=== PATIENT | female | born 1955 | race African-American/Black ===

== ENCOUNTER → 2017-07-23 06:33 | Outpatient (CLI) | payer OTHER, SELFPAY ==
--- NOTE | 2017-07-23 11:00 | ECHOD_ITS ---
Reason For Study: DYSPNEA Procedure This was a 2D Doppler, Color Flow transthoracic echocardiogram. Exam performed in department. Left Ventricle Normal LV size. Left ventricular systolic function is normal. The estimated ejection fraction is 65 %. No regional wall motion abnormalities noted. Right Ventricle Normal RV size. Normal systolic function. Atria Normal left atrium. Normal right atrium. Mitral Valve Normal mitral valve. Tricuspid Valve Normal tricuspid valve. Aortic Valve Normal aortic valve. Trisinus/trileaflet aortic valve. Pulmonic Valve Normal pulmonic valve. Great Vessels Normal aortic root. The pulmonary artery is normal size. Normal inferior vena cava. Pericardium/Pleural No pericardial effusion. MMode/2D Measurements & Calculations LVIDd: 4.4 cm IVSd: 0.78 cm LVOT diam: 1.8 cm LVIDs: 2.9 cm LVPWd: 0.86 cm LVOT area: 2.5 cm2 RVDd: 3.3 cm FS: 34.7 % Ao root diam: 2.9 cm LAV(MOD-bp): 45.3 ml LA A4 area: 17.8 cm2 LA dimension: 3.4 cm LAV(MOD-bp) Indexed: 22.7 ml/m2 LAV(MOD-sp2): 47.9 ml LAV(MOD-sp4): 42.3 ml RA A4 area: 11.7 cm2 Doppler Measurements & Calculations MV E max tiffanie: 107.6 cm/sec Ao V2 max: 198.6 cm/sec LV V1 max: 134.8 cm/sec MV A max tiffanie: 91.4 cm/sec Ao max P.8 mmHg LV V1 max P.3 mmHg MV E/A: 1.2 KIMBERLY(V,D): 1.7 cm2 PA V2 max: 108.9 cm/sec Interpretation Summary Normal LV size. Left ventricular systolic function is normal. The estimated ejection fraction is 65 %. Structurally normal valves. Ordering Physician: Constantino Hwang Referring Physician: MOER TENORIO Performed By: Meghana Marina, FLORA, RVT
--- NOTE | 2017-07-23 16:13 | STRESSREP ---
Stress Test Report Pharmacologic myocardial perfusion stress test. 61-year-old lady with a history of chest pain. Stress protocol: Resting EKG demonstrates sinus rhythm with a rate of 63 bpm normal intervals noted resting blood pressure is 122/84 mmHg. 0.4 mg of regadenoson was infused per usual protocol followed by rapid intravenous saline flush injection. Continuous EKG monitoring was performed. The maximum heart rate attained was 80 bpm which was 50% of maximum predicted heart rate the maximum workload attained was 1 metabolic equivalents. At rest were no ST or T-wave changes noted suggest abnormal flow reserve. At peak infusion no ST or T-wave changes were noted suggest abnormal flow reserve. Myocardial perfusion protocol : 10.1 mCi of technetium 99m sestamibi was injected at rest. 0.4 mg of adenosine was infused per usual protocol. At peak infusion 32.7 mCi of technetium 99m sestamibi was injected. Stress images were obtained. Stress and rest images were reconstructed and compared in the short axis vertical long and horizontal long axis. Gated images were also obtained. Perfusion SPECT analysis. Review of the stress images demonstrate normal uptake of tracer noted in all areas of the myocardium. The resting images similarly demonstrate normal uptake of tracer noted in all areas of the myocardium. No reversibility is noted suggest ischemia. No infarct is noted. Gated SPECT analysis Estimated ejection fraction is 64%. Conclusion: Normal pharmacologic myocardial perfusion stress test. Preserved ejection fraction.
== END ==
PROVIDERS: Family Provider Family Medicine; PCP Family Medicine; Visit Provider Internal Medicine Cardiovascular Disease
DX: R00.2 Palpitations (principal); R53.82 Chronic fatigue, unspecified; I10 Essential (primary) hypertension; R07.9 Chest pain, unspecified
CPT/HCPCS: 78452; 93017; 93306; A9500; A4216

== ENCOUNTER → 2017-10-10 10:57 | Outpatient (CLI) | payer OTHER, SELFPAY ==
[2017-10-10 12:34] LABS: Absolute Lymphocyte Count 1.86 X10^3/ul (0.83-4.51); Absolute Neutrophil Count 2.6 X10^3/uL (2.0-7.7); Basophil# 0.05 X10^3/uL; Basophil% 0.9 % (0-1); Eosinophil# 0.28 X10^3/uL; Eosinophils% 5.3 % (0-5); Hematocrit 37.4 % (37-47); Hemoglobin 11.8 g/dl (12.0-15.0); Lymphocyte # 1.86 X10^3/ul (4.0); Mean Corp Hgb Conc 31.6 g/gl (32-36); Mean Corpuscular Hgb 26.5 pg (27.0-32.0); Mean Corpuscular Volume 83.9 fL (81-99); Mean Platelet Vol. 11.6 fl (6.2-12.0); Monocyte# 0.52 X10^3/uL; Monocyte% 9.8 % (0-10); Neutrophil # 2.59 X10^3/uL (2.7-7.7); Neutrophil % 48.8 % (47-70); Platelet Count 277 K/mm3 (150-450); RBC Distribution Width CV 14.9 % (11.6-14.6); RBC Distribution Width SD 44.3 fl (35.1-43.9); Red Blood Count 4.46 M/mm3 (4.2-5.4); White Blood Count 5.3 K/mm3 (4.4-11.0)
[2017-10-10 12:36] LABS: POSITIVE COUNT NO; POSITIVE DIFFERENTIAL NO; POSITIVE MORPHOLOGY NO
[2017-10-10 12:45] LABS: AST(SGOT) 13 U/L (15-37); Alanine Aminotransfer ALT/SGPT 21 U/L (13-56); Albumin, Serum 3.8 g/dL (3.2-5.0); Alkaline Phosphatase 70 U/L (45-117); Anion Gap 9 (5-15); BUN 22 mg/dL (7-18); BUN/Creat Ratio 30.6 RATIO (10-20); Calcium,Total 9.2 mg/dL (8.5-10.1); Chloride 106 mmol/L (98-107); Cholesterol 195 mg/dL (200); Creatinine, Serum 0.72 mg/dL (0.55-1.02); EST Glomerular Filtration Rate 87 mL/min (>60); Est Glom Filt Rate - Afr Amer 106 mL/min (>60); Glucose 96 mg/dL (74-106); High Density Lipoprotein 81 mg/dL; Potassium 4.5 mmol/L (3.5-5.1); Protein, Total 7.8 g/dL (6.4-8.2); Sodium Level 141 mmol/L (136-145); Triglycerides 78 mg/dL; Very Low Density Lipoprotein 16 mg/dL (5-40)
[2017-10-10 12:47] LABS: Microalbumin,Random Urine 17.2 mg/L (NO RANGE EST.); Microalbumin:Creatinine Ratio 31.6 mg/g CRE (<30 mg/g CRE)
== END ==
PROVIDERS: Family Provider Family Medicine; PCP Family Medicine; Visit Provider Family Medicine
DX: E11.9 Type 2 diabetes mellitus without complications (principal); E78.5 Hyperlipidemia, unspecified; I10 Essential (primary) hypertension
CPT/HCPCS: 36415; 80053; 80061; 82043; 82570; 85025

== ENCOUNTER → 2017-11-17 15:55 | Outpatient (CLI) | payer OTHER, SELFPAY ==
--- NOTE | 2017-11-17 15:55 | DT_ITS ---
This patient was seen during an EMR downtime November 17, 2017 - November 24, 2017. This patient may have a combination of paper and electronic documentation or all paper documentation. All documentation is viewable within the e-chart portion of [facility] for each patient visit.
== END ==
PROVIDERS: Family Provider Family Medicine; PCP Family Medicine; Visit Provider Family Medicine
DX: R30.0 Dysuria (principal)
CPT/HCPCS: 87086; 87088

== ENCOUNTER 2018-02-06 05:56 | Day surgery (SDC) | payer OTHER, SELFPAY ==
[2018-02-06 06:21] VITALS: BP 132/75; PULSE 67; RESP 16; TEMP 36.3; O2SAT 96; BMI 37.8
[2018-02-06 06:30] LABS: Bedside Glucose 104 mg/dL (70-110)
[2018-02-06] MEDS: Tetracaine 0.5% Ophthalmic Bottle 1 DRP OP (07:44)
[2018-02-06] MEDS: TRYPAN BLUE 0.5 ML DISP.SYRIN (07:51)
--- NOTE | 2018-02-06 08:17 | PCM.DCCATA ---
Discharge Diet: No Restrictions Discharge Activity: - - Take it easy the rest of the day of surgery. Be careful not to trip or fall. Avoid bumping the operated eye and do not rub the eye. You may stay alone, but need to be able to call and/or come in if necessary. Try to sleep on the unoperated side or on your back tonight. Call your doctor if you observe: - - new or increased pain, a worsening of vision, or if you have any questions. Also call the office if you are experiencing a severe headache on the operative side, nausea or vomiting. Allergies/Adverse Reactions: Allergies No Known Allergies Allergy (Verified 01/30/18 10:05) Medications to take at Discharge Metformin HCl [Glucophage] 500 mg PO BIDCM 09/01/14 amlodipine 10 mg-benazepril 40 mg capsule 1 cap PO QDAY 06/03/17 pravastatin 10 mg tablet 10 mg PO QHS 06/03/17 aspirin 81 mg tablet,delayed release 81 mg PO QDAY 06/04/17 naproxen sodium 220 mg capsule 220 mg PO Q12H 06/04/17 gabapentin 300 mg capsule 300 mg PO .COMPLEX cap 09/01/17 tramadol 50 mg tablet 50 mg PO .COMPLEX 09/01/17 zolpidem 5 mg tablet 5 mg PO HS PRN 09/01/17 Doxycycline 20 mg PO DAILY 01/30/18 L.acidoph,Paracasei, B.lactis [Probiotic] 1 each PO DAILY 01/30/18 Primary Care Physician: Ezequiel Cadena DO [Primary Care Provider] - Test Results: Test results from this visit will be discussed in further detail at your follow-up appointment, if applicable. -Take a pain reliever such as Tylenol, Aspirin or Ibuprofen if needed for eye aching or pain. If this is not enough relief for you pain, call your doctor (or the doctor internal salesperson), even at night. -You are scheduled for a follow-up appointment at [facility] the day after surgery. You should have someone drive you. -Transient pain and irritation are due to the incision that was made at the time of surgery and do not indicate any trouble. Our office numbers are or toll-free . If there is no answer, or if it is after our normal business hours, call your surgeon. Our home phone numbers are: Dr. Howell Dr. Perez Dr. Kenney Dr. Hood If you are still unable to reach your doctor, call the answering service and [facility] , and the chucking and sawing machine operator can contact the on-call doctor through a long-range beeper system. INSTRUCTIONS FOLLOWING TOPICAL ANESTHETIC CATARACT SURGERY Protect operated eye with glasses or metal shield at all times. Instill one drop of Cipro (or other antibiotic drop), one drop of Prednisolone and one drop of Flurbiprofen in the operated eye four times a day (breakfast, lunch, dinner and bedtime) until the doctor tells you to quit or decrease them. Wait 3-5 minutes between each drop. Your first drop for today was given after surgery. INSTRUCTIONS FOLLOWING RETROBULBAR CATARACT SURGERY Keep the eye patch and metal shield on until you see your surgeon the day after surgery - these will be removed in the office that day. Do not drive while the patch is on your eye. You will be instructed about the use of drops for the operated eye at that visit.
[2018-02-06 08:18] VITALS: BP 132/75; BP 92/62; PULSE 62; RESP 18; TEMP 36.6; O2SAT 99
[2018-02-06 08:20] VITALS: BP 132/75; BP 92/62; PULSE 60; RESP 18; O2SAT 98
[2018-02-06 08:26] VITALS: BP 132/75; BP 99/59; PULSE 59; RESP 18; O2SAT 97
--- NOTE | 2018-02-06 08:26 | DCINST_ITS ---
Discharge Diet: No Restrictions Discharge Activity: - - Take it easy the rest of the day of surgery. Be careful not to trip or fall. Avoid bumping the operated eye and do not rub the eye. You may stay alone, but need to be able to call and/or come in if necessary. Try to sleep on the unoperated side or on your back tonight. Call your doctor if you observe: - - new or increased pain, a worsening of vision, or if you have any questions. Also call the office if you are experiencing a severe headache on the operative side, nausea or vomiting. Allergies/Adverse Reactions: Allergies No Known Allergies Allergy (Verified 01/30/18 10:05) Medications to take at Discharge Metformin HCl [Glucophage] 500 mg PO BIDCM 09/01/14 amlodipine 10 mg-benazepril 40 mg capsule 1 cap PO QDAY 06/03/17 pravastatin 10 mg tablet 10 mg PO QHS 06/03/17 aspirin 81 mg tablet,delayed release 81 mg PO QDAY 06/04/17 naproxen sodium 220 mg capsule 220 mg PO Q12H 06/04/17 gabapentin 300 mg capsule 300 mg PO .COMPLEX cap 09/01/17 tramadol 50 mg tablet 50 mg PO .COMPLEX 09/01/17 zolpidem 5 mg tablet 5 mg PO HS PRN 09/01/17 Doxycycline 20 mg PO DAILY 01/30/18 L.acidoph,Paracasei, B.lactis [Probiotic] 1 each PO DAILY 01/30/18 Primary Care Physician: Ezequiel Cadena DO [Primary Care Provider] - Test Results: Test results from this visit will be discussed in further detail at your follow- up appointment, if applicable. -Take a pain reliever such as Tylenol, Aspirin or Ibuprofen if needed for eye aching or pain. If this is not enough relief for you pain, call your doctor (or the doctor window covering sales consultant), even at night. -You are scheduled for a follow-up appointment at [facility] the day after surgery. You should have someone drive you. -Transient pain and irritation are due to the incision that was made at the time of surgery and do not indicate any trouble. Our office numbers are or toll-free . If there is no answer, or if it is after our normal business hours, call your surgeon. Our home phone numbers are: Dr. Howell Dr. Perez Dr. Kenney Dr. Hood If you are still unable to reach your doctor, call the answering service and [facility] , and the pattern perforating machine operator can contact the on-call doctor through a long-range beeper system. INSTRUCTIONS FOLLOWING TOPICAL ANESTHETIC CATARACT SURGERY Protect operated eye with glasses or metal shield at all times. Instill one drop of Cipro (or other antibiotic drop), one drop of Prednisolone and one drop of Flurbiprofen in the operated eye four times a day (breakfast, lunch, dinner and bedtime) until the doctor tells you to quit or decrease them. Wait 3-5 minutes between each drop. Your first drop for today was given after surgery. INSTRUCTIONS FOLLOWING RETROBULBAR CATARACT SURGERY Keep the eye patch and metal shield on until you see your surgeon the day after surgery - these will be removed in the office that day. Do not drive while the patch is on your eye. You will be instructed about the use of drops for the operated eye at that visit.
[2018-02-06 08:33] VITALS: BP 115/74; BP 132/75; PULSE 63; RESP 18; TEMP 36; O2SAT 99
[2018-02-06 09:10] VITALS: BP 132/75
== END 2018-02-06 09:19 | disposition home or self-care (01) ==
LOC: SDC 05:57 → AC 05:58
PROVIDERS: Family Provider Family Medicine; PCP Family Medicine; Visit Provider Ophthalmology
PROC: (CPT 66984; principal; 2018-02-06 07:20)
DX: H25.812 Combined forms of age-related cataract, left eye (principal); E11.9 Type 2 diabetes mellitus without complications; H43.813 Vitreous degeneration, bilateral; Z96.1 Presence of intraocular lens
CPT/HCPCS: 66984; 82962; J7120

== ENCOUNTER → 2018-05-15 13:02 | Outpatient (CLI) | payer OTHER, SELFPAY ==
[2018-05-15 15:01] LABS: Absolute Lymphocyte Count 1.71 X10^3/ul (0.83-4.51); Absolute Neutrophil Count 3.5 X10^3/uL (2.0-7.7); Basophil# 0.04 X10^3/uL; Basophil% 0.7 % (0-1); Eosinophil# 0.16 X10^3/uL; Eosinophils% 2.7 % (0-5); Hematocrit 35.5 % (37-47); Hemoglobin 11.2 g/dl (12.0-15.0); Lymphocyte # 1.71 X10^3/ul (4.0); Lymphocyte % 28.6 % (19-41); Mean Corp Hgb Conc 31.5 g/gl (32-36); Mean Corpuscular Hgb 26.8 pg (27.0-32.0); Mean Corpuscular Volume 84.9 fL (81-99); Mean Platelet Vol. 11.3 fl (6.2-12.0); Monocyte# 0.58 X10^3/uL; Monocyte% 9.7 % (0-10); Neutrophil # 3.47 X10^3/uL (2.7-7.7); Neutrophil % 58.1 % (47-70); POSITIVE COUNT NO; POSITIVE DIFFERENTIAL NO; POSITIVE MORPHOLOGY NO; Platelet Count 280 K/mm3 (150-450); RBC Distribution Width CV 15.1 % (11.6-14.6); RBC Distribution Width SD 45.7 fl (35.1-43.9); Red Blood Count 4.18 M/mm3 (4.2-5.4)
[2018-05-15 15:10] LABS: ALB/GLOB Ratio 0.9 RATIO (0.9-2.4); AST(SGOT) 11 U/L (15-37); Alanine Aminotransfer ALT/SGPT 19 U/L (13-56); Albumin, Serum 3.5 g/dL (3.2-5.0); Alkaline Phosphatase 70 U/L (45-117); Anion Gap 6 (5-15); BUN 24 mg/dL (7-18); BUN/Creat Ratio 33.8 RATIO (10-20); Calcium,Total 8.6 mg/dL (8.5-10.1); Chloride 108 mmol/L (98-107); Creatinine, Serum 0.71 mg/dL (0.55-1.02); EST Glomerular Filtration Rate 88 mL/min (>60); Est Glom Filt Rate - Afr Amer 107 mL/min (>60); Globulin 3.9 g/dL (2.2-4.2); Glucose 102 mg/dL (74-106); Potassium 4.4 mmol/L (3.5-5.1); Protein, Total 7.4 g/dL (6.4-8.2); Sodium Level 140 mmol/L (136-145)
[2018-05-15 15:18] LABS: Vitamin B12 1237 pg/mL (211-911)
[2018-05-18 14:43] LABS: ANTINUCLEAR ANTIBODIES DIRECT Negative (Negative)
--- OUTSIDE RECORDS SUMMARY | 2018-07-10 12:03 | XMS RPT_ITS ---
:1955 Author Organization OHIP Support Name Relationship Address Phone JULIANNA WILSON Unavailable Unavailable + [facility] Unavailable [address] + [place] [address] JULIANNA WILSON Unavailable Unavailable + [facility] Unavailable [address] + [place] [address] JULIANNA WILSON Unavailable Unavailable + [facility] Unavailable [address] + [place] [address] JULIANNA WILSON Unavailable Unavailable + [facility] Unavailable [address] + [place] [address] JULIANNA WILSON Unavailable Unavailable + [facility] Unavailable [address] + [place] [address] JULIANNA WILSON Unavailable Unavailable + [facility] Unavailable [address] + [place] [address] JULIANNA WILSON Unavailable Unavailable + [facility] Unavailable [address] + [place] [address] JULIANNA WILSON Unavailable Unavailable + [facility] Unavailable [address] + [place] [address] JULIANNA WILSON Unavailable Unavailable + [facility] Unavailable [address] + [place] [address] SHAH, CHARLES Unavailable [address] + [place] [address] SIOBHAN WILSON Unavailable [address] + [place] [address] [facility] Unavailable [address] + [place] [address] JULIANNA WILSON Un[place] + [place] [facility] Unavailable [address] + [place] [address] [facility] Unavailable [address] + [place] [address] JULIANNA WILSON Un[place] + [place] [facility] Unavailable [address] + [place] [address] Care Team Providers Name Role Phone Constantino Hwang Attending Unavailable SurinderMore penaloza Referring Unavailable Surinder, More Primary Care Unavailable Jaiden, Constantino Attending Unavailable Surinder, More Primary Care Unavailable Jaiden, Constantino Attending Unavailable Jaiden, Constantino Attending Unavailable Jaiden, Constantino Referring Unavailable Surinder, More Primary Care Unavailable Jaiden, Cleveland Attending Unavailable Jaiden, Cleveland Referring Unavailable Jaiden, Cleveland Attending Unavailable SurinderMore Attending Unavailable Surinder, More Primary Care Unavailable SurinderMore penaloza Attending Unavailable Surinder, More Referring Unavailable Surinder, More Primary Care Unavailable ASSESSMENT, HEALTH RISK Attending Unavailable ASSESSMENT, HEALTH RISK Referring Unavailable Surinder, More Primary Care Unavailable Geovanny Kenney Attending Unavailable Geovanny Kenney Referring Unavailable Surinder, More Primary Care Unavailable Surinder, More Primary Care Unavailable Referred, Self Attending Unavailable SurinderMore penaloza Attending Unavailable Surinder, More Primary Care Unavailable PROBLEMS PROBLEMS DATE TYPE CONDITION / CODE ATTENDING STATUS SOURCE Unknown R53.82 - Chronic fatigue, More Cadena Active [place] 8 unspecified / Community R53.82(ICD-10) Hospital Repository Unknown R10.9 - Unspecified SurinderMore penaloza Active [place] 8 abdominal pain / Community R10.9(ICD-10) Hospital Repository Unknown R30.0 - Dysuria / More Cadena Active [place] 8 R30.0(ICD-10) Community Hospital Repository Unknown I10 - Essential (primary) More Cadena Active [place] 8 hypertension / Community I10(ICD-10) Hospital Repository Unknown E11.9 - Type 2 diabetes More Cadena Active [place] 8 mellitus without Community complications / Hospital E11.9(ICD-10) Repository Unknown E78.5 - Hyperlipidemia, More Cadena Active [place] 8 unspecified / Community E78.5(ICD-10) Hospital Repository Unknown R00.2 - Palpitations / Jaiden, [place] Active [place] 8 R00.2(ICD-10) [facility] Repository Unknown E78.00 - Pure Jaiden, [place] Active [place] 8 hypercholesterolemia, Community unspecified / Hospital E78.00(ICD-10) Repository Unknown E78.0 - Pure Jaiden, [place] Active [place] 8 hypercholesterolemia / Community E78.0(ICD-10) Hospital Repository PROCEDURES PROCEDURES No Procedure Records FoundRESULTS RESULTS CBC W/DIFF, AUTOMATED Collected: 05/15/2018 Status: F Source: [place] 1:04 PM [facility] REPOSITORY TYPE CODE TESTS RESULT OUT OF RANGE REFERENCE UNITS LAB L100.1000 4.4-11.0 K/mm3 Normal WBC 6.0 LAB L100.1200 4.2-5.4 M/mm3 Low RBC 4.18 LAB L100.1300 12.0-15.0 g/dl Low HGB 11.2 LAB L100.1400 37-47 % Low HCT 35.5 LAB L100.1500 81-99 fL Normal MCV 84.9 LAB L100.1600 27.0-32.0 pg Low MCH 26.8 LAB L100.1700 32-36 g/gl Low MCHC 31.5 LAB L100.1810 11.6-14.6 % High RDW CV 15.1 LAB L100.1820 35.1-43.9 fl High RDW SD 45.7 LAB L100.1900 150-450 K/mm3 Normal PLT 280 LAB L100.2000 6.2-12.0 fl Normal MPV 11.3 LAB L100.2100 47-70 % Normal NEUT% 58.1 LAB L100.2200 19-41 % Normal LY% 28.6 LAB L100.2300 0-10 % Normal MONO% 9.7 LAB L100.2400 0-5 % Normal EO% 2.7 LAB L100.2500 0-1 % Normal BASO% 0.7 LAB L100.2550 0.0-0.9 % Normal IM GRAN % 0.200 Result Comment: IG% - Immature Granulocytes (promyelocytes, myelocytes and metamyelocytes) > 1% indicates that a LEFT SHIFT is Present. LAB L100.2620 2.0-7.7 X10 3/uL Normal Absolute Neut 3.5 LAB L100.2720 0.83-4.51 X10 3/ul Normal Absolute Lymph 1.71 Performed By: #### L100.0100 #### [facility] [address] [place], [address] COMPREHENSIVE METABOLIC Collected: 05/15/2018 Status: F Source: [facility] 1:04 PM [facility] REPOSITORY TYPE CODE TESTS RESULT OUT OF RANGE REFERENCE UNITS LAB L501.0100 74-106 mg/dL Normal GLU 102 Result Comment: Fasting Glucose result from 100 to 125 mg/dL suggests IMPAIRED HOMEOSTASIS per A.D.A. criteria. Please note revised GLUCOSE reference range effective 2017. LAB L501.1000 7-18 mg/dL High BUN 24 LAB L501.1100 0.55-1.02 mg/dL Normal CREAT,SERUM 0.71 Result Comment: The validity of the calculated GFR AND GFRAA in patients over 70 years has not been determined. Clinical correlation is essential. LAB L501.1110 >60 mL/min Normal EST GFR 88 Result Comment: Non- GFR Calc LAB L501.1115 >60 mL/min Normal EST GFR - AA 107 Result Comment: GFR Calc LAB L501.1300 10-20 RATIO High BUN/CRE 33.8 LAB L501.1500 6.4-8.2 g/dL T Normal PROT 7.4 LAB L501.1800 3.2-5.0 g/dL Normal ALB 3.5 LAB L501.1950 2.2-4.2 g/dL Normal GLOB 3.9 LAB L501.2000 0.9-2.4 RATIO Normal A/G 0.9 LAB L501.2200 8.5-10.1 mg/dL CA Normal 8.6 LAB L501.4100 15-37 U/L Low AST 11 LAB L501.4305 45-117 U/L Normal ALK P 70 LAB L501.4405 13-56 U/L Normal ALT 19 LAB L501.4600 0.20-1.00 mg/dL T Normal BILI 0.40 LAB L501.5300 136-145 mmol/L NA Normal 140 LAB L501.5600 3.5-5.1 mmol/L K Normal 4.4 LAB L501.5900 98-107 mmol/L High CL 108 LAB L501.6100 21.0-32.0 mmol/L Normal CO2 26.0 LAB L501.6200 5-15 Normal GAP 6 Performed By: #### L500.4050 #### [facility] [address] [place], [address] VITAMIN B12 Collected: 05/15/2018 Status: F Source: [place] 1:04 PM [facility] REPOSITORY TYPE CODE TESTS RESULT OUT OF REFERENCE UNITS RANGE LAB L503.0105 211-911 pg/mL High Vitamin B12 1237 Performed By: #### L503.0105 #### [facility] [place], [address] JANES W/ REFLEX MULT Collected: 05/15/2018 Status: F Source: [place] [facility] 1:04 PM [facility] REPOSITORY TYPE CODE TESTS RESULT OUT OF RANGE REFERENCE UNITS LAB L3100.5475 Negative Normal Negative JANES-DIRECT Result Comment: Performed at: - [facility] [address] [id number] Web Worker: Chang Garcia PhD, Phone: [phone] Performed By: #### L3100.5450 #### [facility] (refer to report for specific site) refer to report for address and phone number DISCHARGE INSTRUCTION Observed: 03/10/2018 Status: F Source: [place] 10:54 AM [facility] REPOSITORY [facility] Medical Records Department [address] [place] [address] Instructions for Home/Discharge Instructions 02/06/18 0817 MR#: [id number] Acct: [id number] Name: TUNG WILSON Rep #: [id number] : 1955 62 From: Geovanny Kenney MD PCP: More Cadena DO Status: DEP [facility] [place] Dis[place] Diet: No Restrictions Discharge Activity: - - Take it easy the rest of the day of surgery. Be careful not to trip or fall. Avoid bumping the operated eye and do not rub the eye. You may stay alone, but need to be able to call and/or come in if necessary. Try to sleep on the unoperated side or on your back tonight. Call your doctor if you observe: - - new or increased pain, a worsening of vision, or if you have any questions. Also call the office if you are experiencing a severe headache on the operative side, nausea or vomiting. Allergies/Adverse Reactions: Allergies No Known Allergies Allergy (Verified 01/30/18 10:05) Medications to take at Discharge Metformin HCl [Glucophage] 500 mg PO BIDCM 09/01/14 amlodipine 10 mg-benazepril 40 mg capsule 1 cap PO QDAY 06/03/17 pravastatin 10 mg tablet 10 mg PO QHS 06/03/17 aspirin 81 mg tablet,delayed release 81 mg PO QDAY 06/04/17 naproxen sodium 220 mg capsule 220 mg PO Q12H 06/04/17 gabapentin 300 mg capsule 300 mg PO .COMPLEX cap 09/01/17 tramadol 50 mg tablet 50 mg PO .COMPLEX 09/01/17 zolpidem 5 mg tablet 5 mg PO HS PRN 09/01/17 Doxycycline 20 mg PO DAILY 01/30/18 L.acidoph,Paracasei, B.lactis [Probiotic] 1 each PO DAILY 01/30/18 Primary Care Physician: More Cadena DO [Primary Care Provider] - Test Results: Test results from this visit will be discussed in further detail at your follow-up appointment, if applicable. -Take a pain reliever such as Tylenol, Aspirin or Ibuprofen if needed for eye aching or pain. If this is not enough relief for you pain, call your doctor (or the doctor medical education specialist), even at night. -You are scheduled for a follow-up appointment at [facility] the day after surgery. You should have someone drive you. -Transient pain and irritation are due to the incision that was made at the time of surgery and do not indicate any trouble. Our office numbers are or toll-free [phone]. If there is no answer, or if it is after our normal business hours, call your surgeon. Our home phone numbers are: Dr. Howell Dr. Perez Dr. Kenney Dr. Hood If you are still unable to reach your doctor, call the answering service and [facility] , and the sonoscope operator can contact the on-call doctor through a long-range beeper system. INSTRUCTIONS FOLLOWING TOPICAL ANESTHETIC CATARACT SURGERY Protect operated eye with glasses or metal shield at all times. Instill one drop of Cipro (or other antibiotic drop), one drop of Prednisolone and one drop of Flurbiprofen in the operated eye four times a day (breakfast, lunch, dinner and bedtime) until the doctor tells you to quit or decrease them. Wait 3-5 minutes between each drop. Your first drop for today was given after surgery. INSTRUCTIONS FOLLOWING RETROBULBAR CATARACT SURGERY Keep the eye patch and metal shield on until you see your surgeon the day after surgery - these will be removed in the office that day. Do not drive while the patch is on your eye. You will be instructed about the use of drops for the operated eye at that visit. 03/10/18 1054 <Electronically signed by Geovanny Kenney MD> Date Geovanny Kenney MD CC: More Cadena DO BEDSIDE GLUCOSE Collected: 02/06/2018 Status: F Source: [place] 6:15 AM [facility] REPOSITORY TYPE CODE TESTS RESULT OUT OF RANGE REFERENCE UNITS LAB L501.080 70-110 mg/dL Normal BEDSIDE GLU 104 Result Comment: MANAGEMENT OF PATIENT CARE PER NURSING PROTOCOL Performed By: #### L501.080 #### [facility] Point of Care [address] [place] [address] URINALYSIS, EMPLOYEE Collected: 12/16/2017 Status: F Source: [place] 11:50 AM [facility] REPOSITORY TYPE CODE TESTS RESULT OUT OF RANGE REFERENCE UNITS LAB L400.3000 Yellow COLOR Normal Yellow LAB L400.3050 Clear Normal CLARITY Clear LAB L400.3200 Normal mg/dl Normal GLUCOSE, UR Normal LAB L400.3300 Negative mg/dL Normal BILIRUBIN URINE Negative LAB L400.3400 Negative mg/dl Normal KETONE UR Negative LAB L400.3465 1.002-1.030 Normal SP.GR. DIPSTX 1.020 LAB L400.3550 5.0 - 8.0 pH UR Normal 5.0 LAB L400.3600 Negative mg/dl High PROT 15 DIPSTX LAB L400.3700 Normal mg/dl Normal UROBILI Normal LAB L400.3750 Negative Normal NITRITE UR Negative LAB L400.3780 Negative /ul High 10 OCCULT BLOOD-UR LAB L400.3800 Negative /ul High LEUK 25 ESTERASE Performed By: #### L400.0100 #### [facility] [address] [place], [place], [address] NICOTINE URINE DRUG Collected: 12/16/2017 Status: F Source: [place] SCREEN 11:50 AM [facility] REPOSITORY TYPE CODE TESTS RESULT OUT OF RANGE REFERENCE UNITS LAB L505.6250 TO BE Normal CONFIRMED Result Comment: CONFIRMATORY TESTING FOR ALL POSITIVE URINE DRUG SCREEN RESULTS WILL ONLY BE SENT OUT UPON PHYSICIAN ORDER. The results of Urine Drug Screen methods provide only preliminary analytical test results. A more specific alternate chemical method must be used in order to obtain a confirmed analytical result. Gas chromatography/mass spectrometery (GC/MS) is the preferred confirmatory method. Clinical consideration and professional judgement should be applied to any drug of abuse test result, particularly when preliminary positive results are used. LAB L505.6270 <200 ng/mL Normal COT DRG Negative SCREEN Result Comment: Cotinine is the first-stage metabolite of Nicotine. Performed By: #### L505.6240 #### [facility] [address] [place], [address] CBC, EMPLOYEE Collected: 12/16/2017 Status: F Source: [place] 11:50 AM [facility] REPOSITORY TYPE CODE TESTS RESULT OUT OF RANGE REFERENCE UNITS LAB L100.1000 4.4-11.0 K/mm3 Normal WBC 5.8 LAB L100.1200 4.2-5.4 M/mm3 Normal RBC 4.44 LAB L100.1300 12.0-15.0 g/dl Low HGB 11.5 LAB L100.1400 37-47 % Normal HCT 37.3 LAB L100.1500 81-99 fL Normal MCV 84.0 LAB L100.1600 27.0-32.0 pg Low MCH 25.9 LAB L100.1700 32-36 g/gl Low MCHC 30.8 LAB L100.1810 11.6-14.6 % Normal RDW CV 14.2 LAB L100.1820 35.1-43.9 fl High RDW SD 44.3 LAB L100.1900 150-450 K/mm3 Normal PLT 298 LAB L100.2000 6.2-12.0 fl Normal MPV 10.6 LAB L100.2110 47-70 % Normal NEUT% 59.0 LAB L100.2210 19-41 % Normal LY% 28.0 LAB L100.2310 0-10 % Normal MONO% 9.6 LAB L100.2410 0-5 % Normal EO% 2.9 LAB L100.2510 0-1 % Normal BASO% 0.5 LAB L100.2620 2.0-7.7 X10 3/uL Normal Absolute Neut 3.4 LAB L100.2720 0.83-4.51 X10 3/ul Normal Absolute Lymph 1.63 Performed By: #### L100.0200 #### [facility]. [place], [place], [address] EMPLOYEE PROFILE Collected: 12/16/2017 Status: F Source: [place] 11:50 AM [facility] REPOSITORY TYPE CODE TESTS RESULT OUT OF RANGE REFERENCE UNITS LAB L501.0100 74-106 mg/dL Normal GLU 103 Result Comment: Fasting Glucose result from 100 to 125 mg/dL suggests IMPAIRED HOMEOSTASIS per A.D.A. criteria. Please note revised GLUCOSE reference range effective 2017. LAB L501.1000 7-18 mg/dL Normal BUN 17 LAB L501.1100 0.55-1.02 mg/dL Normal CREAT,SERUM 0.73 Result Comment: The validity of the calculated GFR AND GFRAA in patients over 70 years has not been determined. Clinical correlation is essential. LAB L501.1110 >60 mL/min Normal EST GFR 86 Result Comment: Non- GFR Calc LAB L501.1115 >60 mL/min Normal EST GFR - AA 104 Result Comment: GFR Calc LAB L501.1300 10-20 RATIO High BUN/CRE 23.4 LAB L501.1400 2.6-6.0 mg/dL Normal URIC 5.1 Result Comment: The drugs N-Acetylcysteine and Metamizole may falsely depress this assay. LAB L501.1500 6.4-8.2 g/dL Normal T PROT 7.8 LAB L501.1800 3.2-5.0 g/dL Normal ALB 3.7 LAB L501.1950 2.2-4.2 g/dL Normal GLOB 4.1 LAB L501.2000 0.9-2.4 RATIO Normal A/G 0.9 LAB L501.2200 8.5-10.1 mg/dL Normal CA 9.0 LAB L501.2300 2.5-4.9 mg/dL Normal PHOS 4.0 LAB L501.4100 15-37 U/L Low AST 14 LAB L501.4305 45-117 U/L Normal ALK P 73 LAB L501.4405 13-56 U/L Normal ALT 19 LAB L501.4600 0.20-1.00 mg/dL Normal T BILI 0.70 LAB L501.4700 0.00-0.30 mg/dL Normal D BILI 0.12 LAB L501.4900 200 mg/dL Normal CHOL 191 Result Comment: <200 mg/dL Desirable 200-240 mg/dL Borderline >240 mg/dL High Risk LAB L501.5000 mg/dL Normal TRIG 98 Result Comment: The drugs N-Acetylcysteine and Metamizole may falsely depress this assay. Serum Triglycerides Reference Interval Normal <150 mg/dL Borderline high 150 - 199 mg/dL High 200 - 499 mg/dL Very High > or = 500 mg/dL LAB L501.5300 136-145 mmol/L Normal NA 140 LAB L501.5600 3.5-5.1 mmol/L Normal K 4.5 LAB L501.5900 98-107 mmol/L Normal CL 102 LAB L501.6100 21.0-32.0 mmol/L Normal CO2 28.0 LAB L501.6200 5-15 Normal GAP 10 LAB L501.6400 mg/dL Normal HDL 73 Result Comment: The drugs N-Acetylcysteine and Metamizole may falsely depress this assay. Reference Range HDL <40 mg/dL Low HDL Cholesterol HDL >or= 60 mg/dL High HDL Cholesterol LAB L501.6475 Normal CHOL:HDL 2.60 LAB L501.6500 0-130 mg/dL Normal LDL 98 LAB L501.6600 5-40 mg/dL Normal VLDL 20 LAB L504.2610 84-246 U/L Normal LDH 210 Performed By: #### L500.2900 #### [facility] [address] [place], [address] DOWNTIME REPORT Observed: 12/04/2017 Status: F Source: [place] 1:25 PM [facility] REPOSITORY [facility] Medical Records Department [address] [address] Downtime Report MR#: [id number] Acct: [id number] Name: TUNG WILSON Rep #: [id number] : 1955 62 From: Madhu Reyna PCP: More Cadena DO Status: REG CLI This patient was seen during an EMR downtime November 17, 2017 - November 24, 2017. This patient may have a combination of paper and electronic documentation or all paper documentation. All documentation is viewable within the e-chart portion of [employer] for each patient visit. Observed: 11/17/2017 Status: F Source: [place] CULTURE, URINE 3:55 PM [facility] REPOSITORY RESULT(S) PREVIOUSLY REPORTED ON MANUAL REQUISITION DURING DOWNTIME. Urine Culture Below infection level. ORGANISM 1: Mixed Gram Positive Organisms [place] Count <1000 Performed By: #### M100.0650 #### [facility] [address] [facility] [place], [address] CBC W/DIFF, AUTOMATED Collected: 10/10/2017 Status: F Source: [place] 10:58 AM [facility] REPOSITORY TYPE CODE TESTS RESULT OUT OF RANGE REFERENCE UNITS LAB L100.1000 4.4-11.0 K/mm3 Normal WBC 5.3 LAB L100.1200 4.2-5.4 M/mm3 Normal RBC 4.46 LAB L100.1300 12.0-15.0 g/dl Low HGB 11.8 LAB L100.1400 37-47 % Normal HCT 37.4 LAB L100.1500 81-99 fL Normal MCV 83.9 LAB L100.1600 27.0-32.0 pg Low MCH 26.5 LAB L100.1700 32-36 g/gl Low MCHC 31.6 LAB L100.1810 11.6-14.6 % High RDW CV 14.9 LAB L100.1820 35.1-43.9 fl High RDW SD 44.3 LAB L100.1900 150-450 K/mm3 Normal PLT 277 LAB L100.2000 6.2-12.0 fl Normal MPV 11.6 LAB L100.2100 47-70 % Normal NEUT% 48.8 LAB L100.2200 19-41 % Normal LY% 35.0 LAB L100.2300 0-10 % Normal MONO% 9.8 LAB L100.2400 0-5 % High EO% 5.3 LAB L100.2500 0-1 % Normal BASO% 0.9 LAB L100.2550 0.0-0.9 % Normal IM GRAN % 0.200 Result Comment: IG% - Immature Granulocytes (promyelocytes, myelocytes and metamyelocytes) > 1% indicates that a LEFT SHIFT is Present. LAB L100.2620 2.0-7.7 X10 3/uL Normal Absolute Neut 2.6 LAB L100.2720 0.83-4.51 X10 3/ul Normal Absolute Lymph 1.86 Performed By: #### L100.0100 #### [facility] [address] [place], [address] COMPREHENSIVE METABOLIC Collected: 10/10/2017 Status: F Source: [facility] 10:58 AM [facility] REPOSITORY TYPE CODE TESTS RESULT OUT OF RANGE REFERENCE UNITS LAB L501.0100 74-106 mg/dL Normal GLU 96 Result Comment: Please note revised GLUCOSE reference range effective 2017. LAB L501.1000 7-18 mg/dL High BUN 22 LAB L501.1100 0.55-1.02 mg/dL Normal CREAT,SERUM 0.72 Result Comment: The validity of the calculated GFR AND GFRAA in patients over 70 years has not been determined. Clinical correlation is essential. LAB L501.1110 >60 mL/min Normal EST GFR 87 Result Comment: Non- GFR Calc LAB L501.1115 >60 mL/min Normal EST GFR - AA 106 Result Comment: GFR Calc LAB L501.1300 10-20 RATIO High BUN/CRE 30.6 LAB L501.1500 6.4-8.2 g/dL T Normal PROT 7.8 LAB L501.1800 3.2-5.0 g/dL Normal ALB 3.8 LAB L501.1950 2.2-4.2 g/dL Normal GLOB 4.0 LAB L501.2000 0.9-2.4 RATIO Normal A/G 1.0 LAB L501.2200 8.5-10.1 mg/dL CA Normal 9.2 LAB L501.4100 15-37 U/L Low AST 13 LAB L501.4305 45-117 U/L Normal ALK P 70 LAB L501.4405 13-56 U/L Normal ALT 21 LAB L501.4600 0.20-1.00 mg/dL T Normal BILI 0.40 LAB L501.5300 136-145 mmol/L NA Normal 141 LAB L501.5600 3.5-5.1 mmol/L K Normal 4.5 LAB L501.5900 98-107 mmol/L CL Normal 106 LAB L501.6100 21.0-32.0 mmol/L Normal CO2 26.0 LAB L501.6200 5-15 Normal GAP 9 Performed By: #### L500.4050, L500.4100 #### [facility] [address] [place], [place], [address] LIPID PROFILE Collected: 10/10/2017 Status: F Source: [place] 10:58 AM [facility] REPOSITORY TYPE CODE TESTS RESULT OUT OF RANGE REFERENCE UNITS LAB L501.4900 200 mg/dL Normal CHOL 195 Result Comment: <200 mg/dL Desirable 200-240 mg/dL Borderline >240 mg/dL High Risk LAB L501.5000 mg/dL Normal TRIG 78 Result Comment: The drugs N-Acetylcysteine and Metamizole may falsely depress this assay. Serum Triglycerides Reference Interval Normal <150 mg/dL Borderline high 150 - 199 mg/dL High 200 - 499 mg/dL Very High > or = 500 mg/dL LAB L501.6400 mg/dL Normal HDL 81 Result Comment: The drugs N-Acetylcysteine and Metamizole may falsely depress this assay. Reference Range HDL <40 mg/dL Low HDL Cholesterol HDL >or= 60 mg/dL High HDL Cholesterol LAB L501.6500 0-130 mg/dL Normal LDL 98 LAB L501.6600 5-40 mg/dL Normal VLDL 16 Performed By: #### L500.4050, L500.4100 #### [facility] [address] [facility] [place], [address] MICROALB:CREAT Collected: 10/10/2017 Status: F Source: [place] RATIO,RANDOM UR 10:58 AM [facility] REPOSITORY TYPE CODE TESTS RESULT OUT OF RANGE REFERENCE UNITS LAB L501.1200 NO RANGE EST. mg/dL Normal UR CREAT 54.50 LAB L502.0500 NO RANGE EST. mg/L Normal 17.2 MICROALBUMIN ,UR LAB L502.0600 <30 mg/g CRE mg/g CRE High 31.6 MALB:CREAT Performed By: #### L502.0250 #### [facility] [address] [place], [address] STRESS REPORT Observed: 07/23/2017 Status: F Source: [place] 4:22 PM [facility] REPOSITORY [facility] Cardiovascular Services [address] [place] [id number] MR#: [id number] Acct: [id number] Name: TUNG WILSON Rep #: [id number] : 1955 61 From: Constantino Hwang MD Primary Care: More Cadena DO Status: REG CLI Ordering Dr: Sex: F AA Stress Test Report Pharmacologic myocardial perfusion stress test. 61-year-old lady with a history of chest pain. Stress protocol: Resting EKG demonstrates sinus rhythm with a rate of 63 bpm normal intervals noted resting blood pressure is 122/84 mmHg. 0.4 mg of regadenoson was infused per usual protocol followed by rapid intravenous saline flush injection. Continuous EKG monitoring was performed. The maximum heart rate attained was 80 bpm which was 50% of maximum predicted heart rate the maximum workload attained was 1 metabolic equivalents. At rest were no ST or T-wave changes noted suggest abnormal flow reserve. At peak infusion no ST or T-wave changes were noted suggest abnormal flow reserve. Myocardial perfusion protocol : 10.1 mCi of technetium 99m sestamibi was injected at rest. 0.4 mg of adenosine was infused per usual protocol. At peak infusion 32.7 mCi of technetium 99m sestamibi was injected. Stress images were obtained. Stress and rest images were reconstructed and compared in the short axis vertical long and horizontal long axis. Gated images were also obtained. Perfusion SPECT analysis. Review of the stress images demonstrate normal uptake of tracer noted in all areas of the myocardium. The resting images similarly demonstrate normal uptake of tracer noted in all areas of the myocardium. No reversibility is noted suggest ischemia. No infarct is noted. Gated SPECT analysis Estimated ejection fraction is 64%. Conclusion: Normal pharmacologic myocardial perfusion stress test. Preserved ejection fraction. 07/23/17 1622 <Electronically signed by Constantino Hwang MD> Date Constantino Hwang MD CC: Constantino Hwang MD; More Cadena DO Date Dictated: 07/23/17 1613 Date Transcribed: 07/23/17 161 Conference Interpreter: CO Signed ECHOCARDIOGRAM COMPLETE Observed: 07/23/2017 Status: F Source: [place] 3:15 PM [facility] REPOSITORY [facility] Cardiovascular Services [address] [place] [address] Echo Complete 07/23/17 0835 MR#: [id number] Acct: [id number] Name: TUNG WILSON Rep #: [id number] : 1955 61 From: Constantino Hwang MD Attending Dr: Constantino Hwang MD Status: REG CLI Ordering Dr: Constantino Hwang MD Date: 07/23/17 Location: [facility] Sex: F AA Admitted: Reason For Study: DYSPNEA Procedure This was a 2D Doppler, Color Flow transthoracic echocardiogram. Exam performed in department. Left Ventricle Normal LV size. Left ventricular systolic function is normal. The estimated ejection fraction is 65 %. No regional wall motion abnormalities noted. Right Ventricle Normal RV size. Normal systolic function. Atria Normal left atrium. Normal right atrium. Mitral Valve Normal mitral valve. Tricuspid Valve Normal tricuspid valve. Aortic Valve Normal aortic valve. Trisinus/trileaflet aortic valve. Pulmonic Valve Normal pulmonic valve. Great Vessels Normal aortic root. The pulmonary artery is normal size. Normal inferior vena cava. Pericardium/Pleural No pericardial effusion. MMode/2D Measurements AND Calculations LVIDd: 4.4 cm IVSd: 0.78 cm LVOT diam: 1.8 cm LVIDs: 2.9 cm LVPWd: 0.86 cm LVOT area: 2.5 cm2 RVDd: 3.3 cm FS: 34.7 % Ao root diam: 2.9 cm LAV(MOD-bp): 45.3 ml LA A4 area: 17.8 cm2 LA dimension: 3.4 cm LAV(MOD-bp) Indexed: 22.7 ml/m2 LAV(MOD-sp2): 47.9 ml LAV(MOD-sp4): 42.3 ml RA A4 area: 11.7 cm2 Doppler Measurements AND Calculations MV E max tiffanie: 107.6 cm/sec Ao V2 max: 198.6 cm/sec LV V1 max: 134.8 cm/sec MV A max tiffanie: 91.4 cm/sec Ao max P.8 mmHg LV V1 max P.3 mmHg MV E/A: 1.2 KIMBERLY(V,D): 1.7 cm2 PA V2 max: 108.9 cm/sec Interpretation Summary Normal LV size. Left ventricular systolic function is normal. The estimated ejection fraction is 65 %. Structurally normal valves. Ordering Physician: Constantino Hwang Referring Physician: MORE CADENA Performed By: Meghana Marina, FLORA, RVT 07/23/17 1515 Date Constantino Hwang MD CC: Constantino Hwang MD; More Cadena DO Date Dictated: 07/23/17 0835 Date Transcribed: 07/23/17 1515 Conference Interpreter: Signed CARDIOLOGY VISIT Observed: 06/04/2017 Status: F Source: ORIN REPORT 1:59 PM [facility] REPOSITORY [facility] [address] [place] [address] OFFICE VISIT Date of Service: 06/04/17 MR#: [id number] Acct: [id number] Name: TUNG WILSON Rep #: [id number] : 1955 Provider: Constantino Hwang MD Age/Sex: 61/F [place] [facility] [place]: Signed HPI Palpitations, ref'd by PCP: Chief Complaint: Palpitations Details: TUNG WILSON, is a 61 F who presents to the office today for an initial visit. She is a pleasant lady with no previous cardiac history other than hypertension who says that she has been having some palpitations. She says that she has these quite frequently and she is also been fatigued. It has been associated with some dyspnea with little activity. She has had some chest heaviness but no angina per se. This apparently has been going on for a while. She has had significant stresses in her family including her daughter and . She initially felt that this was related to anxiety but it has not improved blood work as well as chest x-rays were done which were noted to be normal. I also did review her blood work from the summer of this year and earlier this year all of which were normal. Her blood pressure is under excellent control with physical exam today demonstrates clear lung johnson regular rate and rhythm and no pedal edema. Intake Vital Signs06/04/17 Height 5 ft 4 in Intake Visit Reasons: Palpitations, ref'd by PCP Allergies No Known Allergies Allergy (Verified 06/04/17 12:51) Medications Metformin HCl [Glucophage] 500 mg PO BIDCM 09/01/14 [History Confirmed 06/04/17] amlodipine 10 mg-benazepril 40 mg capsule 1 cap PO QDAY 06/03/17 [History Confirmed 06/04/17] gabapentin 300 mg capsule 300 mg PO QDAY cap 06/03/17 [History Confirmed 06/04/17] pravastatin 10 mg tablet 10 mg PO QHS 06/03/17 [History Confirmed 06/04/17] aspirin 81 mg tablet,delayed release 81 mg PO QDAY 06/04/17 [History Confirmed 06/04/17] doxycycline hyclate 20 mg tablet 20 mg PO BID tab 06/04/17 [History Confirmed 06/04/17] naproxen sodium 220 mg capsule 220 mg PO Q12H 06/04/17 [History Confirmed 06/04/17] [facility] Medical History Chest pain (Acute) Fatigue (Acute) Dyspnea (Acute) Obesity (BMI 35.0-39.9 without comorbidity) (Chronic) Palpitations (Acute) Hyperlipidemia (Chronic) Hypertension (Chronic) Type 2 diabetes mellitus without complications (Chronic) Arthritis (Chronic) Surgical History H/O total knee replacement (Chronic) History of section, classical (Chronic) History of total hysterectomy (Chronic) Family History Mother Diabetes Social History Smoking Status: Never smoker ROS Const Const: Positive for fatigue (New onset of fatigue over the past 2 months) and weakness; negative for difficulty sleeping, frequent falls, headache(s) or excessive sweating Eyes Eyes: Negative for loss of peripheral vision, transient loss of vision, blurry vision or double vision ENT ENT: Negative for headache(s), Negative for dizziness, Negative for Nosebleed/epistaxis, Negative for balance problems Cardio Chest Pain: Yes (Has palpitations with heaviness) Frequency: weekly Character: other (heaviness ) Onset: at rest Location: mid sternal Duration: minutes Palpitations: Positive for Yes (last a few seconds and cause her to feel lightheaded) Edema: None Muscle aches with walking: None Resp Respiratory: Positive for SOB with activity (Dyspnea with little exertion for the past 2 months); negative for SOB at rest, SOB orthopnea\SOB lying down or paroxysmal nocturnal dyspnea GI GI: Negative nausea or heartburn : Negative for hematuria Musc Musc: Positive for joint pain (bilateral knee pain); negative for muscle aches/ myalgia, muscle weakness or balance problems Skin Skin: Negative non-healing lesions, unusual bruising or rash Neuro Neuro: Positive for weakness, Negative for frequent falls, Negative for blurry vision, Negative for headache(s), Negative for dizziness, Positive for lightheadedness (dizziness after bending over ), Negative for double vision, Negative for orthostatic symptoms Edwin Hematologic/Lymphatic: Negative for easy bruising Endo Endo: Positive for fatigue (New onset of fatigue over the past 2 months); negative for excessive sweating or increased thirst/drinking Psych Psych: Negative for anxiety or depression Allergy Allergy/Immunology: Negative for hives, Negative for rash Cardiology Exam Const Appearance: cooperative, healthy appearing, well developed, well groomed and no acute distress Nutritional Appearance: well nourished and average body habitus Orientation: alert, awake and oriented x3 Head Head: normal to inspection, normocephalic and atraumatic Ears: hearing grossly normal bilaterally and external ears normal Nose: external nose normal, nasal mucous membranes and turbinates normal, nares normal, septum normal, no nasal discharge Face and Sinus: face symmetric Mouth: oral mucosae normal, tongue normal, oropharynx normal and moist mucous membranes Teeth and gingiva: dentition normal Throat: posterior oropharynx normal, tonsils normal and uvula midline Eyes General: appearance normal, both eyes and all related structures Eyelids: eyelids normal Conjunctivae: conjunctivae normal Pupils: PERRL, normal by confrontation and accommodation normal EOM: EOM intact bilaterally Neck Neck: normal visual inspection, trachea midline and no JVD JVD: +5 Carotids: normal carotid upstroke and bounding pulses Chest Chest inspection: normal inspection of the chest, symmetric chest movement and normal respiratory effort Auscultation: Bilateral: Clear to Auscultation Cardio Palpation: normal PMI Rate: regular rate Rhythm: regular rhythm Heart sounds: S1 normal, S2 normal and normal, physiologic split S2; negative rub, gallop or murmur GI GI: normal to inspection, soft, no hepatosplenomegaly and bowel sounds present Neuro General: alert, awake, oriented x3, no focal sensory deficit, gait normal and moves all extremities Skin Skin: no rashes or lesions noted Extremities Pulses: Normal: Right Femoral Pulse, Left Femoral Pulse, Right Dorsalis Pedis Pulse, Left Dorsalis Pedis Pulse, Right Posterior Tibial Pulse, Left Posterior Tibial Pulse, Right Radial Pulse, Left Radial Pulse Lower Extremity Edema: None: Bilateral Musculoskel Musculoskeletal: No joint tenderness Psych Psychological: normal affect Assessment AND Plan 1. Palpitations R00.2 Plan The etiology and characterization of the above are not clear to me at this time I recommend that we place a 24-hour Holter monitor as well as an echocardiogram to assess left ventricular function and depending on the findings further recommendations will then be made. Orders Orders: 2. Chronic fatigue R53.82; R53.82 Plan My recommendation at this time will be to obtain a stress test to see whether we can compare with other 61-year-old's to see how she is doing. I do not think that repeat blood testing is warranted here it looks like you have performed most of the usual blood tests. She does have a family history of lupus but says that she had this checked a few years ago. If we do not find anything in testing it may not be a bad idea to retest her for a connective tissue disorder. Orders Orders: 3. Essential hypertension I10; I10; I10 Plan Her blood pressure appears to be under good control on the amlodipine benazepril combination and we will continue with the routine checks of her chemistry profile. Orders Orders: 4. Pure hypercholesterolemia E78.00; E78.00; E78.00; E78.0 Plan She is on a low intensity statin and her most recent lipid profile demonstrated total cholesterol 186 and LDL of 95 and an HDL of 75. These numbers are excellent and I would not suggest we make any changes. 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) 06/04/17 6059 <Electronically signed by Constantino Hwang MD> Date Constantino Hwang MD Cosigner Signature: Date (if applicable) CC: More Cadena DO ALLERGIES ALLERGIES DATE TYPE / CODE NAME / CODE REACTION SEVERITY SOURCE 01/30/2018 Drug No Known Unknown [facility] Allergy/4160 Allergies/F00 [place] 2899102(SNOMED 0396729(RXNOR Repository CT) M) 09/01/2017 Drug simvastatin/F MYALGIAS MO [facility] Allergy/4160 [id number](RXN [facility] 57741(SNOMED ORM) Repository CT) ENCOUNTERS ENCOUNTERS ADMIT/DISCHARGE ACCOUNT ADMITTING ENCOUNTER LOCATION SOURCE NUMBER CLASS 05/15/2018 [id number] Ambulatory [facility] 7 [facility] ing:BFHLAB Repository 03/02/2018 [id number] Ambulatory [facility] [place] 6 [facility] ing:MASS Repository 02/06/2018/ [id number] Ambulatory [place] [facility] 8 3 [facility] ing:SDC Repository 12/16/2017 [id number] Ambulatory [place] 0 [facility] ing:EMPH Repository 11/17/2017 [id number] Ambulatory [facility] 6 [facility] ing:BFHLAB Repository 10/10/2017 [id number] Ambulatory [place] 3 [facility] ing:BFHLAB Repository 09/02/2017 [id number] Ambulatory BMSBuilding:B [facility] 5 [facility] Repository 07/23/2017 [id number] Ambulatory [facility] 4 [facility] ing:CVS Repository 07/23/2017 [id number] Ambulatory BMSBuilding:W [place] 4 [facility] Repository 06/04/2017 [id number] Ambulatory [place] 0 [facility] ing:PSN Repository 06/04/2017/ [id number] Ambulatory BMSBuilding:B [place] 7 7 [facility] Repository 06/04/2017 [id number] Ambulatory BMSBuilding:W [facility] Repository PAYERS PAYERS ENCOUNTER GUARANTOR PAYER SUBSCRIBER SOURCE 05/15/2018 [place] Primary Insurance:[facility] TUNG [place] [id number] [facility]CRO[facility]: [facility] 6838[place]96[place] Number: Repository [address]Lgi: 330 [id number] [phone] () Date:6426-23-38HR [address] [place] [address]ZZ: CHECK WEBSITE 05/15/2018 Secondary NOT GIVENUNK [place] Insurance:SELF PAY [facility] Number: Effective Repository Date:2018-05-15 03/02/2018 [place] Primary NOT GIVENUNK [place] [id number] Insurance:SELF PAY [place], [place] Number: Effective Repository [id number]: 330) Date:2018-01-16 [phone] () 02/06/2018 [place] Primary Insurance:[facility] TUNG Sr [id number] [facility] BANCROFTDOB: [facility] 7977[place]40-08[place], [place] Number: Repository [address]Rbv: 330 [id number] [phone] (HP) Date:4827-34-93KD [address] [address]VOI, [place] [address]OV: CHECK WEBSITE 02/06/2018 Secondary NOT GIVENUNK [place] Insurance:SELF PAY [facility] Number: Effective Repository Date:2017-12-23 12/16/2017 [place] Primary NOT GIVENUNK [place] [id number] Insurance:SELF PAY [place] Number: Effective Repository [address]Kyt: (330) Date:2017-12-16 [phone] (HP) 11/17/2017 [place] Primary Insurance:[facility] TUNG [place] [id number] [facility] BANCROFTDOB: [facility] 4317-04-05ON[place] Number: Repository [address]Tlc: 330 [id number] [phone] () Date:8155-40-02QT [address] [address]JNA[place], [place] [address]UO: CHECK WEBSITE 11/17/2017 Secondary NOT GIVENUNK [place] Insurance:SELF PAY [facility] Number: Effective Repository Date:2017-11-17 10/10/2017 [place] Primary Insurance:[facility] TUNG [place] [id number] [facility] BANCROFTDOB: [facility] 6188-53-94HGORenties[place], [place] Number: Repository [address]Wxj: 330 [id number] [phone] (HP) Date:9054-21-00UG [address] [address]QEHSWBQCP, [place] [address]CB: CHECK WEBSITE 10/10/2017 Secondary NOT GIVENUNK Or[place] Insurance:SELF PAY [facility] Number: Effective Repository Date:2017-10-10 09/02/2017 [place] Primary Insurance:[facility] TUNG [place] [id number] [facility] BANCROFTDOB: [facility] DORNO SERVICESG[facility] 6218-36-04GVTRenties[place], [place] Number: Repository [address]Ejd: 330 [id number] [phone] (HP) Date:8496-60-17LG [address] [address]OLMLWZVVL, [place] [address]WM: CHECK WEBSITE 09/02/2017 Secondary NOT GIVENUNK [place] Insurance:SELF PAY [facility] Number: Effective Repository Date:2017-06-04 07/23/2017 [place] Primary Insurance:[facility] TUNG [id number] [facility] BANCROFTDOB: Community DORNOCH SERVICESG[facility] 0952-16-45HUKRentiesville, [place] Number: Repository [address]Rwh: 330 [id number] [phone] () Date:7936-92-05XZ [address] [address]EMIJIMPVQ, [place] [address]JI: CHECK WEBSITE 07/23/2017 Secondary NOT GIVENUNK [place] Insurance:SELF PAY [facility] Number: Effective Repository Date:2017-06-04 07/23/2017 SAT[place] Primary [facility] [id number] [facility] BANCROFTDOB: [facility] DORNO SERVICESG[facility] 7414-60-86KNGRenties[place], [place] Number: Repository [address]Fow: 330 [id number] [phone] () Date:9085-34-79UC [address] [address]WZPVJLUJW, [place] [address]KU: CHECK WEBSITE 07/23/2017 Secondary NOT GIVENUNK [place] Insurance:SELF PAY [facility] Number: Effective Repository Date:2017-07-23 06/04/2017 [place] Primary Insurance:[facility] TUNG PATINOOFT3634 [facility]FTD[facility]: [facility] DORNO SERVICESG[facility] 7511-11-39ZOXRentiesville, [place] Number: Repository [address]Uof: 330 [id number] [phone] () Date:4228-27-29OU [address] [address]CUMSRBGUY, [place] [address]HT: CHECK WEBSITE 06/04/2017 Secondary NOT GIVENUNK Or[place] Insurance:SELF PAY [facility] Number: Effective Repository Date:2017-06-04 06/04/2017 [place] Primary Insurance:[facility] TUNG [place] [id number] [facility] BANOFTDOB: [facility] 2928-12-47UNCRentiesville, [place] Number: Repository [address]Swa: 330 [id number] [phone] () Date:5739-65-29BM [address] [address]ZXYPJBHFS, [place] [address]KA: CHECK WEBSITE 06/04/2017 Secondary NOT GIVENUNK Or[place] Insurance:SELF PAY [facility] Number: Effective Repository Date:2017-05-17 06/04/2017 [place] Primary Insurance:[facility] [id number] [facility]ANMCL[facility] HOSPITALTDOB: [facility] 1748-27-61ABIRenties[place], [place] Number: Repository [address]Iqt: 330 [id number] [phone] () Date:9869-10-28ZZ [address] [address]EXULMKUZJ, [place] [address]GP: CHECK WEBSITE 06/04/2017 Secondary NOT GIVENUNK Or[place] Insurance:SELF PAY [facility] Number: Effective Repository Date:2017-06-04
== END ==
PROVIDERS: Family Provider Family Medicine; PCP Family Medicine; Visit Provider Family Medicine
DX: R10.9 Unspecified abdominal pain (principal); R53.82 Chronic fatigue, unspecified
CPT/HCPCS: 36415; 80053; 82607; 85025; 86038; 86225; 86235

== ENCOUNTER → 2018-10-01 10:33 | Outpatient (CLI) | payer OTHER, SELFPAY ==
--- NOTE | 2018-10-01 10:38 | RAD_ITS ---
STUDY: X-RAY - RIGHT ANKLE REASON FOR EXAM: Pain. TECHNIQUE: 3 view(s) of the ankle. COMPARISON: Radiographs 06/17/2016. FINDINGS: There is chronic healed fracture deformity of the medial and lateral malleoli. Normal tibiotalar articulation and ankle mortise. There is a prominent plantar calcaneal enthesophyte and a small posterior calcaneal enthesophyte. There is a dorsal spur of the neck of the talus. The visualized subtalar, talonavicular, calcaneocuboid and tarsal articulations are normal. The soft tissue structures are unremarkable. RAD/Ankle min 3 Views IMPRESSION: Chronic healed fracture deformity of the medial and lateral malleoli. Dorsal spur of the talus. Calcaneal enthesopathy. Electronically Signed: Pepe Gallego MD at 14:33 EDT Tel , Service support ,
== END ==
PROVIDERS: Family Provider Family Medicine; PCP Family Medicine; Referring Provider Internal Medicine; Visit Provider Internal Medicine
DX: M25.571 Pain in right ankle and joints of right foot (principal)
CPT/HCPCS: 73610

== ENCOUNTER → 2018-11-02 11:28 | Outpatient (CLI) | payer OTHER, SELFPAY ==
[2018-11-02 11:31] LABS: Mucous, Urine 0 SEEN /hpf (<or=2+); Red Blood Cells-Urine 0 SEEN /hpf (0-5)
[2018-11-02 15:31] LABS: Color, Urine Yellow (Yellow); Glucose, Dipstick Normal (Normal); Ketone-Dipstick Negative (Negative); Leukocyte Esterase-Dipstick 25 /ul (Negative); Nitrite-Dipstick Negative (Negative); Occult Blood-Urine Negative /ul (Negative); Protein-Dipstick Negative (Negative); Specific Gravity, Urine 1.015 (1.002-1.030); Urine Bilirubin Dipstick Negative (Negative); Urine Clarity Clear (Clear); Urine Urobilinogen Normal (Normal)
[2018-11-02 15:44] LABS: Bacteria RARE /hpf (None Seen); Squamous Epithelial Cells - UA 0-5 SEEN /hpf (5-10); White Blood Cells 0-5 SEEN /hpf (0-5)
== END ==
PROVIDERS: Family Provider Family Medicine; PCP Family Medicine; Visit Provider Family Medicine
DX: R31.9 Hematuria, unspecified (principal)
CPT/HCPCS: 81001

== ENCOUNTER → 2018-11-27 10:48 | Outpatient (CLI) | payer OTHER, SELFPAY ==
--- NOTE | 2018-11-27 10:51 | BI_ITS ---
MAMMOGRAPHY - BILATERAL SCREENING REASON FOR EXAM: Female, 62 years old. Routine annual screening examination. PERTINENT HISTORY: Non-contributory. TECHNIQUE: Digital bilateral breast annette (3D mammographic acquisition) in the CC and MLO projections. 2-D mediolateral oblique (MLO) and craniocaudad (CC) views of both breasts were obtained. CAD: Full Field Digital Mammography with Computer Added Detection was performed. COMPARISON: Comparison is made with prior study April 10, 2017 and November 23, 2013. FINDINGS: Breast Composition: The breasts are almost entirely fatty. There are no dominant masses or suspicious calcifications. Stable 1.2 cm well-defined nodule in the superior retroareolar region of the left breast. No other significant abnormalities are identified. There has been no significant change since the prior study. BI/SCREEN MAMM (CAD) W/ANNETTE BILAT IMPRESSION: Stable bilateral screening mammogram. Yearly follow-up mammogram recommended. (A) ASSESSMENT CATEGORY: BIRADS Category 2: Benign. A letter regarding these results will be sent to the patient by the facility within 30 days. Approximately 10% of breast cancers are not detected by mammography. A normal mammogram should not delay biopsy of a clinically suspicious abnormality. [id number] Electronically Signed: Felipe Sneed, at 12:53 EDT , Service support ,
== END ==
PROVIDERS: Family Provider Family Medicine; PCP Family Medicine; Referring Provider Family Medicine; Visit Provider Family Medicine
DX: Z12.31 Encounter for screening mammogram for malignant neoplasm of breast (principal)
CPT/HCPCS: 77063; 77067

== ENCOUNTER → 2019-04-20 11:03 | Outpatient (CLI) | payer OTHER, SELFPAY ==
[2019-04-20 15:37] LABS: ALB/GLOB Ratio 0.8 RATIO (0.9-2.4); AST(SGOT) 15 U/L (15-37); Alanine Aminotransfer ALT/SGPT 27 U/L (13-56); Albumin, Serum 3.8 g/dL (3.2-5.0); Alkaline Phosphatase 89 U/L (45-117); Anion Gap 5 (5-15); BUN 24 mg/dL (7-18); BUN/Creat Ratio 32.3 RATIO (10-20); Calcium,Total 9.1 mg/dL (8.5-10.1); Chloride 103 mmol/L (98-107); Creatinine, Serum 0.74 mg/dL (0.55-1.02); EST Glomerular Filtration Rate 84 mL/min (>60); Est Glom Filt Rate - Afr Amer 101 mL/min (>60); Globulin 4.6 g/dL (2.2-4.2); Glucose 98 mg/dL (74-106); Potassium 4.1 mmol/L (3.5-5.1); Protein, Total 8.4 g/dL (6.4-8.2); Sodium Level 137 mmol/L (136-145); T4 Free Direct 0.79 ng/dL (0.76-1.46); Thyroid Stim Hormone (TSH) 2.02 uIU/mL (0.358-3.74)
[2019-04-20 15:39] LABS: Microalbumin,Random Urine 23.6 mg/L (NO RANGE EST.); Microalbumin:Creatinine Ratio 33.2 mg/g CRE (<30 mg/g CRE)
== END ==
PROVIDERS: Family Provider Family Medicine; PCP Family Medicine; Visit Provider Family Medicine
DX: I10 Essential (primary) hypertension (principal); R53.83 Other fatigue
CPT/HCPCS: 36415; 80053; 82043; 82570; 84439; 84443

== ENCOUNTER → 2019-06-25 20:00 | Outpatient (CLI) | payer OTHER, SELFPAY | PROVIDERS: Family Provider Family Medicine; PCP Family Medicine; Referring Provider Internal Medicine Pulmonary Disease; Visit Provider Internal Medicine Pulmonary Disease | DX: G47.00 Insomnia, unspecified (principal); G47.10 Hypersomnia, unspecified | CPT/HCPCS: 95811 ==

== ENCOUNTER → 2019-06-28 08:38 | Outpatient (CLI) | payer OTHER, SELFPAY ==
[2019-06-28 13:38] LABS: T4 Free Direct 0.83 ng/dL (0.76-1.46); Thyroid Stim Hormone (TSH) 2.35 uIU/mL (0.358-3.74)
[2019-06-29 09:55] LABS: Thyroid Peroxidase AB 7 IU/mL (0-34)
== END ==
PROVIDERS: Family Provider Family Medicine; PCP Family Medicine; Visit Provider Family Medicine
DX: E01.0 Iodine-deficiency related diffuse (endemic) goiter (principal)
CPT/HCPCS: 36415; 84439; 84443; 86376

== ENCOUNTER → 2019-07-06 10:56 | Outpatient (CLI) | payer OTHER, SELFPAY ==
--- NOTE | 2019-07-06 11:00 | US_ITS ---
HISTORY: NODULE. Thyromegaly. COMPARISON: 03/10/2013, report not available at this time TECHNIQUE: Grayscale and color Doppler sonography of the thyroid gland. FINDINGS: RIGHT LOBE: 6.4 x 2.5 x 3.1 cm LEFT LOBE: 7.2 x 2.3 x 2.9 cm ISTHMUS: 16 mm The thyroid parenchyma appears heterogeneous. Hyperechoic, smoothly marginated right thyroid lobe nodule measuring 1.1 x 0.6 x 0.9 cm in the posterior right thyroid lobe. Not demonstrated on the prior study. TIRADS 3. Rim calcified, predominantly isoechoic right thyroid lobe nodule measuring 1.0 x 0.8 x 0.8 cm. Calcification of this lesion has developed in the interim. It is minimally changed in size. TIRADS 4. Mixed solid and cystic, smoothly marginated 1.6 x 1.2 x 1.4 right thyroid lobe nodule with nearly isoechoic solid component. Not demonstrated on the prior study. TIRADS 2. 5 mm left thyroid lobe calcification. 4 mm left thyroid lobe cyst. US/Thyroid IMPRESSION: Enlarged, heterogeneous thyroid. Multiple right thyroid lobe nodules as described. at 0338 Reported and signed by: Jaz Arevalo MD Electronically Signed: Jaz Arevalo MD at 3:38 EST Tel , Service support ,
== END ==
PROVIDERS: Family Provider Family Medicine; PCP Family Medicine; Referring Provider Family Medicine; Visit Provider Family Medicine
DX: E01.0 Iodine-deficiency related diffuse (endemic) goiter (principal)
CPT/HCPCS: 76536

== ENCOUNTER → 2019-11-24 10:34 | Outpatient (CLI) | payer OTHER, SELFPAY ==
[2019-11-24 12:29] LABS: Absolute Lymphocyte Count 1.96 X10^3/uL (0.83-4.51); Absolute Neutrophil Count 4.4 X10^3/uL (2.0-7.7); Basophil# 0.05 X10^3/uL; Basophil% 0.7 % (0-1); Eosinophil# 0.19 X10^3/uL; Eosinophils% 2.6 % (0-5); Hematocrit 38.8 % (37-47); Hemoglobin 11.9 g/dL (12.0-15.0); Lymphocyte # 1.96 X10^3/ul (4.0); Mean Corp Hgb Conc 30.7 g/dL (32-36); Mean Corpuscular Hgb 26.3 pg (27.0-32.0); Mean Corpuscular Volume 85.7 fL (81-99); Mean Platelet Vol. 11.6 fl (6.2-12.0); Monocyte# 0.64 X10^3/uL; Monocyte% 8.8 % (0-10); NRBC Flagged by Analyzer 0 % (0-5); Neutrophil # 4.38 X10^3/uL (2.7-7.7); Neutrophil % 60.5 % (47-70); Platelet Count 299 K/mm3 (150-450); RBC Distribution Width CV 14.9 % (11.6-14.6); RBC Distribution Width SD 46.6 fl (35.1-43.9); Red Blood Count 4.53 M/mm3 (4.2-5.4); White Blood Count 7.3 K/mm3 (4.4-11.0)
[2019-11-24 12:48] LABS: ALB/GLOB Ratio 0.8 RATIO (0.9-2.4); AST(SGOT) 16 U/L (15-37); Alanine Aminotransfer ALT/SGPT 22 U/L (13-56); Albumin, Serum 3.7 g/dL (3.2-5.0); Alkaline Phosphatase 76 U/L (45-117); Anion Gap 6 (5-15); BUN 31 mg/dL (7-18); BUN/Creat Ratio 39.1 RATIO (10-20); Calcium,Total 8.8 mg/dL (8.5-10.1); Chloride 103 mmol/L (98-107); Cholesterol 200 mg/dL (200); Creatinine, Serum 0.79 mg/dL (0.55-1.02); EST Glomerular Filtration Rate 77 mL/min (>60); Est Glom Filt Rate - Afr Amer 94 mL/min (>60); Globulin 4.6 g/dL (2.2-4.2); Glucose 106 mg/dL (74-106); High Density Lipoprotein 77 mg/dL; Potassium 4.4 mmol/L (3.5-5.1); Protein, Total 8.3 g/dL (6.4-8.2); Sodium Level 138 mmol/L (136-145); Triglycerides 84 mg/dL; Very Low Density Lipoprotein 17 mg/dL (5-40)
[2019-11-25 15:19] LABS: Microalbumin:Creatinine Ratio 16.2 mg/g CRE (<30 mg/g CRE)
== END ==
PROVIDERS: Family Provider Family Medicine; PCP Family Medicine; Visit Provider Family Medicine
DX: Z00.00 Encounter for general adult medical examination without abnormal findings (principal); E11.40 Type 2 diabetes mellitus with diabetic neuropathy, unspecified; E78.5 Hyperlipidemia, unspecified; I10 Essential (primary) hypertension; N39.0 Urinary tract infection, site not specified
CPT/HCPCS: 36415; 80053; 80061; 82043; 82570; 85025; 87086; 87088

== ENCOUNTER → 2019-12-13 10:38 | Outpatient (CLI) | payer OTHER, SELFPAY ==
--- NOTE | 2019-12-13 10:50 | BI_ITS ---
MAMMOGRAPHY - BILATERAL SCREENING REASON FOR EXAM: Female, 64 years old. Routine annual screening examination. PERTINENT HISTORY: Non-contributory. TECHNIQUE: Digital bilateral breast annette (3D mammographic acquisition) in the CC and MLO projections. 2-D mediolateral oblique (MLO) and craniocaudad (CC) views of both breasts were obtained. CAD: Full Field Digital Mammography with Computer Added Detection was performed. COMPARISON: Comparison is made with prior study dated November 27, 2018 and April 10, 2017. FINDINGS: Breast Composition: The breasts are almost entirely fatty. There are no dominant masses or suspicious calcifications. Stable prominence of the venous structures. Stable 1.2 cm well-defined nodule in the central aspect of the left breast. No other significant abnormalities are identified. There has been no significant change since the prior study. BI/SCREEN MAMM (CAD) W/ANNETTE BILAT IMPRESSION: Stable bilateral screening mammogram. Yearly follow-up mammogram recommended. (A) ASSESSMENT CATEGORY: BIRADS Category 2: Benign. A letter regarding these results will be sent to the patient by the facility within 30 days. Approximately 10% of breast cancers are not detected by mammography. A normal mammogram should not delay biopsy of a clinically suspicious abnormality. [id number] Electronically Signed: Felipe Sneed, at 12:50 EDT , Service support ,
== END ==
PROVIDERS: PCP Family Medicine; Referring Provider Family Medicine; Visit Provider Family Medicine
DX: Z12.31 Encounter for screening mammogram for malignant neoplasm of breast (principal)
CPT/HCPCS: 77063; 77067

== ENCOUNTER → 2020-03-09 12:51 | Outpatient (CLI) | payer OTHER, SELFPAY ==
--- NOTE | 2020-03-09 13:17 | CT_ITS ---
We are attempting to reach an attending provider to discuss findings. An addendum with communication details will be sent when the communication is complete. STUDY: CTA CHEST REASON FOR EXAM: Female, 64 years old. ELEVATED D DIMER, DYSPNEA UPON EXERTION RADIATION DOSAGE (If Supplied By Facility): CTDIvol = ( 13.68 ) mGy, DLP = ( 500.36 ) mGycm TECHNIQUE: The examination was performed with the intravenous administration of . Post-processing of the angiographic images was performed, with multiplanar reformation and 3D reconstruction. Individualized dose optimization techniques were used for this CT. COMPARISON: None. FINDINGS: There are nonocclusive intraluminal filling defects in branches of the right upper lobe pulmonary artery. This is in keeping with the pulmonary emboli in branches of the right upper lobe pulmonary artery. Normal thoracic aorta and visualized great vessels. There is no demonstrated aortic dissection. There are calcifications of the coronary arteries. Normal mediastinum. Normal hilar regions. Normal visualized trachea and bronchi. The lungs are well expanded. Normal pulmonary parenchyma. Normal pleura. Normal chest wall structures. There are degenerative changes of thoracic spine. Normal visualized upper abdomen. CT/CTA Chest W/WO Contrast IMPRESSION: Nonobstructive intraluminal filling defects in branches of the right upper lobe pulmonary artery. Findings in keeping with pulmonary emboli. Electronically Signed: Felipe Sneed, at 14:41 EDT , Service support ,
== END ==
PROVIDERS: PCP Family Medicine; Referring Provider Family Medicine; Visit Provider Family Medicine
DX: R06.00 Dyspnea, unspecified (principal); R79.89 Other specified abnormal findings of blood chemistry
CPT/HCPCS: 71275; Q9967

== ENCOUNTER 2020-03-16 11:00 | Outpatient (RCR) | payer OTHER, SELFPAY ==
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
[2020-03-08 15:23] LABS: Absolute Lymphocyte Count 2.37 X10^3/uL (0.83-4.51); Absolute Neutrophil Count 4.2 X10^3/uL (2.0-7.7); Basophil# 0.05 X10^3/uL; Basophil% 0.7 % (0-1); Eosinophil# 0.22 X10^3/uL; Eosinophils% 2.9 % (0-5); Hematocrit 36.6 % (37-47); Lymphocyte # 2.37 X10^3/ul (4.0); Lymphocyte % 30.8 % (19-41); Mean Corp Hgb Conc 30.1 g/dL (32-36); Mean Corpuscular Hgb 25.9 pg (27.0-32.0); Mean Corpuscular Volume 86.3 fL (81-99); Mean Platelet Vol. 11.6 fl (6.2-12.0); Monocyte% 10.4 % (0-10); NRBC Flagged by Analyzer 0 % (0-5); Neutrophil # 4.23 X10^3/uL (2.7-7.7); Neutrophil % 54.9 % (47-70); Platelet Count 299 K/mm3 (150-450); RBC Distribution Width CV 14.8 % (11.6-14.6); RBC Distribution Width SD 46.8 fl (35.1-43.9); Red Blood Count 4.24 M/mm3 (4.2-5.4); White Blood Count 7.7 K/mm3 (4.4-11.0)
[2020-03-08 16:24] LABS: D-Dimer Quantitative (DVT/PE) 1.28 FEU/ug/m (0.27-0.49)
--- NOTE | 2020-03-16 11:22 | HP.PTDCSUM ---
It has been my pleasure to treat TUNG WILSON referred by Dr. Abelardo Malcolm DO, with the diagnosis of Right Knee Pain for a total of 9 visit(s). Discharge Date: Please see the following information for a summary of their discharge status. Subjective: Patient reports that the knee is great but her left hip is giving her fits and is pretty miserable. Is unsure if she will see someone for her hip or not. The knee is 100% better. No pain or anything in the knee R knee Pain Intensity (Out of 10): 0 L hip Pain Intensity (Out of 10): 6 % Improvement: 100 Objective/Function: Posture: FH, RS increased kyphosis- can correct but does not maintain. Gait: antalgic- decreased stance on the left LE with poor heel/toe pattern bilaterally, decreased viki and valgus at the knees- increased hip pain. HR/TR: able with pain in the left hip. SLS: unable but does weight shift. Palpation: not tender to the right knee. ROM: 0-120 degrees with pain at end range. Strength: ankle: 5/5 Knee: 5/5 Hip: 4+/5 Core: fair minus. Flex: HS: moderate, Gastroc: moderate. Sensation: WNL. Slump: positive Goal 1:: Patient will be I with HEP and progression Goal Progress: Goal Met Goal 2:: Patient will ambulate >300 feet with a normalized gait pattern Goal Progress: Goal Met Goal 3:: Patient will asc/desc 8 stairs recip with 2 HR Goal 4:: Patient will report no pain than 4/10 pain for 1 week Plan: Discharge- encouraged her to follow up with MD regarding back and left hip If there are questions or concerns regarding this patient's physical therapy, please feel free to call me at [phone]. Thank you for the referral of this patient. Sincerely, Radha Uribe DPT
--- NOTE | 2020-04-12 08:01 | HP.PT.NRP ---
TUNG WILSON was seen in my office for initial evaluation on 02/24/20. The following Plan of Care was established for this patient: Initial Frequency: 3x /Week Initial Duration: 4 Weeks Patient/Client Instruction: Educate patient on: Benefits of Fitness Program Therapeutic Exercise to Include: Strength training, Balance training, Body mechanics, Postural training, Flexibilty training, Gait and locomotor training, Neuromotor development, Passive ROM, Active ROM, Dynamic Lumbar Stabilization For the Purpose of:: To improve muscle performance and motor function TENS: Yes Cryotherapy (ice pack, ice massage): Yes Thermo therapy (hot pack): Yes Ultrasound (thermal/non thermal): No For the Purpose of:: To improve muscle performance and motor function This patient was last seen in our office . Pertinent comments regarding their Physical therapy will appear below: Patient appropriate to be d/c at this time- return to MD for further evaluation as needed. At this point I will be discontinuing this patient from physical therapy. I would be happy to see this patient again in the future if found appropriate by the physician. Thank you! MAGDY AndrewT
== END 2020-03-16 19:00 | disposition home or self-care (01) ==
LOC: PT 11:00
PROVIDERS: PCP Family Medicine; Referring Provider Orthopaedic Surgery; Visit Provider Orthopaedic Surgery
DX: M17.11 Unilateral primary osteoarthritis, right knee (principal); R06.00 Dyspnea, unspecified
CPT/HCPCS: 36415; 84484; 85025; 85379; 97014; 97110; 97161; 97164; G0283

== ENCOUNTER → 2020-03-30 10:04 | Outpatient (CLI) | payer OTHER, SELFPAY ==
[2020-03-30 09:30] VITALS: BMI 42.9
[2020-03-30 10:18] LABS: Hematocrit 37.5 % (37-47); Hemoglobin 11.4 g/dL (12.0-15.0); Mean Corp Hgb Conc 30.4 g/dL (32-36); Mean Corpuscular Hgb 26.1 pg (27.0-32.0); Mean Corpuscular Volume 85.8 fL (81-99); Mean Platelet Vol. 10.7 fl (6.2-12.0); Platelet Count 309 K/mm3 (150-450); RBC Distribution Width CV 14.9 % (11.6-14.6); RBC Distribution Width SD 46.9 fl (35.1-43.9); Red Blood Count 4.37 M/mm3 (4.2-5.4)
[2020-03-30 10:35] LABS: ALB/GLOB Ratio 0.7 RATIO (0.9-2.4); AST(SGOT) 12 U/L (15-37); Alanine Aminotransfer ALT/SGPT 22 U/L (13-56); Albumin, Serum 3.5 g/dL (3.2-5.0); Alkaline Phosphatase 81 U/L (45-117); Anion Gap 2 (5-15); BUN 26 mg/dL (7-18); BUN/Creat Ratio 31.3 RATIO (10-20); Calcium,Total 9.1 mg/dL (8.5-10.1); Chloride 104 mmol/L (98-107); Creatinine, Serum 0.83 mg/dL (0.55-1.02); EST Glomerular Filtration Rate 73 mL/min (>60); Est Glom Filt Rate - Afr Amer 89 mL/min (>60); Globulin 4.7 g/dL (2.2-4.2); Glucose 115 mg/dL (74-106); Potassium 4.8 mmol/L (3.5-5.1); Protein, Total 8.2 g/dL (6.4-8.2); Sodium Level 137 mmol/L (136-145)
== END ==
PROVIDERS: PCP Family Medicine; Referring Provider Surgery; Visit Provider Surgery
DX: R53.83 Other fatigue (principal); E66.9 Obesity, unspecified; E78.5 Hyperlipidemia, unspecified; K62.5 Hemorrhage of anus and rectum
CPT/HCPCS: 36415; 80053; 85027

== ENCOUNTER → 2020-04-03 08:51 | Outpatient (CLI) | payer OTHER, SELFPAY ==
[2020-03-30 09:30] VITALS: BMI 42.9
--- NOTE | 2020-04-03 08:52 | VDLE_ITS ---
Reason For Study: Pulmonary embolism RIGHT LEFT GSV is normal. GSV is normal. CFV is compressible, spontaneous, phasic, CFV is compressible, spontaneous, phasic, competent and demonstrates normal competent, and demonstrates normal augmentation. augmentation. FV is compressible, spontaneous, phasic, FV is compressible, spontaneous, phasic, competent and demonstrates normal competent and demonstrates normal augmentation. augmentation. POP V is compressible, spontaneous, phasic, POP V is compressible, spontaneous, phasic, competent and demonstrates normal competent and demonstrates normal augmentation. augmentation. T/P Trunk is compressible. T/P Trunk is compressible. PTV is compressible. PTV is compressible. RT PerV is compressible. LT PerV is compressible. Procedure This is a venous duplex using B-mode, color flow and spectral Doppler. Exam performed in department. A preliminary report was called and/or faxed to Kai's RN. Interpretation Summary No evidence for acute deep venous thrombosis bilateral lower extremities with patent and compressible bilateral great saphenous veins. Ordering Physician: Marcellus Quinn Referring Physician: Ezequiel Cadena Performed By: Isha Tran RVT
== END ==
PROVIDERS: PCP Family Medicine; Referring Provider Surgery; Visit Provider Surgery
DX: I26.99 Other pulmonary embolism without acute cor pulmonale (principal)
CPT/HCPCS: 93970

== ENCOUNTER 2020-05-09 05:50 | Day surgery (SDC) | payer OTHER, SELFPAY ==
[2020-03-30 09:30] VITALS: BMI 42.9
[2020-05-09] VITALS (7 sets, daily range): BP systolic 98–131; BP diastolic 56–85; PULSE 69–80; RESP 16; TEMP 36.2–36.6; O2SAT 95–97; BMI 42.3
--- NOTE | 2020-05-09 06:12 | PCM.HP.BLA ---
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 Is patient in pain?: No Allergies No Known Allergies Allergy (Verified 03/30/20 09:31) Medications amlodipine 10 mg-benazepril 40 mg capsule 1 cap PO QDAY 06/03/17 [History Confirmed 03/30/20] pravastatin 10 mg tablet 10 mg PO QHS 06/03/17 [History Confirmed 03/30/20] gabapentin 300 mg capsule 300 mg PO .COMPLEX cap 09/01/17 [History Confirmed 03/30/20] doxycycline monohydrate 100 mg capsule 20 mg PO BID cap 03/30/20 [History Confirmed 03/30/20] metformin 500 mg tablet 500 mg PO DAILY tab 03/30/20 [History Confirmed 03/30/20] rivaroxaban 15 mg tablet 15 mg PO BID tab 03/30/20 [History Confirmed 03/30/20] PFS Medical History (Updated 03/30/20 @ 10:[address] Marcellus Quinn MD) Rectal bleeding (Acute) Pulmonary embolism (Acute) Chest pain (Acute) Fatigue (Acute) Dyspnea (Acute) Obesity (BMI 35.0-39.9 without comorbidity) (Chronic) Palpitations (Acute) Hyperlipidemia (Chronic) Hypertension (Chronic) Type 2 diabetes mellitus without complications (Chronic) Acid reflux (Acute) Blood in stool (Acute) Hemorrhoids (Acute) History of back problems (Acute) Pulmonary emboli (Acute) SOB (shortness of breath) (Acute) Sleep apnea (Acute) Arthritis (Chronic) Surgical History H/O total knee replacement (Chronic) History of section, classical (Chronic) History of total hysterectomy (Chronic) Family History Mother Diabetes Social History (Updated 03/30/20 @ 10:[address] Marcellus Quinn MD) Smoking Status: Never smoker HPI HPI HPI: TUNG WILSON, is a 64 F who presents to the office today for surgical consultation regarding rectal bleeding. The patient referred by Dr. Ezqeuiel Cadena a written compromise surgical consult and recommendations will return to him. 64-year-old female. She notes that she presented to Dr. Cadena with a complaint of cough and shortness of breath and fatigue. She was denying chest pain or lower extremity swelling. Reports suggested a previous cardiac stress test 2018 was normal. Troponins CBC and D-dimer were obtained. By report the D-dimer was elevated. As of March 08, 2020 her hemoglobin was 11. Subsequently on March 09, 2020 a CTA of the chest was obtained. Nonobstructive intraluminal filling defects in branches of the right upper lobe pulmonary artery were identified consistent with pulmonary embolization. The patient states that she was initiated on Xarelto 15 mg twice daily at that time. She states that essentially the next day she started having bright red rectal bleeding. She states that that was with defecation or if she would sit to urinate. She has not noticed clot. She states that it is at least a moderate amount as she notices it in the toilet bowl. Previously she has a history of iron deficiency anemia. I have a note from Dr. Chang Fairbanks dated July 12, 2006 when a colonoscopy was performed. No acute findings were identified. In the note is stated that the patient will be continued on iron and would consider upper endoscopy. The patient states that she was never ever contacted by him again and so she did not pursue the upper endoscopy. Family history is notable for a brother had colon polyps. She does not note a family history of colon cancer. She states that she does have a past history of gastroesophageal reflux disease. Her medication list that states that she is on a proton pump inhibitor however she states that she is not taking that now but rather uses baking soda and with relief. Her medicine list states that previously she was on tramadol therapy she states that she is not on that now. Body habitus noted for BMI of 42.9 She is a type II diabetic and is on Metformin. HPI HPI HPI: TUNG WILSON, is a 64 F who presents to the office today for ROS General General: Yes weight change and fatigue; no appetite, colon cancer, breast cancer or weakness HEENT HEENT: Yes eye surgery; no difficulty swallowing, eye injury, swollen glands or hoarseness Endo Endocrine: Yes diabetes mellitus; no thyroid disease, thyroid cancer, Hair loss, heat intolerance or cold intolerance Skin Skin: No rash or changing moles Breast Breast: No left breast lump, right breast lump, nipple discharge, breast pain, abnormal mammogram, abnormal US or breast enlargement [facility] Musculoskeletal: Yes back problems and arthritis; no rheumatoid arthritis, gout or joint pain Cardio Cardiovascular: Yes high blood pressure; no murmur, pacemaker, heart disease, atrial fibrillation, heart attack, heart stent, palpitations, shortness of breat with exertion or chest pain Psych Psychiatric: No depression, anxiety or hearing voices Resp Respiratory: Yes shortness of breath, Yes sleep apnea, Yes cough, No COPD, No asthma, No emphysema, No wheezing Gastro Gastrointestinal: No abdominal pain, Yes nausea or vomiting, No diarrhea, No constipation, Yes blood in stool, Yes acid reflux, Yes hemorrhoids, No ulcers, No gallbladder problem, No black,tarry stools Edwin Hematologic: Yes blood thinners, No blood disorders, Yes bleeding, No anemia, Yes blood clots Neuro Neurologic: No system reviewed and no additional complaints, except as docu, No as per HPI, No abnormal walking, No abnormal hearing, No abnormal movements, No abnormal speech, No behavioral changes, No burning sensations, No confusion, No seizure-like activity, No unsteadiness, No dizziness, No localized weakness, No frequent falls, No headache(s), No lack of coordination, No loss of vision, No memory loss, Yes numbness, No other visual disturbances, No radiating pain, No restless legs, No sensory deficit, No fainting, Yes tingling, No tremor(s), No weakness, No other Exam Const General: cooperative, comfortable, no acute distress Nutritional Appearance: obese morbidly obese Orientation: alert, awake, oriented x3 HENMT Head: normal to inspection Chest Chest palpation & inspection: normal inspection of the chest Breast Palpation: No nipple discharge Resp Effort & Inspection: normal respiratory effort Auscultation: clear to auscultation bilaterally Cardio Rate: regular rate Rhythm: regular rhythm Heart Sounds: no murmurs GI Other: Soft, nontender, notably overweight, cannot detect any internal organs, normal bowel sounds External rectal exam notable for some hemorrhoidal tags. No bright red blood noted. Digital exam quite difficult secondary to body habitus. Some internal hemorrhoids noted. No mass lesion could be palpated but exam limited. No blood noted on the examining glove [facility] Cervical Spine: normal cervical lordosis Skin General: no rashes or lesions noted Neuro Cognition: normal cognition Extrem General: no calf tenderness Psych Affect: normal affect Assessment & Plan Problems 1. Multiple subsegmental pulmonary emboli without acute cor pulmonale I26.94 2. Rectal bleeding K62.5 3. Chronic fatigue R53.82 4. Shortness of breath R06.02 Plan 64-year-old female. Complaint of shortness of breath and fatigue and cough with elevated D-dimer and evidence of pulmonary embolization. I recommend that we obtain venous duplex imaging of her legs. I think it would be reasonable to pursue COVID-19 testing. She states that she is on Xarelto currently twice daily but only has 2 more days worth of treatment and is on sure how long the treatment will persist. She states that the rectal bleeding is bright red and that she has a moderate amount. I would like to recheck laboratory. Unfortunately clinical exam of her abdomen is limited. I would like to obtain a complete metabolic profile and assess her liver function test as well. Based upon the bleeding only with defecation or with sitting I am hopeful that it is likely internal hemorrhoids. However internal hemorrhoids in and of themselves can cause significant bleeding problems. It would seem reasonable to offer her diagnostic colonoscopy with possible biopsy or polypectomy. With her very recent pulmonary embolism it would not be advisable to hold her anticoagulation for the otherwise normal period of time. Perhaps simply hold it the night before and day of. Would need to take great care and removal of polyps of that was entertained at that time. I would request proceeding with this procedure with monitored anesthesia care. I will need to confirm with him that they would provide sedation this close to the diagnosis of PE. We will contact Dr. Ezequiel Cadena's office also notifying them of her soon-to-be exhausted medication so that she can be continued. She has had an opportunity to ask and have questions answered. There is the additional problem that if she continues to bleed and either a source cannot be identified or source can be identified but not surgically treatable at this time as she could potentially be a candidate for a vena cava filter. Clearly discussions with her today were somewhat overwhelming. We will be in communication with Dr. Ezequiel Cadena and with anesthesia and attempting to proceed with diagnostic colonoscopy. I appreciate the opportunity of assisting with her surgical care Copy: Dr. Ezequiel Quinn M.D., F.A.C.S. I have re-examined the patient. There are no clinical changes since date of exam. Procedure Criteria Procedure Type: Elective COVID Risk Discussion: The surgeon/proceduralist and patient have discussed in detail the risk of exposure to and/or potential harm posed by the COVID-19 virus with having a surgery/procedure at this time versus the risk of delaying the surgery/procedure. It is not possible to know either the risk of delaying the surgery or procedure or chance of getting an infection with perfect accuracy, but a joint decision was made between the patient and the surgeon/proceduralist to proceed at this time with the scheduled surgery/procedure as indicated on the consent form.
[2020-05-09] MEDS: Lactated Ringers 1,000 ML 100 ML IV (06:34)
[2020-05-09 06:41] LABS: Bedside Glucose 135 mg/dL (70-110)
--- NOTE | 2020-05-09 07:24 | OP.COLON_ITS ---
Patient Name: Regina Suggs Procedure Date: 05/09/2020 6:53 AM Date of : 1955 Age: 64 Procedure: Colonoscopy Indications: Rectal bleeding Providers: Marcellus Quinn MD Referring MD: Ezequiel Cadena Medicines: See the Anesthesia note for documentation of the administered medications Patient Profile: Last Colonoscopy: none. The patient's first colonoscopy is today. Complications: No immediate complications. Procedure: Pre-Anesthesia Assessment: - Prior to the procedure, a History and Physical was performed, and patient medications and allergies were reviewed. The patient's tolerance of previous anesthesia was also reviewed. The risks and benefits of the procedure and the sedation options and risks were discussed with the patient. All questions were answered, and informed consent was obtained. Prior Anticoagulants: The patient has taken Eliquis (apixaban), last dose was day of procedure. ASA Grade Assessment: III - A patient with severe systemic disease. After reviewing the risks and benefits, the patient was deemed in satisfactory condition to undergo the procedure. After I obtained informed consent, the scope was passed under direct vision. Throughout the procedure, the patient's blood pressure, pulse, and oxygen saturations were monitored continuously. The adult colonoscope was introduced through the anus and advanced to the cecum, identified by appendiceal orifice and ileocecal valve. The colonoscopy was somewhat difficult due to a tortuous colon. Successful completion of the procedure was aided by changing the patient to a supine position and using manual pressure. The patient tolerated the procedure well. The quality of the bowel preparation was good. The ileocecal valve and the appendiceal orifice were photographed. Scope In: 7:00:38 AM Scope Withdrawal Time 0 hours 6 minutes 27 seconds Scope Out: 7:16:06 AM Total Procedure Duration Time 0 hours 15 minutes 28 seconds Findings: The digital rectal exam findings include non-thrombosed internal hemorrhoids and internal hemorrhoids that prolapse with straining, but require manual replacement into the anal canal (Grade III). A few diverticula were found in the sigmoid colon. The exam was otherwise without abnormality. Impression: - Non-thrombosed internal hemorrhoids and internal hemorrhoids that prolapse with straining, but require manual replacement into the anal canal (Grade III) found on digital rectal exam. - Diverticulosis in the sigmoid colon. - The examination was otherwise normal. - No specimens collected. Recommendation: - Discharge patient to home. - Resume previous diet. - Continue present medications. - Repeat colonoscopy in 10 years for screening purposes. Large internal hemorrhoids likely source of rectal bleeding. Consider future surgical treatment (ppH) if bleeding recurs. Procedure Code(s): --- Professional --- 54376, Colonoscopy, flexible; diagnostic, including collection of specimen(s) by brushing or washing, when performed (separate procedure) Diagnosis Code(s): --- Professional --- K64.2, Third degree hemorrhoids K62.5, Hemorrhage of anus and rectum K57.30, Diverticulosis of large intestine without perforation or abscess without bleeding CPT copyright 2017 [employer]. All rights reserved. The codes documented in this report are preliminary and upon group dynamics instructor review may be revised to meet current compliance requirements. Marcellus Quinn MD 05/09/2020 7:24:08 AM This report has been signed electronically. Number of Addenda: 0 Note Initiated On: 05/09/2020 6:53 AM
--- NOTE | 2020-05-09 07:24 | OP.CCLET_ITS ---
05/09/2020 Ezequiel Cadena [address] [place] [address] Re : Colonoscopy procedure for Regina Suggs Dear Dr. Cadena This procedure was performed on Saturday, May 09, 2020. My impressions and recommendations are as follows: Impressions : - Non-thrombosed internal hemorrhoids and internal hemorrhoids that prolapse with straining, but require manual replacement into the anal canal (Grade III) found on digital rectal exam. - Diverticulosis in the sigmoid colon. - The examination was otherwise normal. - No specimens collected. Recommendations : - Discharge patient to home. - Resume previous diet. - Continue present medications. - Repeat colonoscopy in 10 years for screening purposes. Large internal hemorrhoids likely source of rectal bleeding. Consider future surgical treatment (ppH) if bleeding recurs. My findings are described in the full procedure note, which is enclosed. If I can be of further assistance, please feel free to contact me at Doctor phone number(s): Work: . Sincerely, Marcellus Quinn MD 05/09/2020 7:24:08 AM This report has been signed electronically.
== END 2020-05-09 08:08 | disposition home or self-care (01) ==
LOC: EN 05:51 → AC 05:51
PROVIDERS: PCP Family Medicine; Referring Provider Family Medicine; Visit Provider Surgery
PROC: 0DJD8ZZ Inspection of Lower Intestinal Tract, Via Natural or Artificial Opening Endoscopic (ICD-10-PCS; CPT 45378; principal; 2020-05-09 06:55)
DX: K64.2 Third degree hemorrhoids (principal); K57.30 Diverticulosis of large intestine without perforation or abscess without bleeding; I26.94 Multiple subsegmental thrombotic pulmonary emboli without acute cor pulmonale; E11.9 Type 2 diabetes mellitus without complications; I10 Essential (primary) hypertension; K21.9 Gastro-esophageal reflux disease without esophagitis; G25.81 Restless legs syndrome; R53.82 Chronic fatigue, unspecified; E78.5 Hyperlipidemia, unspecified; G47.30 Sleep apnea, unspecified; M19.90 Unspecified osteoarthritis, unspecified site; Z20.828 Contact with and (suspected) exposure to other viral communicable diseases; E66.9 Obesity, unspecified; Z68.41 Body mass index [BMI] 40.0-44.9, adult; Z79.01 Long term (current) use of anticoagulants; Z79.84 Long term (current) use of oral hypoglycemic drugs; Z79.899 Other long term (current) drug therapy; Z86.711 Personal history of pulmonary embolism
CPT/HCPCS: 45378; 82962; 87426; C9803; J7120; J2405

== ENCOUNTER → 2020-07-05 12:07 | Outpatient (CLI) | payer OTHER, SELFPAY ==
[2020-05-09 06:18] VITALS: BMI 42.3
--- NOTE | 2020-07-05 12:09 | US_ITS ---
STUDY: THYROID ULTRASOUND REASON FOR EXAM: Female, 64 years old. Goiter TECHNIQUE: Ultrasound evaluation of the thyroid was performed with real-time and static knapp-scale imaging. COMPARISON: Comparison is made with prior examination dated 07/06/2019. FINDINGS: RIGHT LOBE: The right lobe of the thyroid gland is enlarged and measures 6.6 cm x 2.3 cm x 3.2 cm. There is a heterogeneous echotexture. 3 nodules are seen. These are unchanged. There is a 1.8 cm x 1.6 cm x 1 cm solid and cystic nodule. This also evidence of a 1.1 cm x 0.8 cm x 0.8 cm isoechoic nodule with a calcified border. This is unchanged as well. LEFT LOBE: The left lobe of the thyroid gland is enlarged and measures 6 cm x 2.5 cm x 2.3 cm. There is a heterogeneous echotexture. Once again, 2 subcentimeters nodules are seen. There is a 4 mm x 5 mm x 4 mm cyst. Stable 3 mm x 3 mm x 3 mm slightly echogenic nodule with calcified borders. ISTHMUS: The isthmus is enlarged and measures 19 mm. The regional lymph nodes are normal. US/Thyroid IMPRESSION: Heterogeneous enlargement of both lobes of the thyroid as well as the isthmus. Stable thyroid nodules. Electronically Signed: Felipe Sneed MD at 14:29 EST , Service support ,
== END ==
PROVIDERS: PCP Family Medicine; Referring Provider Otolaryngology; Visit Provider Otolaryngology
DX: E04.2 Nontoxic multinodular goiter (principal)
CPT/HCPCS: 76536

== ENCOUNTER → 2020-08-29 10:49 | Outpatient (CLI) | payer OTHER, SELFPAY ==
[2020-05-09 06:18] VITALS: BMI 42.3
--- NOTE | 2020-08-29 10:55 | RAD_ITS ---
STUDY: X-RAY - LUMBAR SPINE REASON FOR EXAM: Female, 64 years old. BACK PAIN TECHNIQUE: 5 view(s) of the lumbar spine were obtained. COMPARISON: 05/26/2015 FINDINGS: Normal lumbar lordosis. There is no substantial scoliosis. Slight grade 1 spondylolisthesis of L4 on L5 (the latter sacralized/transitional). There is diffuse demineralization with multi-level endplate spondylosis. Normal disc space heights. There is no demonstrated fracture. There is no demonstrated spondylolysis of the pars interarticulares. Facet arthropathy of the lower lumbar levels. There is atherosclerotic calcification of the abdominal aorta without a demonstrated aneurysm. RAD/L/S Spine Min 4 Views IMPRESSION: 1. Similar degenerative changes since 2014. Electronically Signed: Chito Macario MD (Brooks) at 16:00 EDT , Service support ,
--- NOTE | 2020-08-29 10:55 | RAD_ITS ---
STUDY: X-RAY - THORACIC SPINE REASON FOR EXAM: Female, 64 years old. BACK PAIN TECHNIQUE: 3 view(s) of the thoracic spine were obtained. COMPARISON: None. FINDINGS: Normal kyphosis of the thoracic spine. There is no substantial scoliosis. There is demineralization of the thoracic spine with endplate spondylosis. There is multilevel disc space narrowing of the thoracic spine. The soft tissue structures are unremarkable. RAD/Thoracic Spine 3 Views IMPRESSION: Degenerative changes. No compression fracture. Electronically Signed: Chito Macario MD ([place]oks) at 13:56 EDT , Service support ,
[2020-08-29 12:39] LABS: Absolute Lymphocyte Count 2.24 X10^3/uL (0.83-4.51); Absolute Neutrophil Count 3.9 X10^3/uL (2.0-7.7); Basophil# 0.06 X10^3/uL; Basophil% 0.8 % (0-1); Eosinophil# 0.14 X10^3/uL; Hematocrit 37.2 % (37-47); Hemoglobin 11.4 g/dL (12.0-15.0); Lymphocyte # 2.24 X10^3/ul (4.0); Lymphocyte % 31.7 % (19-41); Mean Corp Hgb Conc 30.6 g/dL (32-36); Mean Corpuscular Hgb 26.5 pg (27.0-32.0); Mean Corpuscular Volume 86.5 fL (81-99); Mean Platelet Vol. 11.5 fl (6.2-12.0); Monocyte# 0.72 X10^3/uL; Monocyte% 10.2 % (0-10); NRBC Flagged by Analyzer 0 % (0-5); Neutrophil % 55.2 % (47-70); Platelet Count 315 K/mm3 (150-450); RBC Distribution Width CV 15.8 % (11.6-14.6); RBC Distribution Width SD 48.9 fl (35.1-43.9); White Blood Count 7.1 K/mm3 (4.4-11.0)
[2020-08-29 12:41] LABS: Color, Urine Yellow (Yellow); Glucose, Dipstick Normal (Normal); Ketone-Dipstick 5 mg/dl (Negative); Leukocyte Esterase-Dipstick 500 /ul (Negative); Nitrite-Dipstick Negative (Negative); Occult Blood-Urine Negative /ul (Negative); Protein-Dipstick Negative (Negative); Urine Bilirubin Dipstick Negative (Negative); Urine Clarity Clear (Clear); Urine Urobilinogen Normal (Normal)
[2020-08-29 12:49] LABS: Microalbumin:Creatinine Ratio 22.2 mg/g CRE (<30 mg/g CRE)
[2020-08-29 13:27] LABS: ALB/GLOB Ratio 0.8 RATIO (0.9-2.4); AST(SGOT) 14 U/L (15-37); Alanine Aminotransfer ALT/SGPT 19 U/L (13-56); Albumin, Serum 3.4 g/dL (3.2-5.0); Alkaline Phosphatase 84 U/L (45-117); Anion Gap 5 (5-15); BUN 24 mg/dL (7-18); BUN/Creat Ratio 26.7 RATIO (10-20); Calcium,Total 8.8 mg/dL (8.5-10.1); Chloride 104 mmol/L (98-107); EST Glomerular Filtration Rate 67 mL/min (>60); Est Glom Filt Rate - Afr Amer 81 mL/min (>60); Globulin 4.4 g/dL (2.2-4.2); Glucose 98 mg/dL (74-106); Potassium 3.9 mmol/L (3.5-5.1); Protein, Total 7.8 g/dL (6.4-8.2); Sodium Level 138 mmol/L (136-145)
[2020-08-31 14:09] LABS: PROEL- A/G Ratio 0.9 (0.7-1.7); PROEL- Albumin 3.4 g/dL (2.9-4.4); PROEL- Alpha-1 Globulin 0.2 g/dL (0.0-0.4); PROEL- Alpha-2 Globulin 0.9 g/dL (0.4-1.0); PROEL- Beta Globulin 1.2 g/dL (0.7-1.3); PROEL- Gamma Globulin 1.4 g/dL (0.4-1.8); PROEL- Globulin, Total 3.7 g/dL (2.2-3.9); PROEL- TOTAL PROTEIN 7.1 g/dL (6.0-8.5); PROELU- Albumin, Urine 39.4 % (.); PROELU- Alpha-1-Globulin,Ur 3.3 % (.); PROELU- Alpha-2-Globulin,Ur 13.8 % (.); PROELU- Beta Globulin, Ur 26.7 % (.); PROELU- Gamma Globulin, Ur 16.8 % (.); Total Protein, Ur 16.1 mg/dL (Not Estab.)
== END ==
PROVIDERS: PCP Family Medicine; Referring Provider Family Medicine; Visit Provider Family Medicine
DX: M54.9 Dorsalgia, unspecified (principal); Z51.81 Encounter for therapeutic drug level monitoring; R77.1 Abnormality of globulin; I10 Essential (primary) hypertension
CPT/HCPCS: 36415; 72072; 72110; 80053; 81002; 82043; 82570; 84165; 84166; 85025; 86335

== ENCOUNTER 2021-01-14 12:42 | Emergency (ER) | payer OTHER, SELFPAY ==
[2020-05-09 06:18] VITALS: BMI 42.3
[2021-01-14 12:43] VITALS: BP 153/86; PULSE 91; RESP 16; TEMP 36.8; O2SAT 99; BMI 42.9
--- NOTE | 2021-01-14 12:59 | RAD_ITS ---
EXAM: XR LEFT KNEE COMPLETE, 4 OR MORE VIEWS : 1955 CLINICAL INDICATION: injury TECHNIQUE: Four or more views of the left knee. This report was created using [employer] report generation technology. COMPARISON: 06/17/2016 FINDINGS: BONES/JOINTS: There is a total knee prosthesis in anatomic alignment. No acute fracture. Preservation of the joint space. No sclerotic or destructive changes observed. SOFT TISSUES: Unremarkable. No soft tissue swelling or gas. No radiopaque foreign body. RAD/Knee 4 or More Views IMPRESSION: Total knee prosthesis in anatomic alignment. There are no acute osseous abnormalities. at 1349 Reported and signed by: Jose Armenta MD Electronically Signed: Jose Armenta MD at 13:48 EDT Tel , Service support ,
--- NOTE | 2021-01-14 12:59 | RAD_ITS ---
EXAM: XR RIGHT ANKLE COMPLETE, 3 OR MORE VIEWS : 1955 CLINICAL INDICATION: injury TECHNIQUE: Frontal, lateral and oblique views of the right ankle. This report was created using [employer] report generation technology. COMPARISON: None. FINDINGS: BONES/JOINTS: There are degenerative changes at the talonavicular joint with osteophyte formation. There is a large calcaneal spur present No acute fracture. No subluxation. Normal alignment. No sclerotic or destructive changes observed. SOFT TISSUES: There is soft tissue swelling over the medial malleolus. No radiopaque foreign body. RAD/Ankle min 3 Views IMPRESSION: Soft tissue swelling with no acute osseous abnormalities. There are degenerative changes with joint space narrowing. There is a large calcaneal spur. at 1350 Reported and signed by: Jose Armenta MD Electronically Signed: Jose Armenta MD at 13:48 EDT Tel , Service support ,
--- NOTE | 2021-01-14 13:15 | RAD_ITS ---
EXAM: XR RIGHT KNEE COMPLETE, 4 OR MORE VIEWS : 1955 CLINICAL INDICATION: injury TECHNIQUE: Four or more views of the right knee. This report was created using [email or web address] report generation technology. COMPARISON: 06/17/2016 FINDINGS: BONES/JOINTS: There is a total knee prosthesis in anatomic alignment with no evidence of fractures or loosening. The osseous structures are intact. Pression. Total right knee prosthesis in anatomic alignment. There are no acute abnormalities. Preservation of the joint space. No sclerotic or destructive changes observed. SOFT TISSUES: Unremarkable. No soft tissue swelling or gas. No radiopaque foreign body. RAD/Knee 4 or More Views IMPRESSION: No acute findings in the right knee. at 1341 Reported and signed by: Jose Armenta MD Electronically Signed: Jose Armenta MD at 13:40 EDT Tel , Service support ,
--- NOTE | 2021-01-14 14:56 | EDS_ITS ---
HPI History of Present Illness Chief Complaint: Lower Extremity Injury Informant: patient Occured/Mechanism Mechanism/Context: Yes same level fall Onset/Context/Timing Onset: Weeks Context: Gradual Onset Timing: Waxes and wanes Quality of Pain: Aching and Throbbing Current Severity: Mild Maximum Severity: Moderate Narrative Narrative: Patient present secondary to bilateral knee pain. She fell at work on December 27 landing on her knees. She presents today with continued pain. She was never seen and evaluated after the initial injury. She does have history of bilateral knee surgery with Dr. Malcolm. She is also seen reporting that her right ankle is more swollen. This ankle was broken in the past as well. [facility] Medical History Acid reflux Arthritis Blood in stool Chest pain Dyspnea Fatigue Hemorrhoids History of back problems Hyperlipidemia Hypertension Obesity (BMI 35.0-39.9 without comorbidity) Palpitations Pulmonary emboli Pulmonary embolism Rectal bleeding Sleep apnea SOB (shortness of breath) Type 2 diabetes mellitus without complications Home Medications amlodipine 10 mg-benazepril 40 mg capsule 1 cap PO QDAY 06/03/17 [History Last Taken 05/09/20 05:30] pravastatin 10 mg tablet 10 mg PO QHS 06/03/17 [History Last Taken Unknown] gabapentin 300 mg capsule 300 mg PO BID cap 09/01/17 [History Last Taken Unknown] doxycycline monohydrate 100 mg capsule 20 mg PO BID cap 03/30/20 [History Last Taken Unknown] metformin 500 mg tablet 500 mg PO BID tab 03/30/20 [History Last Taken Unknown] rivaroxaban 15 mg tablet 20 mg PO BID tab 03/30/20 [History Last Taken Unknown] Allergy/AdvReac Type Severity Reaction Status Date / Time No Known Allergies Allergy Verified 01/14/21 12:42 Family History Mother Diabetes Surgical History H/O total knee replacement History of section, classical History of total hysterectomy Social History Smoking Status: Never smoker ROS ROS ED Constitutional Constitutional ED: Denies chills or fever(s) Eyes Eyes: Denies change in vision ENT ENT ED: Denies sore throat Cardiovascular Cardiovascular: Denies chest pain Respiratory/Chest Respiratory/Chest: Denies cough or dyspnea Gastrointestinal Gastrointestinal: Denies abdominal pain, diarrhea, nausea or vomiting Genitourinary Genitourinary ED: Denies dysuria Musculoskeletal Musculoskeletal: Reports arthralgias; Denies back pain Integumentary Denies rash Neurologic Neurologic: Denies headache(s) or weakness Psychiatric Psychiatric: Denies anxiety or depression EXAM Physical Exam Const Vital Signs: 01/14/21 12:43 Temperature 98.3 F Temperature Source Temporal Pulse Rate 91 Respiratory Rate 16 Blood Pressure 153/86 H Blood Pressure Mean 108 Pulse Ox 99 Oxygen Delivery Method Room Air Positive well nourished and well developed General Appearance ED: well developed HEENT Reports normocephalic and head/scalp atraumatic Eyes PERRL and EOMs intact bilaterally Neck supple Chest Wall inspection of chest normal and palpation of chest normal Resp normal respiratory effort and clear to auscultation bilaterally Cardio regular rate and regular rhythm GI normal to inspection, nondistended, normoactive bowel sounds Palpation: soft Extremity Extremity Narrative: Mild tenderness of the anterior knees bilaterally. Left knee has an area of edema and old bruising that may represent a hematoma. Good range of motion noted. Right lateral ankle edema is noted with no bony tenderness. Neuro oriented x3 and no sensory deficits noted Sensorium / Orientation: alert Motor Exam: strength 5/5 throughout Psych mental status grossly normal Skin no rashes or lesions noted MDM MDM MDM Narrative Medical decision making narrative: Bilateral knee x-rays are obtained. Right ankle x-ray obtained. Radiography Diagnostic Testing: Radiology Impression Ankle X-Ray 01/14/21 12:59 IMPRESSION: Soft tissue swelling with no acute osseous abnormalities. There are degenerative changes with joint space narrowing. There is a large calcaneal spur. at 1350 Reported and signed by: Jose Armenta MD Electronically Signed: Jose Armenta MD at 13:48 EDT Tel , Service support , Knee X-Ray 01/14/21 12:59 IMPRESSION: Total knee prosthesis in anatomic alignment. There are no acute osseous abnormalities. at 1344 Reported and signed by: Jose Armenta MD Electronically Signed: Jose Armenta MD at 13:48 EDT Tel , Service support , Knee X-Ray 01/14/21 13:15 IMPRESSION: No acute findings in the right knee. at 9085 Reported and signed by: Jose Armenta MD Electronically Signed: Jose Armenta MD at 13:40 EDT Tel , Service support , Treatment and Re-Evaluation Comments:: X-rays per my interpretation reveal no acute fractures. Radiologist interpretation is reviewed. Patient will continue using topical anti-infl ammatory cream. She will follow-up with [facility]. Discharge Plan Triage Chief Complaint: Lower Extremity Injury ED Provider: Jessica Bhat Dx/Rx/DC Orders Clinical Impression: Contusion of knee, Fall Instructions: ED Contusion, Lower Extremity Prescriptions: No Action amlodipine-benazepril 10-40 mg capsule 1 cap PO QDAY RF: 0 pravastatin 10 mg tablet 10 mg PO QHS RF: 0 gabapentin 300 mg capsule 300 mg PO BID RF: 0 Xarelto 15 mg tablet 20 mg PO BID RF: 0 metformin 500 mg tablet 500 mg PO BID RF: 0 doxycycline monohydrate 100 mg capsule 20 mg PO BID RF: 0 Stand Alone Forms: Work Status Form Primary Care Provider: Ezequiel Cadena Referrals: [facility] [GROUP OF PHYSICIANS] - 3-5 Days Ezequiel Cadena DO [Primary Care Provider] - Disposition Disposition: Home, Self Care Discharge Date/Time: 01/14/21 15:04
== END 2021-01-14 15:04 | disposition home or self-care (01) ==
PROVIDERS: Emergency Provider Emergency Medicine; PCP Family Medicine
DX: S80.00XA Contusion of unspecified knee, initial encounter (principal); W18.30XA Fall on same level, unspecified, initial encounter; Y93.9 Activity, unspecified; Y92.89 Other specified places as the place of occurrence of the external cause; Y99.0 Civilian activity done for income or pay; E11.9 Type 2 diabetes mellitus without complications; E78.5 Hyperlipidemia, unspecified; I10 Essential (primary) hypertension; K21.9 Gastro-esophageal reflux disease without esophagitis; Z79.01 Long term (current) use of anticoagulants; E66.9 Obesity, unspecified; Z68.39 Body mass index [BMI] 39.0-39.9, adult; Z79.84 Long term (current) use of oral hypoglycemic drugs; Z96.652 Presence of left artificial knee joint
CPT/HCPCS: 73564; 73610; 99282

== ENCOUNTER 2021-06-19 10:12 | Outpatient (CLI) | payer OTHER, SELFPAY ==
[2021-06-19 12:39] LABS: Absolute Lymphocyte Count 2.06 X10^3/uL (0.83-4.51); Absolute Neutrophil Count 5.2 X10^3/uL (2.0-7.7); Basophil# 0.06 X10^3/uL; Basophil% 0.7 % (0-1); Eosinophil# 0.13 X10^3/uL; Eosinophils% 1.6 % (0-5); Hematocrit 37.8 % (37-47); Hemoglobin 11.8 g/dL (12.0-15.0); Lymphocyte # 2.06 X10^3/ul (0.83-4.51); Lymphocyte % 25.2 % (19-41); Mean Corp Hgb Conc 31.2 g/dL (32-36); Mean Corpuscular Hgb 26.3 pg (27.0-32.0); Mean Corpuscular Volume 84.2 fL (81-99); Monocyte% 8.5 % (0-10); NRBC Flagged by Analyzer 0 % (0-5); Neutrophil # 5.22 X10^3/uL (2.7-7.7); Neutrophil % 63.8 % (47-70); Platelet Count 302 K/mm3 (150-450); RBC Distribution Width CV 15.7 % (11.6-14.6); Red Blood Count 4.49 M/mm3 (4.2-5.4); White Blood Count 8.2 K/mm3 (4.4-11.0)
[2021-06-19 12:52] LABS: Vitamin B12 1250 pg/mL (211-911); Vitamin D,25 Hydroxy 44.5 ng/mL
[2021-06-19 13:06] LABS: ALB/GLOB Ratio 0.7 RATIO (0.9-2.4); AST(SGOT) 11 U/L (15-37); Alanine Aminotransfer ALT/SGPT 22 U/L (13-56); Albumin, Serum 3.4 g/dL (3.2-5.0); Alkaline Phosphatase 89 U/L (45-117); Anion Gap 11 (5-15); BUN 22 mg/dL (7-18); BUN/Creat Ratio 28.1 RATIO (10-20); Calcium,Total 8.5 mg/dL (8.5-10.1); Chloride 102 mmol/L (98-107); Creatinine, Serum 0.78 mg/dL (0.55-1.02); EST Glomerular Filtration Rate 78 mL/min (>60); Est Glom Filt Rate - Afr Amer 95 mL/min (>60); Globulin 4.6 g/dL (2.2-4.2); Glucose 104 mg/dL (74-106); Potassium 3.8 mmol/L (3.5-5.1); Sodium Level 141 mmol/L (136-145); T4 Free Direct 0.81 ng/dL (0.76-1.46); Thyroid Stim Hormone (TSH) 1.46 uIU/mL (0.358-3.74)
[2021-06-20 13:45] LABS: ANTINUCLEAR ANTIBODIES DIRECT Negative (Negative)
== END 2021-06-19 23:59 | disposition short-term general hospital (02) ==
PROVIDERS: PCP Family Medicine; Referring Provider Family Medicine; Visit Provider Family Medicine
DX: R53.83 Other fatigue (principal); R00.2 Palpitations; K13.0 Diseases of lips
CPT/HCPCS: 36415; 80053; 82306; 82607; 84439; 84443; 85025; 86038; 86225; 86235

== ENCOUNTER 2021-07-11 10:29 | Outpatient (CLI) | payer OTHER, SELFPAY ==
--- NOTE | 2021-07-11 10:40 | RAD_ITS ---
STUDY: X-RAY CHEST REASON FOR EXAM: Female, 65 years old. Cough with diffuse rales. Evaluate for pneumonia TECHNIQUE: COMPARISON: None. FINDINGS: The lungs are clear and expanded. There is no demonstrated pleural abnormality. Normal size heart. Normal mediastinum and claudia. Normal visualized pulmonary arteries. Normal visualized aortic arch and descending thoracic aorta. Diffuse thoracic spondylosis. Normal visualized ribs, clavicles, and shoulders. There is no demonstrated abnormality of the visualized soft tissue structures of the upper abdomen. RAD/Chest PA and Lateral IMPRESSION: No active or acute cardiopulmonary disease. Specifically, no evidence of pneumonia. Electronically Signed: Kartik Combs MD at 9:13 EST ,
[2021-07-11 12:06] LABS: Absolute Lymphocyte Count 1.82 X10^3/uL (0.83-4.51); Absolute Neutrophil Count 5.5 X10^3/uL (2.0-7.7); Basophil# 0.05 X10^3/uL; Basophil% 0.6 % (0-1); Eosinophils% 1.2 % (0-5); Hematocrit 40.9 % (37-47); Hemoglobin 12.2 g/dL (12.0-15.0); Lymphocyte # 1.82 X10^3/ul (0.83-4.51); Lymphocyte % 21.7 % (19-41); Mean Corp Hgb Conc 29.8 g/dL (32-36); Mean Corpuscular Hgb 25.1 pg (27.0-32.0); Monocyte# 0.88 X10^3/uL; Monocyte% 10.5 % (0-10); NRBC Flagged by Analyzer 0 % (0-5); Neutrophil % 65.6 % (47-70); Platelet Count 353 K/mm3 (150-450); RBC Distribution Width CV 15.9 % (11.6-14.6); RBC Distribution Width SD 48.6 fl (35.1-43.9); Red Blood Count 4.87 M/mm3 (4.2-5.4); White Blood Count 8.4 K/mm3 (4.4-11.0)
== END 2021-07-11 23:59 | disposition short-term general hospital (02) ==
LOC: MTLAB 10:30
PROVIDERS: PCP Family Medicine; Referring Provider Family Medicine; Visit Provider Family Medicine
DX: J18.9 Pneumonia, unspecified organism (principal)
CPT/HCPCS: 36415; 71046; 85025

== ENCOUNTER → 2021-11-28 | Outpatient (CLI) | payer OTHER, SELFPAY ==
[2021-11-28 12:37] LABS: Absolute Lymphocyte Count 1.87 X10^3/uL (0.83-4.51); Absolute Neutrophil Count 3.8 X10^3/uL (2.0-7.7); Basophil# 0.04 X10^3/uL; Basophil% 0.6 % (0-1); Eosinophil# 0.11 X10^3/uL; Eosinophils% 1.7 % (0-5); Hematocrit 40.5 % (37-47); Hemoglobin 12.4 g/dL (12.0-15.0); Lymphocyte # 1.87 X10^3/ul (0.83-4.51); Mean Corp Hgb Conc 30.6 g/dL (32-36); Mean Corpuscular Hgb 25.9 pg (27.0-32.0); Mean Corpuscular Volume 84.7 fL (81-99); Mean Platelet Vol. 11.1 fl (6.2-12.0); Monocyte# 0.58 X10^3/uL; NRBC Flagged by Analyzer 0 % (0-5); Neutrophil # 3.84 X10^3/uL (2.7-7.7); Neutrophil % 59.5 % (47-70); Platelet Count 290 K/mm3 (150-450); RBC Distribution Width CV 15.9 % (11.6-14.6); RBC Distribution Width SD 48.3 fl (35.1-43.9); Red Blood Count 4.78 M/mm3 (4.2-5.4); White Blood Count 6.5 K/mm3 (4.4-11.0)
[2021-11-28 12:45] LABS: Vitamin B12 1131 pg/mL (211-911); Vitamin D,25 Hydroxy 44.7 ng/mL
[2021-11-28 12:57] LABS: ALB/GLOB Ratio 0.8 RATIO (0.9-2.4); AST(SGOT) 14 U/L (15-37); Alanine Aminotransfer ALT/SGPT 20 U/L (13-56); Albumin, Serum 3.5 g/dL (3.2-5.0); Alkaline Phosphatase 78 U/L (45-117); Anion Gap 4 (5-15); BUN 16 mg/dL (7-18); BUN/Creat Ratio 20.3 RATIO (10-20); CPK Total, Creatine Kinase 94 U/L (26-192); Calcium,Total 9.6 mg/dL (8.5-10.1); Chloride 102 mmol/L (98-107); Creatinine, Serum 0.79 mg/dL (0.55-1.02); EST Glomerular Filtration Rate 78 mL/min (>60); Est Glom Filt Rate - Afr Amer 94 mL/min (>60); Ferritin 14 ng/mL (8-252); Globulin 4.3 g/dL (2.2-4.2); Glucose 111 mg/dL (74-106); Iron 77 ug/dL (50-170); Potassium 4.1 mmol/L (3.5-5.1); Protein, Total 7.8 g/dL (6.4-8.2); Sodium Level 138 mmol/L (136-145)
== END | disposition home or self-care (01) ==
LOC: MTLAB 10:57
PROVIDERS: PCP Family Medicine; Referring Provider Family Medicine; Visit Provider Family Medicine
DX: R53.83 Other fatigue (principal); R31.29 Other microscopic hematuria; E55.9 Vitamin D deficiency, unspecified; R53.1 Weakness; D64.9 Anemia, unspecified
CPT/HCPCS: 36415; 80053; 81002; 82306; 82550; 82607; 82728; 83540; 85025

== ENCOUNTER → 2022-01-09 | Outpatient (CLI) | payer OTHER, SELFPAY ==
--- NOTE | 2022-01-09 10:39 | BI_ITS ---
MAMMOGRAPHY - BILATERAL SCREENING REASON FOR EXAM: Female, 66 years old. Routine annual screening examination. PERTINENT HISTORY: Non-contributory. TECHNIQUE: Digital bilateral breast annette (3D mammographic acquisition) in the CC and MLO projections. 2-D mediolateral oblique (MLO) and craniocaudad (CC) views of both breasts were obtained. CAD: Full Field Digital Mammography with Computer Added Detection was performed. COMPARISON: Comparison is made with prior study dated 12/13/2019 and 11/27/2018. FINDINGS: Breast Composition: The breasts are almost entirely fatty. There are no dominant masses or suspicious calcifications. Stable 1.2 cm well-defined nodule in the central aspect of the left breast. This was demonstrated to be a benign-appearing lymph node on prior sonogram. No other significant abnormalities are identified. There has been no significant change since the prior study. BI/SCRN MAMM (CAD)W/ANNETTE BILAT IMPRESSION: Stable bilateral screening mammogram. Yearly follow-up mammogram recommended. (A) ASSESSMENT CATEGORY: BIRADS Category 2: Benign. A letter regarding these results will be sent to the patient by the facility within 30 days. Approximately 10% of breast cancers are not detected by mammography. A normal mammogram should not delay biopsy of a clinically suspicious abnormality. [id number] Electronically Signed: Felipe Sneed MD at 11:41 EDT ,
== END | disposition home or self-care (01) ==
LOC: OPBI 10:37
PROVIDERS: PCP Family Medicine; Visit Provider Family Medicine
DX: Z12.31 Encounter for screening mammogram for malignant neoplasm of breast (principal)
CPT/HCPCS: 77063; 77067

== ENCOUNTER → 2022-09-24 | Outpatient (CLI) | payer OTHER, SELFPAY ==
[2022-09-24 12:37] LABS: Color, Urine Yellow (Yellow); Glucose, Dipstick Normal (Normal); Ketone-Dipstick Negative (Negative); Leukocyte Esterase-Dipstick Negative /ul (Negative); Nitrite-Dipstick Negative (Negative); Occult Blood-Urine Negative /ul (Negative); Protein-Dipstick 15 mg/dl (Negative); Specific Gravity, Urine 1.015 (1.002-1.030); Urine Bilirubin Dipstick Negative (Negative); Urine Clarity Sl. Cloudy (Clear); Urine Urobilinogen Normal (Normal)
[2022-09-24 13:08] LABS: Microalbumin,Random Urine 58.2 mg/L (NO RANGE EST.); Microalbumin:Creatinine Ratio 111.1 mg/g CRE (<30 mg/g CRE)
[2022-09-24 13:11] LABS: ALB/GLOB Ratio 0.8 RATIO (0.9-2.4); AST(SGOT) 18 U/L (15-37); Alanine Aminotransfer ALT/SGPT 21 U/L (13-56); Albumin, Serum 3.5 g/dL (3.2-5.0); Alkaline Phosphatase 63 U/L (45-117); Anion Gap 5 (5-15); BUN 19 mg/dL (7-18); BUN/Creat Ratio 26.4 RATIO (10-20); Calcium,Total 9.6 mg/dL (8.5-10.1); Chloride 102 mmol/L (98-107); Creatinine, Serum 0.72 mg/dL (0.55-1.02); EST Glomerular Filtration Rate 86 mL/min (>60); Est Glom Filt Rate - Afr Amer 104 mL/min (>60); Globulin 4.3 g/dL (2.2-4.2); Glucose 109 mg/dL (74-106); Potassium 3.9 mmol/L (3.5-5.1); Protein, Total 7.8 g/dL (6.4-8.2); Sodium Level 136 mmol/L (136-145)
== END | disposition home or self-care (01) ==
LOC: MTLAB 10:31
PROVIDERS: PCP Family Medicine; Referring Provider Family Medicine; Visit Provider Family Medicine
DX: E11.40 Type 2 diabetes mellitus with diabetic neuropathy, unspecified (principal); R31.29 Other microscopic hematuria
CPT/HCPCS: 36415; 80053; 81002; 82043; 82570

== ENCOUNTER → 2022-12-24 | Outpatient (CLI) | payer OTHER, SELFPAY | END | disposition home or self-care (01) | LOC: LABSPEC 13:54 | PROVIDERS: PCP Family Medicine; Referring Provider Family Medicine; Visit Provider Family Medicine | DX: R35.0 Frequency of micturition (principal) | CPT/HCPCS: 87086; 87088 ==

== ENCOUNTER → 2023-02-28 | Outpatient (CLI) | payer OTHER, SELFPAY ==
[2023-02-28 16:15] LABS: Microalbumin,Random Urine 69.1 mg/L (NO RANGE EST.)
[2023-02-28 16:40] LABS: Cholesterol 153 mg/dL (200); High Density Lipoprotein 62 mg/dL; Triglycerides 78 mg/dL; Very Low Density Lipoprotein 16 mg/dL (5-40)
[2023-02-28 16:42] LABS: Hemoglobin A1c 6.1 % (3.8-5.6)
== END | disposition home or self-care (01) ==
PROVIDERS: PCP Family Medicine; Referring Provider Family Medicine; Visit Provider Family Medicine
DX: E11.40 Type 2 diabetes mellitus with diabetic neuropathy, unspecified (principal); I10 Essential (primary) hypertension; E78.5 Hyperlipidemia, unspecified
CPT/HCPCS: 36415; 80061; 82043; 82570; 83036

== ENCOUNTER → 2023-08-12 | Outpatient (CLI) | payer OTHER, SELFPAY ==
[2023-08-12 12:46] LABS: T4 Free Direct 0.85 ng/dL (0.76-1.46); Thyroid Stim Hormone (TSH) 1.82 uIU/mL (0.358-3.74)
--- OUTSIDE RECORDS SUMMARY | 2023-08-12 19:06 | XMS RPT_ITS | CCD ---
Author Name Unknown Address [address] [facility] [address] [place] [id number] Organization [facility] Care Team Providers Care Hot Stick Man Name Role Phone SKINCARE Unavailable Denise Villa Unavailable MIGUEL ANGEL Jules Unavailable Unavailable Unavailable Unavailable Medications Completed/Discontinued Medications Medication Drug Class(es) Dates Sig (Normalized) Sig (Original) LORazepam 1 mg oral tablet (1 source) Benzodiazepine Start: 02-25-2017 take 0.5-1 tablets by mouth every six hours as needed for anxiety Ativan 1 MG Oral Tablet 1/2 to 1 Tablet q 6 hours prn anxiety for 0 days Quantity: 30 {Tablet} Refills: 2 Ordered: 25-Feb-2017 Denise Villa MD Start : 25-Feb-2017 Active Comments: [id number] called to [facility] Problems Active Problems Problem Classification Problem Date Documented Da te Episodic/Chronic Anxiety disorders (1 source) Mixed anxiety and depressive disorder; Translations: [Anxiety and depression] 02-25-2017 Chronic Past or Other Problems Problem Classification Problem Date Documented Da te Episodic/Chronic Mood disorders (1 source) Mood disorders Encounters Encounter Date Encounter Type Care Provider Facility Start: 02-25-2017 End: 02-25-2017 Phone Encounter Director Of Video Analytics Comprehensive Project Control Manager al Medicine Procedures Date Procedure Procedure Detail Performing Clinician Start: 10-01-2018 End: 10-02-2018 Ankle min 3 Views Comments: See Note; NOTES: [facility] Imaging Services [address] [place] [address] Ankle min 3 Views MR#: [id number] Acct: [id number] Name: REGINA SUGGS Rep #: [id number] : 1955 F 62 From: Pepe Gallego MD PCP: Surinder DO,Ezequiel Status: REG CLI Study: Ankle min 3 Views Date of Exam: 10/01/18 Exam# [id number] Ordering Dr: Laverne Mcclure DO STUDY: X-RAY - RIGHT ANKLE REASON FOR EXAM: Pain. TECHNIQUE: 3 view(s) of the ankle. COMPARISON: Radiographs 06/17/2016. FINDINGS: There is chronic healed fracture deformity of the medial and lateral malleoli. Normal tibiotalar articulation and ankle mortise. There is a prominent plantar calcaneal enthesophyte and a small posterior calcaneal enthesophyte. There is a dorsal spur of the neck of the talus. The visualized subtalar, talonavicular, calcaneocuboid and tarsal articulations are normal. The soft tissue structures are unremarkable. RAD/Ankle min 3 Views IMPRESSION: Chronic healed fracture deformity of the medial and lateral malleoli. Dorsal spur of the talus. Calcaneal enthesopathy. Electronically Signed: Pepe Gallego MD at 14:33 EDT Tel , Service support , CC: Laverne Mcclure DO; Ezequiel Cadena DO Production Cost Estimator: Signed Director Of Video Analytics Additional Source Comments FOR RECORDS PERTAINING TO PATIENTS WHO ARE OR HAVE BEEN ENROLLED IN A CHEMICAL DEPENDENCY/SUBSTANCEABUSE PROGRAM, SOME INFORMATION MAY BE OMITTED. This clinical summary was aggregated from multiple sources. Caution should be exercised in using it in the provision of clinical care. This summary normalizes information from multiple sources, and as a consequence, information in this document may materially change the coding, format and clinical context of patient data. In addition, data may be omitted in some cases. CLINICAL DECISIONS SHOULD BE BASED ON THE PRIMARY CLINICAL RECORDS. [facility]. provides no warranty or guarantee of the accuracy or completeness of information in this document.
== END | disposition home or self-care (01) ==
LOC: BFHLAB 10:28
PROVIDERS: PCP Family Medicine; Visit Provider Family Medicine
DX: E01.0 Iodine-deficiency related diffuse (endemic) goiter (principal); N39.0 Urinary tract infection, site not specified
CPT/HCPCS: 36415; 84439; 84443; 87086

== ENCOUNTER → 2023-09-10 | Outpatient (CLI) | payer OTHER, SELFPAY ==
--- NOTE | 2023-09-10 12:17 | BI_ITS ---
MAMMOGRAPHY - BILATERAL SCREENING REASON FOR EXAM: Female, 67 years old. Routine annual screening examination. PERTINENT HISTORY: Non-contributory. TECHNIQUE: Digital bilateral breast annette (3D mammographic acquisition) in the CC and MLO projections. 2-D mediolateral oblique (MLO) and craniocaudad (CC) views of both breasts were obtained. CAD: Full Field Digital Mammography with Computer Added Detection was performed. COMPARISON: Comparison is made with prior study dated January 09, 2022 and December 13, 2019. FINDINGS: Breast Composition: The breasts are almost entirely fatty. There are no dominant masses or suspicious calcifications. Stable small benign-appearing bilateral axillary lymph nodes. Stable 1 cm well-defined nodule in the central aspect of the left breast. This was demonstrated to be a benign-appearing lymph node on prior sonogram. No other significant abnormalities are identified. There has been no significant change since the prior study. BI/SCRN MAMM (CAD)W/ANNETTE BILAT IMPRESSION: Stable bilateral screening mammogram. Yearly follow-up mammogram recommended. (A) ASSESSMENT CATEGORY: BIRADS Category 2: Benign. A letter regarding these results will be sent to the patient by the facility within 30 days. Approximately 10% of breast cancers are not detected by mammography. A normal mammogram should not delay biopsy of a clinically suspicious abnormality. [id number] Electronically Signed: Felipe Sneed MD at 15:12 EDT ,
--- NOTE | 2023-09-10 12:17 | BD_ITS ---
STUDY: DUAL ENERGY X-RAY ABSORPTIOMETRY / DXA REASON FOR EXAM: Female, 67 years old. [id number] TECHNIQUE: Bone Mineral Density (BMD) measurements of lumbar spine and bilateral hips were obtained. COMPARISON: None. FINDINGS: Lumbar Spine (L1-L4): g/cm2 (0.797) / T-score (-2.6) / Z-score (-0.5) Findings are suggestive of osteoporosis with a high fracture risk. Left Femur Total: g/cm2 (0.821) / T-score (-1.0) / Z-score (0.4) Left Femoral Neck: g/cm2 (0.590) / T-score (-2.3) / Z-score (-0.2) Right Femur Total: g/cm2 (0.763) / T-score (-1.5) / Z-score (0.0) Right Femoral Neck: g/cm2 (0.699) / T-score (-1.4) / Z-score (0.4) BD/Dexa Bone Density Study IMPRESSION: The patient is considered osteoporotic as outlined below according to World Loi Organization (WHO) criteria with a high fracture risk. Reference Information: The T-score is the number of standard deviations above or below the standard which is normal for young adults at their peak bone mineral density. The World Health Organization (WHO) interprets the T-scores as follows: Above -1 Normal bone density Between -1 and -2.5 Osteopenia Equal to / or below -2.5 Osteoporosis As a practical clinical guideline, osteopenia may be graded as follows: Mild -1 through -1.5 Moderate -1.6 through -2.0 Severe -2.1 through -2.4 The Z-score is the number of standard deviations above or below age-matched controls. A Z-score of less than -1.5 would be considered abnormal. References: 1. NIH Osteoporosis and Related Bone Diseases www osteo.org 2. International Society for Clinical Densitometry www iscd.org 3. National Osteoporosis Foundation www nof.org Electronically Signed: Felipe Sneed MD at 9:37 EDT ,
--- NOTE | 2023-09-10 12:22 | US_ITS ---
EXAM: US SOFT TISSUES HEAD AND NECK, THYROID CLINICAL INDICATION: THYROMEGALY TECHNIQUE: Greyscale and color doppler imaging was performed of the thyroid gland. COMPARISON: No relevant prior studies available. FINDINGS: LEFT THYROID LOBE: The left thyroid lobe measures 6.6 x 2.7 x 3.1 cm. There is a 1.5 cm left thyroid lobe nodule. This nodule is solid or almost completely solid, hyperechoic or isoechoic, [id number], ill-defined and contains no echogenic foci. TI-RADS points: 6. TI-RADS category: TR4. This nodule is moderately suspicious. Recommend FNA evaluation. RIGHT THYROID LOBE: Right thyroid lobe nodule measuring 1.1 cm. This nodule is of uncertain composition due to calcification, is of indeterminate echogenicity, oxzpo-[id number], smoothly marginated, contains microcalcifications and is peripherally calcified. TI-RADS points: 6. TI-RADS category: TR4. This nodule is moderately suspicious. Recommend follow-up thyroid ultrasounds at 1, 2, 3 and 5 years. The right thyroid lobe measures 6.5 x 2.9 x 2.9 cm. Right thyroid lobe nodule measuring up to 1.4 cm. This nodule is solid or almost completely solid, hyperechoic or isoechoic, [id number]-[id number], ill-defined and contains no echogenic foci. TI-RADS points: 3. TI-RADS category: TR3. This nodule is mildly suspicious but no FNA or follow-up is necessary given the small size of this nodule. Right thyroid lobe nodule measuring 0.9 cm. This nodule is solid or almost completely solid, hypoechoic, [id number]-grsv-[id number], smoothly marginated and contains no echogenic foci. TI-RADS points: 4. TI-RADS category: TR4. This nodule is moderately suspicious but no FNA or follow-up is necessary given the small size of this nodule. Benign right thyroid cyst measuring 1.2 cm. TI-RADS points: 0. TI-RADS category: TR1. This nodule is benign and no FNA or follow-up is necessary. ISTHMUS: The thyroid isthmus measures 2.2 cm. No thyroid nodules are present. US/Thyroid IMPRESSION: 1. Multiple bilateral thyroid nodules as detailed above. The 1.5 cm left thyroid lobe nodule is moderately suspicious and FNA is recommended. If definitive management is not performed, follow-up of the 1.1 cm right thyroid nodule at one, 2, 3, and 5 years is recommended. The other nodules are smaller than the threshold for follow-up or FNA. 2. Thyromegaly. Electronically Signed: Wally Costello DO at 22:28 EDT ,
== END | disposition home or self-care (01) ==
LOC: OPBD 12:16
PROVIDERS: PCP Family Medicine; Referring Provider Family Medicine; Visit Provider Family Medicine
DX: Z12.31 Encounter for screening mammogram for malignant neoplasm of breast (principal); E01.0 Iodine-deficiency related diffuse (endemic) goiter; M81.0 Age-related osteoporosis without current pathological fracture
CPT/HCPCS: 76536; 77063; 77067; 77080

== ENCOUNTER → 2023-09-24 | Outpatient (CLI) | payer OTHER, SELFPAY ==
[2023-09-24 15:13] LABS: Erythrocyte Sedimentation Rate 30 mm/hr (0-30)
[2023-09-24 15:16] LABS: Absolute Lymphocyte Count 1.49 X10^3/uL (0.83-4.51); Absolute Neutrophil Count 3.2 X10^3/uL (2.0-7.7); Basophil# 0.05 X10^3/uL; Basophil% 0.9 % (0-1); Eosinophil# 0.21 X10^3/uL; Eosinophils% 3.8 % (0-5); Hematocrit 39.9 % (37-47); Hemoglobin 12.3 g/dL (12.0-15.0); Lymphocyte # 1.49 X10^3/ul (0.83-4.51); Lymphocyte % 27.2 % (19-41); Mean Corp Hgb Conc 30.8 g/dL (32-36); Mean Corpuscular Hgb 25.9 pg (27.0-32.0); Mean Corpuscular Volume 84.2 fL (81-99); Mean Platelet Vol. 10.9 fl (6.2-12.0); Monocyte# 0.55 X10^3/uL; NRBC Flagged by Analyzer 0 % (0-5); Neutrophil # 3.17 X10^3/uL (2.7-7.7); Neutrophil % 57.9 % (47-70); Platelet Count 316 K/mm3 (150-450); RBC Distribution Width CV 14.6 % (11.6-14.6); RBC Distribution Width SD 44.7 fl (35.1-43.9); Red Blood Count 4.74 M/mm3 (4.2-5.4); White Blood Count 5.5 K/mm3 (4.4-11.0)
[2023-09-24 15:25] LABS: Vitamin D,25 Hydroxy 42.8 ng/mL
[2023-09-24 15:28] LABS: PTHIN 55.2 pg/mL (18.4-80.1)
[2023-09-24 19:53] LABS: CRP 5.12 mg/L (0.0-3.0)
== END | disposition home or self-care (01) ==
LOC: BFHLAB 13:07
PROVIDERS: PCP Family Medicine; Visit Provider Family Medicine
DX: M81.0 Age-related osteoporosis without current pathological fracture (principal); R51.9 Headache, unspecified; R42 Dizziness and giddiness
CPT/HCPCS: 36415; 82306; 83970; 85025; 85652; 86140

== ENCOUNTER → 2023-10-16 | Outpatient (CLI) | payer OTHER, SELFPAY ==
--- NOTE | 2023-10-16 13:20 | CT_ITS ---
STUDY: CT BRAIN WITH AND WITHOUT CONTRAST REASON FOR EXAM: Female, 67 years old. BANGURA/DIZZINESS RADIATION DOSAGE (If Supplied By Facility): CTDIvol = ( 47.06 ) mGy, DLP = ( 1815.94 ) mGycm TECHNIQUE: Transaxial CT imaging of the brain was performed pre and post contrast administration. The examination was performed with intravenous administration of IV 50mL Isovue-370. Individualized dose optimization techniques were used for this CT. COMPARISON: None. FINDINGS: Normal soft tissue structures. Normal calvarium. There is mild cerebral atrophy with widening of the extra-axial spaces and ventricular dilatation. Normal white matter tracts of the cerebral hemispheres. Normal basal ganglia and thalami. Normal brainstem. Normal cerebellum. There is no intracranial hemorrhage. There are no findings of an acute ischemic infarction. Normal visualized paranasal sinuses. CT/Brain/Head W/WO Contrast IMPRESSION: Chronic involutional changes of the brain. Electronically Signed: Felipe Sneed MD at 15:42 EDT ,
[2023-10-16 13:44] LABS: CREATININE FINGERSTICK < 1.0 mg/dL (0.55-1.02); EGFR FINGERSTICK > 60.0000 mL/min (>60)
== END | disposition home or self-care (01) ==
LOC: CT 13:04
PROVIDERS: PCP Family Medicine; Referring Provider Family Medicine; Visit Provider Family Medicine
DX: R51.9 Headache, unspecified (principal); R42 Dizziness and giddiness
CPT/HCPCS: 70470; Q9967

== ENCOUNTER → 2023-11-11 | Outpatient (CLI) | payer OTHER, SELFPAY ==
[2023-11-11 15:27] LABS: Color, Urine Yellow (Yellow); Glucose, Dipstick Normal (Normal); Ketone-Dipstick Negative (Negative); Leukocyte Esterase-Dipstick 100 /ul (Negative); Nitrite-Dipstick Negative (Negative); Occult Blood-Urine 10 /ul (Negative); Protein-Dipstick 100 mg/dl (Negative); Specific Gravity, Urine 1.015 (1.002-1.030); Urine Bilirubin Dipstick Negative (Negative); Urine Clarity Sl. Cloudy (Clear); Urine Urobilinogen Normal (Normal)
== END | disposition home or self-care (01) ==
LOC: BFHLAB 13:36 → LABSPEC 13:38
PROVIDERS: PCP Family Medicine; Referring Provider Family Medicine; Visit Provider Family Medicine
DX: R35.0 Frequency of micturition (principal)
CPT/HCPCS: 81002; 87086; 87088

== ENCOUNTER 2024-03-04 11:44 | Outpatient (CLI) | payer OTHER, SELFPAY ==
[2024-03-04 11:57] VITALS: BP 145/83; PULSE 79; RESP 16; TEMP 36.6; O2SAT 98; BMI 39.6
[2024-03-04] MEDS: DENOSUMAB 60 MG/ML SC (12:07)
== END 2024-03-04 23:59 | disposition home or self-care (01) ==
LOC: MEDOUTP 11:45
PROVIDERS: PCP Family Medicine; Referring Provider Family Medicine; Visit Provider Family Medicine
DX: M81.0 Age-related osteoporosis without current pathological fracture (principal)
CPT/HCPCS: 96372; J0897

== ENCOUNTER → 2024-05-10 | Outpatient (CLI) | payer OTHER, SELFPAY ==
[2024-05-10 12:18] LABS: Erythrocyte Sedimentation Rate 54 mm/hr (0-30)
[2024-05-10 13:02] LABS: CRP < 2.90 mg/L (0.0-3.0)
== END | disposition home or self-care (01) ==
LOC: BFHLAB 10:29
PROVIDERS: PCP Family Medicine; Referring Provider Family Medicine; Visit Provider Family Medicine
DX: R51.9 Headache, unspecified (principal)
CPT/HCPCS: 36415; 85652; 86140

== ENCOUNTER → 2024-08-10 | Outpatient (CLI) | payer OTHER, SELFPAY ==
--- NOTE | 2024-08-10 11:32 | RAD_ITS ---
PROCEDURE: CHEST PA AND LATERAL REASON FOR EXAM: Right lower thoracic and right chest pain. TECHNIQUE: Frontal and lateral views of the chest. COMPARISON: Chest radiograph dated 02/27/2022 FINDINGS: Lungs are clear of pneumonia and congestion. No pleural effusions, thickening, or pneumothorax. Heart and mediastinum are normal. Old healed granulomatous changes. Great vessels unremarkable. No hilar masses. Multilevel spondylosis. RAD/Chest PA and Lateral IMPRESSION: No active cardiopulmonary disease. Reading Location: [place] [id number]
== END | disposition home or self-care (01) ==
LOC: MTRAD 11:31
PROVIDERS: PCP Family Medicine; Referring Provider Family Medicine; Visit Provider Family Medicine
DX: R07.9 Chest pain, unspecified (principal)
CPT/HCPCS: 71046

== ENCOUNTER 2024-08-13 23:26 | Emergency (ER) | payer OTHER, SELFPAY ==
[2024-08-13 23:27] VITALS: BP 155/106; PULSE 92; RESP 21; TEMP 36.6; O2SAT 96; BMI 40.1
[2024-08-13 23:45] VITALS: O2SAT 95
--- NOTE | 2024-08-13 23:45 | EKG12_ITS ---
Test Reason : CP Blood Pressure : */* mmHG Vent. Rate : 87 BPM Atrial Rate : 87 BPM P-R Int : 160 ms QRS Dur : 84 ms QT Int : 334 ms P-R-T Axes : 41 -1 40 degrees QTcB Int : 401 ms Normal sinus rhythm Normal ECG Confirmed by Abelardo Myers ([id number]), photograph editor JOSEFINA COLIN ([id number]) on 08/16/2024 10:51:59 AM Referred By: BB Confirmed By: Abelardo Myers
--- NOTE | 2024-08-13 23:46 | EDS_ITS ---
HPI History of Present Illness Chief Complaint: Chest Pain Informant: patient Narrative Narrative: Patient presents with right sided nonpleuritic chest discomfort radiating into the right upper back region that she states has been constant since the beginning of the week, the last 5 days including today. She has no new associated symptoms with it, but she states that she is feeling episodes of lightheadedness and weak vision that has been going on for much longer but more frequently since this has been the case. She denies any syncope. She denies any sensation of vertigo/movement or disequilibrium and there is no associated nausea when she has the lightheadedness. She states they occur completely randomly, and are not triggered by anything that she can think of such as position changes, getting up, or turning her head. She denies any lateralizing neurologic symptoms at all. She denies any associated dyspnea, orthopnea, nausea, vomiting, abdominal discomfort, swelling in the legs. She saw her doctor the day after the onset, had a chest x-ray that was unremarkable. She denies any known history of heart or lung problems although it appears that she is on Xarelto for history of a pulmonary embolus. [facility] Medical History Contact with and (suspected) exposure to other viral communicable diseases Acute bronchitis, unspecified Rectal bleeding Pulmonary embolism Pulmonary emboli Hemorrhoids Acid reflux Blood in stool Sleep apnea SOB (shortness of breath) History of back problems Chest pain Fatigue Dyspnea Obesity (BMI 35.0-39.9 without comorbidity) Palpitations Arthritis Hyperlipidemia Hypertension Type 2 diabetes mellitus without complications Home Medications ?Medication ?Instructions ?Recorded ?Last Taken ?Type gabapentin 300 mg capsule 300 mg PO BID 09/01/17 Unkno wn History rivaroxaban 15 mg tablet (Xarelto) 20 mg PO Q24H 03/30 Unknown History amlodipine 5 mg tablet 5 mg PO QDAY 10/08/23 Unknow n History pantoprazole 20 mg tablet,delayed 20 mg PO QDAY PRN st omach 10/08/23 Unknown History release semaglutide 1 mg/dose (4 mg/3 mL) 1 mg subcut .1x/week 10/08/23 Unknown History subcutaneous pen injector (Ozempic) simvastatin 20 mg tablet 20 mg PO QHS PRN pt thinks m ed 04/24/24 Unknown History causes her pain spironolactone 25 mg tablet 25 mg PO QDAY 10/08/23 Unk nown History Allergy/AdvReac Type Severity Reaction Status Date / Time No Known Allergies Allergy Verified 03/26/24 11:16 Family History Mother Diabetes Surgical History H/O total knee replacement History of section, classical History of total hysterectomy Social History Smoking Status: Never smoker ROS ROS ED Constitutional Constitutional ED: Denies chills or fever(s) Eyes Eyes: Denies change in vision or diplopia ENT ENT ED: Denies rhinorrhea or sore throat Cardiovascular Cardiovascular: Reports as per HPI, chest pain and lightheadedness; Denies chest pain with activity, leg edema, orthopnea, palpitations, pounding heartbeat, racing heartbeat, radiating jaw, neck or arm pain or syncope Respiratory/Chest Respiratory/Chest: Denies cough, dyspnea or orthopnea Gastrointestinal Gastrointestinal: Denies abdominal pain, diarrhea, nausea or vomiting Genitourinary Genitourinary ED: Denies dysuria or hematuria Musculoskeletal Musculoskeletal: Reports back pain; Denies neck pain Integumentary Denies abscess or rash Neurologic Neurologic: Denies headache(s), paresthesias or weakness EXAM Physical Exam Const Vital Signs: 08/13/24 23:27 08/13/24 23:33 08/13/24 23:45 Temperature 98 F Temperature Source Oral Pulse Rate 92 Respiratory Rate 21 H Respiratory Effort Normal Blood Pressure 155/106 H Blood Pressure Mean 122 Pulse Ox 96 95 Oxygen Delivery Method Room Air Room Air 08/14/24 01:26 Temperature Temperature Source Pulse Rate 70 Respiratory Rate 19 H Respiratory Effort Blood Pressure 158/102 H Blood Pressure Mean 120 Pulse Ox 96 Oxygen Delivery Method Room Air Positive well nourished, well developed and obese General Appearance ED: well developed and NAD Nutritional Appearance: obese HEENT Reports moist mucous membranes normocephalic and atraumatic Eyes PERRL and EOMs intact bilaterally Neck full ROM and supple Chest Wall inspection of chest normal and palpation of chest normal Chest Narrative: No crepitance or subcutaneous emphysema. Normal inspection. Chest: Negative for tenderness Resp normal respiratory effort and clear to auscultation bilaterally Cardio regular rate and regular rhythm Cardio Narrative: Possibly slight soft 1/6 systolic ejection murmur LLSB GI non-tender and non-distended Auscultation: normoactive bowel sounds Palpation: soft Back/Spine no CVA tenderness General Back: other FROM Extremity normal to inspection General Extremety ED: Negative for edema, pulses abnormal or tenderness General Extremity: Negative for edema or pulses abnormal Neuro oriented x3, CN's II-XII intact bilaterally and no sensory deficits noted Sensorium / Orientation: awake and alert Motor Exam: strength 5/5 throughout Psych Psych Narrative: A little anxious Skin no rashes or lesions noted and no wounds Heart Score History: Slightly/Non-Suspicious ECG: Normal Age: >/= 65 years Risk Factors: >/= 3 Risk Factors or History of CAD (Hypertension, hyperlipidemia, diabetes) Troponin: </= Normal Limit Score: 4 MDM MDM MDM Narrative Medical decision making narrative: Patient's EKG is completely normal. Furthermore her vital signs are normal including pulse and pulse oximetry, arguing against a pulmonary embolus. Also furthermore since her symptoms do not suggest a pulmonary embolus and she is already anticoagulated, I do not think she needs an emergent CTA or VQ scan to look for this pathology. I did a test x-ray, 2 views of my interpretation unremarkable, the EKG is normal and a couple sequential troponin measurements are normal. The rest of her labs are unremarkable. With random relatively brief episodes of lightheadedness, although she is not feeling any palpitations with any of this that does not rule out the possibility of ectopy or dysrhythmias. She has had no syncopal episodes to suggest a dangerous ventricular dysrhythmia. I asked her about a Holter monitor, she states she did 1 maybe 15 years ago. This week she has been having them every day, therefore a Holter monitor may be a reasonable next step with regards to her episodes of lightheadedness, but I do not think her discomfort tonight is acute coronary syndrome and so I think she can be discharged home to follow-up as an outpatient for this and the above reasons. Lab Data Attestation: I reviewed the patient's lab results. Labs: Laboratory Results - last 24 hr 08/13/24 08/14/24 23:51 01:58 WBC 7.0 RBC 4.67 Hgb 12.6 Hct 39.1 MCV 83.7 MCH 27.0 MCHC 32.2 RDW Std Deviation 42.4 RDW Coeff of [place] 13.9 Plt Count 282 MPV 10.2 Immature Gran % (Auto) 0.300 Neut % (Auto) 51.5 Lymph % (Auto) 34.0 [place] % (Auto) 10.9 H Eos % (Auto) 2.6 Baso % (Auto) 0.7 Absolute Neuts (auto) 3.6 Absolute Lymphs (auto) 2.38 Nucleated RBC % 0 Sodium 138 Potassium 3.7 Chloride Direct 100 Carbon Dioxide 23.9 Anion Gap 14 BUN 21 H Creatinine 1.03 Estim Creat Clear Calc 59.04 Est GFR (MDRD) Non-Af 59 L BUN/Creatinine Ratio 20.1 H Glucose 141 H Calcium 9.5 Troponin T High Sens 9 Troponin T Hi Sens 2 Hr 12 Troponin T Hi Sens 2Hr Delta 3 Radiography Diagnostic Testing: Clinical Impression(s) from Imaging Studies Chest X-Ray 08/13/24 23:59 IMPRESSION: No radiographic evidence of acute cardiopulmonary disease Reading Location: [email or web address] Rhythm Strip Rhythm Strip: Sinus Rhythm Rate: 90 Ectopy: None EKG Initial EKG: Attestation: I personally reviewed and interpreted this EKG as follows: Interpretation: Sinus Rhythm and No Acute Injury Pattern Comments: Nml axis & intervals; nml EKG Prior EKG tracings: available for review (2015) Prior: Unchanged Discharge Plan Triage Chief Complaint: Chest Pain ED Provider: Bruce Norton Dx/Rx/DC Orders Clinical Impression: Right-sided chest pain, Intermittent lightheadedness Instructions: ED Chest Pain, Uncertain Cause Prescriptions: No Action gabapentin 300 mg capsule 300 mg PO BID Patient Comments: 300 mg PO 1-2 tablets twice daily prn Xarelto 15 mg tablet 20 mg PO Q24H Patient Comments: pt states she was instructed by Dr Quinn to stop 5day prior to colonoscopy 05/09/20 Rx Instructions: must administer with evening meal amlodipine 5 mg tablet 5 mg PO QDAY spironolactone 25 mg tablet 25 mg PO QDAY pantoprazole 20 mg tablet,delayed release (/EC) 20 mg PO QDAY PRN (Reason: stomach ) simvastatin 20 mg tablet 20 mg PO QHS PRN (Reason: pt thinks med causes her pain) Ozempic 1 mg/dose (4 mg/3 mL) pen injector 1 mg subcut .1x/week Primary Care Provider: Ezequiel Cadena Referrals: Ezequiel Cadena, DO [Primary Care Provider] - As soon as possible Print Language: Sinhala Disposition Disposition: Home, Self Care
--- NOTE | 2024-08-13 23:59 | RAD_ITS ---
PROCEDURE: CHEST PA AND LATERAL REASON FOR EXAM: Right chest pain TECHNIQUE: Frontal and lateral views of the chest. COMPARISON: 08/10/2024. FINDINGS: The heart size is normal. There are atherosclerotic calcifications of the thoracic aorta. The lungs are clear. Degenerative changes are identified within the thoracic spine. RAD/Chest PA and Lateral IMPRESSION: No radiographic evidence of acute cardiopulmonary disease Reading Location: [facility]
[2024-08-14 00:24] LABS: Absolute Lymphocyte Count 2.38 X10^3/uL (0.83-4.51); Absolute Neutrophil Count 3.6 X10^3/uL (2.0-7.7); Basophil# 0.05 X10^3/uL; Basophil% 0.7 % (0-1); Eosinophil# 0.18 X10^3/uL; Eosinophils% 2.6 % (0-5); Hematocrit 39.1 % (37-47); Hemoglobin 12.6 g/dL (12.0-15.0); Lymphocyte # 2.38 X10^3/ul (0.83-4.51); Mean Corp Hgb Conc 32.2 g/dL (32-36); Mean Corpuscular Volume 83.7 fL (81-99); Mean Platelet Vol. 10.2 fl (6.2-12.0); Monocyte# 0.76 X10^3/uL; Monocyte% 10.9 % (0-10); NRBC Flagged by Analyzer 0 % (0-5); Neutrophil # 3.61 X10^3/uL (2.7-7.7); Neutrophil % 51.5 % (47-70); Platelet Count 282 K/mm3 (150-450); RBC Distribution Width CV 13.9 % (11.6-14.6); RBC Distribution Width SD 42.4 fl (35.1-43.9); Red Blood Count 4.67 M/mm3 (4.2-5.4)
[2024-08-14 01:22] LABS: Anion Gap 14 (5-15); BUN 21 mg/dL (4-19); BUN/Creat Ratio 20.1 RATIO (10-20); Calcium 9.5 mg/dL (7.6-11.0); Carbon Dioxide 23.9 mmol/L (22.0-29.0); Chloride 100 mmol/L (96-108); Creatinine, Serum 1.03 mg/dL (0.70-1.20); EST Glomerular Filtration Rate 59 (>60); Estimated Creatinine Clearance 59.04 ml/min; Glucose 141 mg/dL (70-99); Potassium 3.7 mmol/L (3.3-5.1); Sodium Level 138 mmol/L (133-145); Troponin T High Sensitivity 9 ng/L (<=14)
[2024-08-14 01:26] VITALS: BP 158/102; PULSE 70; RESP 19; O2SAT 96
[2024-08-14 02:51] LABS: TROPONIN VARIANCE 2 HR 3; Troponin T High Sens 2 HR 12 ng/L (<=14)
[2024-08-14 03:10] VITALS: BP 166/89; PULSE 68; RESP 19; TEMP 36.8; O2SAT 97
== END 2024-08-14 03:20 | disposition home or self-care (01) ==
PROVIDERS: Emergency Provider Emergency Medicine; PCP Family Medicine; Visit Provider Emergency Medicine
DX: R07.9 Chest pain, unspecified (principal); E11.9 Type 2 diabetes mellitus without complications; R42 Dizziness and giddiness; Z79.01 Long term (current) use of anticoagulants; I10 Essential (primary) hypertension; E66.9 Obesity, unspecified; M54.9 Dorsalgia, unspecified; Z90.710 Acquired absence of both cervix and uterus; Z96.659 Presence of unspecified artificial knee joint; Z86.711 Personal history of pulmonary embolism
CPT/HCPCS: 71046; 80048; 84484; 85025; 93005; 99284; A4216

== ENCOUNTER 2024-09-03 11:34 | Outpatient (CLI) | payer OTHER, SELFPAY ==
[2024-09-03 11:47] VITALS: BP 151/84; PULSE 73; RESP 16; TEMP 36.6; O2SAT 100; BMI 39.4
[2024-09-03] MEDS: DENOSUMAB 60 MG/ML SC (11:50)
== END 2024-09-03 23:59 | disposition home or self-care (01) ==
LOC: MEDOUTP 11:34
PROVIDERS: PCP Family Medicine; Referring Provider Family Medicine; Visit Provider Family Medicine
DX: M81.0 Age-related osteoporosis without current pathological fracture (principal)
CPT/HCPCS: 96372; J0897

== ENCOUNTER → 2024-09-10 | Outpatient (CLI) | payer OTHER, SELFPAY ==
--- NOTE | 2024-09-10 12:00 | BI_ITS ---
EXAM: SCRN MAMM (CAD)W/ANNETTE BILAT 09/10/2024 CLINICAL HISTORY: F, Age 68 y/o , SCREENING TECHNIQUE: Bilateral screening digital breast tomosynthesis with 2D and 3D images. Computer aided detection. COMPARISON: Prior exam(s) dated 09/10/2023. FINDINGS: TISSUE DENSITY: The breast tissue is almost entirely fatty. Bilateral Breast Mammographic Findings: No significant masses, calcifications or other abnormalities are identified. BI/SCRN MAMM (CAD)W/ANNETTE BILAT IMPRESSION: Right Breast: BIRADS 1 NEGATIVE. Left Breast: BIRADS 1 NEGATIVE. OVERALL FINAL ASSESSMENT: BIRADS 1 NEGATIVE. RECOMMENDATION: Routine annual follow-up in 1 Year A letter with findings and recommendations will be mailed to the patient. Reading Location: [id number]
== END | disposition home or self-care (01) ==
LOC: OPBI 11:59
PROVIDERS: PCP Family Medicine; Referring Provider Family Medicine; Visit Provider Family Medicine
DX: Z12.31 Encounter for screening mammogram for malignant neoplasm of breast (principal)
CPT/HCPCS: 77063; 77067

== ENCOUNTER → 2024-09-18 | Outpatient (CLI) | payer OTHER, SELFPAY ==
--- NOTE | 2024-09-18 09:31 | US_ITS ---
PROCEDURE: THYROID 09/18/2024 REASON FOR EXAM: THYROID NODULE TECHNIQUE: Thyroid ultrasound COMPARISON: CTA chest 03/09/2020. reported prior thyroid biopsy 10/08/2023 (imaging/report/pathology not available). FINDINGS: Right thyroid lobe measures 6.8 x 2.7 x 3.0 cm. Left thyroid lobe measures 6.9 x 2.3 x 2.9 cm. Isthmus thickness is0.2 cm. Thyroid Size: Diffusely enlarged Background Echotexture: Heterogeneous multinodular Thyroid Nodules: No suspicious nodules are identified US/Thyroid IMPRESSION: Multinodular goiter. No suspicious thyroid nodule identified. Reading Location: [facility]
== END | disposition home or self-care (01) ==
LOC: US 10:14
PROVIDERS: PCP Family Medicine; Referring Provider Surgery; Visit Provider Surgery
DX: E04.1 Nontoxic single thyroid nodule (principal)
CPT/HCPCS: 76536

== ENCOUNTER 2024-10-20 23:25 | Emergency (ER) | payer OTHER, SELFPAY ==
[2024-10-20 23:25] VITALS: BP 150/91; PULSE 82; RESP 17; TEMP 37.1; O2SAT 98; BMI 38.2
--- NOTE | 2024-10-20 23:30 | RAD_ITS ---
PROCEDURE: KNEE 4 OR MORE VIEWS 10/21/2024 REASON FOR EXAM: FALL TECHNIQUE: Four views left knee COMPARISON: 01/14/2021 FINDINGS: No acute fracture, dislocation or joint effusion. Left knee replacement with patellar resurfacing again noted appears intact and anatomic. Appearance of suggested prepatellar soft tissue swelling. RAD/Knee 4 or More Views IMPRESSION: No acute fracture, dislocation or joint effusion. Left knee replacement with patellar resurfacing again noted appears intact and anatomic. Appearance of suggested prepatellar soft tissue swelling. Reading Location: [id number]
--- NOTE | 2024-10-20 23:50 | RAD_ITS ---
PROCEDURE: SHOULDER MIN 2 VIEWS 10/21/2024 REASON FOR EXAM: FALL TECHNIQUE: Four views right shoulder FINDINGS: No fracture or dislocation. Mild appearing osteoarthrosis. Some irregularity of the lateral humeral head may represent rotator cuff tendinopathy. RAD/Shoulder min 2 Views IMPRESSION: No fracture or dislocation. Reading Location: [id number]
--- NOTE | 2024-10-21 00:03 | ED.VIS.FALL ---
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 States she was cleaning in her room and she thinks her leg got caught either under her own part of the bed, causing her to fall to her left knee and down to the floor against an abducted right shoulder. She did not hit her head. She is on Xarelto because of a history of a PE, she is not sure how she got that. She was able to stand, she has been icing her knee and she took some Tylenol. Her knee hurts anteriorly where she fell against it, and the shoulder hurt laterally. [id number]. No numbness or tingling. No injuries or pain elsewhere. Denies prodromal symptoms. [facility] Medical History Contact with and (suspected) exposure to other viral communicable diseases Acute bronchitis, unspecified Rectal bleeding Pulmonary embolism Pulmonary emboli Hemorrhoids Acid reflux Blood in stool Sleep apnea SOB (shortness of breath) History of back problems Chest pain Fatigue Dyspnea Obesity (BMI 35.0-39.9 without comorbidity) Palpitations Arthritis Hyperlipidemia Hypertension Type 2 diabetes mellitus without complications Home Medications ?Medication ?Instructions ?Recorded ?Last Taken ?Type gabapentin 300 mg capsule 300 mg PO BID 09/01/17 Unknown History rivaroxaban 15 mg tablet (Xarelto) 20 mg PO Q24H 03/30/20 Unknown History amlodipine 5 mg tablet 5 mg PO QDAY 10/08/23 Unknown History pantoprazole 20 mg tablet,delayed 20 mg PO QDAY PRN stomach 10/08/23 Unknown History release semaglutide 1 mg/dose (4 mg/3 mL) 1 mg subcut .1x/week 10/08/23 Unknown History subcutaneous pen injector (Ozempic) simvastatin 20 mg tablet 20 mg PO QHS PRN pt thinks med 10/08/23 Unknown History causes her pain spironolactone 25 mg tablet 25 mg PO QDAY 10/08/23 Unknown History Allergy/AdvReac Type Severity Reaction Status Date / Time No Known Allergies Allergy Verified 10/20/24 23:29 Family History Mother Diabetes Surgical History H/O total knee replacement History of section, classical History of total hysterectomy Social History Smoking Status: Never smoker ROS ROS ED Constitutional Constitutional ED: Denies chills or fever(s) Cardiovascular Cardiovascular: Denies chest pain Respiratory/Chest Respiratory/Chest: Denies dyspnea Musculoskeletal Musculoskeletal: Reports extremity pain; Denies back pain or neck pain Integumentary Denies Abrasions, rash or wounds Neurologic Neurologic: Denies headache(s), paresthesias or weakness Hematologic/Lymphatic Hematologic/Lymphatic: Reports easy bleeding and easy bruising EXAM Physical Exam Const Vital Signs: 10/20/24 23:25 10/21/24 00:12 Temperature 98.7 F Temperature Source Temporal Pulse Rate 82 Respiratory Rate 17 Respiratory Effort Normal Respiratory Depth Normal Respiratory Pattern Normal Blood Pressure 150/91 H Blood Pressure Mean 110 Pulse Ox 98 Oxygen Delivery Method Room Air Room Air Positive well nourished and well developed General Appearance ED: well developed and NAD HEENT Reports normocephalic atraumatic Eyes PERRL and EOMs intact bilaterally Neck full ROM and supple Resp normal respiratory effort Back/Spine normal ROM and normal to inspection Extremity Extremity Narrative: Contusion without boggy hematoma or effusion left anterior knee. Tenderness there. Extensor mechanism is intact. LCL, MCL stable without significant discomfort with stressing. Negative anterior and posterior drawer signs, without eliciting pain or laxity. All compartments of all 4 extremities soft and nondistended. With the guards of the right shoulder, there is no deformity, when she is at rest adducted there is no tenderness of the proximal humerus, acromioclavicular joint or the clavicle. She can abduct to about 30 degrees, and externally rotate 45-90 degrees, but stops due to pain. Neuro oriented x3, no focal motor deficits and no sensory deficits noted Sensorium / Orientation: alert Psych mental status grossly normal and thought process normal Skin no wounds Rashes: no rashes MDM MDM MDM Narrative Medical decision making narrative: 4 view x-ray series of the left knee shows intact knee replacement hardware and is negative for anything acute on my interpretation, and three-view x-ray series of the right shoulder shows no acute fractures or dislocation on my interpretation with the scapular Y view. She was given an Nacho wrap for her knee, I do not think she needs any narcotics with Tylenol she already took, we will give her restrictions and write her off of the rest of the shift, she only had about an hour and a half left, and she is to follow-up with employee health. Radiography Diagnostic Testing: Clinical Impression(s) from Imaging Studies Shoulder X-Ray 10/20/24 23:50 IMPRESSION: No fracture or dislocation. Reading Location: [facility] Discharge Plan Triage Chief Complaint: Fall ED Provider: Bruce Norton Dx/Rx/DC Orders Clinical Impression: Contusion of knee, left, Contusion of right shoulder, Fall from slip, trip, or stumble Instructions: Bruises (Contusions), ED Bandage Elastic Wrap Prescriptions: No Action gabapentin 300 mg capsule 300 mg PO BID Patient Comments: 300 mg PO 1-2 tablets twice daily prn Xarelto 15 mg tablet 20 mg PO Q24H Patient Comments: pt states she was instructed by Dr Quinn to stop 5day prior to colonoscopy 05/09/20 Rx Instructions: must administer with evening meal amlodipine 5 mg tablet 5 mg PO QDAY spironolactone 25 mg tablet 25 mg PO QDAY pantoprazole 20 mg tablet,delayed release (/EC) 20 mg PO QDAY PRN (Reason: stomach ) simvastatin 20 mg tablet 20 mg PO QHS PRN (Reason: pt thinks med causes her pain) Ozempic 1 mg/dose (4 mg/3 mL) pen injector 1 mg subcut .1x/week Stand Alone Forms: Work Status Form Primary Care Provider: Ezequiel Cadena Referrals: Health,Employee [Non-Staff -Ordering Privileges] - As soon as possible Print Language: [place] African Disposition Disposition: Home, Self Care
[2024-10-21 00:28] VITALS: BP 129/90; PULSE 76; RESP 18; TEMP 37.1; O2SAT 96
== END 2024-10-21 00:30 | disposition home or self-care (01) ==
PROVIDERS: Emergency Provider Emergency Medicine; PCP Family Medicine; Visit Provider Emergency Medicine
DX: S80.02XA Contusion of left knee, initial encounter (principal); E11.9 Type 2 diabetes mellitus without complications; S40.011A Contusion of right shoulder, initial encounter; Z90.710 Acquired absence of both cervix and uterus; I10 Essential (primary) hypertension; Z86.711 Personal history of pulmonary embolism; Z79.01 Long term (current) use of anticoagulants; W01.10XA Fall on same level from slipping, tripping and stumbling with subsequent striking against unspecified object, initial encounter; Y99.0 Civilian activity done for income or pay; Y92.230 Patient room in hospital as the place of occurrence of the external cause; E78.5 Hyperlipidemia, unspecified
CPT/HCPCS: 73030; 73564; 99282

== ENCOUNTER → 2025-02-10 | Outpatient (CLI) | payer OTHER, SELFPAY ==
[2025-02-10 13:19] LABS: CRP 4.17 mg/L (0.0-3.0)
== END | disposition home or self-care (01) ==
LOC: LABSPEC 10:22 → BFHLAB 13:38
PROVIDERS: PCP Family Medicine; Visit Provider Family Medicine
DX: R53.1 Weakness (principal)
CPT/HCPCS: 36415; 83519; 85652; 86140

== ENCOUNTER → 2025-03-02 | Outpatient (CLI) | payer OTHER, SELFPAY ==
[2025-03-04 07:08] LABS: ANTINUCLEAR ANTIBODIES DIRECT Negative (Negative)
== END | disposition home or self-care (01) ==
LOC: MTLAB 09:25
PROVIDERS: PCP Family Medicine; Referring Provider Family Medicine; Visit Provider Family Medicine
DX: M35.3 Polymyalgia rheumatica (principal); M13.0 Polyarthritis, unspecified
CPT/HCPCS: 36415; 85652; 86038; 86200; 86225; 86431

== ENCOUNTER 2025-03-04 11:44 | Outpatient (CLI) | payer OTHER, SELFPAY ==
[2025-03-04] MEDS: DENOSUMAB 60 MG/ML SC (11:56)
--- OUTSIDE RECORDS SUMMARY | 2025-03-04 11:59 | XMS RPT_ITS | CCD ---
Author Organization [facility] Care Team Providers Care Security Messenger Name Role Phone SKINCARE Unavailable Denise Villa Unavailable MIGUEL ANGEL Jules Unavailable Unavailable Unavailable Unavailable Dr. Ezequiel Cadena Primary Care Provider Dr. Ezequiel Cadena Referring Provider [phone] Marcellus Quinn Attending Provider [phone] Ezequiel Cadena DO Primary Care Provider Dr. Ezequiel Cadena DO Attending Provider Dr. Ezequiel Cadena DO Referring Provider Dr. Bruce Norton MD Emergency Provider Dr. Bruce Norton MD Attending Provider Dr. Ezequiel Cadena DO Primary Care Provider Dr. Ezequiel Cadena DO Attending Provider Dr. Ezequiel Cadena DO Referring Provider Dr. Abelardo Myrick MD Attending Provider Dr. Abelardo Myrick MD Referring Provider Dr. Ezequiel Cadena DO Primary Care Provider Dr. Bruce Norton MD Attending Provider Dr. Bruce Norton MD Emergency Provider Dr. Ezequiel Cadena DO Referring Provider Jr Morrison Attending Provider Dr. Ezequiel Cadena DO Primary Care Provider Assessment, Health Risk Attending Provider Unava ilable Assessment, Health Risk Referring Provider Unava ilable Dr. Ezequiel Cadena DO Attending Provider Surinder, Ezequiel Attending Unavailable Surinder, Ezequiel Referring Unavailable Surinder, Ezequiel Primary Care Unavailable Surinder, Ezequiel Attending Unavailable Surinder, Ezequiel Referring Unavailable Surinder, Ezequiel Primary Care Unavailable Surinder, Ezequiel Referring Unavailable Surinder, Ezequiel Primary Care Unavailable Surinder, Ezequiel Attending Unavailable Assessment, Health Risk Attending Unavaila ble Assessment, Health Risk Referring Unavaila ble Surinder, Ezequiel Primary Care Unavailable Surinder, Ezequiel Attending Unavailable Surinder, Ezequiel Referring Unavailable Surinder, Ezequiel Primary Care Unavailable Jr Morrison Attending Unavailable Surinder, Ezequiel Primary Care Unavailable Surinder, Ezequiel Referring Unavailable Benny Oliver Attending Unavailable Usrinder, Ezequiel Referring Unavailable Surinder, Ezequiel Primary Care Unavailable Surinder, Ezequiel Attending Unavailable Surinder, Ezequiel Primary Care Unavailable Bortz, Abelardo Attending Unavailable Bortz, Abelardo Referring Unavailable Surinder, Ezequiel Primary Care Unavailable Surinder, Ezequiel Attending Unavailable Surinder, Ezequiel Referring Unavailable Surinder, Ezequiel Primary Care Unavailable Bruce Norton Attending Unavailable Surinder, Ezequiel Primary Care Unavailable Surinder, Ezequiel Attending Unavailable Surinder, Ezequiel Referring Unavailable Surinder, Ezequiel Primary Care Unavailable Surinder, Ezequiel Attending Unavailable Surinder, Ezequiel Referring Unavailable Surinder, Ezequiel Primary Care Unavailable Bruce Norton Attending Unavailable Surinder, Ezequiel Primary Care Unavailable Medications Current Medications Medication Drug Class(es) Dates Sig (Normalized) Sig (Original) amLODIPine 5 mg oral tablet (8 sources) Dihydropyridine Calcium Channel Patricia Start: 10-08-2023 take 1 tablet by mouth once daily Amlodipine 5 mg tablet Active 5 mg PO daily October 08, 2023 12:00am gabapentin 300 mg oral capsule (20 sources) Anti-epileptic Agent Start: 09-01-2017 take 1 capsule by mouth twice daily Gabapentin 300 mg capsule Active 300 mg PO TWICE A DAY September 01, 2017 6:58pm Start: 06-03-2017 End: 09-01-2017 take 1 capsule by mouth once daily Gabapentin 300 mg capsule Discontinued 300 mg PO daily June 03, 2017 1:00am September 01, 2017 6:59pm pantoprazole 20 mg delayed release oral tablet (8 sources) Proton Pump Inhibitor Start: 10-08-2023 take 1 tablet by mouth once daily as needed Pantoprazole 20 mg tablet,delayed release (DR/EC) Active 20 mg PO daily as needed for stomach October 08, 2023 12:00am predniSONE 10 mg oral tablet (18 sources) Start: 01-10-2025 take 4 tablets by mouth once daily, then take 3 tablets by mouth once daily, then take 2 tablets by mouth once daily, then take 1 tablet by mouth once daily Prednisone 10 mg tablet Active 10 mg PO daily 30 0 January 10, 2025 12:00am 4 tablets daily x3 days, then 3 tablets daily x3 days, then 2 tablets daily x3 days, then 1 tablet daily x3 days Start: 07-07-2021 End: 10-08-2023 Prednisone 10 mg tablet Disc ontinued 10 mg PO .COMPLEX 30 0 July 07, 2021 1:00am October 08, 2023 12:43pm Take 4 pills for 3 days, 3 pills for 3 days, 2 pills for 3 days, take 1 pill for 3 days rivaroxaban 15 mg oral tablet (16 sources) Factor Xa Inhibitor Start: 03-30-2020 Rivaroxaba n (Xarelto) 15 mg tablet Active 20 mg PO Q24H March 30, 2020 12:00am must administer with evening meal Start: 03-30-2020 Rivaroxaban (X arelto) 15 mg tablet Active 20 MG PO TWICE A DAY March 30, 2020 12:00am must administer with evening meal Semaglutide (8 sources) Start: 10-08-2023 Semaglutide (O zempic) 1 mg/dose (4 mg/3 mL) pen injector Active 1 mg SC .1x/week October 08, 2023 12:00am Start: 10-08-2023 Semaglutide (O zempic) 1 mg/dose (4 mg/3 mL) pen injector Active MG SC October 08, 2023 12:00am simvastatin 20 mg oral tablet (8 sources) HMG-CoA Reductase Inhibitor Start: 04-24-2024 take 1 tablet by mouth at bedtime as needed for pain Simvastatin 20 mg tablet Active 20 mg PO AT BEDTIME as needed for pt thinks med causes her pain October 08, 2023 12:00am spironolactone 25 mg oral tablet (8 sources) Aldosterone Antagonist Start: 10-08-2023 take 1 tablet by mouth once daily Spironolactone 25 mg tablet Active 25 mg PO daily October 08, 2023 12:00am Completed/Discontinued Medications Medication Drug Class(es) Dates Sig (Normalized) Sig (Original) acetaminophen 325 mg oral tablet (16 sources) Start: 09-01-2014 End: 09-14-2014 Acetaminophen (Tylenol) 325 MG tablet Discontinued 650 mg PO NEEDED as needed for Pain September 01, 2014 12:00am September 14, 2014 10:36am acetaminophen 325 mg / HYDROcodone bitartrate 5 mg oral tablet (16 sources) Opioid Agonist Start: 06-17-2016 End: 06-03-2017 Hydrocodone-Acetamin ophen 1 TABLET tablet Discontinued 1 {tbl} PO EVERY 6 HOURS NEEDED as needed for Pain 20 0 June 17, 2016 1:00am June 03, 2017 10:50am Start: 06-17-2016 End: 06-03-2017 take 1 tablet by mouth every six hours as needed Hydrocodone-Acetaminophen Discontinued 1 TABLET PO EVERY 6 HOURS NEEDED June 17, 2016 1:00am June 03, 2017 10:50am amLODIPine 10 mg / benazepril hydrochloride 40 mg oral capsule (20 sources) Dihydropyridine Calcium Channel Patricia, Angiotensin Converting Enzyme Inhibitor Start: 06-03-2017 End: 10-08-2023 Amlodipine-Benazepril 10-40 mg capsule Discontinued 1 NMA PO daily June 03, 2017 1:00am October 08, 2023 12:43pm blood pressure Start: 06-03-2017 End: 10-08-2023 take 1 capsule by mouth once daily Amlodipine-Benazepril Discontinued 1 CAP PO daily June 03, 2017 1:00am October 08, 2023 12:43pm Start: 09-01-2014 End: 06-03-2017 take 1 capsule by mouth once daily Amlodipine-Benazepril 1 CAPSULE capsule Discontinued 5 mg PO DAILY September 01, 2014 12:00am June 03, 2017 10:41am amoxicillin 875 mg / clavulanate 125 mg oral tablet (14 sources) Penicillin-class Antibacterial Start: 02-27-2022 End: 10-08-2023 Amoxicillin-Pot Clavulanate 875-125 mg tablet Discontinued 1 {tbl} PO TWICE A DAY February 27, 2022 12:00am October 08, 2023 12:43pm Start: 02-27-2022 End: 10-08-2023 take 1 tablet by mouth twice daily Amoxicillin-Pot Clavulanate Discontinued 1 TABLET PO TWICE A DAY February 27, 2022 12:00am October 08, 2023 12:43pm aspirin 81 mg delayed release oral tablet (20 sources) Platelet Aggregation Inhibitor, Nonsteroidal Anti-inflammatory Drug Start: 06-04-2017 End: 03-30-2020 Aspirin (Adult Low Dose Aspirin) 81 mg tablet,delayed release (DR/EC) Discontinued 81 mg PO daily June 04, 2017 1:00am March 30, 2020 9:32am Start: 01-24-2016 End: 06-03-2017 take 1 tablet by mouth twice daily at mealtime Aspirin 325 MG tablet Discontinued 325 mg PO TWICE DAILY WITH MEALS 60 0 January 24, 2016 12:00am June 03, 2017 10:50am Start: 01-11-2016 End: 01-24-2016 take 1 tablet by mouth once daily Aspirin (Adult Low Dose Aspirin Ec) 81 MG Tablet.Dr Discontinued 81 mg PO DAILY January 11, 2016 12:00am January 24, 2016 1:50pm Start: 09-01-2014 End: 09-14-2014 take 1 tablet by mouth once daily Aspirin 81 MG tablet Discontinued 81 mg PO DAILY@0800 September 01, 2014 12:00am September 14, 2014 10:36am azithromycin 250 mg oral tablet (20 sources) Macrolide Antimicrobial Start: 07-07-2021 End: 10-08-2023 take 2-5 tablets by mouth once daily Azithromycin 250 mg tablet Discontinued 0 PO .COMPLEX 6 0 May 21, 2022 1:00am October 08, 2023 12:43pm take 500 mg today (day 1), then 250 mg for 4 days (days 2-5) PO doxycycline monohydrate 100 mg oral capsule (20 sources) Tetracycline-class Drug Start: 03-30-2020 End: 10-08-2023 Doxycycline Monohydrate 100 mg capsule Discontinued 20 mg PO TWICE A DAY March 30, 2020 9:32am October 08, 2023 12:44pm Start: 03-30-2020 End: 10-08-2023 take 20 mg by mouth twice daily Doxycycline Monohydrat e Discontinued 20 MG PO TWICE A DAY March 30, 2020 9:32am October 08, 2023 12:44pm Start: 01-30-2018 End: 03-30-2020 Doxycycline Monohydrate 100 MG capsule Discontinued 20 mg PO DAILY January 30, 2018 12:00am March 30, 2020 9:33am Start: 01-30-2018 End: 03-30-2020 take 20 mg by mouth once daily Doxycycline Monohydrate Discontinued 20 MG PO DAILY January 30, 2018 12:00am March 30, 2020 9:33am Start: 06-04-2017 End: 09-01-2017 take 1 tablet by mouth twice daily Doxycycline Hyclate 20 mg tablet Discontinued 20 mg PO TWICE A DAY June 04, 2017 1:00am September 01, 2017 6:59pm L.Acidoph, Paracasei,B. Lact is (9 sources) Start: 01-30-2018 End: 03-30-2020 L.Acidoph, Paracasei,B. Lact is Discontinued 1 EACH PO DAILY January 29, 2018 11:00pm March 30, 2020 8:32am Start: 01-30-2018 End: 03-30-2020 L.Acidoph, Paracasei,B. Lact is Discontinued 1 EACH PO DAILY January 30, 2018 12:00am March 30, 2020 9:32am L.Acidoph,Paracasei,B.Animal is 1 EACH capsule (7 sources) Start: 01-30-2018 End: 03-30-2020 take 1 capsule by mouth once daily L.Acidoph,Paracasei,B.Animalis 1 EACH capsule Discontinued 1 NMA PO DAILY January 30, 2018 12:00am March 30, 2020 9:32am LORazepam 1 mg oral tablet (1 source) Chay hodgson Start: 02-25-2017 take 0.5-1 tablets by mouth every six hours as needed for anxiety Ativan 1 MG Oral Tablet 1/2 to 1 Tablet q 6 hours prn anxiety for 0 days Quantity: 30 {Tablet} Refills: 2 Ordered: 25-Feb-2017 Allen VIVAR, Denise Yeboah Start : 25-Feb-2017 Active Comments: [id number] Comment on above: [id number] [facility] Magnesium (16 sources) Start: 09-01-2014 End: 06-03-2017 take 1 tablet by mouth once daily Magnesium 250 MG tablet Discontinued 250 mg PO DAILY September 01, 2014 12:00am June 03, 2017 10:44am Start: 09-01-2014 End: 06-03-2017 take 250 mg by mouth once daily Magnesium Discontinued 250 MG PO DAILY August 31, 2014 11:00pm June 03, 2017 9:44am Start: 09-01-2014 End: 06-03-2017 take 250 mg by mouth once daily Magnesium Discontinued 250 MG PO DAILY September 01, 2014 12:00am June 03, 2017 10:44am metFORMIN hydrochloride 500 mg oral tablet (20 sources) Biguanide Start: 09-01-2014 End: 03-04-2024 take 1 tablet by mouth twice daily Metformin 500 mg tablet Discontinued 500 mg PO TWICE A DAY March 30, 2020 9:31am March 04, 2024 11:57am methylPREDNISolone 4 mg oral tablet (7 sources) Corticosteroid Start: 03-26-2024 End: 04-01-2024 take 1 tablet by mouth once Methylprednisolone (Medrol (Garrett)) 4 mg tablets,dose pack Discontinued 4 mg PO per package directions 21 6 0 March 26, 2024 12:00am March 31, 2024 12:00am April 01, 2024 12:09am naproxen sodium 220 mg oral capsule (16 sources) Nonsteroidal Anti-inflammatory Drug Start: 06-04-2017 End: 03-30-2020 take 1 capsule by mouth every twelve hours Naproxen Sodium (Aleve) 220 mg capsule Discontinued 220 mg PO Q12H June 04, 2017 1:00am March 30, 2020 9:32am ondansetron 4 mg oral tablet (16 sources) Serotonin-3 Receptor Antagonist Start: 06-03-2017 End: 06-04-2017 take 1 tablet by mouth every four hours as needed Ondansetron Hcl 4 mg tablet Discontinued 4 mg PO Q4H as needed June 03, 2017 1:00am June 04, 2017 2:01pm pravastatin sodium 10 mg oral tablet (16 sources) HMG-CoA Reductase Inhibitor Start: 06-03-2017 End: 10-08-2023 take 1 tablet by mouth at bedtime Pravastatin 10 mg tablet Discontinued 10 mg PO AT BEDTIME June 03, 2017 1:00am October 08, 2023 12:44pm traMADol hydrochloride 50 mg oral tablet (20 sources) Opioid Agonist Start: 09-01-2017 End: 03-30-2020 take 1-2 tablets by mouth twice daily as needed Tramadol 50 mg tablet Discontinued 50 mg PO .COMPLEX September 01, 2017 12:00am March 30, 2020 9:32am 50 mg PO 1-2 tablets by mouth twice daily prn Start: 06-17-2016 End: 06-04-2017 take 1 tablet by mouth every four hours as needed for pain Tramadol 50 MG tablet Discontinued 50 mg PO EVERY 4 HOURS NEEDED as needed for Pain June 17, 2016 1:00am June 04, 2017 2:01pm Start: 01-11-2016 End: 01-24-2016 Tramadol 50 MG tablet Discon tinued 1 - 2 {tbl} PO EVERY 6 HOURS NEEDED as needed for Pain January 11, 2016 12:00am January 24, 2016 1:49pm vitamin b12 0.5 mg oral tablet (16 sources) Vitamin B12 Start: 09-01-2014 End: 06-03-2017 take 2 tablets by mouth once daily Cyanocobalamin (Vitamin B-12) 500 MCG tablet Discontinued 1000 ug PO DAILY@0800 September 01, 2014 12:00am June 03, 2017 10:44am Start: 09-01-2014 End: 06-03-2017 take 1000 ug by mouth once daily Cyanocobalamin (Vitamin B-12) Discontinued 1000 MCG PO DAILY@0800 September 01, 2014 12:00am June 03, 2017 10:44am zolpidem tartrate 5 mg oral tablet (16 sources) gamma-Aminobutyric Acid-ergic Agonist Start: 09-01-2017 End: 03-30-2020 take 1 tablet by mouth at bedtime as needed for sleep Zolpidem 5 mg tablet Discontinued 5 mg PO BEDTIME as needed for Sleep September 01, 2017 12:00am March 30, 2020 9:32am Problems Active Problems Problem Classification Problem Date Documented Da te Episodic/Chronic Acute bronchitis (20 sources) Acute bronchitis; Translations: [Acute bronchitis, unspecified] 05-21-2022 Episodic Anxiety disorders (1 source) Mixed anxiety and depressive disorder; Translations: [Anxiety and depression] 02-25-2017 Chronic Cardiac dysrhythmias (16 sources) Palpitations; Translations: [Palpitations] 03-30-2020 Episodic Conditions associated with dizziness or vertigo (7 sources) Lightheadedness; Translations: [Dizziness and giddiness] 08-22-2024 Episodic Diabetes mellitus without complication (16 sources) Type 2 diabetes mellitus without complication; Translations: [Type 2 diabetes mellitus without complications] 06-03-2017 Chronic Disorders of lipid metabolism (16 sources) Hyperlipidemia; Translations: [Hyperlipidemia, unspecified] 06-04-2017 Chronic E Codes: Fall (19 sources) Fall; Translations: [Unspecified fall, initial encounter] 01-14-2021 Episodic Essential hypertension (16 sources) Hypertensive disorder; Translations: [Essential (primary) hypertension] 06-04-2017 Chronic Gastrointestinal hemorrhage (16 sources) Rectal hemorrhage; Translations: [Hemorrhage of anus and rectum] 03-30-2020 Episodic Headache; including migraine (1 source) Headache; including migraine; Translations: [Headache, unspecified] Onset: 06-14-2024 Immunizations and screening for infectious disease (20 sources) Patient encounter status; Translations: [Encounter for screening for COVID-19] 07-07-2021 Episodic Malaise and fatigue (17 sources) Fatigue; Translations: [Other fatigue] Onset: 02-17-2025 03-30-2020 Episodic Osteoporosis (1 source) Age-related osteoporosis without current pathological fracture; Translations: [Age-related osteoporosis without current pathological fracture] Onset: 09-10-2024 Chronic Other connective tissue disease (1 source) Polymyalgia rheumatica; Translations: [Polymyalgia rheumatica] Onset: 03-02-2025 Chronic Other lower respiratory disease (16 sources) Dyspnea; Translations: [Dyspnea, unspecified] 03-30-2020 Episodic Other non-traumatic joint disorders (1 source) Polyarthritis, unspecified; Translations: [Polyarthritis, unspecified] Onset: 03-02-2025 Chronic Other nutritional; endocrine; and metabolic disorders (16 sources) Body mass index 30+ - obesity; Translations: [Obesity, unspecified] 06-03-2017 Chronic Other skin disorders (2 sources) Eruption; Translations: [Rash and other nonspecific skin eruption] 01-10-2025 Episodic Other upper respiratory infections (7 sources) Acute sinusitis; Translations: [Acute sinusitis, unspecified] 03-26-2024 Episodic Pneumonia (except that caused by tuberculosis or sexually transmitted disease) (16 sources) Pneumonia; Translations: [Pneumonia, unspecified organism] 07-07-2021 Episodic Pulmonary heart disease (16 sources) Pulmonary embolism; Translations: [Other pulmonary embolism without acute cor pulmonale] 03-30-2020 Episodic Spondylosis; intervertebral disc disorders; other back problems (7 sources) Disorder of right sciatic nerve; Translations: [Sciatica, right side] 03-26-2024 Episodic Thyroid disorders (10 sources) Thyroid nodule; Translations: [Nontoxic single thyroid nodule] Onset: 09-23-2024 10-08-2023 Chronic Past or Other Problems Problem Classification Problem Date Documented Da te Episodic/Chronic Mood disorders (1 source) Mood disorders Nonspecific chest pain (20 sources) Chest pain; Translations: [Chest pain, unspecified] Onset: 08-27-2024 03-30-2020 Episodic Other screening for suspected conditions (not mental disorders or infectious disease) (1 source) Encounter for screening mammogram for malignant neoplasm of breast; Translations: [Encounter for screening mammogram for malignant neoplasm of breast] Onset: 09-14-2024 Episodic Superficial injury; contusion (20 sources) Contusion of knee; Translations: [Contusion of unspecified knee, initial encounter] Onset: 10-27-2024 01-14-2021 Episodic Results Test Name Value Interpretation Reference Range Facility CCP IgG Antibodieson 025 CCP IgG Ab. 7 units Normal 0-19 [facility] Comment on above: Result Comment: Nega tive <20 Weak positive 20 - 39 Moderate positive 40 - 59 Strong positive >59 Performed at: [facility] [id number] Clinical Advisor: Chang Garcia PhD, Phone: [phone] Performed By: #### L 480.9576, V2732.0, D1649.0934, L127.6600 #### [facility] [place], [address] JANES w/ Reflex Mult Confirmon 03-02-2025 JANES-D See below TNP Normal [facility] Comment on above: Performed By: #### L 505.7010, L4600.0100, L3100.5450, L101.9900 #### [facility] [address] [place], [place], [id number] Erythrocyte Sed Rateon 03-02 SED RATE 37 mm/hr High 0-30 [facility] Comment on above: Performed By: #### L 505.7010, L4600.0100, L3100.5450, L101.9900 #### [facility] [address] [place], [address] Rheumatoid Factoron 03-02-20 25 RHEUMATOID FAC < 10.0 Normal <15 [facility] Comment on above: Performed By: #### L 505.7010, L4600.0100, L3100.5450, L101.9900 #### [facility] [address] [place], [place], [id number] [facility] [employer] Vat Worker AB, Blockingon [facility] AUDIO/VIDEO TECHNICIAN AB 22 Normal 0-25 [facility] Comment on above: Order Comment: Test( s) [id number] Blocking Abs, Serum This test was developed and its performance characteristics determined by [facility]. It has not been cleared or approved by the Food and Drug Administration. Result Comment: Nega tive: 0 - 25 Borderline: 26 - 30 Positive: >30 Performed at: [address] [id number] Clinical Advisor: Adryan Bower MD, Phone: [phone] Performed By: #### L 101.9900, L3410.0100, L501.6710 #### [facility] [address] [place], [place], [id number] CRPon 02-10-2025 C-REACTIVE PROT 4.17 mg/L High 0.0-3.0 [facility] Comment on above: Performed By: #### L 101.9900, L3410.0100, L501.6710 #### [facility] [address] [place], [place], [address] Erythrocyte Sed Rateon 02-10 SED RATE 55 mm/hr High 0-30 [facility] Comment on above: Performed By: #### L 101.9900, L3410.0100, L501.6710 #### [facility] [address] [place], [place], [address] Erythrocyte sedimentation ra teOrdered By: Ezequiel Cadena on 02-10-2025 ESR (Bld) [Velocity] 55 mm/h High 0- [facility] Serum or plasma C reactive p rotein measurement (mass/volume)Ordered By: Ezequiel Cadena on 02-10-2025 CRP [Mass/Vol] 4.17 mg/L High 0.0-3.0 [facility] Absolute lymphocyte countOrd ered By: HEALTH ASSESSMENT on 01-31-2025 Lymphocytes Auto (Unsp spec) [#/Vol] 1.47 10*3/uL 0.83-4.51 [facility] Absolute neutrophil countOrd ered By: HEALTH ASSESSMENT on 01-31-2025 Neutrophils (Bld) [#/Vol] 3.6 10*3/uL 2.0-7.7 [facility] Absolute nucleated red blood cell countOrdered By: HEALTH ASSESSMENT on 01-31-2025 Nucleated RBC (Bld) [#/Vol] 0.00 10*3/uL 0-5 [facility] Anion gap in Serum or Plasma Ordered By: HEALTH ASSESSMENT on 01-31-2025 Anion gap [Moles/Vol] 12 mmol/L 5-15 [facility] BUN/creatinine ratioOrdered By: HEALTH ASSESSMENT on 01-31-2025 Urea nitrogen/Creatinine [Mass ratio] 26.0 mg/mg High 10-20 [facility] Bilirubin directOrdered By: HEALTH ASSESSMENT on 01-31-2025 Bilirubin.direct [Mass/Vol] 0.15 mg/dL 0.00-0.30 [facility] Bilirubin, totalOrdered By: HEALTH ASSESSMENT on 01-31-2025 Bilirubin [Mass/Vol] 0.35 mg/dL 0.00-1.30 [facility] Blood band neutrophil count as percentage of total leukocytesOrdered By: HEALTH ASSESSMENT on 01-31-2025 Band form neutrophils/100 WBC (Bld) 61.6 % 47-70 [facility] CBC, Employeeon 01-31-2025 Absolute Lymph 1.47 X10 3/uL Normal 0.83-4.51 [facility] Comment on above: Performed By: #### L 100.0200, L500.2900 ####[facility] [address] [place], [address] Absolute Neut 3.6 X10 3/uL Normal 2.0-7.7 [facility] Comment on above: Performed By: #### L 100.0200, L500.2900 ####[facility] [address] [place], [address] Basophils/100 WBC (Bld) 0.7 % Normal 0-1 [facility] Comment on above: Performed By: #### L 100.0200, L500.2900 ####[facility] [address] [place], [address] Eosinophils/100 WBC (Bld) 3.1 % Normal 0-5 [facility] Comment on above: Performed By: #### L 100.0200, L500.2900 ####[facility] [address] [place], [address] Erythrocyte distribution width (RBC) [Ratio] 15.1 % High 11.6-14.6 [facility] Comment on above: Performed By: #### L 100.0200, L500.2900 ####[facility] [id number] [place], [address] Hematocrit (Bld) [Volume fraction] 40.1 % Normal 37-47 [facility] Comment on above: Performed By: #### L 100.0200, L500.2900 ####[facility] [address] [place], [address] Hemoglobin (Bld) [Mass/Vol] 12.3 g/dL Normal 12.0-15.0 [facility] Comment on above: Performed By: #### L 100.0200, L500.2900 ####[facility] [address] [place], [address] Lymphocytes/100 WBC (Bld) 25.3 % Normal 19-41 [facility] Comment on above: Performed By: #### L 100.0200, L500.2900 ####[facility] [address] [place], [address] MCH (RBC) [Entitic mass] 26.5 pg Low 27.0-32.0 [facility] Comment on above: Performed By: #### L 100.0200, L500.2900 ####[facility] [address] [place], [address] MCHC (RBC) [Mass/Vol] 30.7 g/dL Low 32-36 [facility] Comment on above: Performed By: #### L 100.0200, L500.2900 ####[facility] [address] [place], [address] MCV (RBC) [Entitic vol] 86.4 fL Normal 81-99 [facility] Comment on above: Performed By: #### L 100.0200, L500.2900 ####[facility] [address] [place], [address] Monocytes/100 WBC (Bld) 9.1 % Normal 0-10 [facility] Comment on above: Performed By: #### L 100.0200, L500.2900 ####[facility] [address] [place], [address] Neutrophils/100 WBC (Bld) 61.6 % Normal 47-70 [facility] Comment on above: Performed By: #### L 100.0200, L500.2900 ####[facility] [address] [place], [address] NRBC # 0.00 10 3/uL Normal 0-5 [facility] Comment on above: Performed By: #### L 100.0200, L500.2900 ####[facility] [address] [place], [address] Nucleated RBC (Bld) [#/Vol] 0 10*3/uL Normal 0-5 [facility] Comment on above: Performed By: #### L 100.0200, L500.2900 ####[facility] [address] [place], [address] Platelet mean volume (Bld) [Entitic vol] 11.1 fL Normal 6.2-12.0 [facility] Comment on above: Performed By: #### L 100.0200, L500.2900 ####[facility] [address] [place], [address] Platelets (Bld) [#/Vol] 267 10*3/uL Normal 150-450 [facility] Comment on above: Performed By: #### L 100.0200, L500.2900 ####[facility] [address] [place], [address] RBC (Bld) [#/Vol] 4.64 10*6/uL Normal 4.2-5.4 [facility] Comment on above: Performed By: #### L 100.0200, L500.2900 ####[facility] [address] [place], [address] RDW SD 47.9 fl High 35.1-43.9 [facility] Comment on above: Performed By: #### L 100.0200, L500.2900 ####[facility] [address] [place], [address] WBC (Bld) [#/Vol] 5.8 10*3/uL Normal 4.4-11.0 [facility] Comment on above: Performed By: #### L 100.0200, L500.2900 ####[facility] [address] [place], [address] Calculated very low density lipoprotein (VLDL) cholesterol measurementOrdered By: HEALTH ASSESSMENT on 01-31-2025 Calculated very low density lipoprotein (VLDL) cholesterol measurement 14 mg/dL 5-40 [facility] Carbon dioxide, total [Moles /volume] in Central venous bloodOrdered By: HEALTH ASSESSMENT on 01-31-2025 CO2 [Moles/Vol] 25.2 mmol/L 21.0-32.0 [facility] Chloride assayOrdered By: HE ALTH ASSESSMENT on 01-31-2025 Chloride [Moles/Vol] 102 mmol/L 98-108 [facility] Employee Profileon LDH 206 U/L Normal 84-246 [facility] Comment on above: Performed By: #### L 100.0200, L500.2900 ####[facility] [address] [place], [address] Phosphate [Mass/Vol] 3.4 mg/dL Normal 2.7-4.5 [facility] Comment on above: Performed By: #### L 100.0200, L500.2900 ####[facility] [address] [place], [address] URIC 5.7 mg/dL Normal 2.6-6.0 [facility] Comment on above: Result Comment: The drugs N-Acetylcysteine and Metamizole may falsely depress this assay. Performed By: #### L 100.0200, L500.2900 ####[facility] [address] [place], [address] Erythrocyte distribution wid th ratioOrdered By: HEALTH ASSESSMENT on 01-31-2025 Erythrocyte distribution width (RBC) [Ratio] 15.1 % High 11.6-14.6 [facility] Erythrocyte distribution wid th standard deviationOrdered By: HEALTH ASSESSMENT on 01-31-2025 Erythrocyte distribution width (RBC) [Ratio] 47.9 fl High 35.1-43.9 [facility] Glomerular filtration rate ( GFR) estimation/1.73 sq m using serum, plasma, or whole bOrdered By: HEALTH ASSESSMENT on 01-31-2025 GFR/1.73 sq M.predicted among non-blacks MDRD (S/P/Bld) [Vol rate/Area] 95 mL/min/{1.73_m2} >60 [facility] Comment on above: mL/min/1.73m2 CKD-EP I Creatinine Equation (2020) Hematocrit Auto (Bld) [Volum e fraction]Ordered By: HEALTH ASSESSMENT on 01-31-2025 Hematocrit (Bld) [Volume fraction] 40.1 % 37-47 [facility] Hemoglobin measurementOrdere d By: HEALTH ASSESSMENT on 01-31-2025 Hemoglobin (Bld) [Mass/Vol] 12.3 g/dL 12.0-15.0 [facility] LDL calc ser/plasOrdered By: HEALTH ASSESSMENT on 01-31-2025 Cholesterol in LDL [Mass/Vol] 129 mg/dL [facility] Comment on above: Tcbgtfqgvp=943-959 m g/dL & Higher Qmtq=653 mg/dL or greaterFriedwald Equation for LDL-C Laboratory - Chemistry and C hemistry - challengeOrdered By: HEALTH ASSESSMENT on 01-31-2025 AST [Catalytic activity/Vol] 19 U/L <32 [facility] Lactate dehydrogenase (LDH) measurementOrdered By: HEALTH ASSESSMENT on 01-31-2025 LDH [Catalytic activity/Vol] 206 U/L 84-246 [facility] MCV (mean corpuscular volume ) determinationOrdered By: HEALTH ASSESSMENT on 01-31-2025 MCV (RBC) [Entitic vol] 86.4 fL 81-99 [facility] Mean corpuscular hemoglobin (MCH) determinationOrdered By: HEALTH ASSESSMENT on 01-31-2025 MCH (RBC) [Entitic mass] 26.5 pg Low 27.0-32.0 [facility] Mean corpuscular hemoglobin concentration (MCHC) determinationOrdered By: HEALTH ASSESSMENT on 01-31-2025 MCHC (RBC) [Mass/Vol] 30.7 g/dL Low 32-36 [facility] Mean platelet volume determi nationOrdered By: HEALTH ASSESSMENT on 01-31-2025 Platelet mean volume (Bld) [Entitic vol] 11.1 fL 6.2-12.0 [facility] Nucleated red blood cell per centageOrdered By: HEALTH ASSESSMENT on 01-31-2025 Nucleated RBC/100 WBC (Bld) [Ratio] 0 % 0-5 [facility] Platelet countOrdered By: HE ALTH ASSESSMENT on 01-31-2025 Platelets (Bld) [#/Vol] 267 10*3/uL 150-450 [facility] Potassium measurement (mass/ volume)Ordered By: HEALTH ASSESSMENT on 01-31-2025 Potassium (Unsp spec) [Mass/Vol] 4.6 mmol/L 3.3-5.1 [facility] RBC Auto (Bld) [#/Vol]Ordere d By: HEALTH ASSESSMENT on 01-31-2025 RBC (Bld) [#/Vol] 4.64 10*6/uL 4.2-5.4 [facility] Screening total cholesterol/ high density lipoprotein (HDL) cholesterol ratioOrdered By: HEALTH ASSESSMENT on 01-31-2025 Cholesterol.total/Choles terol in HDL [Mass ratio] 2.87 {ratio} [facility] Serum creatinine measurement (mass/volume)Ordered By: HEALTH ASSESSMENT on 01-31-2025 Creatinine [Mass/Vol] 0.63 mg/dL Low 0.70-1.20 [facility] Serum globulin measurementOr dered By: HEALTH ASSESSMENT on 01-31-2025 Globulin (S) [Mass/Vol] 3.7 g/dL 2.2-4.2 [facility] Serum glucose measurement (m ass/volume)Ordered By: HEALTH ASSESSMENT on 01-31-2025 Glucose [Mass/Vol] 97 mg/dL 70-99 [facility] Serum or plasma alanine sandhu otransferase (ALT) measurementOrdered By: HEALTH ASSESSMENT on 01-31-2025 ALT [Catalytic activity/Vol] 17 U/L <35 [facility] Serum or plasma albumin nataliya urement (mass/volume)Ordered By: HEALTH ASSESSMENT on 01-31-2025 Albumin [Mass/Vol] 3.9 g/dL 3.4-4.8 [facility] Serum or plasma albumin/glob ulin mass ratioOrdered By: HEALTH ASSESSMENT on 01-31-2025 Albumin/Globulin [Mass ratio] 1.0 {ratio} 0.9-2.4 [facility] Serum or plasma alkaline claudia sphatase measurementOrdered By: HEALTH ASSESSMENT on 01-31-2025 ALP [Catalytic activity/Vol] 65 U/L 35-104 [facility] Serum or plasma calcium nataliya urement (mass/volume)Ordered By: HEALTH ASSESSMENT on 01-31-2025 Calcium [Mass/Vol] 9.4 mg/dL 7.6-11.0 [facility] Serum or plasma cholesterol in HDL measurement (mass/volume)Ordered By: HEALTH ASSESSMENT on 01-31-2025 Cholesterol in HDL [Mass/Vol] 76 mg/dL >40 [facility] Comment on above: National Cholesterol Education Program (NCEP) guidelines:<40 mg/dL: Low HDL-cholesterol (major risk factor for CHD)>= 60 mg/dL: High HDL-cholesterol (negative risk factor for CHD)HDL-cholesterol is affected by a number of factors, e.g. smoking, exercise, hormones, sex and age. Serum or plasma cholesterol measurement (mass/volume)Ordered By: HEALTH ASSESSMENT on 01-31-2025 Cholesterol [Mass/Vol] 219 mg/dL High <201 [facility] Comment on above: Cholesterol level, D esirable <200 mg/dLBorderline high cholesterol 200-239 mg/dLHigh cholesterol >=240 mg/dLRecommendations of the NCEP Adult Treatment Panel for the following risk-cutoff thresholds for the [place] population. Serum or plasma urea nitroge n measurement (mass/volume)Ordered By: HEALTH ASSESSMENT on 01-31-2025 Urea nitrogen [Mass/Vol] 17 mg/dL 4-19 [facility] Serum or plasma uric acid me asurement (mass/volume)Ordered By: HEALTH ASSESSMENT on 01-31-2025 Urate [Mass/Vol] 5.7 mg/dL 2.6-6.0 [facility] Comment on above: The drugs N-Acetylcy steine and Metamizole may falsely depress this assay. Sodium levelOrdered By: [facility] ASSESSMENT on 01-31-2025 Sodium [Moles/Vol] 139 mmol/L 133-145 [facility] Total proteinOrdered By: HEGuanakito LT ASSESSMENT on 01-31-2025 Protein [Mass/Vol] 7.6 g/dL 5.9-8.4 [facility] Triglycerides measurementOrd ered By: HEALTH ASSESSMENT on 01-31-2025 Triglyceride [Mass/Vol] 68 mg/dL <199 [facility] Comment on above: The drugs N-Acetylcy steine and Metamizole may falsely depress this assay. Normal range: <150 mg/dLBorderline High: 150-199 mg/dLHigh: 200-499 mg/dLVery High: >500 mg/dL White blood cell (WBC) count Ordered By: HEALTH ASSESSMENT on 01-31-2025 WBC (Bld) [#/Vol] 5.8 10*3/uL 4.4-11.0 [facility] Urgent Care Visit Reporton 0 01-10-2025 Urgent Care Visit Report [facility] [address], [address] [place] [address] OFFICE VISIT Date of Service: 01/10/25 MR#: [id number] Acct: [id number] Name: TUNG WILSON Rep #: [id number] : 1955 Provider: NBA Ni Age/Sex: 69/F Location: [facility] Status: Signed Intake Vital Signs 10/20/24 23:25 01/10/25 09:39 Height 5 ft 4 in BP 120/80 Position Sitting Respiration 16 Pulse 77 Temp 97.9 F Temp Source Oral Pulse Oximetry (%) 98 Oxygen Delivery Method room air Intake Visit Reasons: Rash Chief Complaint: rash Accompanied by: Self Allergies No Known Allergies Allergy (Verified 01/10/25 09:42) Medications ???Medication ???Instructions ???Recorded ???Confirmed ???Type gabapentin 300 mg capsule 300 mg PO BID 09/01/17 01/10/25 Hi story rivaroxaban 15 mg tablet (Xarelto) 20 mg PO Q24H 03/30/20 01/10/25 History amlodipine 5 mg tablet 5 mg PO QDAY 10/08/23 01/10/25 His tory pantoprazole 20 mg tablet,delayed 20 mg PO QDAY PRN stomach 4 01/10/25 History release semaglutide 1 mg/dose (4 mg/3 mL) 1 mg subcut .1x/week 10/08/23 History subcutaneous pen injector (Ozempic) simvastatin 20 mg tablet 20 mg PO QHS PRN pt thinks med 01/10/25 History causes her pain spironolactone 25 mg tablet 25 mg PO QDAY 10/08/23 01/10/25 Hi story prednisone 10 mg tablet 10 mg PO QDAY #30 tabs 01/10/25 Rx Have you fallen in the past year?: No Nurse's Note: Patient has a rash that is on her arms , under her breast and on her buttocks. [facility] Medical History Contact with and (suspected) exposure to other viral communicable diseases Acute bronchitis, unspecified Rectal bleeding Pulmonary embolism Pulmonary emboli Hemorrhoids Acid reflux Blood in stool Sleep apnea SOB (shortness of breath) History of back problems Chest pain Fatigue Dyspnea Obesity (BMI 35.0-39.9 without comorbidity) Palpitations Arthritis Hyperlipidemia Hypertension Type 2 diabetes mellitus without complications Surgical History H/O total knee replacement History of section, classical History of total hysterectomy Family History Mother Diabetes Social History Smoking Status: Never smoker HPI HPI Chief Complaint: rash Details: TUNG WILSON, is a 69 F who presents to the office today for initial evaluation status post exposure to coworker with similar symptoms noting no new environmental exposures for herself. Patient states she has used multiple gkgb-vsw-avynqbg topical applications as well as oral Benadryl without relief of symptoms. She notes pruritic rash to RUE, under both breasts, and left mid back with excoriations. No complaints of constricted/pruritic airway or chest pain/shortness of breath/wheeze/dyspnea on exertion. No other associated symptoms and no other alleviating/aggravati ng factors. ROS Const Constitutional: No other (As above) Exam Const General: cooperative, healthy appearing and no acute distress Nutritional Appearance: average body habitus Orientation: alert, awake and oriented x3 HENMT Head: normal to inspection Ears: hearing grossly normal bilaterally, external ears normal, TM's normal bilaterally and EAC's normal Nose: external nose normal, nares normal, septum normal and no nasal discharge Face and sinus: normal facial exam, sinuses nontender and face symmetric Mouth: oral mucosae normal, lip normal, tongue normal and oropharynx normal Throat: posterior oropharynx normal, tonsils normal, uvula midline and no postnasal drainage Eyes General: appearance normal, both eyes and all related structures Neck Neck: normal visual inspection, full ROM, no lymphadenopathy, no meningeal signs and supple Neck mass: No Thyroid: thyroid normal Lymphatic: no lymphadenopathy noted Chest Chest palpation inspection: normal inspection of the chest Resp Effort Inspection: normal respiratory effort and able to speak in complete sentences Auscultation: Bilateral: Clear to Auscultation Cardio Palpation: normal PMI Rate: regular rate Rhythm: regular rhythm Heart Sounds: S1 normal, S2 normal, no gallops, no murmurs and no rubs Pulses: radial pulses present GI Inspection: normal to inspection Skin General: no rashes or lesions noted Other: Except clustered vesicular rash to RUE, under both breasts, and left mid back with excoriations Neuro General: patient alert, patient awake and patient oriented x3 Cognition: normal cognition Speech: speech normal Extrem General: normal to inspection Psych Appearance: (more content not included)... Normal [facility] Emergency Department Summary on 10-21-2024 Emergency Department Summary [facility] Medical Records Department [address] [place] [address] Emergency Department Summary 10/21/24 MR#: [id number] Acct: [id number] Name: TUNG WILSON Rep #: [id number] : 1955 68 From: Bruce Norton MD PCP: Dr. 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 States she was cleaning in her room and she thinks her leg got caught either under her own part of the bed, causing her to fall to her left knee and down to the floor against an abducted right shoulder. She did not hit her head. She is on Xarelto because of a history of a PE, she is not sure how she got that. She was able to stand, she has been icing her knee and she took some Tylenol. Her knee hurts anteriorly where she fell against it, and the shoulder hurt laterally. Xajgj-gmvq-xvdqhnoj. No numbness or tingling. No injuries or pain elsewhere. Denies prodromal symptoms. [facility] Medical History Contact with and (suspected) exposure to other viral communicable diseases Acute bronchitis, unspecified Rectal bleeding Pulmonary embolism Pulmonary emboli Hemorrhoids Acid reflux Blood in stool Sleep apnea SOB (shortness of breath) History of back problems Chest pain Fatigue Dyspnea Obesity (BMI 35.0-39.9 without comorbidity) Palpitations Arthritis Hyperlipidemia Hypertension Type 2 diabetes mellitus without complications Home Medications ???Medication ???Instructions ???Recorded ???Last Taken ???Type gabapentin 300 mg capsule 300 mg PO BID 09/01/17 Unknown His tory rivaroxaban 15 mg tablet (Xarelto) 20 mg PO Q24H 03/30/20 Unknown H istory amlodipine 5 mg tablet 5 mg PO QDAY 10/08/23 Unknown Hist ory pantoprazole 20 mg tablet,delayed 20 mg PO QDAY PRN stomach 4 Unknown History release semaglutide 1 mg/dose (4 mg/3 mL) 1 mg subcut .1x/week 10/08/23 Unk nown History subcutaneous pen injector (Ozempic) simvastatin 20 mg tablet 20 mg PO QHS PRN pt thinks med Unknown History causes her pain spironolactone 25 mg tablet 25 mg PO QDAY 10/08/23 Unknown His tory Allergy/AdvReac Type Severity Reaction Status Date / Time No Known Allergies Allergy Verified 10/20/24 23:29 Family History Mother Diabetes Surgical History H/O total knee replacement History of section, classical History of total hysterectomy Social History Smoking Status: Never smoker ROS ROS ED Constitutional Constitutional ED: Denies chills or fever(s) Cardiovascular Cardiovascular: Denies chest pain Respiratory/Chest Respiratory/Chest: Denies dyspnea Musculoskeletal Musculoskeletal: Reports extremity pain; Denies back pain or neck pain Integumentary Denies Abrasions, rash or wounds Neurologic Neurologic: Denies headache(s), paresthesias or weakness Hematologic/Lymphatic Hematologic/Lymphatic : Reports easy bleeding and easy bruising EXAM Physical Exam Const Vital Signs: 10/20/24 23:25 10/21/24 00:12 Temperature 98.7 F Temperature Source Temporal Pulse Rate 82 Respiratory Rate 17 Respiratory Effort Normal Respiratory Depth Normal Respiratory Pattern Normal Blood Pressure 150/91 H Blood Pressure Mean 110 Pulse Ox 98 Oxygen Delivery Method Room Air Room Air Positive well nourished and well developed General Appearance ED: well developed and NAD HEENT Reports normocephalic atraumatic Eyes PERRL and EOMs intact bilaterally Neck full ROM and supple Resp normal respiratory effort Back/Spine normal ROM and normal to inspection Extremity Extremity Narrative: Contusion without boggy hematoma or effusion left anterior knee. Tenderness there. Extensor mechanism is intact. LCL, MCL stable without significant discomfort with stressing. Negative anterior and posterior drawer signs, without eliciting pain or laxity. All compartments of all 4 extremities soft and nondistended. With the guards of the right shoulder, there is no deformity, when she is at rest adducted there is no tenderness of the proximal humerus, acromioclavicular joint or the clavicle. She can abduct to about 30 degrees, and externally rotate 45-90 degrees, but stops due to pain. Neuro oriented x3, no focal motor deficits and no sensory deficits noted Sensorium / Orientation: alert Psych mental status grossly normal and thought process normal Skin no wounds Rashes: no rashes MDM MDM MDM Narrative (more content not included)... Normal [facility] Knee 4 or More Viewson 10-20 Knee 4 or More Views [facility] Imaging Services [address] [place], [place] [id number] Knee 4 or More Views MR#: [id number] Acct: [id number] Name: TUNG WILSON Rep #: [id number] : 1955 F 68 From: Marcellus Saleem MD PCP: Dr. Ezequiel Cadena DO Status: REG ER Study: Knee 4 or More Views Date of Exam: 10/20/24 Exam# [id number] Ordering Dr: Bruce Norton MD PROCEDURE: KNEE 4 OR MORE VIEWS 10/21/2024 REASON FOR EXAM: FALL TECHNIQUE: Four views left knee COMPARISON: 01/14/2021 FINDINGS: No acute fracture, dislocation or joint effusion. Left knee replacement with patellar resurfacing again noted appears intact and anatomic. Appearance of suggested prepatellar soft tissue swelling. RAD/Knee 4 or More Views IMPRESSION: No acute fracture, dislocation or joint effusion. Left knee replacement with patellar resurfacing again noted appears intact and anatomic. Appearance of suggested prepatellar soft tissue swelling. Reading Location: [facility] CC: Dr. Bruce Norton MD; Dr. Ezequiel Cadena DO System Safety Engineer: Signed Normal [facility] Shoulder min 2 Viewson 10-20 Shoulder min 2 Views [facility] Imaging Services [address] [place], [place] [address] Shoulder min 2 Views MR#: [id number] Acct: [id number] Name: TUNG WILSON Rep #: [id number] : 1955 F 68 From: Marcellus Saleem MD PCP: Dr. Ezequiel Cadena, Status: PRE ER Study: Shoulder min 2 Views Date of Exam: 10/20/24 Exam# [id number] Ordering Dr: Bruce Norton MD PROCEDURE: SHOULDER MIN 2 VIEWS 10/21/2024 REASON FOR EXAM: FALL TECHNIQUE: Four views right shoulder FINDINGS: No fracture or dislocation. Mild appearing osteoarthrosis. Some irregularity of the lateral humeral head may represent rotator cuff tendinopathy. RAD/Shoulder min 2 Views IMPRESSION: No fracture or dislocation. Reading Location: [facility] CC: Dr. Bruce Norton MD; Dr. Ezequiel Cadena DO System Safety Engineer: Signed Normal [facility] Thyroidon 09-18-2024 Thyroid [facility] Imaging Services [address] [place] [address] Thyroid MR#: [id number] Acct: [id number] Name: TUNG WILSON Rep #: [id number] : 1955 F 68 From: Rubia Gutierrez nd, MD PCP: Dr. Ezequiel Cadena DO Status: REG CLI Study: Thyroid Date of Exam: 09/18/24 Exam# [id number] Ordering Dr: Jr Pereira MD PROCEDURE: THYROID 09/18/2024 REASON FOR EXAM: THYROID NODULE TECHNIQUE: Thyroid ultrasound COMPARISON: CTA chest 03/09/2020. reported prior thyroid biopsy 10/08/2023 (imaging/report/patho logy not available). FINDINGS: Right thyroid lobe measures 6.8 x 2.7 x 3.0 cm. Left thyroid lobe measures 6.9 x 2.3 x 2.9 cm. Isthmus thickness is0.2 cm. Thyroid Size: Diffusely enlarged Background Echotexture: Heterogeneous multinodular Thyroid Nodules: No suspicious nodules are identified US/Thyroid IMPRESSION: Multinodular goiter. No suspicious thyroid nodule identified. Reading Location: [facility] CC: Dr. Ezequiel Cadena DO; Dr. Jr Pereira MD System Safety Engineer: Signed Normal [facility] Breast imaging reportOrdered By: Willow Guidry on 09-10-2024 Study report [facility] Imaging Services [address] [place], [place] [address] SCRN MAMM (CAD)W/ANNETTE BILAT MR#: [id number] Acct: [id number] Name: TUNG WILSON Rep #: [id number] : 1955 F 68 From: Qiana Guidry MD PCP: Dr. Ezequiel Cadena DO Status: REG CLI Study:SCRN MAMM (CAD)W/ANNETTE BILAT Date of Exa m: 09/10/24 Exam# [id number] Ordering Dr: Ezequiel Cadena DO EXAM: SCRN MAMM (CAD)W/ANNETTE BILAT 09/10/2024 CLINICAL HISTORY: F, Age 68 y/o , SCREENING TECHNIQUE: Bilateral screening digital breast tomosynthesis with 2D and 3D images. Computeraided detection. COMPARISON: Prior exam(s) dated 09/10/2023. FINDINGS: TISSUE DENSITY: The breast tissue is almost entirely fatty. Bilateral Breast Mammographic Findings: No significant masses, calcifications or other abnormalities are identified. BI/SCRN MAMM (CAD)W/ANNETTE BILAT IMPRESSION: Right Breast: BIRADS 1 NEGATIVE. Left Breast: BIRADS 1 NEGATIVE. OVERALL FINAL ASSESSMENT: BIRADS 1 NEGATIVE. RECOMMENDATION: Routine annual follow-up in 1 Year A letter with findings and recommendations will be mailed to the patient. Reading Location: [facility] CC: Dr. Ezequiel Cadena DO ~ System Safety Engineer: Signed [facility] SCRN MAMM (CAD)W/ANNETTE BILATo n 09-10-2024 SCRN MAMM (CAD)W/ANNETTE BILAT [facility] Imaging Services [address] [place] [address] [id number] SCRN MAMM (CAD)W/ANNETTE BILAT MR#: [id number] Acct: [id number] Name: TUNG WILSON Rep #: [id number] : 1955 F 68 From: Willow Guidry MD PCP: Dr. Ezequiel Cadena DO Status: REG CLI Study: SCRN MAMM (CAD)W/ANNETTE BILAT Date of Exam: 08/15 02/07 Exam# [id number] Ordering Dr: Ezequiel Cadena DO EXAM: SCRN MAMM (CAD)W/ANNETTE BILAT 09/10/2024 CLINICAL HISTORY: F, Age 68 y/o , SCREENING TECHNIQUE: Bilateral screening digital breast tomosynthesis with 2D and 3D images. Computer aided detection. COMPARISON: Prior exam(s) dated 09/10/2023. FINDINGS: TISSUE DENSITY: The breast tissue is almost entirely fatty. Bilateral Breast Mammographic Findings: No significant masses, calcifications or other abnormalities are identified. BI/SCRN MAMM (CAD)W/ANNETTE BILAT IMPRESSION: Right Breast: BIRADS 1 NEGATIVE. Left Breast: BIRADS 1 NEGATIVE. OVERALL FINAL ASSESSMENT: BIRADS 1 NEGATIVE. RECOMMENDATION: Routine annual follow-up in 1 Year A letter with findings and recommendations will be mailed to the patient. Reading Location: [id number] CC: Dr. Ezequiel Cadena, System Safety Engineer: Signed Normal [facility] Basic Metabolic Profile (BMP )on 08-14-2024 Anion gap [Moles/Vol] 14 mmol/L Normal 5-15 [facility] Comment on above: Performed By: #### L 501.4021, L500.2500, L100.0100 ####[facility] [address] [place], [address] BUN/CRE 20.1 RATIO High 10-20 [facility] Comment on above: Performed By: #### L 501.4021, L500.2500, L100.0100 ####[facility] [address] [place], [address] Calcium [Mass/Vol] 9.5 mg/dL Normal 7.6-11.0 [facility] Comment on above: Performed By: #### L 501.4021, L500.2500, L100.0100 ####[facility] [address] [place], [address] Chloride [Moles/Vol] 100 mmol/L Normal 96-108 [facility] Comment on above: Performed By: #### L 501.4021, L500.2500, L100.0100 ####[facility] [address] [place], [address] CO2 [Moles/Vol] 23.9 mmol/L Normal 22.0-29.0 [facility] Comment on above: Performed By: #### L 501.4021, L500.2500, L100.0100 ####[facility] [address] [place], [address] Creatinine [Mass/Vol] 1.03 mg/dL Normal 0.70-1.20 [facility] Comment on above: Performed By: #### L 501.4021, L500.2500, L100.0100 ####[facility] [address] [place], [address] ECRCL 59.04 ml/min Normal [facility] Comment on above: Performed By: #### L 501.4021, L500.2500, L100.0100 ####[facility] [address] [place], [address] GFR/1.73 sq M.predicted among non-blacks MDRD (S/P/Bld) [Vol rate/Area] 59 mL/min/{1.73_m2} Low >60 [facility] Comment on above: Result Comment: mL/m in/1.73m2 CKD-EPI Creatinine Equation (2020) Performed By: #### L 501.4021, L500.2500, L100.0100 ####[facility] [address] [place], [address] Glucose [Mass/Vol] 141 mg/dL High 70-99 [facility] Comment on above: Performed By: #### L 501.4021, L500.2500, L100.0100 ####[facility] [address] [place], [address] Potassium [Moles/Vol] 3.7 mmol/L Normal 3.3-5.1 [facility] Comment on above: Performed By: #### L 501.4021, L500.2500, L100.0100 ####[facility] [address] [place], [address] Sodium [Moles/Vol] 138 mmol/L Normal 133-145 [facility] Comment on above: Performed By: #### L 501.4021, L500.2500, L100.0100 ####[facility] [address] [place], [address] Urea nitrogen [Mass/Vol] 21 mg/dL High 4-19 [facility] Comment on above: Performed By: #### L 501.4021, L500.2500, L100.0100 ####[facility] [address] [place], [address] CBC W/Diff, Automatedon 03-0 -2024 Absolute Lymph 2.38 X10 3/uL Normal 0.83-4.51 [facility] Comment on above: Performed By: #### L 501.4021, L500.2500, L100.0100 ####[facility] [address] [place], [address] Absolute Neut 3.6 X10 3/uL Normal 2.0-7.7 [facility] Comment on above: Performed By: #### L 501.4021, L500.2500, L100.0100 ####[facility] [address] [place], [address] Basophils/100 WBC (Bld) 0.7 % Normal 0-1 [facility] Comment on above: Performed By: #### L 501.4021, L500.2500, L100.0100 ####[facility] [address] [place], [address] Eosinophils/100 WBC (Bld) 2.6 % Normal 0-5 [facility] Comment on above: Performed By: #### L 501.4021, L500.2500, L100.0100 ####[facility] [address] [place], [address] Erythrocyte distribution width (RBC) [Ratio] 13.9 % Normal 11.6-14.6 [facility] Comment on above: Performed By: #### L 501.4021, L500.2500, L100.0100 ####[facility] [address] [place], [address] Hematocrit (Bld) [Volume fraction] 39.1 % Normal 37-47 [facility] Comment on above: Performed By: #### L 501.4021, L500.2500, L100.0100 ####[facility] [address] [place], [address] Hemoglobin (Bld) [Mass/Vol] 12.6 g/dL Normal 12.0-15.0 [facility] Comment on above: Performed By: #### L 501.4021, L500.2500, L100.0100 ####[facility] [address] [place], [address] IG% 0.300 Normal 0.0-0.9 [facility] Comment on above: Result Comment: IG% - Immature Granulocytes (promyelocytes, myelocytes and metamyelocytes) > 1% indicates that a LEFT SHIFT is Present. Performed By: #### L 501.4021, L500.2500, L100.0100 ####[facility] [address] [place], [address] Lymphocytes/100 WBC (Bld) 34.0 % Normal 19-41 [facility] Comment on above: Performed By: #### L 501.4021, L500.2500, L100.0100 ####[facility] [address] [place], [address] MCH (RBC) [Entitic mass] 27.0 pg Normal 27.0-32.0 [facility] Comment on above: Performed By: #### L 501.4021, L500.2500, L100.0100 ####[facility] [address] [place], [address] MCHC (RBC) [Mass/Vol] 32.2 g/dL Normal 32-36 [facility] Comment on above: Performed By: #### L 501.4021, L500.2500, L100.0100 ####[facility] [address] [place], [address] MCV (RBC) [Entitic vol] 83.7 fL Normal 81-99 [facility] Comment on above: Performed By: #### L 501.4021, L500.2500, L100.0100 ####[facility] [address] [place], [address] Monocytes/100 WBC (Bld) 10.9 % High 0-10 [facility] Comment on above: Performed By: #### L 501.4021, L500.2500, L100.0100 ####[facility] [address] [place], [address] Neutrophils/100 WBC (Bld) 51.5 % Normal 47-70 [facility] Comment on above: Performed By: #### L 501.4021, L500.2500, L100.0100 ####[facility] [address] [place], [address] Nucleated RBC (Bld) [#/Vol] 0 10*3/uL Normal 0-5 [facility] Comment on above: Performed By: #### L 501.4021, L500.2500, L100.0100 ####[facility] [address] [place], [address] Platelet mean volume (Bld) [Entitic vol] 10.2 fL Normal 6.2-12.0 [facility] Comment on above: Performed By: #### L 501.4021, L500.2500, L100.0100 ####[facility] [address] [place], [address] Platelets (Bld) [#/Vol] 282 10*3/uL Normal 150-450 [facility] Comment on above: Performed By: #### L 501.4021, L500.2500, L100.0100 ####[facility] [address] [place], [address] RBC (Bld) [#/Vol] 4.67 10*6/uL Normal 4.2-5.4 [facility] Comment on above: Performed By: #### L 501.4021, L500.2500, L100.0100 ####[facility] [address] [place], [address] RDW SD 42.4 fl Normal 35.1-43.9 [facility] Comment on above: Performed By: #### L 501.4021, L500.2500, L100.0100 ####[facility] [address] [place], [address] WBC (Bld) [#/Vol] 7.0 10*3/uL Normal 4.4-11.0 [facility] Comment on above: Performed By: #### L 501.4021, L500.2500, L100.0100 ####[facility] [address] [place], [address] L499.0042on 08-14-2024 Trop T Delta 3 Normal [facility] Comment on above: Result Comment: If c linical suspicion for ACS is high, suggest getting a third troponin. Otherwise, stress test or CTCA. Performed By: #### L 499.0042 #### [facility] Laboratory [address] [place], [address] Trop T High Sen 12 ng/L Normal <=14 [facility] Comment on above: Performed By: #### L 499.0042 #### [facility] [address] [place], [address] L499.0043on 08-14-2024 Trop T Delta Normal [facility] Comment on above: Result Comment: Canc elled via OM: Order cancelled - Patient discharged Performed By: #### L 499.0043 ####[facility] [address] [place], [address] Trop T High Sen Normal <=14 [facility] Comment on above: Result Comment: Canc elled via OM: Order cancelled - Patient discharged Performed By: #### L 499.0043 ####[facility] [address] [place], [address] L501.4021on 08-14-2024 Trop T High Sen 9 ng/L Normal <=14 [facility] Comment on above: Performed By: #### L 501.4021, L500.2500, L100.0100 ####[facility] [address] [place], [address] No Panel InformationOrdered By: Bruce Norton on 08-14-2024 Troponin T Hi Sensitivity 2Hr Delta 3 [facility] Comment on above: If clinical suspicio n for ACS is high, suggest getting a third troponin. Otherwise, stress test or CTCA. Troponin T.cardiac High sens itivity method [Mass/Vol]Ordered By: Bruce Norton on 08-14-2024 Troponin T High Sensitivity 2 Hour 12 ng/L <14 [facility] Troponin T.cardiac [Mass/vol ume] in Serum or Plasma by High sensitivity methodOrdered By: Bruce Norton on 08-14-2024 Troponin T.cardiac High sensitivity method [Mass/Vol] 12 ng/L <14 [facility] 12 Lead EKGon 08-13-2024 12 Lead EKG [facility] Cardiovascular Services [address] [place] [address] 12 Lead EKG 08/13/24 2334 MR#: [id number] Acct: [id number] Name: TUNG WILSON Rep #: [id number] : 1955 68 From: Abelardo Myers MD Attending Dr: Status: DEP ER Ordering Dr: Bruce Norton MD Date: 08/13/24 Location: ED Sex: F AA Admitted: Test Reason : CP Blood Pressure : */* mmHG Vent. Rate : 87 BPM Atrial Rate : 87 BPM P-R Int : 160 ms QRS Dur : 84 ms QT Int : 334 ms P-R-T Axes : 41 -1 40 degrees QTcB Int : 401 ms Normal sinus rhythm Normal ECG Confirmed by Abelardo Myers ([id number]), editor newspaper JOSEFINA COLIN ([id number]) on 08/16/2024 10:51:59 AM Referred By: BB Confirmed By: Abelardo Myers 08/16/24 1052 Date Abelardo Myers MD CC: Dr. Bruce Norton MD; Dr. Ezequiel Cadena, DO Signed Normal [facility] Absolute lymphocyte countOrd ered By: Bruce Norton on 08-13-2024 Lymphocytes Auto (Unsp spec) [#/Vol] 2.38 10*3/uL 0.83-4.51 [facility] Absolute neutrophil countOrd ered By: Bruce Norton on 08-13-2024 Neutrophils (Bld) [#/Vol] 3.6 10*3/uL 2.0-7.7 [facility] Automated lymphocyte count a s percentage of total leukocytesOrdered By: Bruce Norton on 08-13-2024 Lymphocytes/100 WBC Auto (Unsp spec) 34.0 % 19-41 [facility] BUN/creatinine ratioOrdered By: Bruce Norton on 08-13-2024 Urea nitrogen/Creatinine [Mass ratio] 20.1 mg/mg High 10-20 [facility] Basophil percentageOrdered B y: Bruce Norton on 08-13-2024 Basophils/100 WBC (Bld) 0.7 % 0-1 [facility] Carbon dioxide measurementOr dered By: Bruce Norton on 08-13-2024 CO2 [Moles/Vol] 23.9 mmol/L 22.0-29.0 [facility] Chest PA and Lateralon 08-13 Chest PA and Lateral [facility] Imaging Services [address] [place] [address] Chest PA and Lateral MR#: [id number] Acct: [id number] Name: TUNG WILSON Rep #: [id number] : 1955 F 68 From: Jerry Rosa MD PCP: Dr. Ezequiel Cadena DO Status: PRE ER Study: Chest PA and Lateral Date of Exam: 08/13/24 Exam# [id number] Ordering Dr: Bruce Norton MD PROCEDURE: CHEST PA AND LATERAL REASON FOR EXAM: Right chest pain TECHNIQUE: Frontal and lateral views of the chest. COMPARISON: 08/10/2024. FINDINGS: The heart size is normal. There are atherosclerotic calcifications of the thoracic aorta. The lungs are clear. Degenerative changes are identified within the thoracic spine. RAD/Chest PA and Lateral IMPRESSION: No radiographic evidence of acute cardiopulmonary disease Reading Location: [facility] CC: Dr. Bruce Norton MD; Dr. Ezequiel Cadena DO System Safety Engineer: Signed Normal [facility] Chloride measurementOrdered By: Bruce Norton on 08-13-2024 Chloride [Moles/Vol] 100 mmol/L 96-108 [facility] Emergency Department Summary on 08-13-2024 Emergency Department Summary [facility] Medical Records Department [address] [place] [address] Emergency Department Summary 08/13/24 MR#: [id number] Acct: [id number] Name: TUNG WILSON Rep #: [id number] : 1955 68 From: Bruce Norton MD PCP: Dr. Ezequiel Cadena DO Status:REG ER Location: ED HPI History of Present Illness Chief Complaint: Chest Pain Informant: patient Narrative Narrative: Patient presents with right sided nonpleuritic chest discomfort radiating into the right upper back region that she states has been constant since the beginning of the week, the last 5 days including today. She has no new associated symptoms with it, but she states that she is feeling episodes of lightheadedness and weak vision that has been going on for much longer but more frequently since this has been the case. She denies any syncope. She denies any sensation of vertigo/movement or disequilibrium and there is no associated nausea when she has the lightheadedness. She states they occur completely randomly, and are not triggered by anything that she can think of such as position changes, getting up, or turning her head. She denies any lateralizing neurologic symptoms at all. She denies any associated dyspnea, orthopnea, nausea, vomiting, abdominal discomfort, swelling in the legs. She saw her doctor the day after the onset, had a chest x-ray that was unremarkable. She denies any known history of heart or lung problems although it appears that she is on Xarelto for history of a pulmonary embolus. [facility] Medical History Contact with and (suspected) exposure to other viral communicable diseases Acute bronchitis, unspecified Rectal bleeding Pulmonary embolism Pulmonary emboli Hemorrhoids Acid reflux Blood in stool Sleep apnea SOB (shortness of breath) History of back problems Chest pain Fatigue Dyspnea Obesity (BMI 35.0-39.9 without comorbidity) Palpitations Arthritis Hyperlipidemia Hypertension Type 2 diabetes mellitus without complications Home Medications ???Medication ???Instructions ???Recorded ???Last Taken ???Type gabapentin 300 mg capsule 300 mg PO BID 09/01/17 Unknown His tory rivaroxaban 15 mg tablet (Xarelto) 20 mg PO Q24H 03/30/20 Unknown H istory amlodipine 5 mg tablet 5 mg PO QDAY 10/08/23 Unknown Hist ory pantoprazole 20 mg tablet,delayed 20 mg PO QDAY PRN stomach 4 Unknown History release semaglutide 1 mg/dose (4 mg/3 mL) 1 mg subcut .1x/week 10/08/23 Unk nown History subcutaneous pen injector (Ozempic) simvastatin 20 mg tablet 20 mg PO QHS PRN pt thinks med Unknown History causes her pain spironolactone 25 mg tablet 25 mg PO QDAY 10/08/23 Unknown His tory Allergy/AdvReac Type Severity Reaction Status Date / Time No Known Allergies Allergy Verified 03/26/24 11:16 Family History Mother Diabetes Surgical History H/O total knee replacement History of section, classical History of total hysterectomy Social History Smoking Status: Never smoker ROS ROS ED Constitutional Constitutional ED: Denies chills or fever(s) Eyes Eyes: Denies change in vision or diplopia ENT ENT ED: Denies rhinorrhea or sore throat Cardiovascular Cardiovascular: Reports as per HPI, chest pain and lightheadedness; Denies chest pain with activity, leg edema, orthopnea, palpitations, pounding heartbeat, racing heartbeat, radiating jaw, neck or arm pain or syncope Respiratory/Chest Respiratory/Chest: Denies cough, dyspnea or orthopnea Gastrointestinal Gastrointestinal: Denies abdominal pain, diarrhea, nausea or vomiting Genitourinary Genitourinary ED: Denies dysuria or hematuria Musculoskeletal Musculoskeletal: Reports back pain; Denies neck pain Integumentary Denies abscess or rash Neurologic Neurologic: Denies headache(s), paresthesias or weakness EXAM Physical Exam Const Vital Signs: 08/13/24 23:27 08/13/24 23:33 08/13/24 23:45 Temperature 98 F Temperature Source Oral Pulse Rate 92 Respiratory Rate 21 H Respiratory Effort Normal Blood Pressure 155/106 H Blood Pressure Mean 122 Pulse Ox 96 95 Oxygen Delivery Method Room Air Room Air 08/14/24 01:26 Temperature Temperature Source Pulse Rate 70 Respiratory Rate 19 H Respiratory Effort Blood Pressure 158/102 H Blood Pressure Mean 120 Pulse Ox 96 Oxygen Delivery Method Room Air Positive well nourished, well developed and obese General Appearance ED: well developed and NAD Nutritional Appearance: obese HEENT Reports moist mucous membranes norm (more content not included)... Normal [facility] Eosinophil percentageOrdered By: Bruce Norton on 08-13-2024 Eosinophils/100 WBC (Bld) 2.6 % 0-5 [facility] Erythrocyte distribution wid th ratioOrdered By: Bruce Norton on 08-13-2024 Erythrocyte distribution width (RBC) [Ratio] 13.9 % 11.6-14.6 [facility] Erythrocyte distribution wid th standard deviationOrdered By: Bruce Norton on 08-13-2024 Erythrocyte distribution width (RBC) [Entitic vol] 42.4 fL 35.1-43.9 [facility] Erythrocyte distribution width (RBC) [Ratio] 42.4 fl 35.1-43.9 [facility] Estimation of creatinine keyon aranceOrdered By: Bruce Norton on 08-13-2024 Estimated Creatinine Clearance Calc 59.04 ml/min [facility] GFR/1.73 sq M.predicted pete g non-blacks MDRD (S/P/Bld) [Vol rate/Area]Ordered By: Bruce Norton on 08-13-2024 Estimated GFR (MDRD) Non-Af Amer 59 Low >60 [facility] Comment on above: mL/min/1.73m2 CKD-EP I Creatinine Equation (2020) Glomerular filtration rate ( GFR) estimation/1.73 sq m using serum, plasma, or whole bOrdered By: Bruce Norton on 08-13-2024 GFR/1.73 sq M.predicted among non-blacks MDRD (S/P/Bld) [Vol rate/Area] 59 mL/min/{1.73_m2} Low >60 [facility] Comment on above: mL/min/1.73m2 CKD-EP I Creatinine Equation (2020) Hematocrit Auto (Bld) [Volum e fraction]Ordered By: Bruce Norton on 08-13-2024 Hematocrit (Bld) [Volume fraction] 39.1 % 37-47 [facility] Hemoglobin measurementOrdere d By: Bruce Norton on 08-13-2024 Hemoglobin (Bld) [Mass/Vol] 12.6 g/dL 12.0-15.0 [facility] Immature granulocytes/100 WB C Auto (Bld)Ordered By: Bruce Norton on 08-13-2024 Immature granulocytes/100 WBC (Bld) 0.300 % 0.0-0.9 [facility] Comment on above: IG% - Immature Granu locytes (promyelocytes, myelocytes and metamyelocytes) > 1% indicates that a LEFT SHIFT is Present. Lymphocytes Auto (Unsp spec) [#/Vol]Ordered By: Bruce Norton on 08-13-2024 Lymphocytes (Bld) [#/Vol] 2.38 10*3/uL 0.83-4.51 [facility] Lymphocytes/100 WBC Auto (Un sp spec)Ordered By: Bruce Norton on 08-13-2024 Lymphocytes/100 WBC (Bld) 34.0 % 19-41 [facility] MCV (mean corpuscular volume ) determinationOrdered By: Bruce Norton on 08-13-2024 MCV (RBC) [Entitic vol] 83.7 fL 81-99 [facility] Mean corpuscular hemoglobin (MCH) determinationOrdered By: Bruce Norton on 08-13-2024 MCH (RBC) [Entitic mass] 27.0 pg 27.0-32.0 [facility] Mean corpuscular hemoglobin concentration (MCHC) determinationOrdered By: Bruce Norton on 08-13-2024 MCHC (RBC) [Mass/Vol] 32.2 g/dL 32-36 [facility] Mean platelet volume determi nationOrdered By: Bruce Norton on 08-13-2024 Platelet mean volume (Bld) [Entitic vol] 10.2 fL 6.2-12.0 [facility] Monocyte percentageOrdered B y: Bruce Norton on 08-13-2024 Monocytes/100 WBC (Bld) 10.9 % High 0-10 [facility] Neutrophil percentageOrdered By: Bruce Norton on 08-13-2024 Neutrophils/100 WBC (Bld) 51.5 % 47-70 [facility] No Panel InformationOrdered By: Bruce Norton on 08-13-2024 Troponin T High Sensitivity 9 ng/L <14 [facility] Nucleated red blood cell per centageOrdered By: Bruce Norton on 08-13-2024 Nucleated RBC/100 WBC (Bld) [Ratio] 0 % 0-5 [facility] Platelet countOrdered By: Angelia Norton on 08-13-2024 Platelets (Bld) [#/Vol] 282 10*3/uL 150-450 [facility] RBC Auto (Bld) [#/Vol]Ordere d By: Bruce Norton on 08-13-2024 RBC (Bld) [#/Vol] 4.67 10*6/uL 4.2-5.4 [facility] [facility] Serum creatinine measurement (mass/volume)Ordered By: Bruce Norton on 08-13-2024 Creatinine [Mass/Vol] 1.03 mg/dL 0.70-1.20 [facility] Serum glucose measurement (m ass/volume)Ordered By: Bruce Norton on 08-13-2024 Glucose [Mass/Vol] 141 mg/dL High 70-99 [facility] Serum or plasma anion gap de termination (moles/volume)Ordered By: Bruce Norton on 08-13-2024 Anion gap [Moles/Vol] 14 mmol/L 5-15 [facility] Serum or plasma calcium nataliya urement (mass/volume)Ordered By: Bruce Norton on 08-13-2024 Calcium [Mass/Vol] 9.5 mg/dL 7.6-11.0 [facility] Serum or plasma potassium me asurementOrdered By: Bruce Norton on 08-13-2024 Potassium [Moles/Vol] 3.7 mmol/L 3.3-5.1 [facility] Serum or plasma sodium measu rement (moles/volume)Ordered By: Bruce Norton on 08-13-2024 Sodium [Moles/Vol] 138 mmol/L 133-145 [facility] Serum or plasma urea nitroge n measurement (mass/volume)Ordered By: Bruce Norton on 08-13-2024 Urea nitrogen [Mass/Vol] 21 mg/dL High 4-19 [facility] White blood cell (WBC) count Ordered By: Bruce Norton on 08-13-2024 WBC (Bld) [#/Vol] 7.0 10*3/uL 4.4-11.0 [facility] Chest PA and Lateralon 08-10 Chest PA and Lateral [facility] Imaging Services [address] [place] [address] Chest PA and Lateral MR#: [id number] Acct: [id number] Name: TUNG WILSON Rep #: [id number] : 1955 F 68 From: Bryant Waterman MD PCP: Dr. Ezequiel Cadena DO Status: REG CLI Study: Chest PA and Lateral Date of Exam: 08/10/24 Exam# [id number] Ordering Dr: Ezequiel Cadena DO PROCEDURE: CHEST PA AND LATERAL REASON FOR EXAM: Right lower thoracic and right chest pain. TECHNIQUE: Frontal and lateral views of the chest. COMPARISON: Chest radiograph dated 02/27/2022 FINDINGS: Lungs are clear of pneumonia and congestion. No pleural effusions, thickening, or pneumothorax. Heart and mediastinum are normal. Old healed granulomatous changes. Great vessels unremarkable. No hilar masses. Multilevel spondylosis. RAD/Chest PA and Lateral IMPRESSION: No active cardiopulmonary disease. Reading Location: [place] [address] CC: Dr. Ezequiel Cadena, System Safety Engineer: Signed Normal [facility] C-reactive protein measureme nt by high sensitivity methodOrdered By: Ezequiel Cadena on 05-10-2024 C-Reactive Protein Extended Range < 2.90 mg/L 0.0-3.0 [facility] Comment on above: C-Reactive Protein ( CRP) provides useful information for thediagnosis, therapy and monitoring of inflammatory processesand associated diseases. For the evaluation of Relative Riskfor Cardiovascular Disease, a High Sensitivity CRP (HSCRP)should be ordered. CRPon 05-10-2024 C-REACTIVE PROT < 2.90 Normal 0.0-3.0 [facility] Comment on above: Result Comment: C-Re active Protein (CRP) provides useful information for the diagnosis, therapy and monitoring of inflammatory processes and associated diseases. For the evaluation of Relative Risk for Cardiovascular Disease, a High Sensitivity CRP (HSCRP) should be ordered. Performed By: #### L 501.6710, L101.9900 ####[facility] [id number] [place], [place], [address] Erythrocyte Sed Rateon 05-10 SED RATE 54 mm/hr [facility] 0-30 [facility] Comment on above: Performed By: #### L 501.6710, L101.9900 ####[facility] [address] [place], [place], [id number] Erythrocyte sedimentation ra teOrdered By: Ezequiel Cadena on 05-10-2024 ESR (Bld) [Velocity] 54 mm/h High 0-30 [facility] Urgent Care Visit Reporton 1 Urgent Care Visit Report [facility] [address], [address] [place] [address] OFFICE VISIT Date of Service: 03/26/24 MR#: [id number] Acct: [id number] Name: TUNG WILSON Rep #: [id number] : 1955 Provider: NBA Ni Age/Sex: 68/F Location: [facility] Status: Signed Intake Vital Signs 03/04/24 11:57 03/26/24 11:16 Height 5 ft 3 in BP 122/76 H Blood Pressure Location Lt brachial Position Sitting Respiration 14 Pulse 86 Pulse Source Monitor Temp 98.3 F Temp Source Temporal Pulse Oximetry (%) 97 Oxygen Delivery Method room air Intake Visit Reasons: sinus sx / lower back sciatica pain Allergies No Known Allergies Allergy (Verified 03/26/24 11:16) Have you fallen in the past year?: No PFSH Medical History Acid reflux Acute bronchitis, unspecified Arthritis Blood in stool Chest pain Contact with and (suspected) exposure to other viral communicable diseases Dyspnea Fatigue Hemorrhoids History of back problems Hyperlipidemia Hypertension Obesity (BMI 35.0-39.9 without comorbidity) Palpitations Pulmonary emboli Pulmonary embolism Rectal bleeding Sleep apnea SOB (shortness of breath) Type 2 diabetes mellitus without complications Surgical History H/O total knee replacement History of section, classical History of total hysterectomy Family History Mother Diabetes Social History Smoking Status: Never smoker HPI HPI Details: TUNG WILSON, is a 68 F who presents to the office today for complaint of complaint of right sciatica pain. Patient states she has had this ongoing for several weeks and has been trying to do stretching with little relief. Patient states that the pain has been going into her right thigh down to her right knee. Additionally patient states having sinus congestion and pressure as well as postnasal drainage for the past several days. She denies hemoptysis, shortness of breath or difficulty breathing. No fever, chills, sweats. No nausea, vomiting, diarrhea. No loss of taste or smell. No other associated symptoms or alleviating/aggravati ng factors. ROS Const Constitutional: Positive for other (ROS negative x 10 except what is described above) Exam Const General: cooperative and healthy appearing HENMT Head: normal to inspection Ears: hearing grossly normal bilaterally, TM's normal bilaterally and EAC's normal Nose: nasal discharge purulent Face and sinus: sinus tenderness frontal and maxillary Mouth: oral mucosae normal Throat: abnormal tonsil bilaterally erythema and hypertrophy 1+ and postnasal drainage Resp Effort Inspection: normal respiratory effort Auscultation: Bilateral: Clear to Auscultation Cardio Rate: regular rate Rhythm: regular rhythm Musc Thoracic/Lumbar Spine: paraspinal tenderness on the right (Pain over right sciatic region to palpation) in the lower lumbar Neuro General: patient alert and CN's II-XI intact bilaterally Psych Appearance: grossly normal Mental Status: mental status grossly normal Coding Level of Care Code Off vis,est,level 4 Diagnoses Acute sinusitis J01.90 Sciatica, right side M54.31 Assessment and Plan Assessment and Plan (1) Acute sinusitis: Status: Acute (2) Sciatica, right side: Status: Acute Orders: Referrals Physical Therapy Referral M54.31 - Sciatica, right side Medications: New methylprednisolone (Medrol (Garrett)) 4 mg PO PER PKG DIR 6 days 21 tabs 0RF Plan Medrol Dosepak as prescribed today. Encouraged to get plenty of rest, drink lots of clear liquids, and use Tylenol or Ibuprofen (unless contraindicated) for fever and comfort. Patient also educated on other symptomatic management techniques. To be seen in 7-10 days if no improvement; sooner if worsening of symptoms. Patient advised of potential red flags and when appropriate to report to the ED. Patient verbalized understanding and agreement with all the above. Clinical Quality Measures Falls Risk Screening/Assistive Devices Have you fallen in the past year?: No 03/26/24 7483 Date Benny ARANGO Cosigner Signature: Date (if applicable) CC: Normal [facility] Basophil percentageOrdered B y: Ezequiel OlivaresSurinder on 10-16-2023 Basophil percentage < 1.0 mg/dL 0.55-1.02 [facility] No Panel InformationOrdered By: Ezequiel Cadena on 10-16-2023 Bedside Estimated GFR (eGFR) > 60.0000 mL/min >60 [facility] Absolute lymphocyte countOrd ered By: Ezequiel Cadena on 09-24-2023 Lymphocytes Auto (Unsp spec) [#/Vol] 1.49 10*3/uL 0.83-4.51 [facility] Automated lymphocyte count a s percentage of total leukocytesOrdered By: Ezequiel Cadena on 09-24-2023 Lymphocytes/100 WBC Auto (Unsp spec) 27.2 % 19-41 [facility] Basophil percentageOrdered B y: Ezequiel Cadena on 09-24-2023 Basophils/100 WBC (Bld) 0.9 % 0-1 [facility] Eosinophils/100 WBC (Bld) 3.8 % 0-5 [facility] Hemoglobin (Bld) [Mass/Vol] 12.3 g/dL 12.0-15.0 [facility] Monocytes/100 WBC (Bld) 10.0 % 0-10 [facility] Neutrophils (Bld) [#/Vol] 3.2 10*3/uL 2.0-7.7 [facility] Neutrophils/100 WBC (Bld) 57.9 % 47-70 [facility] WBC (Bld) [#/Vol] 5.5 10*3/uL 4.4-11.0 [facility] Determination of erythrocyte mean corpuscular volume (MCV)Ordered By: Ezequiel Cadena on 09-24-2023 MCV (RBC) [Entitic vol] 84.2 fL 81-99 [facility] Erythrocyte distribution wid th ratioOrdered By: Ezequiel Cadena on 09-24-2023 Erythrocyte distribution width (RBC) [Ratio] 14.6 % 11.6-14.6 [facility] Erythrocyte distribution wid th standard deviationOrdered By: Ezequiel Cadena on 09-24-2023 Erythrocyte distribution width (RBC) [Entitic vol] 44.7 fL 35.1-43.9 [facility] Erythrocyte sedimentation ra teOrdered By: Ezequiel Cadena on 09-24-2023 ESR (Bld) [Velocity] 30 mm/h 0-30 [facility] Hematocrit Auto (Bld) [Volum e fraction]Ordered By: Ezequiel Cadena on 09-24-2023 Hematocrit (Bld) [Volume fraction] 39.9 % 37-47 [facility] Immature granulocytes/100 WB C Auto (Bld)Ordered By: Ezequiel Cadena on 09-24-2023 Immature granulocytes/100 WBC (Bld) 0.200 % 0.0-0.9 [facility] Comment on above: IG% - Immature Granu locytes (promyelocytes, myelocytes and metamyelocytes) > 1% indicates that a LEFT SHIFT is Present. Laboratory - Hematology and Cell countsOrdered By: Ezequiel Cadena on 09-24-2023 MCH (RBC) [Entitic mass] 25.9 pg 27.0-32.0 [facility] MCHC (RBC) [Mass/Vol] 30.8 g/dL 32-36 [facility] Nucleated RBC/100 WBC (Bld) [Ratio] 0 % 0-5 [facility] Platelet mean volume (Bld) [Entitic vol] 10.9 fL 6.2-12.0 [facility] Platelets (Bld) [#/Vol] 316 10*3/uL 150-450 [facility] No Panel InformationOrdered By: Ezequiel Cadena on 09-24-2023 C-Reactive Protein Extended Range 5.12 mg/L 0.0-3.0 [facility] Comment on above: C-Reactive Protein ( CRP) provides useful information for thediagnosis, therapy and monitoring of inflammatory processesand associated diseases. For the evaluation of Relative Riskfor Cardiovascular Disease, a High Sensitivity CRP (HSCRP)should be ordered. Parathyroid Hormone (Intact) 55.2 pg/mL 18.4-80.1 [facility] Vitamin D 25-Hydroxy 42.8 ng/mL [facility] Comment on above: Vitamin D 25(OH) Sta tus Range Deficiency <20 ng/mL (50nmol/L) Insufficiency 20 - 30 ng/mL (50 - 75 nmol/L) Sufficiency 30 - 100 ng/mL (75 - 250 nmol/L) Toxicity >100 ng/mL (>250 nmol/L) RBC Auto (Bld) [#/Vol]Ordere d By: Ezequiel Cadena on 09-24-2023 RBC (Bld) [#/Vol] 4.74 10*6/uL 4.2-5.4 [facility] Culture, urineOrdered By: Rory Cadena on 08-12-2023 Bacteria identified Cx Nom (U) Culture exhibits no growth. [facility] Bacteria identified Cx Nom (U) Culture exhibits no growth. [facility] Serum or plasma thyroid stim ulating hormone (TSH) measurement (units/volume)Ordered By: Ezequiel Cadena on 08-12-2023 TSH Qn 1.82 uIU/mL 0.358-3.74 [facility] Thin prep Papanicolaou smear with manual screeningOrdered By: Ezequiel Cadena on 08-12-2023 Thin prep Papanicolaou smear with manual screening 0.85 ng/dL 0.76-1.46 [facility] Absolute lymphocyte countOrd ered By: Ezequiel Cadena on 02-28-2023 Lymphocytes Auto (Unsp spec) [#/Vol] 1.60 10*3/uL 0.83-4.51 [facility] Absolute reticulocyte countO rdered By: Ezequiel Cadena on 02-28-2023 Reticulocytes (Bld) [#/Vol] 0.00 10*3/uL 0-5 [facility] Basophil percentageOrdered B y: Ezequiel Cadena on 02-28-2023 Basophil percentage 3.5 mg/dL 2.5-4.9 [facility] Bilirubin [Mass/Vol] 0.60 mg/dL 0.20-1.00 [facility] Comment on above: For patients on eltr ombopag therapy, use of Dimension [place] TBIL is not recommended. Chloride [Moles/Vol] 106 mmol/L 98-107 [facility] Cholesterol [Mass/Vol] 152 mg/dL <200 [facility] Comment on above: <200 mg/dL Desirable 200-240 mg/dL Borderline >240 mg/dL High Risk Glucose [Mass/Vol] 113 mg/dL 74-106 [facility] Comment on above: Fasting Glucose resu lt from 100 to 125 mg/dL suggests IMPAIRED HOMEOSTASIS per A.D.A. criteria. LDH [Catalytic activity/Vol] 223 U/L 84-246 [facility] Neutrophils (Bld) [#/Vol] 4.0 10*3/uL 2.0-7.7 [facility] Potassium [Moles/Vol] 3.8 mmol/L 3.5-5.1 [facility] Protein [Mass/Vol] 8.1 g/dL 6.4-8.2 [facility] Sodium [Moles/Vol] 138 mmol/L 136-145 [facility] Triglyceride [Mass/Vol] 82 mg/dL <199 [facility] Comment on above: The drugs N-Acetylcy steine and Metamizole may falsely depress this assay.Serum Triglycerides Reference Interval Normal <150 mg/dL Borderline high 150 - 199 mg/dL High 200 - 499 mg/dL Very High > or = 500 mg/dL WBC (Bld) [#/Vol] 6.3 10*3/uL 4.4-11.0 [facility] Cholesterol [Mass/Vol] 153 mg/dL <200 [facility] Comment on above: <200 mg/dL Desirable 200-240 mg/dL Borderline >240 mg/dL High Risk Triglyceride [Mass/Vol] 78 mg/dL <199 [facility] Comment on above: The drugs N-Acetylcy steine and Metamizole may falsely depress this assay.Serum Triglycerides Reference Interval Normal <150 mg/dL Borderline high 150 - 199 mg/dL High 200 - 499 mg/dL Very High > or = 500 mg/dL Blood erythrocytes count (nu mber/volume)Ordered By: Ezequiel Cadena on 02-28-2023 RBC (Bld) [#/Vol] 4.74 10*6/uL 4.2-5.4 [facility] Blood hemoglobin measurement (mass/volume)Ordered By: Ezequiel Cadena on 02-28-2023 Hemoglobin (Bld) [Mass/Vol] 12.5 g/dL 12.0-15.0 [facility] Blood platelet mean volumeOr dered By: Ezequiel Cadena on 02-28-2023 Platelet mean volume (Bld) [Entitic vol] 11.3 fL 6.2-12.0 [facility] Determination of erythrocyte mean corpuscular volume (MCV)Ordered By: Ezequiel Cadena on 02-28-2023 MCV (RBC) [Entitic vol] 86.3 fL 81-99 [facility] Direct bilirubinOrdered By: Ezequiel Cadena on 02-28-2023 Bilirubin.direct [Mass/Vol] 0.14 mg/dL 0.00-0.30 [facility] Hematocrit Auto (Bld) [Volum e fraction]Ordered By: Ezequiel Cadena on 02-28-2023 Hematocrit (Bld) [Volume fraction] 40.9 % 37-47 [facility] Laboratory - Chemistry and C hemistry - challengeOrdered By: Ezequiel Cadena on 02-28-2023 ALP [Catalytic activity/Vol] 72 U/L 45-117 [facility] ALT [Catalytic activity/Vol] 20 U/L 13-56 [facility] Cholesterol.total/Choles terol in HDL [Mass ratio] 2.50 {ratio} [facility] CO2 [Moles/Vol] 28.0 mmol/L 21.0-32.0 [facility] Globulin (S) [Mass/Vol] 4.8 g/dL 2.2-4.2 [facility] Urea nitrogen/Creatinine [Mass ratio] 22.9 mg/mg 10-20 [facility] Laboratory - Hematology and Cell countsOrdered By: Ezequiel Cadena on 02-28-2023 Erythrocyte distribution width (RBC) [Entitic vol] 46.5 fL 35.1-43.9 [facility] Erythrocyte distribution width (RBC) [Ratio] 14.5 % 11.6-14.6 [facility] MCH (RBC) [Entitic mass] 26.4 pg 27.0-32.0 [facility] Nucleated RBC/100 WBC (Bld) [Ratio] 0 % 0-5 [facility] MCHC Auto (RBC) [Mass/Vol]Or dered By: Ezequiel Cadena on 02-28-2023 MCHC (RBC) [Mass/Vol] 30.6 g/dL 32-36 [facility] No Panel InformationOrdered By: Ezequiel Cadena on 02-28-2023 Estimated GFR (MDRD) Amer 100 mL/min >60 [facility] Comment on above: GFR Calc Estimated GFR (MDRD) Non-Af Amer 83 mL/min >60 [facility] Comment on above: Non- GFR Calc Urine Microalbumin/Creatinine Ratio 80.0 mg/g CRE <30 [facility] Platelets bldOrdered By: Kinsey Cadena on 02-28-2023 Platelets (Bld) [#/Vol] 298 10*3/uL 150-450 [facility] Segmented neutrophils/100 WB C Auto (Bld)Ordered By: Ezequiel Cadena on 02-28-2023 Segmented neutrophils/100 WBC (Bld) 62.5 % 47-70 [facility] Serum or plasma albumin nataliya urement (mass/volume)Ordered By: Ezequiel Cadena on 02-28-2023 Albumin [Mass/Vol] 3.3 g/dL 3.2-5.0 [facility] Serum or plasma albumin/glob ulin mass ratioOrdered By: Ezequiel Cadena on 02-28-2023 Albumin/Globulin [Mass ratio] 0.7 {ratio} 0.9-2.4 [facility] Serum or plasma calcium nataliya urement (mass/volume)Ordered By: Ezequiel Cadena on 02-28-2023 Calcium [Mass/Vol] 9.0 mg/dL 8.5-10.1 [facility] Serum or plasma cholesterol in HDL measurement (mass/volume)Ordered By: Ezequiel Cadena on 02-28-2023 Cholesterol in HDL [Mass/Vol] 62 mg/dL >40 [facility] Comment on above: The drugs N-Acetylcy steine and Metamizole may falsely depress this assay. Reference Range HDL <40 mg/dL Low HDL Cholesterol HDL >or= 60 mg/dL High HDL Cholesterol Cholesterol in HDL [Mass/Vol] 62 mg/dL >40 [facility] Comment on above: The drugs N-Acetylcy steine and Metamizole may falsely depress this assay. Reference Range HDL <40 mg/dL Low HDL Cholesterol HDL >or= 60 mg/dL High HDL Cholesterol Serum or plasma cholesterol in VLDL measurement (mass/volume)Ordered By: Ezequiel Cadena on 02-28-2023 Cholesterol in VLDL [Mass/Vol] 16 mg/dL 5-40 [facility] Cholesterol in VLDL [Mass/Vol] 16 mg/dL 5-40 [facility] Serum or plasma creatinine m easurement (mass/volume)Ordered By: Ezequiel Cadena on 02-28-2023 Creatinine [Mass/Vol] 0.74 mg/dL 0.55-1.02 [facility] Comment on above: The validity of the calculated GFR & GFRAA in patients over 70 years has not been determined. Clinical correlation is essential. Serum or plasma low density lipoprotein (LDL) cholesterol measurement (mass/volume)Ordered By: Ezequiel Cadena on 02-28-2023 Cholesterol in LDL [Mass/Vol] 74 mg/dL 0-130 [facility] Cholesterol in LDL [Mass/Vol] 75 mg/dL 0-130 [facility] Serum or plasma urea nitroge n measurement (mass/volume)Ordered By: Ezequiel Cadena on 02-28-2023 Urea nitrogen [Mass/Vol] 17 mg/dL 7-18 [facility] Serum or plasma uric acid me asurement (mass/volume)Ordered By: Ezequiel Cadena on 02-28-2023 Urate [Mass/Vol] 7.2 mg/dL 2.6-6.0 [facility] Comment on above: The drugs N-Acetylcy steine and Metamizole may falsely depress this assay. Thin prep Papanicolaou smear with manual screeningOrdered By: Ezequiel Cadena on 02-28-2023 Thin prep Papanicolaou smear with manual screening 15 U/L 15-37 [facility] Thin prep Papanicolaou smear with manual screening 4 5-15 [facility] Thin prep Papanicolaou smear with manual screening 69.1 mg/L NO RANGE EST. [facility] Urine creatinine measurement (mass/volume)Ordered By: Ezequiel Cadena on 02-28-2023 Creatinine (U) [Mass/Vol] 86.40 mg/dL NO RANGE EST. [facility] Whole blood hemoglobin A1c/t otal hemoglobin ratio (mass fraction)Ordered By: Ezequiel Cadena on 02-28-2023 HbA1c (Bld) [Mass fraction] 6.1 % 3.8-5.6 [facility] Comment on above: Normal < 5.7 % Predi abetic 5.7 - 6.4 % Diabetic >or= 6.5 % Please note range changes. Culture, urineOrdered By: Rory Cadena on 12-24-2022 Bacteria identified Cx Nom (U) Negative [facility] Basophil percentageOrdered B y: Dr. Cadena on 09-24-2022 Bilirubin [Mass/Vol] 0.30 mg/dL 0.20-1.00 [facility] Comment on above: For patients on eltr ombopag therapy, use of Dimension [place] TBIL is not recommended. Chloride [Moles/Vol] 102 mmol/L 98-107 [facility] Glucose [Mass/Vol] 109 mg/dL 74-106 [facility] Comment on above: Fasting Glucose resu lt from 100 to 125 mg/dL suggests IMPAIRED HOMEOSTASIS per A.D.A. criteria. Potassium [Moles/Vol] 3.9 mmol/L 3.5-5.1 [facility] Protein [Mass/Vol] 7.8 g/dL 6.4-8.2 [facility] Sodium [Moles/Vol] 136 mmol/L 136-145 [facility] Bilirubin Test strip Ql (U)O rdered By: Dr. Cadena on 09-24-2022 Bilirubin Ql (U) Negative Negative [facility] Ketones Test strip Ql (U)Ord ered By: Dr. Cadena on 09-24-2022 Ketones Ql (U) Negative Negative [facility] Laboratory - Chemistry and C hemistry - challengeOrdered By: Dr. Cadena on 09-24-2022 ALP [Catalytic activity/Vol] 63 U/L 45-117 [facility] ALT [Catalytic activity/Vol] 21 U/L 13-56 [facility] CO2 [Moles/Vol] 29.0 mmol/L 21.0-32.0 [facility] Globulin (S) [Mass/Vol] 4.3 g/dL 2.2-4.2 [facility] Urea nitrogen/Creatinine [Mass ratio] 26.4 mg/mg 10-20 [facility] Nitrite Test strip Ql (U)Ord ered By: Dr. Cadena on 09-24-2022 Nitrite Ql (U) Negative Negative [facility] No Panel InformationOrdered By: Dr. Cadena on 09-24-2022 Estimated GFR (MDRD) Amer 104 mL/min >60 [facility] Comment on above: GFR Calc Estimated GFR (MDRD) Non-Af Amer 86 mL/min >60 [facility] Comment on above: Non- GFR Calc Urine Microalbumin/Creatinine Ratio 111.1 mg/g CRE <30 [facility] Protein Test strip Ql (U)Ord ered By: Dr. Cadena on 09-24-2022 Protein Ql (U) 15 mg/dl Negative [facility] Serum or plasma albumin nataliya urement (mass/volume)Ordered By: Dr. Cadena on 09-24-2022 Albumin [Mass/Vol] 3.5 g/dL 3.2-5.0 [facility] Serum or plasma albumin/glob ulin mass ratioOrdered By: Dr. Cadena on 09-24-2022 Albumin/Globulin [Mass ratio] 0.8 {ratio} 0.9-2.4 [facility] Serum or plasma calcium nataliya urement (mass/volume)Ordered By: Dr. Cadena on 09-24-2022 Calcium [Mass/Vol] 9.6 mg/dL 8.5-10.1 [facility] Serum or plasma creatinine m easurement (mass/volume)Ordered By: Dr. Cadena on 09-24-2022 Creatinine [Mass/Vol] 0.72 mg/dL 0.55-1.02 [facility] Comment on above: The validity of the calculated GFR & GFRAA in patients over 70 years has not been determined. Clinical correlation is essential. Serum or plasma urea nitroge n measurement (mass/volume)Ordered By: Dr. Cadena on 09-24-2022 Urea nitrogen [Mass/Vol] 19 mg/dL 7-18 [facility] Thin prep Papanicolaou smear with manual screeningOrdered By: Dr. Cadena on 09-24-2022 Thin prep Papanicolaou smear with manual screening 18 U/L 15-37 [facility] Thin prep Papanicolaou smear with manual screening 5 5-15 [facility] Thin prep Papanicolaou smear with manual screening 58.2 mg/L NO RANGE EST. [facility] Urine blood detectionOrdered By: Dr. Cadena on 09-24-2022 RBC Ql (U) Negative Negative [facility] Urine clarityOrdered By: Dr. Cadena on 09-24-2022 Clarity (U) Sl. Cloudy Clear [facility] Urine color determinationOrd ered By: Dr. Cadena on 09-24-2022 Color (U) Yellow Yellow [facility] Urine creatinine measurement (mass/volume)Ordered By: Dr. Cadena on 09-24-2022 Creatinine (U) [Mass/Vol] 52.40 mg/dL NO RANGE EST. [facility] Urine glucose detectionOrder ed By: Dr. Cadena on 09-24-2022 Glucose Ql (U) Normal mg/dl Normal [facility] Urine leukocyte esterase det ection by dipstickOrdered By: Dr. Cadena on 09-24-2022 Leukocyte esterase Test strip Ql (U) Negative Negative [facility] Urine pHOrdered By: Dr. Naren malone on 09-24-2022 pH (U) 8.0 [pH] 5.0 - 8.0 [facility] Urine specific gravity measu rementOrdered By: Dr. Cadena on 09-24-2022 Specific gravity (U) [Rel density] 1.015 1.002-1.030 [facility] Urobilinogen Auto test strip Ql (U)Ordered By: Dr. Cadena on 09-24-2022 Urobilinogen Ql (U) Normal mg/dl Normal [facility] Absolute lymphocyte counton 11-28-2021 Lymphocytes Auto (Unsp spec) [#/Vol] 1.87 10*3/uL 0.83-4.51 [facility] Work Phone: Basophil percentageon 2021 Basophils/100 WBC (Bld) 0.6 % 0-1 [facility] Work Phone: Bilirubin [Mass/Vol] 0.50 mg/dL 0.20-1.00 [facility] Work Phone: Comment on above: For patients on eltr ombopag therapy, use of Dimension [place] TBIL is not recommended. Chloride [Moles/Vol] 102 mmol/L 98-107 [facility] Work Phone: Eosinophils/100 WBC (Bld) 1.7 % 0-5 [facility] Work Phone: Glucose [Mass/Vol] 111 mg/dL 74-106 [facility] Work Phone: Comment on above: Fasting Glucose resu lt from 100 to 125 mg/dL suggests IMPAIRED HOMEOSTASIS per A.D.A. criteria. Neutrophils (Bld) [#/Vol] 3.8 10*3/uL 2.0-7.7 [facility] Work Phone: Neutrophils/100 WBC (Bld) 59.5 % 47-70 [facility] Work Phone: Potassium [Moles/Vol] 4.1 mmol/L 3.5-5.1 [facility] Work Phone: Protein [Mass/Vol] 7.8 g/dL 6.4-8.2 [facility] Work Phone: Sodium [Moles/Vol] 138 mmol/L 136-145 [facility] Work Phone: WBC (Bld) [#/Vol] 6.5 10*3/uL 4.4-11.0 [facility] Work Phone: Blood erythrocytes count (nu mber/volume)on 11-28-2021 RBC (Bld) [#/Vol] 4.78 10*6/uL 4.2-5.4 [facility] Work Phone: Blood hemoglobin measurement (mass/volume)on 11-28-2021 Hemoglobin (Bld) [Mass/Vol] 12.4 g/dL 12.0-15.0 [facility] Work Phone: Blood lymphocytes/100 leukoc yteson 11-28-2021 Lymphocytes/100 WBC (Bld) 29.0 % 19-41 [facility] Work Phone: Blood monocytes/100 leukocyt eson 11-28-2021 Monocytes/100 WBC (Bld) 9.0 % 0-10 [facility] Work Phone: Blood platelet mean volumeon 11-28-2021 Platelet mean volume (Bld) [Entitic vol] 11.1 fL 6.2-12.0 [facility] Work Phone: Determination of erythrocyte mean corpuscular volume (MCV)on 11-28-2021 MCV (RBC) [Entitic vol] 84.7 fL 81-99 [facility] Work Phone: Hematocrit Auto (Bld) [Volum e fraction]on 11-28-2021 Hematocrit (Bld) [Volume fraction] 40.5 % 37-47 [facility] Work Phone: [phone] Iron measurement (mass/mass) on 11-28-2021 Iron (Unsp spec) [Mass/Mass] 77 ug/dL 50-170 [facility] Work Phone: Laboratory - Chemistry and C hemistry - challengeon 11-28-2021 ALP [Catalytic activity/Vol] 78 U/L 45-117 [facility] Work Phone: ALT [Catalytic activity/Vol] 20 U/L 13-56 [facility] Work Phone: CK [Catalytic activity/Vol] 94 U/L 26-192 [facility] Work Phone: CO2 [Moles/Vol] 32.0 mmol/L 21.0-32.0 [facility] Work Phone: Cobalamin (Vitamin B12) [Mass/Vol] 1131 pg/mL 211-911 [facility] Work Phone: Globulin (S) [Mass/Vol] 4.3 g/dL 2.2-4.2 [facility] Work Phone: Urea nitrogen/Creatinine [Mass ratio] 20.3 mg/mg 10-20 [facility] Work Phone: Laboratory - Hematology and Cell countson 11-28-2021 Erythrocyte distribution width (RBC) [Entitic vol] 48.3 fL 35.1-43.9 [facility] Work Phone: Erythrocyte distribution width (RBC) [Ratio] 15.9 % 11.6-14.6 [facility] Work Phone: Immature granulocytes/100 WBC (Bld) 0.200 % 0.0-0.9 [facility] Work Phone: Comment on above: IG% - Immature Granu locytes (promyelocytes, myelocytes and metamyelocytes) > 1% indicates that a LEFT SHIFT is Present. MCH (RBC) [Entitic mass] 25.9 pg 27.0-32.0 [facility] Work Phone: Nucleated RBC/100 WBC (Bld) [Ratio] 0 % 0-5 [facility] Work Phone: MCHC Auto (RBC) [Mass/Vol]on 11-28-2021 MCHC (RBC) [Mass/Vol] 30.6 g/dL 32-36 [facility] Work Phone: No Panel Informationon 11-28 Estimated GFR (MDRD) Amer 94 mL/min >60 [facility] Work Phone: Comment on above: GFR Calc Estimated GFR (MDRD) Non-Af Amer 78 mL/min >60 [facility] Work Phone: Comment on above: Non- GFR Calc Vitamin D 25-Hydroxy 44.7 ng/mL [facility] Work Phone: Comment on above: Vitamin D 25(OH) Sta tus Range Deficiency <20 ng/mL (50nmol/L) Insufficiency 20 - 30 ng/mL (50 - 75 nmol/L) Sufficiency 30 - 100 ng/mL (75 - 250 nmol/L) Toxicity >100 ng/mL (>250 nmol/L) Platelets bldon 11-28-2021 Platelets (Bld) [#/Vol] 290 10*3/uL 150-450 [facility] Work Phone: Serum or plasma albumin nataliya urement (mass/volume)on 11-28-2021 Albumin [Mass/Vol] 3.5 g/dL 3.2-5.0 [facility] Work Phone: [phone] Serum or plasma albumin/glob ulin mass ratioon 11-28-2021 Albumin/Globulin [Mass ratio] 0.8 {ratio} 0.9-2.4 [facility] Work Phone: [phone] Serum or plasma calcium nataliya urement (mass/volume)on 11-28-2021 Calcium [Mass/Vol] 9.6 mg/dL 8.5-10.1 [facility] Work Phone: [phone] Serum or plasma creatinine m easurement (mass/volume)on 11-28-2021 Creatinine [Mass/Vol] 0.79 mg/dL 0.55-1.02 [facility] Work Phone: Comment on above: The validity of the calculated GFR & GFRAA in patients over 70 years has not been determined. Clinical correlation is essential. Serum or plasma ferritin hanh surement (mass/volume)on 11-28-2021 Ferritin [Mass/Vol] 14 ng/mL 8-252 [facility] Work Phone: [phone] Serum or plasma urea nitroge n measurement (mass/volume)on 11-28-2021 Urea nitrogen [Mass/Vol] 16 mg/dL 7-18 [facility] Work Phone: [phone] Thin prep Papanicolaou smear with manual screeningon 11-28-2021 Thin prep Papanicolaou smear with manual screening 14 U/L 15-37 [facility] Work Phone: [phone] Thin prep Papanicolaou smear with manual screening 4 5-15 [facility] Work Phone: [phone] Vital Signs Date Time Vital Sign Value Performing Clinician Faci lity 01-10-2025 09:39-0400 Body temperature 97.9 [degF] Dr. Ezequiel Cadena DO Work Phone: [facility] 01-10-2025 09:39-0400 Diastolic blood pressure 80 mm[Hg] Dr. Ezequiel Cadena DO Work Phone: [facility] 01-10-2025 09:39-0400 Heart rate 77 /min Dr. Ezequiel Cadena DO Work Phone: [facility] 01-10-2025 09:39-0400 Respiratory rate 16 /min Dr. Ezequiel Cadena DO Work Phone: [facility] 01-10-2025 09:39-0400 SaO2% (BldA) [Mass fraction] 98 % Dr. Ezequiel Cadena DO Work Phone: [facility] 01-10-2025 09:39-0400 Systolic blood pressure 120 mm[Hg] Dr. Ezequiel Cadena DO Work Phone: [facility] 10-21-2024 00:28-0400 Body temperature 98.7 [degF] Dr. Ezequiel Cadena DO Work Phone: [facility] 10-21-2024 00:28-0400 Diastolic blood pressure 90 mm[Hg] Dr. Ezequiel Cadena DO Work Phone: [facility] 10-21-2024 00:28-0400 Heart rate 76 /min Dr. Ezequiel Cadena DO Work Phone: [facility] 10-21-2024 00:28-0400 Respiratory rate 18 /min Dr. Ezequiel Cadena DO Work Phone: [facility] 10-21-2024 00:28-0400 SaO2% (BldA) [Mass fraction] 96 % Dr. Ezequiel Cadena DO Work Phone: [facility] 10-21-2024 00:28-0400 Systolic blood pressure 129 mm[Hg] Dr. Ezequiel Cadena DO Work Phone: [facility] 10-20-2024 23:25-0400 Body height 162.[address] Ezequiel Cadena DO Work Phone: [facility] 10-20-2024 23:25-0400 Body mass index (BMI) [Ratio] 38.2 kg/m2 Dr. Ezequiel Cadena DO Work Phone: [facility] 10-20-2024 23:25-0400 Body weight 100.[address] Ezequiel Cadena DO Work Phone: [facility] 09-03-2024 11:47-0400 Body height 160.[address] Ezequiel Cadena DO Work Phone: [facility] 09-03-2024 11:47-0400 Body mass index (BMI) [Ratio] 39.4 kg/m2 Dr. Ezequiel Cadena DO Work Phone: [facility] 09-03-2024 11:47-0400 Body temperature 97.8 [degF] Dr. Ezequiel Cadena DO Work Phone: [facility] 09-03-2024 11:47-0400 Body weight 101.[address] Ezequiel Cadena DO Work Phone: [facility] 09-03-2024 11:47-0400 Diastolic blood pressure 84 mm[Hg] Dr. Ezequiel Cadena DO Work Phone: [facility] 09-03-2024 11:47-0400 Heart rate 73 /min Dr. Ezequiel Cadena DO Work Phone: [facility] 09-03-2024 11:47-0400 Respiratory rate 16 /min Dr. Ezequiel Cadena DO Work Phone: [facility] 09-03-2024 11:47-0400 SaO2% (BldA) [Mass fraction] 100 % Dr. Ezequiel Cadena DO Work Phone: [facility] 09-03-2024 11:47-0400 Systolic blood pressure 151 mm[Hg] Dr. Ezequiel Cadena DO Work Phone: [facility] 08-14-2024 03:10-0500 Body temperature 98.2 [degF] Dr. Ezequiel Cadena DO Work Phone: [facility] 08-14-2024 03:10-0500 Diastolic blood pressure 89 mm[Hg] Dr. Ezequiel Cadena DO Work Phone: [facility] 08-14-2024 03:10-0500 Heart rate 68 /min Dr. Ezequiel Cadena DO Work Phone: [facility] 08-14-2024 03:10-0500 Respiratory rate 19 /min Dr. Ezequiel Cadena DO Work Phone: [facility] 08-14-2024 03:10-0500 SaO2% (BldA) [Mass fraction] 97 % Dr. Ezequiel Cadena DO Work Phone: [facility] 08-14-2024 03:10-0500 Systolic blood pressure 166 mm[Hg] Dr. Ezequiel Cadena DO Work Phone: [facility] 08-13-2024 23:27-0500 Body height 160.[address] Ezequiel Cadena DO Work Phone: [facility] 08-13-2024 23:27-0500 Body mass index (BMI) [Ratio] 40.1 kg/m2 Dr. Ezequiel Cadena DO Work Phone: [facility] 08-13-2024 23:27-0500 Body weight 102.[address] Ezequiel Cadena DO Work Phone: [facility] 10-08-2023 12:42-0400 Body height 160.[address] Ezequiel Cadena Work Phone: [facility] 10-08-2023 12:42-0400 Body mass index (BMI) [Ratio] 40.1 kg/m2 Dr. Ezequiel Cadena Work Phone: [facility] 10-08-2023 12:42-0400 Body weight 102.[address] Ezequiel Cadena Work Phone: [facility] 10-08-2023 12:42-0400 Diastolic blood pressure 87 mm[Hg] Dr. Ezequiel Cadena Work Phone: [facility] 10-08-2023 12:42-0400 Respiratory rate 16 /min Dr. Ezequiel Cadena Work Phone: [facility] 10-08-2023 12:42-0400 Systolic blood pressure 129 mm[Hg] Dr. Ezequiel Cadena Work Phone: [facility] Encounters Encounter Date Encounter Type Care Provider Facility Start: 03-04-2025 ambulatory Ezequiel Cadena Facility: [facility] Start: 03-02-2025 ambulatory Ezequiel Cadena Facility: [facility] Start: 02-10-2025 End: 02-10-[address] Ezequiel Cadena DO Work Phone: -Laboratory [place] [facility] Start: 02-10-2025 End: 02-10-[address] Ezequiel Cadena DO -Laboratory [place] [facility] Start: 02-10-2025 End: 02-10-2025 ambulatory Ezequiel Cadena Facility:[facility] Start: 01-31-2025 Registered Referred HEALTH RIS K ASSESSMENT -Laboratory [place] Work Phone: Start: 01-31-2025 ambulatory Health Risk Assessment Facility:[facility] Start: 01-10-2025 End: 01-10-2025 Patient encounter procedure Jr [place] -[facility] Work Phone: Start: 01-10-2025 End: 01-10-[address] Ezequiel Cadena DO Work Phone: -[facility] Start: 10-20-2024 End: 10-21-2024 Emergency department patient visit Dr. Ezequiel Cadena DO Work Phone: -Emergency Department Work Phone: Start: 09-18-2024 End: 09-18-[address] Ezequiel Cadena DO Work Phone: [facility] Work Phone: Start: 09-18-2024 End: 09-18-[address] Abelardo Myrick MD -[facility], [facility] Work Phone: Start: 09-18-2024 End: 09-18-2024 ambulatory Abelardo [place] Facility:[facility] Start: 09-10-2024 End: 09-10-[address] Ezequiel Cadena DO Work Phone: [facility] Work Phone: Start: 09-10-2024 End: 09-10-[address] Ezequiel Cadena DO -Outpatient Breast Imaging Work Phone: Start: 09-10-2024 End: 09-10-2024 ambulatory Ezequiel Cadena Facility:[facility] Start: 09-03-2024 End: 09-03-[address] Ezequiel Cadena DO -Medical Out Work Phone: Start: 09-03-2024 End: 09-03-[address] Ezequiel Cadena DO Work Phone: [facility] Work Phone: Start: 08-13-2024 End: 08-14-2024 Emergency department patient visit Dr. Ezequiel Cadena DO Work Phone: -Emergency Department Work Phone: Start: 08-10-2024 End: 08-10-[address] Ezequiel Cadena DO Work Phone: [facility] Work Phone: Start: 08-10-2024 End: 08-10-[address] Ezequiel Cadena DO -Radiology, [place] Work Phone: Start: 08-10-2024 End: 08-10-2024 ambulatory Ezequiel Cadena Facility:[facility] Start: 05-10-2024 End: 05-10-[address] Ezequiel Cadena DO -[facility] Start: 05-10-2024 End: 05-10-2024 ambulatory Ezequiel Cadena Facility:[facility] Start: 03-26-2024 End: 03-26-2024 ambulatory Benny ARANGO Facility:[facility] Start: 03-04-2024 End: 03-04-2024 ambulatory Ezequiel Cadena Facility:[facility] Start: 10-16-2023 End: 10-16-[address] Ezequiel Cadena Work Phone: [facility] Work Phone: Start: 10-16-2023 End: 10-16-[address] Ezequiel Cadena Work Phone: [facility]-Cat Scan, [facility] Work Phone: Start: 10-08-2023 End: 10-08-[address] Ezequiel Cadena Work Phone: [facility] Work Phone: Start: 09-24-2023 End: 09-24-2023 ambulatory [facility] Work Phone: Start: 09-24-2023 End: 09-24-2023 Patient encounter procedure [facility]-LaboratoryAre[facility] Start: 09-10-2023 End: 09-10-2023 ambulatory [facility] Work Phone: Start: 09-10-2023 End: 09-10-2023 Patient encounter procedure [facility]-Outpatient Bone Densitometry Work Phone: Start: 08-12-2023 End: 08-12-2023 ambulatory [facility] Work Phone: Start: 08-12-2023 End: 08-12-2023 Patient encounter procedure [facility]-Laboratory[facility] Start: 02-28-2023 Registered Referred [facility] Start: 02-28-2023 End: 02-28-2023 ambulatory [facility] Work Phone: Start: 02-28-2023 End: 02-28-2023 Patient encounter procedure [facility]-Laboratory, [place] Work Phone: Start: 12-24-2022 End: 12-24-2022 ambulatory [facility] Work Phone: Start: 12-24-2022 End: 12-24-2022 Patient encounter procedure [facility]-Laboratory, [place] Work Phone: Start: 09-24-2022 End: 09-24-2022 ambulatory [facility] Work Phone: Start: 09-24-2022 End: 09-24-2022 Patient encounter procedure [facility] Start: 01-09-2022 End: 01-09-2022 Patient encounter procedure [facility]-Outpatient Breast Imaging Start: 11-28-2021 End: 11-28-2021 Patient encounter procedure [facility] Start: 02-25-2017 End: 02-25-2017 Phone Encounter [facility] Procedures Date Procedure Procedure Detail Performing Clinician Start: 01-31-2025 Serum inorganic phosphate measurement Dr. Ezequiel Cadena DO Work Phone: Start: 10-20-2024 Plain X-ray of shoulder Dr. Ezequiel hayes DO Work Phone: Start: 10-20-2024 X-ray of knee, four or more views Dr[address] Ezequiel Cadena DO Work Phone: Start: 09-18-2024 US scan of thyroid Dr. Ezequiel Cadena DO Work Phone: Start: 09-10-[address] Ezequiel Cadena DO Work Phone: Start: 08-13-2024 X-ray of chest, PA and lateral views Dr. Ezequiel Cadena DO Work Phone: Start: 08-13-[address] Ezequiel Cadena DO Work Phone: Start: 08-10-2024 X-ray of chest, PA and lateral views Dr. Ezequiel Cadena DO Work Phone: Start: 10-16-2023 CT of head without contrast Dr. Ezequiel Cadena Work Phone: Start: 09-10-2023 US scan of thyroid Start: 09-10-2023 Dual energy X-ray absorptiometry Start: 09-10-2023 Screening mammography Start: 08-12-2023 Urine culture Start: 12-24-2022 Urine culture Start: 01-09-2022 Screening mammography Start: 10-01-2018 End: 10-02-2018 Ankle min 3 Views Comments: See Note; NOTES: [facility] Imaging Services [address] [place] [address] Ankle min 3 Views MR#: [id number] Acct: [id number] Name: TUNG WILSON Rep #: [id number] : [id number] F 62 From: Pepe Gallego MD PCP: Ezequiel Cadena DO Status: REG CLI Study: Ankle min 3 Views Date of Exam: 10/01/18 Exam# [id number] Ordering Dr: Laverne Mcclure DO STUDY: X-RAY [...] CC: Laverne Mcclure DO; Ezequiel Cadena DO System Safety Engineer: Signed [facility] Plan of Treatment Date Care Activity Detail Author Start: 10-21-2024 [facility] Start: 08-14-2024 [facility] Start: 08-13-2024 [facility] Start: 09-10-2023 Dual energy X-ray absorptiometry Dexa Bone Density Study [facility] Start: 09-10-2023 DXA Bone [Mass/Area] Bone density [facility] Acetylcholine recept or blocking Ab [Presence] in Serum [facility] Bilirubin measuremen t, urine [facility] Work Phone: Hemoglobin [Presence ] in Urine [facility] Work Phone: Measurement of keton es in urine using dipstick [facility] Work Phone: Patient Education [facility] Work Phone: Patient referral [facility] Work Phone: pH of Urine [facility] Work Phone: Specific gravity of Urine [facility] Work Phone: Urine dipstick for glucose [facility] Work Phone: Urine dipstick for leukocyte esterase [facility] Work Phone: Urine dipstick for nitrite [facility] Work Phone: Urine dipstick for protein [facility] Work Phone: Urine examination [facility] Work Phone: Urobilinogen [Presen ce] in Urine [facility] Work Phone: US Thyroid gland [facility] Immunizations Immunization Date Immunization Notes Care Provider Fa cility 04-20-2024 Covid (Spikevax) Dr. Ezequiel Romo DO Work Phone: [facility] 03-19-2024 influenza, seasonal, injectable, preservative free Dr. Ezequiel Cadena DO Work Phone: [facility] 04-11-2023 Covid (Spikevax) [facility] 03-19-2023 influenza, injectabl e, quadrivalent, preservative free [facility] 03-18-2022 influenza, injectabl e, quadrivalent, preservative free [facility] 03-18-2022 influenza, seasonal, [facility] 01-18-2022 Covid (Pfizer) [facility] 04-27-2021 Covid (Moderna) [facility] 03-28-2021 influenza, injectabl e, quadrivalent, preservative free [facility] 03-28-2021 influenza, seasonal, [facility] 07-18-2020 Covid (Moderna) [facility] 06-20-2020 Covid (Moderna) [facility] 04-24-2020 influenza, injectabl e, quadrivalent, preservative free [facility] 04-24-2020 influenza, seasonal, injectable [facility] 03-31-2019 influenza, injectabl e, quadrivalent, preservative free [facility] 03-31-2019 influenza, seasonal, [facility] 03-25-2018 influenza, injectabl e, quadrivalent, preservative free [facility] 03-25-2018 influenza, seasonal, [facility] 03-21-2017 influenza, injectabl e, quadrivalent, preservative free [facility] 03-21-2017 influenza, seasonal, [facility] 03-14-2016 influenza, injectabl e, quadrivalent, preservative free [facility] 03-14-2016 influenza, seasonal, [facility] 04-11-2015 influenza, injectabl e, quadrivalent, preservative free [facility] 04-11-2015 influenza, seasonal, injectable [facility] 03-03-2014 influenza, injectabl e, quadrivalent, preservative free [facility] 03-03-2014 influenza, seasonal, [facility] Payers Date Payer Category Payer Unknown [id number] 2024 Self-pay [id number] 2023 Unknown [id number] 2016 Unknown [id number] Unknown [id number] Unknown [id number] 2.16.8 [id number] Unknown [id number] 2.16.8 [id number] Unknown [id number] 2.16.8 [id number] Unknown [id number] 2.16.8 [id number] Unknown [id number] 2.16.8 [id number] Unknown [id number] 2.16.8 [id number] Unknown [id number] 2.16.8 [id number] Unknown [id number] 2.16.8 [id number] Unknown [id number] 2.16.8 [id number] Unknown [id number] 2.16.8 [id number] Unknown [id number] 2.16.8 [id number] Unknown [id number] 2.16.8 [id number] Unknown [id number] 2.16.8 [id number] Unknown [id number] 2.16.8 [id number] Social History Date Type Detail Facility Start: 07-07-2021 End: 05-21-2022 Tobacco smoking status NHIS Unknown if ever smoked [facility] Start: 1955 Sex Assigned At Female [facility] Start: 08-13-2024 End: 10-21-2024 Tobacco smoking status NHIS Never smoked tobacco (finding) [facility] Start: 08-23-2024 End: 09-23-2024 Sex Female (finding) [facility] Medical Equipment Procedure Code Equipment Code Equipment Origin al Text Equipment Identifier Dates PRE-LOADED LENS FDA Start: 02-06-2018 PRE-LOADED LENS FDA Start: 02-06-2018 PRE-LOADED LENS FDA Start: 02-06-2018 PRE-LOADED LENS FDA Start: 02-06-2018 PRE-LOADED LENS FDA Start: 02-06-2018 PRE-LOADED LENS FDA Start: 02-06-2018 PRE-LOADED LENS FDA Start: 02-06-2018 PRE-LOADED LENS FDA Start: 02-06-2018 PRE-LOADED LENS FDA Start: 02-06-2018 PRE-LOADED LENS FDA Start: 02-06-2018 PRE-LOADED LENS FDA Start: 02-06-2018 PRE-LOADED LENS FDA Start: 02-06-2018 PRE-LOADED LENS FDA Start: 02-06-2018 PRE-LOADED LENS FDA Start: 02-06-2018 PRE-LOADED LENS FDA Start: 02-06-2018 PRE-LOADED LENS FDA Start: 02-06-2018 Mental Status Date Assessment Result Facility 08-13-2024 Cognitive function Awake;Alert;A ppropriate;Fol lows Commands [facility] Work Phone: Clinical Notes 08-10-2024 to 01-10-2025 Note Date & Type Note Facility 01-10-2025 Evaluation note Diagnosis Onset Date Resolution Rash noneactive January 10 9:36am [facility] Work Phone: 1(419) 130-866205-08-2025 Radiology Diagnostic study note [facility] Imaging Services [address] [place], [place] [address] Knee 4 or More Views MR#: [id number] Acct: [id number] Name: TUNG WILSON Rep #: [id number] : 1955 F 68 From: Elder Saleem MD PCP: Dr. Ezequiel Cadena, DO Status: REG ER Study:Knee 4 or More Views Date of Exam: 10/20/24 Exam# [id number] Ordering Dr: Natasha Norton MD PROCEDURE: KNEE 4 OR MORE VIEWS 10/21/2024 REASON FOR EXAM: FALL TECHNIQUE: Four views left knee COMPARISON: 01/14/2021 FINDINGS: No acute fracture, dislocation or joint effusion. Left knee replacement with patellar resurfacing again noted appears intact and anatomic. Appearance of suggested prepatellar soft tissue swelling. RAD/Knee 4 or More Views IMPRESSION: No acute fracture, dislocation or joint effusion. Left knee replacement with patellar resurfacing again noted appears intact and anatomic. Appearance of suggested prepatellar soft tissue swelling. Reading Location: [id number] CC: Dr. Bruce Norton MD; Dr. Ezequiel Cadena DO ~ System Safety Engineer: Signed [facility]05-08-2025 Discharge summary [facility] Medical Records Department [address] [place] [address] Emergency Department Summary 10/21/24 MR#: [id number] Acct: [id number] Name: TUNG WILSON Rep #:[id number] : 1955 68 From: Bruce Norton MD PCP: Dr. 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 States she was cleaning in her room and she thinks her leg got caught either under her own part of the bed, causing her to fall to her left knee and down to the floor against an abducted right shoulder. She did not hit her head. She is on Xarelto because of a history of a PE, she is not sure how she got that. She was able to stand, she has been icing her knee and she took some Tylenol. Her knee hurts anteriorly where she fell against it, and the shoulder hurt laterally. [id number]. No numbness or tingling. No injuries or pain elsewhere. Denies prodromal symptoms. [facility] Medical History Contact with and (suspected) exposure to other viral communicable diseases Acute bronchitis, unspecified Rectal bleeding Pulmonary embolism Pulmonary emboli Hemorrhoids Acid reflux Blood in stool Sleep apnea SOB (shortness of breath) History of back problems Chest pain Fatigue Dyspnea Obesity (BMI 35.0-39.9 without comorbidity) Palpitations Arthritis Hyperlipidemia Hypertension Type 2 diabetes mellitus without complications Home Medications ?Medication ?Instructions ?Recorded ?Last Taken ?Type gabapentin 300 mg capsule 300 mg PO BID 09/01/17 Unkno wn History rivaroxaban 15 mg tablet (Xarelto) 20 mg PO Q24H 03/30 Unknown History amlodipine 5 mg tablet 5 mg PO QDAY 10/08/23 Unknow n History pantoprazole 20 mg tablet,delayed [address] PO QDAY PRN st omach 10/08/23 Unknown History release semaglutide 1 mg/dose (4 mg/3 mL) 1 mg subcut .1x/week 10/08/23 Unknown History subcutaneous pen injector (Ozempic) simvastatin 20 mg tablet 20 mg PO QHS PRN pt thinks m ed 10/08/23 Unknown History causes her pain spironolactone 25 mg tablet 25 mg PO QDAY 10/08/23 Unk nown History Allergy/AdvReac Type Severity Reaction Status Date / Time No Known Allergies Allergy Verified 10/20/24 23:29 Family History Mother Diabetes Surgical History H/O total knee replacement History of section, classical History of total hysterectomy Social History Smoking Status: Never smoker ROS ROS ED Constitutional Constitutional ED: Denies chills or fever(s) Cardiovascular Cardiovascular: Denies chest pain Respiratory/Chest Respiratory/Chest: Denies dyspnea Musculoskeletal Musculoskeletal: Reports extremity pain; Denies back pain or neck pain Integumentary Denies Abrasions, rash or wounds Neurologic Neurologic: Denies headache(s), paresthesias or weakness Hematologic/Lymphatic Hematologic/Lymphatic: Reports easy bleeding and easy bruising EXAM Physical Exam Const Vital Signs: 10/20/24 23:25 10/21/24 00:12 Temperature 98.7 F Temperature Source Temporal Pulse Rate 82 Respiratory Rate 17 Respiratory Effort Normal Respiratory Depth Normal Respiratory Pattern Normal Blood Pressure 150/91 H Blood Pressure Mean 110 Pulse Ox 98 Oxygen Delivery Method Room Air Room Air Positive well nourished and well developed General Appearance ED: well developed and NAD HEENT Reports normocephalic atraumatic Eyes PERRL and EOMs intact bilaterally Neck full ROM and supple Resp normal respiratory effort Back/Spine normal ROM and normal to inspection Extremity Extremity Narrative: Contusion without boggy hematoma or effusion left anterior knee. Tenderness there. Extensor mechanism is intact. LCL, MCL stable without significant discomfort with stressing. Negative anterior and posterior drawer signs, without eliciting pain or laxity. All compartments of all 4 extremities soft and nondistended. With the guards of the right shoulder, there is no deformity, when she is at rest adducted there isno tenderness of the proximal humerus, acromioclavicular joint or the clavicle. She can abduct to about 30 degrees, and externally rotate 45-90 degrees, but stops due to pain. Neuro oriented x3, no focal motor deficits and no sensory deficits noted Sensorium / Orientation: alert Psych mental status grossly normal and thought process normal Skin no wounds Rashes: no rashes MDM MDM MDM Narrative Medical decision making narrative: 4 view x-ray series of the left knee shows intact knee replacement hardware and is negative for anything acute on my interpretation, and three-view x-ray seriesof the right shoulder shows no acute fractures or dislocation on my interpretation with the scapular Y view. She was given an Nacho wrap for her knee, I do not think she needs any narcotics with Tylenol she already took, we will give her restrictions and write her off of the rest of the shift, she only had about an hour and a half left, and she is to follow-up with employee health. Radiography Diagnostic Testing: Clinical Impression(s) from Imaging Studies Shoulder X-Ray 10/20/24 23:50 IMPRESSION: No fracture or dislocation. Reading Location: [facility] Discharge Plan Triage Chief Complaint: Fall ED Provider: Bruce Norton Dx/Rx/DC Orders Clinical Impression: Contusion of knee, left, Contusion of right shoulder, Fall from slip, trip, or stumble Instructions: Bruises (Contusions), ED Bandage Elastic Wrap Prescriptions: No Action gabapentin 300 mg capsule 300 mg PO BID Patient Comments: 300 mg PO 1-2 tablets twice daily prn Xarelto 15 mg tablet 20 mg PO Q24H Patient Comments: pt states she was instructed by Dr Quinn to stop 5day prior to colonoscopy 05/09/20 Rx Instructions: must administer with evening meal amlodipine 5 mg tablet 5 mg PO QDAY spironolactone 25 mg tablet 25 mg PO QDAY pantoprazole 20 mg tablet,delayed release (DR/EC) 20 mg PO QDAY PRN (Reason: stomach ) simvastatin 20 mg tablet 20 mg PO QHS PRN (Reason: pt thinks med causes her pain) Ozempic 1 mg/dose (4 mg/3 mL) pen injector 1 mg subcut .1x/week Stand Alone Forms: Work Status Form Primary Care Provider: Ezequiel Cadena Referrals: Health,Employee [Non-Staff -Ordering Privileges] - As soon as possible Print Language: Faroese Disposition Disposition: Home, Self Care What to do if you have Problems For any increased pain, shortness of breath, bleeding, nausea or vomiting, chestpain, or any unexpected problems, contact your Primary Care Provider. Call [facility] ([phone]) or report tothe closest Emergency Room. Call 911 if necessary. 10/21/24 0018 Cosigner Signature (if applicable): CC: Dr. Ezequiel Cadena DO ~ Signed [facility]05-08-2025 Radiology Diagnostic study note [facility] Imaging Services [address] [place], [place] [id number] Shoulder min 2 Views MR#: [id number] Acct: [id number] Name: TUNG WILSON Rep #: [id number] : 1955 F 68 From: Elder Saleem MD PCP: Dr. Ezequiel Cadena DO Status: PRE ER Study:Shoulder min 2 Views Date of Exam: 10/20/24 Exam# [id number] Ordering Dr: Natasha Norton MD PROCEDURE: SHOULDER MIN 2 VIEWS 10/21/2024 REASON FOR EXAM: FALL TECHNIQUE: Four views right shoulder FINDINGS: No fracture or dislocation. Mild appearing osteoarthrosis. Some irregularity of the lateral humeralhead may represent rotator cuff tendinopathy. RAD/Shoulder min 2 Views IMPRESSION: No fracture or dislocation. Reading Location: [facility] CC: Dr. Bruce Norton MD; Dr. Ezequiel Cadena DO ~ System Safety Engineer: Signed [facility]04-05-2025 Radiology Diagnostic study note [facility] Imaging Services [address] [place], [place] [address] Thyroid MR#: [id number] Acct: [id number] Name: TUNG WILSON Rep #: [id number] : 1955 F 68 From: Rachel Floyd MD PCP: Dr. Ezequiel Cadena DO Status: REG CLI Study:Thyroid Date of Exam: 09/18/24 Exam# [id number] Ordering Dr: St alex Pereira MD PROCEDURE: THYROID 09/18/2024 REASON FOR EXAM: THYROID NODULE TECHNIQUE: Thyroid ultrasound COMPARISON: CTA chest 03/09/2020. reported prior thyroid biopsy 10/08/2023 (imaging/report/pathology not available). FINDINGS: Right thyroid lobe measures 6.8 x 2.7 x 3.0 cm. Left thyroid lobe measures 6.9 x 2.3 x 2.9 cm. Isthmus thickness is0.2 cm. Thyroid Size: Diffusely enlarged Background Echotexture: Heterogeneous multinodular Thyroid Nodules: No suspicious nodules are identified US/Thyroid IMPRESSION: Multinodular goiter. No suspicious thyroid nodule identified. Reading Location: [facility] CC: Dr. Ezequiel Cadena DO; Dr. Jr Pereira MD ~ System Safety Engineer: Signed [facility]02-25-2025 Radiology Diagnostic study note [facility] Imaging Services [address], [place] [address] Chest PA and Lateral MR#: [id number] Acct: [id number] Name: TUNG WILSON Rep #: [id number] : 1955 F 68 From: Jovanna Waterman MD PCP: Dr. Ezequiel Cadena DO Status: REG CLI Study:Chest PA and Lateral Date of Exam: 08/10/24 Exam# [id number] Ordering Dr: Ezequiel Cadena DO PROCEDURE: CHEST PA AND LATERAL REASON FOR EXAM: Right lower thoracic and right chest pain. TECHNIQUE: Frontal and lateral views of the chest. COMPARISON: Chest radiograph dated 02/27/2022 FINDINGS: Lungs are clear of pneumonia and congestion. No pleural effusions, thickening, or pneumothorax. Heart and mediastinum are normal. Old healed granulomatous changes. Great vessels unremarkable. No hilar masses. Multilevel spondylosis. RAD/Chest PA and Lateral IMPRESSION: No active cardiopulmonary disease. Reading Location: [place] [address] CC: Dr. Ezequiel Cadena DO ~ System Safety Engineer: Signed [facility] Author Bruce Norton [facility] Note Date/Time October 21, 2024 12:18a m [facility] Medical Records Department [address] [place] [address] Emergency Department Summary 10/21/24 MR#: [id number] Acct: [id number] Name: TUNG WILSON Rep #:[id number] : 1955 68 From: Bruce Norton MD PCP: Dr. 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 States she was cleaning in her room and she thinks her leg got caught either under her own part of the bed, causing her to fall to her left knee and down to the floor against an abducted right shoulder. She did not hit her head. She is on Xarelto because of a history of a PE, she is not sure how she got that. She was able to stand, she has been icing her knee and she took some Tylenol. Her knee hurts anteriorly where she fell against it, and the shoulder hurt laterally. [id number]. No numbness or tingling. No injuries or pain elsewhere. Denies prodromal symptoms. [facility] Medical History Contact with and (suspected) exposure to other viral communicable diseases Acute bronchitis, unspecified Rectal bleeding Pulmonary embolism Pulmonary emboli Hemorrhoids Acid reflux Blood in stool Sleep apnea SOB (shortness of breath) History of back problems Chest pain Fatigue Dyspnea Obesity (BMI 35.0-39.9 without comorbidity) Palpitations Arthritis Hyperlipidemia Hypertension Type 2 diabetes mellitus without complications Home Medications ?Medication ?Instructions ?Recorded ?Last Taken ?Type gabapentin 300 mg capsule 300 mg PO BID 09/01/17 Unkno wn History rivaroxaban 15 mg tablet (Xarelto) 20 mg PO Q24H 03/30 Unknown History amlodipine 5 mg tablet 5 mg PO QDAY 10/08/23 Unknow n History pantoprazole 20 mg tablet,delayed [address] PO QDAY PRN [address] omach 10/08/23 Unknown History release semaglutide 1 mg/dose (4 mg/3 mL) 1 mg subcut .1x/week 10/08/23 Unknown History subcutaneous pen injector (Ozempic) simvastatin 20 mg tablet 20 mg PO QHS PRN pt thinks m ed 10/08/23 Unknown History causes her pain spironolactone 25 mg tablet 25 mg PO QDAY 10/08/23 Unk nown History Allergy/AdvReac Type Severity Reaction Status Date / Time No Known Allergies Allergy Verified 10/20/24 23:29 Family History Mother Diabetes Surgical History H/O total knee replacement History of section, classical History of total hysterectomy Social History Smoking Status: Never smoker ROS ROS ED Constitutional Constitutional ED: Denies chills or fever(s) Cardiovascular Cardiovascular: Denies chest pain Respiratory/Chest Respiratory/Chest: Denies dyspnea Musculoskeletal Musculoskeletal: Reports extremity pain; Denies back pain or neck pain Integumentary Denies Abrasions, rash or wounds Neurologic Neurologic: Denies headache(s), paresthesias or weakness Hematologic/Lymphatic Hematologic/Lymphatic: Reports easy bleeding and easy bruising EXAM Physical Exam Const Vital Signs: 10/20/24 23:25 10/21/24 00:12 Temperature 98.7 F Temperature Source Temporal Pulse Rate 82 Respiratory Rate 17 Respiratory Effort Normal Respiratory Depth Normal Respiratory Pattern Normal Blood Pressure 150/91 H Blood Pressure Mean 110 Pulse Ox 98 Oxygen Delivery Method Room Air Room Air Positive well nourished and well developed General Appearance ED: well developed and NAD HEENT Reports normocephalic atraumatic Eyes PERRL and EOMs intact bilaterally Neck full ROM and supple Resp normal respiratory effort Back/Spine normal ROM and normal to inspection Extremity Extremity Narrative: Contusion without boggy hematoma or effusion left anterior knee. Tenderness there. Extensor mechanism is intact. LCL, MCL stable without significant discomfort with stressing. Negative anterior and posterior drawer signs, without eliciting pain or laxity. All compartments of all 4 extremities soft and nondistended. With the guards of the right shoulder, there is no deformity, when she is at rest adducted there is no tenderness of the proximal humerus, acromioclavicular joint or the clavicle. She can abduct to about 30 degrees, and externally rotate 45-90 degrees, but stops due to pain. Neuro oriented x3, no focal motor deficits and no sensory deficits noted Sensorium / Orientation: alert Psych mental status grossly normal and thought process normal Skin no wounds Rashes: no rashes MDM MDM MDM Narrative Medical decision making narrative: 4 view x-ray series of the left knee shows intact knee replacement hardware and is negative for anything acute on my interpretation, and three-view x-ray seriesof the right shoulder shows no acute fractures or dislocation on my interpretation with the scapular Y view. She was given an Nacho wrap for her knee, I do not think she needs any narcotics with Tylenol she already took, we will give her restrictions and write her off of the rest of the shift, she only had about an hour and a half left, and she is to follow-up with employee health. Radiography Diagnostic Testing: Clinical Impression(s) from Imaging Studies Shoulder X-Ray 10/20/24 23:50 IMPRESSION: No fracture or dislocation. Reading Location: [facility] Discharge Plan Triage Chief Complaint: Fall ED Provider: Bruce Norton Dx/Rx/DC Orders Clinical Impression: Contusion of knee, left, Contusion of right shoulder, Fall from slip, trip, or stumble Instructions: Bruises (Contusions), ED Bandage Elastic Wrap Prescriptions: No Action gabapentin 300 mg capsule 300 mg PO BID Patient Comments: 300 mg PO 1-2 tablets twice daily prn Xarelto 15 mg tablet 20 mg PO Q24H Patient Comments: pt states she was instructed by Dr Quinn to stop 5day prior to colonoscopy 05/09/20 Rx Instructions: must administer with evening meal amlodipine 5 mg tablet 5 mg PO QDAY spironolactone 25 mg tablet 25 mg PO QDAY pantoprazole 20 mg tablet,delayed release (DR/EC) 20 mg PO QDAY PRN (Reason: stomach ) simvastatin 20 mg tablet 20 mg PO QHS PRN (Reason: pt thinks med causes her pain) Ozempic 1 mg/dose (4 mg/3 mL) pen injector 1 mg subcut .1x/week Stand Alone Forms: Work Status Form Primary Care Provider: Ezequiel Cadena Referrals: Health,Employee [Non-Staff -Ordering Privileges] - As soon as possible Print Language: Faroese Disposition Disposition: Home, Self Care What to do if you have Problems For any increased pain, shortness of breath, bleeding, nausea or vomiting, chestpain, or any unexpected problems, contact your Primary Care Provider. Call [facility] ([phone]) or report to the closest Emergency Room. Call 911 if necessary. 10/21/24 0018 <Electronically signed by Bruce Norton MD> Cosigner Signature (if applicable): CC: Dr. Ezequiel Cadena, ~ Signed [facility] Work Phone: Evaluation noteNo assessment information available [facility] Work Phone: Evaluation note* Diagnosis Onset Date Resolution Status Nodular thyroid disease acut e [facility] Work Phone: Evaluation note* Diagnosis Onset Date Resolution Status Admit Date Rash noneactive January 10 9:36am [facility] Work Phone: Reason for referral (narrative)No reason for [facility] Work Phone: Advance Directives No Advanced Directives Records Found Advance Directive Response Recorded Date/ Time Advance Directives No January 21 10:48am Living Will No January 14, 2021 1:32pm Power of Core Blower No January 14 1:32pm Advance Directive Response Recorded Date/ Time Advance Directives No January 21 9:48am Living Will No January 14, 2021 12:32pm Power of Core Blower No January 14 12:32pm Advance Directive Response Recorded Date/ Time Living Will Yes August 14, 2024 12:32am Power of Core Blower No August 14 12:32am Advance Directives No January 21 10:48am Advance Directive Response Recorded Date/ Time Living Will No January 14, 2021 1:32pm Do you have a Healthcare Power of Core Blower? No January 14, 2021 1:32pm Living Will Yes August 14, 2024 12:32am Do you have a Healthcare Power of Core Blower? No August 14, 2024 12:32am Advance Directives No January 21 10:48am Advance Directive Response Recorded Date/ Time Living Will No January 14, 2021 1:32pm Do you have a Healthcare Power of Core Blower? No January 14, 2021 1:32pm Do you have a Healthcare Power of Core Blower? No October 21, 2024 12:11am Living Will Yes August 14, 2024 12:32am Do you have a Healthcare Power of Core Blower? No August 14, 2024 12:32am Advance Directives No January 21 10:48am Advance Directive Response Recorded Date/ Time Living Will No January 14, 2021 1:32pm Do you have a Healthcare Power of Core Blower? No January 14, 2021 1:32pm Do you have a Healthcare Power of Core Blower? No October 21, 2024 12:11am Advance Directives No January 21 10:48am Advance Directive Response Recorded Date/ Time Do you have a Healthcare Power of Core Blower? 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 Chief Complaint SCREENING/OSTEO, IRO N DEFICIENCY Chief Complaint SCREENING/OSTEO, IRO N DEFICIENCY LEFT THYROID NODULE BANGURA, DIZZINESS Reason for Visit Nodular thyroid dise ase Chief Complaint Admit Date CHEST PAIN August 10, 2024 11:30am chest pain August 13, 2024 11:26pm Chief Complaint Admit Date CHEST PAIN August 10, 2024 11:30am chest pain August 13, 2024 11:26pm PROLIA September 03, 2024 11: 34am Chief Complaint Admit Date CHEST PAIN August 10, 2024 11:30am chest pain August 13, 2024 11:26pm PROLIA September 03, 2024 11: 34am SCREENING September 10, 2024 11: 58am Chief Complaint Admit Date CHEST PAIN August 10, 2024 11:30am chest pain August 13, 2024 11:26pm PROLIA September 03, 2024 11: 34am SCREENING September 10, 2024 11: 58am SINGLE THYROID NODULE September 18, 2024 10 :13am Chief Complaint Admit Date CHEST PAIN August 10, 2024 11:30am chest pain August 13, 2024 11:26pm PROLIA September 03, 2024 11: 34am SCREENING September 10, 2024 11: 58am SINGLE THYROID NODULE September 18, 2024 10 :13am FALL October 20, 2024 11:25p m Chief Complaint Admit Date SINGLE THYROID NODULE September 18, 2024 10 :13am FALL October 20, 2024 11:25p m Rash January 10, 2025 9:36 am Reason for Visit Admit Date Rash January 10, 2025 9:36 am Chief Complaint Admit Date FALL October 20, 2024 11:25p m Rash January 10, 2025 9:36 am [employer] January 31, 2025 11 :04am Summary Purpose Family History No Family History Records Found Additional Source Comments Goals (unrecognized section and content) Goals may be documented in a n alternate sectionGoals may be documented in an alternate sectionGoals may be documented in an alternate sectionGoals may be documented in an alternate sectionGoals may be documented in an alternate sectionGoals may be documented in an alternate sectionGoals may be documented in an alternate sectionGoals may be documented in an alternate sectionGoals may be documented in an alternate sectionGoals may be documented in an alternate sectionGoals may be documented in an alternate sectionGoals may be documented in an alternate sectionGoals may be documented in an alternate sectionGoals may be documented in an alternate sectionGoals may be documented in an alternate sectionGoals may be documented in an alternate section Care Teams (unrecognized sec tion and content) Team Status: Active Member Role Status Dates Dr. Ezequiel Cadena DO Family Provider Active Dr. Ezequiel Cadena DO Primary Care Provider Active Team Status: Inactive Member Role Status Dates Dr. Ezequiel Cadena DO Primary Care Prov ider, Attending Provider, Referring Provider Active Team Status: Active Member Role Status Dates Dr. Ezequiel Cadena DO Primary Care Provider Active Health Risk Assessment Attending Provider, Referring P rovider Active Team Status: Inactive Member Role Status Dates Dr. Ezequiel Cadena DO Primary Care Provider, Attendin g Provider Active Team Status: Inactive Member Role Status Dates Dr. Ezequiel Cadena DO Primary Care Provider, Referrin g Provider Active Dr. Marcellus Quinn MD Attending Provider Active Team Status: Active Member Role Status Dates Dr. Ezequiel Cadena DO Primary Care Provider Active Team Status: Inactive Member Role Status Dates Dr. Ezequiel Cadena DO Primary Care Provider Active Start: May 10, 2024 End: May 10, 2024 Dr. Ezequiel Cadena DO Attending Provider Active Start: May 10, 2024 End: May 10, 2024 Dr. Ezequiel Cadena DO Referring Provider Active Start: May 10, 2024 End: May 10, 2024 Team Status: Inactive Member Role Status Dates Dr. Ezequiel Cadena DO Primary Care Provider Active Start: August 10, 2024 End: August 10, 2024 Dr. Ezequiel Cadena DO Attending Provider Active Start: August 10, 2024 End: August 10, 2024 Dr. Ezeqiuel Cadena DO Referring Provider Active Start: August 10, 2024 End: August 10, 2024 Team Status: Inactive Member Role Status Dates Dr. Ezequiel Cadena DO Primary Care Provider Active Start: August 13, 2024 End: August 14, 2024 Dr. Bruce Norton MD Emergency Provider Active Start: August 13, 2024 End: August 14, 2024 Team Status: Inactive Member Role Status Dates Dr. Ezequiel Cadena DO Primary Care Provider Active Start: August 13, 2024 End: August 14, 2024 Dr. Bruce Norton MD Attending Provider Active Start: August 13, 2024 End: August 14, 2024 Dr. Bruce Norton MD Emergency Provider Active Start: August 13, 2024 End: August 14, 2024 Team Status: Inactive Member Role Status Dates Dr. Ezequiel Cadena DO Primary Care Provider Active Start: September 03, 2024 End: September 03, 2024 Dr. Ezequiel Cadena DO Attending Provider Active Start: September 03, 2024 End: September 03, 2024 Dr. Ezequiel Cadena DO Referring Provider Active Start: September 03, 2024 End: September 03, 2024 Team Status: Inactive Member Role Status Dates Dr. Ezequiel Cadena DO Primary Care Provider Active Start: September 10, 2024 End: September 10, 2024 Dr. Ezequiel Cadena DO Attending Provider Active Start: September 10, 2024 End: September 10, 2024 Dr. Ezequiel Cadena DO Referring Provider Active Start: September 10, 2024 End: September 10, 2024 Team Status: Inactive Member Role Status Dates Dr. Ezequiel Cadena DO Primary Care Provider Active Start: September 18, 2024 End: September 18, 2024 Dr. Abelardo Myrick MD Attending Provider Active Start: September 18, 2024 End: September 18, 2024 Dr. Abelardo Myrick MD Referring Provider Active Start: September 18, 2024 End: September 18, 2024 Team Status: Inactive Member Role Status Dates Dr. Ezequiel Cadena DO Primary Care Provider Active Start: October 20, 2024 End: October 21, 2024 Dr. Bruce Norton MD Emergency Provider Active Start: October 20, 2024 End: October 21, 2024 Team Status: Active Member Role/Relationship Status Dates Dr. Ezequiel Cadena DO Primary Care Provider Active Team Status: Inactive Member Role/Relationship Status Dates Dr. Ezequiel Cadena DO Primary Care Provider Active Start: September 18, 2024 End: September 18, 2024 Dr. Abelardo Myrick MD Attending Provider Active Start: September 18, 2024 End: September 18, 2024 Dr. Abelardo Myrick MD Referring Provider Active Start: September 18, 2024 End: September 18, 2024 Team Status: Inactive Member Role/Relationship Status Dates Dr. Ezequiel Cadena DO Primary Care Provider Active Start: October 20, 2024 End: October 21, 2024 Dr. Bruce Norton MD Attending Provider Active Start: October 20, 2024 End: October 21, 2024 Dr. Bruce Norton MD Emergency Provider Active Start: October 20, 2024 End: October 21, 2024 Team Status: Inactive Member Role/Relationship Status Dates Dr. Ezequiel Cadena DO Primary Care Provider Active Start: January 10, 2025 End: January 10, 2025 Dr. Ezequiel Cadena DO Referring Provider Active Start: January 10, 2025 End: January 10, 2025 NBA Avila Attending Provider Active Start: January 10, 2025 End: January 10, 2025 Team Status: Inactive Member Role/Relationship Status Dates Dr. Ezequiel Cadena DO Primary Care Provider Active Start: October 20, 2024 End: October 21, 2024 Dr. Bruce Norton MD Attending Provider Active Start: October 20, 2024 End: October 21, 2024 Dr. Bruce Norton MD Emergency Provider Active Start: October 20, 2024 End: October 21, 2024 Team Status: Inactive Member Role/Relationship Status Dates Dr. Ezequiel Cadena DO Primary Care Provider Active Start: January 10, 2025 End: January 10, 2025 Dr. Ezequiel Cadena DO Referring Provider Active Start: January 10, 2025 End: January 10, 2025 NBA Avila Attending Provider Active Start: January 10, 2025 End: January 10, 2025 Team Status: Active Member Role/Relationship Status Dates Dr. Ezequiel Cadena DO Primary Care Provider Active Start: January 31, 2025 Health Risk Assessment Attending Provider Active Start: January 31, 2025 Health Risk Assessment Referring Provider Active Start: January 31, 2025 Team Status: Inactive Member Role/Relationship Status Dates Dr. Ezequiel Cadena DO Primary Care Provider Active Start: February 10, 2025 End: February 10, 2025 Dr. Ezequiel Cadena DO Attending Provider Active Start: February 10, 2025 End: February 10, 2025 INFORMATION SOURCE (unrecogn ized section and content) DATE CREATED AUTHOR 03/03/2025 [facility] FOR RECORDS PERTAINING TO PATIENTS WHO ARE [...] BE BASED ON THE PRIMARY CLINICAL RECORDS. [facility]. provides no warranty or guarantee of the accuracy or completeness of information in this document.
[2025-03-04 12:00] VITALS: BP 154/90; PULSE 75; RESP 16; TEMP 35.6; O2SAT 100; BMI 38.4
== END 2025-03-04 23:59 | disposition home or self-care (01) ==
LOC: MEDOUTP 11:44
PROVIDERS: PCP Family Medicine; Referring Provider Family Medicine; Visit Provider Family Medicine
DX: M81.0 Age-related osteoporosis without current pathological fracture (principal)
CPT/HCPCS: 96372; J0897

== ENCOUNTER 2025-04-15 21:42 | Emergency (ER) | payer OTHER, SELFPAY ==
[2025-04-15 21:43] VITALS: BP 136/80; PULSE 100; RESP 16; TEMP 37; O2SAT 100; BMI 38.7
--- NOTE | 2025-04-15 22:05 | EX.ED.DYSGE1 ---
HPI History of Present Illness Chief Complaint: Lower Extremity Injury Informant: patient Narrative Narrative: Patient is a 69-year-old female with past medical history of hypertension hyperlipidemia [id number] diabetes and previous pulmonary embolus currently on Xarelto. She was at work this evening roughly 1 to 2 hours ago when she tripped and fell landing on her right knee. She denies striking her head or any loss of consciousness. She states she was able to get back up but since the initial injury there has been bruising swelling and increased pain and secondary to this she presents for evaluation. [facility] Medical History Contact with and (suspected) exposure to other viral communicable diseases Acute bronchitis, unspecified Rectal bleeding Pulmonary embolism Pulmonary emboli Hemorrhoids Acid reflux Blood in stool Sleep apnea SOB (shortness of breath) History of back problems Chest pain Fatigue Dyspnea Obesity (BMI 35.0-39.9 without comorbidity) Palpitations Arthritis Hyperlipidemia Hypertension Type 2 diabetes mellitus without complications Home Medications ?Medication ?Instructions ?Recorded ?Last Taken ?Type gabapentin 300 mg capsule 300 mg PO BID 09/01/17 Unknown History rivaroxaban 15 mg tablet (Xarelto) 20 mg PO Q24H 03/30/20 Unknown History amlodipine 5 mg tablet 5 mg PO QDAY 10/08/23 Unknown History pantoprazole 20 mg tablet,delayed 20 mg PO QDAY PRN stomach 10/08/23 Unknown History release semaglutide 1 mg/dose (4 mg/3 mL) 1 mg subcut .1x/week 10/08/23 Unknown History subcutaneous pen injector (Ozempic) simvastatin 20 mg tablet 20 mg PO QHS PRN pt thinks med 10/08/23 Unknown History causes her pain spironolactone 25 mg tablet 25 mg PO QDAY 10/08/23 Unknown History prednisone 10 mg tablet 10 mg PO QDAY #30 tabs 01/10/25 Unknown Rx oxycodone 5 mg tablet 5 mg PO Q6H PRN pain 3 days #12 04/15/25 Unknown Rx tabs Allergy/AdvReac Type Severity Reaction Status Date / Time No Known Allergies Allergy Verified 04/15/25 21:44 Family History Mother Diabetes Surgical History H/O total knee replacement History of section, classical History of total hysterectomy Social History Smoking Status: Never smoker ROS ROS ED Constitutional Constitutional ED: Denies chills or fever(s) Eyes Eyes: Denies blurry vision or change in vision Cardiovascular Cardiovascular: Reports other Details: Negative syncope ; Denies chest pain Respiratory/Chest Respiratory/Chest: Denies cough or dyspnea Gastrointestinal Gastrointestinal: Denies abdominal pain, diarrhea, nausea or vomiting Musculoskeletal Musculoskeletal: Reports other Details: Positive right knee pain and swelling ; Denies back pain or neck pain Integumentary Reports other Details: Positive swelling and bruising right knee Neurologic Neurologic: Denies headache(s) or paresthesias Hematologic/Lymphatic Hematologic/Lymphatic: Reports easy bleeding and easy bruising EXAM Physical Exam Const Vital Signs: 04/15/25 21:43 Temperature 98.6 F Temperature Source Oral Pulse Rate 100 Respiratory Rate 16 Blood Pressure 136/80 H Blood Pressure Mean 98 Pulse Ox 100 Oxygen Delivery Method Room Air Positive well nourished, well developed and obese General Appearance ED: well developed Nutritional Appearance: obese HEENT HEENT Narrative: Normocephalic atraumatic Eyes PERRL and EOMs intact bilaterally General Eye ED: Negative for scleral icterus Neck supple Resp normal respiratory effort and clear to auscultation bilaterally Cardio regular rate and regular rhythm Extremity Extremity Narrative: Bilateral lower extremities are neurovascularly intact Pelvis is stable there is no shortening or external rotation of either lower extremity Patient has soft tissue swelling with ecchymosis and hematoma to the anterior aspect of the right knee. Patellar tendon is intact and the ligaments are stable. All compartments are soft and compressible going against compartment syndrome. Active range of motion is slightly decreased secondary to pain Remainder of the exam is normal Neuro oriented x3, CN's II-XII intact bilaterally and no sensory deficits noted Sensorium / Orientation: alert Psych mental status grossly normal Skin Skin Narrative: Soft tissue swelling with ecchymosis and hematoma to the anterior aspect of the right knee as documented above MDM MDM MDM Narrative Medical decision making narrative: Patient arrived to ER with stable vitals. She reported a mechanical fall so therefore there was no need for cardiac or syncope workup. The patient is on Xarelto but she did not strike her head and she has a normal neurologic exam and therefore my concern for underlying traumatic subarachnoid or subdural hemorrhage is low and I feel no need for head CT. With swelling and bruising to the right knee there is concern for patellar fracture versus periprosthetic fracture versus contusion. An x-ray was obtained which revealed hardware to be intact and in place without periprosthetic fracture. The patient was placed in an Nacho wrap to prevent further swelling of the right knee. At this time without acute fracture dislocation or findings of ligamentous tear there is no need for further intervention and she is otherwise safe for discharge. History & Record Review Discussion w/independent historian: Patient Radiography Diagnostic Testing: Clinical Impression(s) from Imaging Studies Knee X-Ray 04/15/25 22:16 IMPRESSION: No acute fracture or dislocation. Prepatellar soft tissue swelling. Total right knee arthroplasty with intact hardware. Reading Location: [facility] Right knee x-ray as interpreted by the emergency medicine physician reveals hardware to be intact and in place without secondary fracture or dislocation Discharge Plan Triage Chief Complaint: Lower Extremity Injury Other Complaint: Fall ED Provider: Fermin Duckworth Dx/Rx/DC Orders Clinical Impression: Contusion of right knee, Traumatic hematoma of right knee, Hypertension, Type 2 diabetes mellitus without complications, Hyperlipidemia Instructions: Bone Contusion, ED Hematoma Prescriptions: New oxycodone 5 mg tablet 5 mg PO Q6H PRN (Reason: pain) 3 Days Qty: 12 0RF No Action gabapentin 300 mg capsule 300 mg PO BID Patient Comments: 300 mg PO 1-2 tablets twice daily prn Xarelto 15 mg tablet 20 mg PO Q24H Patient Comments: pt states she was instructed by Dr Quinn to stop 5day prior to colonoscopy 05/09/20 Rx Instructions: must administer with evening meal amlodipine 5 mg tablet 5 mg PO QDAY spironolactone 25 mg tablet 25 mg PO QDAY pantoprazole 20 mg tablet,delayed release (/EC) 20 mg PO QDAY PRN (Reason: stomach ) simvastatin 20 mg tablet 20 mg PO QHS PRN (Reason: pt thinks med causes her pain) Ozempic 1 mg/dose (4 mg/3 mL) pen injector 1 mg subcut .1x/week prednisone 10 mg tablet 10 mg PO QDAY Qty: 30 0RF Rx Instructions: 4 tablets daily x3 days, then 3 tablets daily x3 days, then 2 tablets daily x3 days, then 1 tablet daily x3 days Stand Alone Forms: ED Work / School Excuse Primary Care Provider: Ezequiel Cadena Referrals: Ezeuqiel Cadena DO [Primary Care Provider, Family Practice] Activity Restrictions/Additional Instructions: Your x-ray showed no damage to your previous knee replacement or new fractures. You have a deep bone bruise of your right knee with blood underneath the skin known as a hematoma. Wear the Nacho wrap for compression to prevent further swelling and continue to ice the area. You may take the prescribed oxycodone along with Tylenol for pain control. Follow-up with your family doctor for repeat evaluation. Return to the ER should you have any further concerns Print Language: [place] Disposition Disposition: Home, Self Care
--- NOTE | 2025-04-15 22:16 | RAD_ITS ---
PROCEDURE: RAD/Knee 3 Views
[2025-04-15 23:28] VITALS: BP 156/98; PULSE 79; RESP 20; TEMP 36.8; O2SAT 99
== END 2025-04-15 23:39 | disposition home or self-care (01) ==
PROVIDERS: Emergency Provider Emergency Medicine; PCP Family Medicine; Visit Provider Emergency Medicine
DX: S80.01XA Contusion of right knee, initial encounter (principal); E11.9 Type 2 diabetes mellitus without complications; Z86.711 Personal history of pulmonary embolism; I10 Essential (primary) hypertension; E78.5 Hyperlipidemia, unspecified; Z79.01 Long term (current) use of anticoagulants; K21.9 Gastro-esophageal reflux disease without esophagitis; E66.9 Obesity, unspecified; W19.XXXA Unspecified fall, initial encounter
CPT/HCPCS: 73562; 99283

== ENCOUNTER → 2025-05-03 | Outpatient (CLI) | payer OTHER, SELFPAY ==
--- NOTE | 2025-05-03 16:25 | MRI_ITS ---
PROCEDURE: LOWER EXT JOINT ONLY (ROUTINE) 05/03/2025 REASON FOR EXAM: R KNEE CONTUSION S/P FALL ( R TKR IN 2017) TECHNIQUE: Procedure Code: MRILEJ Modality: MR Procedure: LOWER EXT JOINT ONLY (ROUTINE) T1, T2, PD multiplanar and multisequence images were obtained of the right knee without IV contrast administration. COMPARISON: None FINDINGS: There is metallic artifact from a knee prosthesis. There is a prepatellar fluid collection measuring 8.1 by 2.0 by 6.8 cm. There is a small visible joint effusion. There is no focal marrow edema identified. The quadriceps and patellar tendons appear intact. MRI/Lower Ext Joint Only (Routine) IMPRESSION: There is metallic artifact from a knee prosthesis. There is a prepatellar fluid collection measuring 8.1 by 2.0 by 6.8 cm. There is a small joint effusion. Reading Location: [facility]
--- OUTSIDE RECORDS SUMMARY | 2025-05-03 19:36 | XMS RPT_ITS | CCD ---
Author Organization [facility] Care Team Providers Care Web Mobile Designer Name Role Phone SKINCARE Unavailable Denise Villa Unavailable MIGUEL ANGEL Jules Unavailable Unavailable Unavailable Unavailable Dr. Ezequiel Cadena Primary Care Provider Dr. Ezequiel Cadena Referring Provider [phone] Marcellus Quinn Attending Provider [phone] [...] ilable Dr. Ezequiel Cadena DO Attending Provider Dr. Ezequiel Cadena DO Primary Care Physician Jr Morrison Attending Physician Assessment, Health Risk Attending Physician Unav ailable Dr. Ezequiel Cadena DO Attending Physician Bruce Norton Attending Unavailable Surinder, Ezequiel Primary Care Unavailable Surinder, Ezequiel Attending Unavailable Surinder, Ezequiel Primary Care Unavailable Surinder, Ezequiel Referring Unavailable Surinder, Ezequiel Primary Care Unavailable Jr Morrison Attending Unavailable Surinder, Ezequiel Referring Unavailable Surinder, Ezequiel Primary Care Unavailable Surinder, Ezequiel Attending Unavailable Surinder, Ezequiel Referring Unavailable Surinder, Ezequiel Primary Care Unavailable Assessment, Health Risk Referring Unavaila ble Assessment, Health Risk Attending Unavaila ble Surinder, Ezequiel Primary Care Unavailable Surinder, Ezequiel Attending Unavailable Surinder, Ezequiel Referring Unavailable Surinder, Ezequiel Primary Care Unavailable Surinder, Ezequiel Attending Unavailable Fermin Duckworth Attending Unavailable Surinder, Ezequiel Primary Care Unavailable Bortz, Abelardo Attending Unavailable Ramez, Abelardo Referring Unavailable Surinder, Ezequiel Primary Care Unavailable Surinder, Ezequiel Attending Unavailable Surinder, Ezequiel Referring Unavailable Surinder, Ezequiel Primary Care Unavailable Surinder, Ezequiel Attending Unavailable Surinder, Ezequiel Referring Unavailable Surinder, Ezequiel Primary Care Unavailable Bruce Norton Attending Unavailable Surinder, Ezequiel Primary Care Unavailable Surinder, Ezequiel Primary Care Unavailable Surinder, Ezequiel Attending Unavailable Surinder, Ezequiel Referring Unavailable Medications Current Medications Medication Drug Class(es) Dates Sig (Normalized) Sig (Original) amLODIPine 5 mg oral tablet (10 sources) Dihydropyridine Calcium Channel Patricia Start: 10-08-2023 take 1 tablet by mouth once daily gabapentin 300 mg oral capsule (20 sources) Anti-epileptic Agent Start: 09-01-2017 take 1 capsule by mouth twice daily Start: 06-03-2017 End: 09-01-2017 take 1 capsule by mouth once daily Gabapentin 300 mg capsule Discontinued 300 mg PO daily June 03, 2017 1:00am September 01, 2017 6:59pm pantoprazole 20 mg delayed release oral tablet (10 sources) Proton Pump Inhibitor Start: 10-08-2023 take 1 tablet by mouth once daily as needed predniSONE 10 mg oral tablet (20 sources) Start: 01-10-2025 take 4 tablets by mouth once daily, then take 3 tablets by mouth once daily, then take 2 tablets by mouth once daily, then take 1 tablet by mouth once daily Start: 07-07-2021 End: 10-08-2023 Prednisone 10 mg tablet Disc ontinued 10 mg PO .COMPLEX 30 0 July 07, 2021 1:00am October 08, 2023 12:43pm Take 4 pills for 3 days, 3 pills for 3 days, 2 pills for 3 days, take 1 pill for 3 days rivaroxaban 15 mg oral table t (18 sources) Factor Xa Inhibitor Start: 03-30-2020 Start: 03-30-2020 Rivaroxaban (X arelto) 15 mg tablet Active 20 MG PO TWICE A DAY March 30, 2020 12:00am must administer with evening meal Semaglutide (10 sources) Start: 10-08-2023 Start: 10-08-2023 Semaglutide (O zempic) 1 mg/dose (4 mg/3 mL) pen injector Active 1 mg SC .1x/week October 08, 2023 12:00am Start: 10-08-2023 Semaglutide (O zempic) 1 mg/dose (4 mg/3 mL) pen injector Active MG SC October 08, 2023 12:00am simvastatin 20 mg oral tablet (10 sources) HMG-CoA Reductase Inhibitor Start: 10-08-2023 take 1 tablet by mouth at bedtime as needed for pain spironolactone 25 mg oral tablet (10 sources) Aldosterone Antagonist Start: 10-08-2023 take 1 tablet by mouth once daily Completed/Discontinued Medications Medication Drug Class(es) Dates Sig (Normalized) Sig (Original) acetaminophen 325 mg oral tablet (18 sources) Start: 09-01-2014 End: 09-14-2014 Acetaminophen (Tylenol) 325 MG tablet Discontinued 650 mg PO NEEDED as needed for Pain September 01, 2014 12:00September 14, 2014 10:36am acetaminophen 325 mg / HYDROcodone bitartrate 5 mg oral tablet (18 sources) Opioid Agonist Start: 06-17-2016 End: 06-03-2017 Hydrocodone-Acetamin ophen 1 TABLET tablet Discontinued 1 {tbl} PO EVERY 6 HOURS NEEDED as needed for Pain June 17, 2016 1:00am June 03, 2017 [...] mg / clavulanate 125 mg oral tablet (16 sources) Penicillin-class Antibacterial Start: 02-27-2022 End: 10-08-2023 [...] 2020 9:32am L.Acidoph,Paracasei,B.Animal is 1 EACH capsule (9 sources) Start: 01-30-2018 End: 03-30-2020 take 1 capsule by mouth once daily L.Acidoph,Paracasei,B.Animalis 1 EACH capsule Discontinued 1 NMA PO DAILY January 30, 2018 12:00am March 30, 2020 9:32am LORazepam 1 mg oral tablet (1 source) Chay odmelissa zepi ne Start: 02-25-2017 take 0.5-1 tablets by mouth every six hours as needed for anxiety Ativan 1 MG Oral Tablet 1/2 to 1 Tablet q 6 hours prn anxiety for 0 days Quantity: 30 {Tablet} Refills: 2 Ordered: 25-Feb-2017 Denise Villa MD Start : 25-Feb-2017 Active Comments: [id number] called to [facility] Comment on above: -54-09 called to [facility] Magnesium (18 sources) Start: 09-01-2014 End: 06-03-2017 take 1 [...] 2024 11:57am methylPREDNISolone 4 mg oral tablet (9 sources) Corticosteroid Start: 03-26-2024 End: 04-01-2024 take 1 tablet by mouth once Methylprednisolone (Medrol (Garrett)) 4 mg tablets,dose pack Discontinued 4 mg PO per package directions 21 6 0 March 26, 2024 12:00am March 31, 2024 12:00am April 01, 2024 12:09am naproxen sodium 220 mg oral capsule (18 sources) Nonsteroidal Anti-inflammatory Drug Start: 06-04-2017 End: 03-30-2020 take 1 capsule by mouth every twelve hours Naproxen Sodium (Aleve) 220 mg capsule Discontinued 220 mg PO Q12H June 04, 2017 1:00am March 30, 2020 9:32am ondansetron 4 mg oral tablet (18 sources) Serotonin-3 Receptor Antagonist Start: 06-03-2017 End: 06-04-2017 take 1 tablet by mouth every four hours as needed Ondansetron Hcl 4 mg tablet Discontinued 4 mg PO Q4H as needed June 03, 2017 1:00am June 04, 2017 2:01pm pravastatin sodium 10 mg oral tablet (18 sources) HMG-CoA Reductase Inhibitor Start: 06-03-2017 End: [...] 1:49pm vitamin b12 0.5 mg oral tablet (18 sources) Vitamin B12 Start: 09-01-2014 End: 06-03-2017 [...] 10:44am zolpidem tartrate 5 mg oral tablet (18 sources) gamma-Aminobutyric Acid-ergic Agonist Start: 09-01-2017 End: [...] [Anxiety and depression] 02-25-2017 Chronic Cardiac dysrhythmias (18 sources) Palpitations; Translations: [Palpitations] 03-30-2020 Episodic Conditions associated with dizziness or vertigo (9 sources) Lightheadedness; Translations: [Dizziness and giddiness] 08-22-2024 Episodic Diabetes mellitus without complication (18 sources) Type 2 diabetes mellitus without complication; Translations: [Type 2 diabetes mellitus without complications] 06-03-2017 Chronic Disorders of lipid metabolism (18 sources) Hyperlipidemia; Translations: [Hyperlipidemia, unspecified] 06-04-2017 Chronic E Codes: Fall (20 sources) Fall; Translations: [Unspecified fall, initial encounter] 01-14-2021 Episodic Essential hypertension (18 sources) Hypertensive disorder; Translations: [Essential (primary) hypertension] 06-04-2017 Chronic Gastrointestinal hemorrhage (18 sources) Rectal hemorrhage; Translations: [Hemorrhage of anus and rectum] 03-30-2020 Episodic Headache; including migraine (1 source) Headache; including migraine; Translations: [Headache, unspecified] Onset: 06-14-2024 Immunizations and screening for infectious disease (20 sources) Patient encounter status; Translations: [Encounter for screening for COVID-19] 07-07-2021 Episodic Malaise and fatigue (19 sources) Fatigue; Translations: [Other fatigue] Onset: 02-17-2025 03-30-2020 Episodic Osteoporosis (1 source) Age-related osteoporosis without current pathological fracture; Translations: [Age-related osteoporosis without current pathological fracture] Onset: 03-16-2025 Chronic Other connective tissue disease (1 source) Polymyalgia rheumatica; Translations: [Polymyalgia rheumatica] Onset: 03-15-2025 Chronic Other lower respiratory disease (18 sources) Dyspnea; Translations: [Dyspnea, unspecified] 03-30-2020 Episodic Other nutritional; endocrine; and metabolic disorders (18 sources) Body mass index 30+ - obesity; Translations: [Obesity, unspecified] 06-03-2017 Chronic Other skin disorders (4 sources) Eruption; Translations: [Rash and other nonspecific skin eruption] 01-10-2025 Episodic Other upper respiratory infections (9 sources) Acute sinusitis; Translations: [Acute sinusitis, unspecified] 03-26-2024 Episodic Pneumonia (except that caused by tuberculosis or sexually transmitted disease) (18 sources) Pneumonia; Translations: [Pneumonia, unspecified organism] 07-07-2021 Episodic Pulmonary heart disease (18 sources) Pulmonary embolism; Translations: [Other pulmonary embolism without acute cor pulmonale] 03-30-2020 Episodic Spondylosis; intervertebral disc disorders; other back problems (9 sources) Disorder of right sciatic nerve; Translations: [Sciatica, right side] 03-26-2024 Episodic Superficial injury; contusion (20 sources) Contusion of knee; Translations: [Contusion of unspecified knee, initial encounter] Onset: 10-27-2024 01-14-2021 Episodic Thyroid disorders (12 sources) Thyroid nodule; Translations: [Nontoxic single thyroid [...] malignant neoplasm of breast] Onset: 09-14-2024 Episodic Results Test Name Value Interpretation Reference Range Facility Emergency Department Summary on 04-15-2025 Emergency Department Summary [facility] Medical Records Department [address] [place] [address] Emergency Department Summary 04/15/25 MR#: [id number] Acct: [id number] Name: TUNG WILSON Rep #: [id number] : 1955 69 From: Fermin Duckworth DO PCP: Dr. Ezequiel Cadena DO Status:REG ER Location: ED HPI History of Present Illness Chief Complaint: Lower Extremity Injury Informant: patient Narrative Narrative: Patient is a 69-year-old female with past medical history of hypertension hyperlipidemia [id number] diabetes and previous pulmonary embolus currently on Xarelto. She was at work this evening roughly 1 to 2 hours ago when she tripped and fell landing on her right knee. She denies striking her head or any loss of consciousness. She states she was able to get back up but since the initial injury there has been bruising swelling and increased pain and secondary to this she presents for evaluation. [facility] Medical History Contact with and (suspected) exposure [...] mg PO QDAY 10/08/23 Unknown His tory prednisone 10 mg tablet 10 mg PO QDAY #30 tabs 01/10/25 Un known Rx oxycodone 5 mg tablet 5 mg PO Q6H PRN pain 3 days #12 Unknown Rx tabs Allergy/AdvReac Type Severity Reaction Status Date / Time No Known Allergies Allergy Verified 04/15/25 21:44 Family History Mother Diabetes Surgical History H/O total knee replacement History of section, classical History of total hysterectomy Social History Smoking Status: Never smoker ROS ROS ED Constitutional Constitutional ED: Denies chills or fever(s) Eyes Eyes: Denies blurry vision or change in vision Cardiovascular Cardiovascular: Reports other Details: Negative syncope ; Denies chest pain Respiratory/Chest Respiratory/Chest: Denies cough or dyspnea Gastrointestinal Gastrointestinal: Denies abdominal pain, diarrhea, nausea or vomiting Musculoskeletal Musculoskeletal: Reports other Details: Positive right knee pain and swelling ; Denies back pain or neck pain Integumentary Reports other Details: Positive swelling and bruising right knee Neurologic Neurologic: Denies headache(s) or paresthesias Hematologic/Lymphatic Hematologic/Lymphatic: Reports easy bleeding and easy bruising EXAM Physical Exam Const Vital Signs: 04/15/25 21:43 Temperature 98.6 F Temperature Source Oral Pulse Rate 100 Respiratory Rate 16 Blood Pressure 136/80 H Blood Pressure Mean 98 Pulse Ox 100 Oxygen Delivery Method Room Air Positive well nourished, well developed and obese General Appearance ED: well developed Nutritional Appearance: obese HEENT HEENT Narrative: Normocephalic atraumatic Eyes PERRL and EOMs intact bilaterally General Eye ED: Negative for scleral icterus Neck supple Resp normal respiratory effort and clear to auscultation bilaterally Cardio regular rate and regular rhythm Extremity Extremity Narrative: Bilateral lower extremities are neurovascularly intact Pelvis is stable there is no shortening or external rotation of either lower extremity Patient has soft tissue swelling with ecchymosis and hematoma to the anterior aspect of the right knee. Patellar tendon is intact and the ligaments are stable. All compartments are soft and compressible going against compartment syndrome. Active range of motion is slightly decreased secondary to pain Remainder of the exam is normal Neuro oriented x3, CN's II-XII intact bilaterally and no sensory deficits noted Sensorium / O (more content not included)... Normal [facility] Knee 3 Viewson 04-15-2025 Knee 3 Views [facility] [address] [place], [place] [address] Knee 3 Views MR#: [id number] Acct: [id number] Name: TUNG WILSON Rep #: [id number] : 1955 F 69 From: Sonny Latham MD PCP: Dr. Ezequiel aCdena DO Status: REG ER Study: Knee 3 Views Date of Exam: 04/15/25 Exam# [id number] Ordering Dr: Fermin Duckworth DO PROCEDURE: RIGHT KNEE 3 VIEWS 04/15/2025 REASON FOR EXAM: INJURY TECHNIQUE: Procedure Code: RADPAT Modality: DX Procedure: KNEE 3 VIEWS Laterality: Right COMPARISON: 10/20/2024 FINDINGS: No evidence of acute fracture or dislocation. Alignment is anatomic. Status post total cemented right knee arthroplasty. No evidence for hardware loosening or failure. No joint effusion appreciated. Moderate prepatellar soft tissue swelling/contusional changes. RAD/Knee 3 Views IMPRESSION: No acute fracture or dislocation. Prepatellar soft tissue swelling. Total right knee arthroplasty with intact hardware. Reading Location: [id number] CC: Dr. Ezequiel Cadena DO; Fermin Duckworth DO Hold Worker: Signed Normal [facility] JANES w/ Reflex Mult Confirmon 03-04-2025 ANTI-DNA (DS)AB TNP Normal [facility] Comment on above: Performed By: #### L 505.7010, L4600.0100, L3100.5450, L101.9900 #### [facility] [address] [place], [address] ANTI-SS-A TNP Normal [facility] Comment on above: Performed By: #### L 505.7010, L4600.0100, L3100.5450, L101.9900 #### [facility] [address] [place], [address] ANTI-SS-B TNP Normal [facility] Comment on above: Performed By: #### L 505.7010, L4600.0100, L3100.5450, L101.9900 #### [facility] [address] [place], [address] CCP IgG Antibodieson 025 CCP IgG Ab. 7 units Normal 0-19 [facility] Comment on above: Result Comment: Nega tive <20 Weak positive 20 - 39 Moderate positive 40 - 59 Strong positive >59 Performed at: [address] [id number] [employer] Manager: Chang Garcia PhD, Phone: [phone] Performed By: #### L 505.7010, L4600.0100, L3100.5450, L101.9900 #### [facility] [address] [place], [address] Erythrocyte Sed Rateon 03-02 SED RATE 37 mm/hr High 0-30 [facility] Comment on above: Performed By: #### L 505.7010, L4600.0100, L3100.5450, L101.9900 #### [facility] [address] [place], [address] Erythrocyte sedimentation ra teOrdered By: Ezequiel Cadena on 03-02-2025 ESR (Bld) [Velocity] 37 mm/h High 0-30 [facility] Rheumatoid Factoron 03-02-20 25 RHEUMATOID FAC < 10.0 Normal <15 [facility] Comment on above: Performed By: #### L 505.7010, L4600.0100, L3100.5450, L101.9900 #### [facility] [address] [place], [address] Serum DNA double strand anti body assay (units/volume)Ordered By: Ezequiel Cadena on 03-02-2025 DNA double strand Ab Qn (S) [facility] Comment on above: Test not performed Serum Scl-70 antibody assay (units/volume)Ordered By: Ezequiel Cadena on 03-02-2025 SCL-70 extractable nuclear Ab Qn (S) [facility] Comment on above: Test not performed Serum or plasma cyclic citru llinated peptide IgG antibody assay (units/volume)Ordered By: Ezequiel Cadena on 03-02-2025 Cyclic citrullinated peptide IgG Qn 7 units 0-19 [facility] Comment on above: Negative <20 Weak po sitive 20 - 39 Moderate positive 40 - 59 Strong positive >59Performed at: [facility] [address] [id number] Director: Chang Garcia PhD, Phone: [phone] Serum rheumatoid factor dete ctionOrdered By: Ezequiel Cadena on 03-02-2025 Rheumatoid factor Ql (S) < 10.0 IU/mL <15 [facility] [employer] Cook Soup AB, Blockingon [facility] [employer] AB 22 Normal 0-25 [facility] Comment on above: Order Comment: Test( s) 192740-VDjX Blocking Abs, SerumThis test was developed and its performance characteristicsdetermined by [email or web address]. It has not been cleared orapproved by the Food and Drug Administration. Result Comment: Nega tive: 0 - 25 Borderline: 26 - 30 Positive: >30 Performed at: [place] [id number] [employer] Manager: Adryan Bower MD, Phone: [phone] Performed By: #### L 101.9900, L3410.0100, L501.6710 ####[facility] [address] [place], [place], [address] CRPon 02-10-2025 C-REACTIVE PROT 4.17 mg/L High 0.0-3.0 [facility] Comment on above: Performed By: #### L 101.9900, L3410.0100, L501.6710 ####[facility] [address] [place], [place], [id number] Erythrocyte Sed Rateon 02-10 SED RATE 55 mm/hr High 0-30 [facility] Comment on above: Performed By: #### L 101.9900, L3410.0100, L501.6710 ####[facility] [address] [place], [place], [address] Erythrocyte sedimentation ra teOrdered By: Ezequiel Cadena on 02-10-2025 ESR (Bld) [Velocity] 55 mm/h High 0-30 [facility] Serum or plasma C reactive p rotein measurement (mass/volume)Ordered By: Ezequiel Cadena on 02-10-2025 CRP [Mass/Vol] 4.17 mg/L High 0.0-3.0 [facility] Absolute lymphocyte countOrd ered By: HEALTH ASSESSMENT on 01-31-2025 Lymphocytes Auto (Unsp spec) [#/Vol] 1.47 10*3/uL 0.83-4.51 [facility] Absolute neutrophil countOrd ered By: HEALTH ASSESSMENT on 01-31-2025 Neutrophils (Bld) [#/Vol] 3.6 10*3/uL 2.0-7.7 [facility] Absolute nucleated red blood cell countOrdered By: HEALTH ASSESSMENT on 01-31-2025 Nucleated RBC (Bld) [#/Vol] 0.00 10*3/uL 0-5 [facility] Anion gap in Serum or Plasma Ordered By: HEALTH ASSESSMENT on 01-31-2025 Anion gap [Moles/Vol] 12 mmol/L 5-15 [facility] BUN/creatinine ratioOrdered By: HEALTH ASSESSMENT on 01-31-2025 Urea nitrogen/Creatinine [Mass ratio] 26.0 mg/mg High 10-20 [facility] Bilirubin directOrdered By: HEALTH ASSESSMENT on 01-31-2025 Bilirubin.direct [Mass/Vol] 0.15 mg/dL 0.00-0.30 [facility] Bilirubin, totalOrdered By: HEALTH ASSESSMENT on 01-31-2025 Bilirubin [Mass/Vol] 0.35 mg/dL 0.00-1.30 [facility] Blood band neutrophil count as percentage of total leukocytesOrdered By: HEALTH ASSESSMENT on 01-31-2025 Band form neutrophils/100 WBC (Bld) 61.6 % 47-70 [facility] CBC, Employeeon 01-31-2025 Absolute Lymph 1.47 X10 3/uL Normal 0.83-4.51 [facility] Comment on above: Performed By: #### L 100.0200, L500.2900 ####[facility] [address] [place], [address] Absolute Neut 3.6 X10 3/uL Normal 2.0-7.7 [facility] Comment on above: Performed By: #### L 100.0200, L500.2900 ####[facility] [address] [place], [address] Basophils/100 WBC (Bld) 0.7 % Normal 0-1 [facility] Comment on above: Performed By: #### L 100.0200, L500.2900 ####[facility] [address] [place], [address] Eosinophils/100 WBC (Bld) 3.1 % Normal 0-5 [facility] Comment on above: Performed By: #### L 100.0200, L500.2900 ####[facility] [address] [place], [address] Erythrocyte distribution width (RBC) [Ratio] 15.1 % High 11.6-14.6 [facility] Comment on above: Performed By: #### L 100.0200, L500.2900 ####[facility] [address] [place], [address] Hematocrit (Bld) [Volume fraction] 40.1 % Normal 37-47 [facility] Comment on above: Performed By: #### L 100.0200, L500.2900 ####[facility] [address] [place], [address] Hemoglobin (Bld) [Mass/Vol] 12.3 g/dL Normal 12.0-15.0 [facility] Comment on above: Performed By: #### L 100.0200, L500.2900 ####[facility] [address] [place], [address] Lymphocytes/100 WBC (Bld) 25.3 % Normal 19-41 [facility] Comment on above: Performed By: #### L 100.0200, L500.2900 ####[facility] [address] [place], [address] MCH (RBC) [Entitic mass] 26.5 pg Low 27.0-32.0 [facility] Comment on above: Performed By: #### L 100.0200, L500.2900 ####[facility] [address] [place], [address] MCHC (RBC) [Mass/Vol] 30.7 g/dL Low 32-36 [facility] Comment on above: Performed By: #### L 100.0200, L500.2900 ####[facility] [address] [place], [address] MCV (RBC) [Entitic vol] 86.4 fL Normal 81-99 [facility] Comment on above: Performed By: #### L 100.0200, L500.2900 ####[facility] [address] [place], [address] Monocytes/100 WBC (Bld) 9.1 % Normal 0-10 [facility] Comment on above: Performed By: #### L 100.0200, L500.2900 ####[facility] [address] [place], [address] Neutrophils/100 WBC (Bld) 61.6 % Normal 47-70 [facility] Comment on above: Performed By: #### L 100.0200, L500.2900 ####[facility] [address] [place], [address] NRBC # 0.00 10 3/uL Normal 0-5 [facility] Comment on above: Performed By: #### L 100.0200, L500.2900 ####[facility] [address] [place], [address] Nucleated RBC (Bld) [#/Vol] 0 10*3/uL Normal 0-5 [facility] Comment on above: Performed By: #### L 100.0200, L500.2900 ####[facility] [address] [place], [address] Platelet mean volume (Bld) [Entitic vol] 11.1 fL Normal 6.2-12.0 [facility] Comment on above: Performed By: #### L 100.0200, L500.2900 ####[facility] [address] [place], [address] Platelets (Bld) [#/Vol] 267 10*3/uL Normal 150-450 [facility] Comment on above: Performed By: #### L 100.0200, L500.2900 ####[facility] [address] [place], [address] RBC (Bld) [#/Vol] 4.64 10*6/uL Normal 4.2-5.4 [facility] Comment on above: Performed By: #### L 100.0200, L500.2900 ####[facility] [address] [place], [address] RDW SD 47.9 fl High 35.1-43.9 [facility] Comment on above: Performed By: #### L 100.0200, L500.2900 ####[facility] [address] [place], [place], [address] WBC (Bld) [#/Vol] 5.8 10*3/uL Normal 4.4-11.0 [facility] Comment on above: Performed By: #### L 100.0200, L500.2900 ####[facility] [address] [place], [address] Calculated very low density lipoprotein (VLDL) cholesterol measurementOrdered By: HEALTH ASSESSMENT on 01-31-2025 Calculated very low density lipoprotein (VLDL) cholesterol measurement 14 mg/dL 5-40 [facility] Carbon dioxide, total [Moles /volume] in Central venous bloodOrdered By: HEALTH ASSESSMENT on 01-31-2025 CO2 [Moles/Vol] 25.2 mmol/L 21.0-32.0 [facility] Chloride assayOrdered By: HE ALTH ASSESSMENT on 01-31-2025 Chloride [Moles/Vol] 102 mmol/L 98-108 [facility] Employee Profileon 5 LDH 206 U/L Normal 84-246 [facility] Comment on above: Performed By: #### L 100.0200, L500.2900 ####[facility] [address] [place], [address] Phosphate [Mass/Vol] 3.4 mg/dL Normal 2.7-4.5 [facility] Comment on above: Performed By: #### L 100.0200, L500.2900 ####[facility] [address] [place], [address] URIC 5.7 mg/dL Normal 2.6-6.0 [facility] Comment on above: Result Comment: The drugs N-Acetylcysteine and Metamizole may falsely depress this assay. Performed By: #### L 100.0200, L500.2900 ####[facility] [address] [place], [address] Erythrocyte distribution wid th ratioOrdered By: HEALTH ASSESSMENT on 01-31-2025 Erythrocyte distribution width (RBC) [Ratio] 15.1 % High 11.6-14.6 [facility] Erythrocyte distribution wid th standard deviationOrdered By: HEALTH ASSESSMENT on 01-31-2025 Erythrocyte distribution width (RBC) [Ratio] 47.9 fl High 35.1-43.9 [facility] Glomerular filtration rate ( GFR) estimation/1.73 sq m using serum, plasma, or whole bOrdered By: HEALTH ASSESSMENT on 01-31-2025 GFR/1.73 sq M.predicted among non-blacks MDRD (S/P/Bld) [Vol rate/Area] 95 mL/min/{1.73_m2} >60 [facility] Comment on above: mL/min/1.73m2 CKD-EP I Creatinine Equation (2020) Hematocrit Auto (Bld) [Volum e fraction]Ordered By: HEALTH ASSESSMENT on 01-31-2025 Hematocrit (Bld) [Volume fraction] 40.1 % 37-47 [facility] Hemoglobin measurementOrdere d By: HEALTH ASSESSMENT on 01-31-2025 Hemoglobin (Bld) [Mass/Vol] 12.3 g/dL 12.0-15.0 [facility] LDL calc ser/plasOrdered By: HEALTH ASSESSMENT on 01-31-2025 Cholesterol in LDL [Mass/Vol] 129 mg/dL [facility] Comment on above: Fvwxtthyph=083-481 m g/dL & Higher Yvng=435 mg/dL or greaterFriedwald Equation for LDL-C Laboratory - Chemistry and C hemistry - challengeOrdered By: HEALTH ASSESSMENT on 01-31-2025 AST [Catalytic activity/Vol] 19 U/L <32 [facility] Lactate dehydrogenase (LDH) measurementOrdered By: HEALTH ASSESSMENT on 01-31-2025 LDH [Catalytic activity/Vol] 206 U/L 84-246 [facility] MCV (mean corpuscular volume ) determinationOrdered By: HEALTH ASSESSMENT on 01-31-2025 MCV (RBC) [Entitic vol] 86.4 fL 81-99 [facility] Mean corpuscular hemoglobin (MCH) determinationOrdered By: HEALTH ASSESSMENT on 01-31-2025 MCH (RBC) [Entitic mass] 26.5 pg Low 27.0-32.0 [facility] Mean corpuscular hemoglobin concentration (MCHC) determinationOrdered By: HEALTH ASSESSMENT on 01-31-2025 MCHC (RBC) [Mass/Vol] 30.7 g/dL Low 32-36 [facility] Mean platelet volume determi nationOrdered By: HEALTH ASSESSMENT on 01-31-2025 Platelet mean volume (Bld) [Entitic vol] 11.1 fL 6.2-12.0 [facility] Nucleated red blood cell per centageOrdered By: HEALTH ASSESSMENT on 01-31-2025 Nucleated RBC/100 WBC (Bld) [Ratio] 0 % 0-5 [facility] Platelet countOrdered By: HE ALTH ASSESSMENT on 01-31-2025 Platelets (Bld) [#/Vol] 267 10*3/uL 150-450 [facility] Potassium measurement (mass/ volume)Ordered By: HEALTH ASSESSMENT on 01-31-2025 Potassium (Unsp spec) [Mass/Vol] 4.6 mmol/L 3.3-5.1 [facility] RBC Auto (Bld) [#/Vol]Ordere d By: HEALTH ASSESSMENT on 01-31-2025 RBC (Bld) [#/Vol] 4.64 10*6/uL 4.2-5.4 [facility] Screening total cholesterol/ high density lipoprotein (HDL) cholesterol ratioOrdered By: HEALTH ASSESSMENT on 01-31-2025 Cholesterol.total/Chol esterol in HDL [Mass ratio] 2.87 {ratio} [facility] Serum creatinine measurement (mass/volume)Ordered By: HEALTH ASSESSMENT on 01-31-2025 Creatinine [Mass/Vol] 0.63 mg/dL Low 0.70-1.20 [facility] Serum globulin measurementOr dered By: HEALTH ASSESSMENT on 01-31-2025 Globulin (S) [Mass/Vol] 3.7 g/dL 2.2-4.2 [facility] Serum glucose measurement (m ass/volume)Ordered By: HEALTH ASSESSMENT on 01-31-2025 Glucose [Mass/Vol] 97 mg/dL 70-99 [facility] Serum or plasma alanine sandhu otransferase (ALT) measurementOrdered By: HEALTH ASSESSMENT on 01-31-2025 ALT [Catalytic activity/Vol] 17 U/L <35 [facility] Serum or plasma albumin nataliya urement (mass/volume)Ordered By: HEALTH ASSESSMENT on 01-31-2025 Albumin [Mass/Vol] 3.9 g/dL 3.4-4.8 [facility] Serum or plasma albumin/glob ulin mass ratioOrdered By: HEALTH ASSESSMENT on 01-31-2025 Albumin/Globulin [Mass ratio] 1.0 {ratio} 0.9-2.4 [facility] Serum or plasma alkaline claudia sphatase measurementOrdered By: HEALTH ASSESSMENT on 01-31-2025 ALP [Catalytic activity/Vol] 65 U/L 35-104 [facility] Serum or plasma calcium nataliya urement (mass/volume)Ordered By: HEALTH ASSESSMENT on 01-31-2025 Calcium [Mass/Vol] 9.4 mg/dL 7.6-11.0 [facility] Serum or plasma cholesterol in HDL measurement (mass/volume)Ordered By: HEALTH ASSESSMENT on 01-31-2025 Cholesterol in HDL [Mass/Vol] 76 mg/dL >40 [facility] Comment on above: National Cholesterol Education Program (NCEP) guidelines:<40 mg/dL: Low HDL-cholesterol (major risk factor for CHD)>= 60 mg/dL: High HDL-cholesterol (negative risk factor for CHD)HDL-cholesterol is affected by a number of factors, e.g. smoking, exercise, hormones, sex and age. Serum or plasma cholesterol measurement (mass/volume)Ordered By: HEALTH ASSESSMENT on 01-31-2025 Cholesterol [Mass/Vol] 219 mg/dL High <201 [facility] Comment on above: Cholesterol level, D esirable <200 mg/dLBorderline high cholesterol 200-239 mg/dLHigh cholesterol >=240 mg/dLRecommendations of the NCEP Adult Treatment Panel for the following risk-cutoff thresholds for the [place] population. Serum or plasma urea nitroge n measurement (mass/volume)Ordered By: HEALTH ASSESSMENT on 01-31-2025 Urea nitrogen [Mass/Vol] 17 mg/dL 4-19 [facility] Serum or plasma uric acid me asurement (mass/volume)Ordered By: HEALTH ASSESSMENT on 01-31-2025 Urate [Mass/Vol] 5.7 mg/dL 2.6-6.0 [facility] Comment on above: The drugs N-Acetylcy steine and Metamizole may falsely depress this assay. Sodium levelOrdered By: [facility] ASS[facility] on 01-31-2025 Sodium [Moles/Vol] 139 mmol/L 133-145 [facility] Total proteinOrdered By: A [facility] ASSESSMENT on 01-31-2025 Protein [Mass/Vol] 7.6 g/dL 5.9-8.4 [facility] Triglycerides measurementOrd ered By: HEALTH ASSESSMENT on 01-31-2025 Triglyceride [Mass/Vol] 68 mg/dL <199 [facility] Comment on above: The drugs N-Acetylcy steine and Metamizole may falsely depress this assay. Normal range: <150 mg/dLBorderline High: 150-199 mg/dLHigh: 200-499 mg/dLVery High: >500 mg/dL White blood cell (WBC) count Ordered By: HEALTH ASSESSMENT on 01-31-2025 WBC (Bld) [#/Vol] 5.8 10*3/uL 4.4-11.0 [facility] Urgent Care Visit Reporton 0 01-10-2025 Urgent Care Visit Report [facility] [address], [address] [place] [address] OFFICE VISIT Date of Service: 01/10/25 MR#: [id number] Acct: [id number] Name: TUNG WILSON Rep #: [id number] : 1955 Provider: NBA Ni Age/Sex: 69/F Location: [facility] Status: Signed Intake Vital Signs 10/20/24 23:25 [...] under her breast and on her buttocks. [facility] Medical History Contact with and (suspected) [...] herself. Patient states she has used multiple plup-tjw-twcwxgj topical applications as well as oral Benadryl without relief of symptoms. She notes pruritic rash to RUE, under both breasts, and left mid back with excoriations. No complaints of constricted/pruritic airway or chest pain/shortness of breath/wheeze/dyspnea on exertion. No other associated symptoms and no other alleviating/aggravating factors. ROS Const Constitutional: No other (As [...] Psych Appearance: (more content not included)... Normal [facility] Emergency Department Summary on 10-21-2024 Emergency Department Summary [facility] Medical Records Department [address] [place] [address] Emergency Department Summary 10/21/24 MR#: [id number] Acct: [id number] Name: TUNG WILSON Rep #: [id number] : 1955 68 From: Bruce Norton MD PCP: Dr. 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 States she was cleaning in her room [...] against it, and the shoulder hurt laterally. Paydn-pydf-ptehyecr. No numbness or tingling. No injuries or pain elsewhere. Denies prodromal symptoms. [facility] Medical History Contact with and (suspected) exposure [...] MDM Narrative (more content not included)... Normal [facility] Knee 4 or More Viewson 10-20 Knee 4 or More Views [facility] Imaging Services [address] [address] Knee 4 or More Views MR#: [id number] Acct: [id number] Name: TUNG WILSON Rep #: [id number] : 1955 F 68 From: Marcellus Saleem MD PCP: Dr. Ezequiel Cadena DO Status: REG ER Study: Knee 4 or More Views Date of Exam: 10/20/24 Exam# [id number] Ordering Dr: Bruce Norton MD PROCEDURE: KNEE [...] suggested prepatellar soft tissue swelling. Reading Location: [facility] CC: Dr. Bruce Norton MD; Dr. Ezequiel Cadena DO Hold Worker: Signed Normal [facility] Shoulder min 2 Viewson 10-20 Shoulder min 2 Views [facility] Imaging Services [address] [place] [address] Shoulder min 2 Views MR#: [id number] Acct: [id number] Name: TUNG WILSON Rep #: [id number] : 1955 F 68 From: Marcellus Saleem MD PCP: Dr. Ezequiel Cadena DO Status: PRE ER Study: Shoulder min 2 Views Date of Exam: 10/20/24 Exam# [id number] Ordering Dr: Bruce Norton MD PROCEDURE: SHOULDER MIN 2 VIEWS 10/21/2024 REASON FOR EXAM: FALL TECHNIQUE: Four views right shoulder FINDINGS: No fracture or dislocation. Mild appearing osteoarthrosis. Some irregularity of the lateral humeral head may represent rotator cuff tendinopathy. RAD/Shoulder min 2 Views IMPRESSION: No fracture or dislocation. Reading Location: [facility] CC: Dr. Bruce Norton MD; Dr. Ezequiel Cadena DO Hold Worker: Signed [facility] Thyroidon 09-18-2024 [facility]roid [facility] [address] [place] [address] Thyroid MR#: [id number] Acct: [id number] Name: TUNG WILSON Rep #: [id number] : 1955 F 68 From: Rubia Gutierrez nd, MD PCP: Dr. Ezequiel Cadena DO Status: REG CLI Study: Thyroid Date of Exam: 09/18/24 Exam# [id number] Ordering Dr: Jr Pereira MD PROCEDURE: THYROID [...] No suspicious thyroid nodule identified. Reading Location: [facility] CC: Dr. Ezequiel Cadena DO; Dr. Jr Pereira MD Hold Worker: Signed [facility] Breast imaging reportOrdered By: Willow Guidry on 09-10-2024 Study report [facility] Imaging Services [address] [place] [address] SCRN MAMM (CAD)W/ANNETTE BILAT MR#: [id number] Acct: [id number] Name: TUNG WILSON Rep #: [id number] : 1955 F 68 From: Qiana Guidry MD PCP: Dr. Ezequiel Cadena DO Status: REG CLI Study:SCRN MAMM (CAD)W/ANNETTE BILAT Date of Exa m: 09/10/24 Exam# [id number] Ordering Dr: Ezequiel Cadena DO EXAM: SCRN [...] be mailed to the patient. Reading Location: [facility] CC: Dr. Ezequiel Cadena DO ~ Hold Worker: Signed [facility] SCRN MAMM (CAD)W/ANNETTE BILATo n 09-10-2024 SCRN MAMM (CAD)W/ANNETTE BILAT [facility] Imaging Services [address] [place] [id number] SCRN MAMM (CAD)W/ANNETTE BILAT MR#: [id number] Acct: [id number] Name: TUNG WILSON Rep #: [id number] : 1955 F 68 From: Willow Guidry MD PCP: Dr. Ezequiel Cadena DO Status: REG CLI Study: SCRN MAMM (CAD)W/ANNETTE BILAT Date of Exam: 08/15 02/07 Exam# [id number] Ordering Dr: Ezequiel Cadena DO EXAM: SCRN [...] be mailed to the patient. Reading Location: [facility] CC: Dr. Ezequiel Cadena DO Hold Worker: Signed Normal [facility] Basic Metabolic Profile (BMP )on 08-14-2024 Anion gap [Moles/Vol] 14 mmol/L Normal 5-15 [facility] Comment on above: Performed By: #### L 501.4021, L500.2500, L100.0100 ####[facility] [address] [place], [address] BUN/CRE 20.1 RATIO High 10-20 [facility] Comment on above: Performed By: #### L 501.4021, L500.2500, L100.0100 ####[facility] [address] [place], [address] Calcium [Mass/Vol] 9.5 mg/dL Normal 7.6-11.0 [facility] Comment on above: Performed By: #### L 501.4021, L500.2500, L100.0100 ####[facility] [address] [place], [address] Chloride [Moles/Vol] 100 mmol/L Normal 96-108 [facility] Comment on above: Performed By: #### L 501.4021, L500.2500, L100.0100 ####[facility] [address] [place], [address] CO2 [Moles/Vol] 23.9 mmol/L Normal 22.0-29.0 [facility] Comment on above: Performed By: #### L 501.4021, L500.2500, L100.0100 ####[facility] [address] [place], [address] Creatinine [Mass/Vol] 1.03 mg/dL Normal 0.70-1.20 [facility] Comment on above: Performed By: #### L 501.4021, L500.2500, L100.0100 ####[facility] [address] [place], [address] ECRCL 59.04 ml/min Normal [facility] Comment on above: Performed By: #### L 501.4021, L500.2500, L100.0100 ####[facility] [address] [place], [address] GFR/1.73 sq M.predicted among non-blacks MDRD (S/P/Bld) [Vol rate/Area] 59 mL/min/{1.73_m2} Low >60 [facility] Comment on above: Result Comment: mL/m in/1.73m2 CKD-EPI Creatinine Equation (2020) Performed By: #### L 501.4021, L500.2500, L100.0100 ####[facility] [address] [place], [address] Glucose [Mass/Vol] 141 mg/dL High 70-99 [facility] Comment on above: Performed By: #### L 501.4021, L500.2500, L100.0100 ####[facility] [address] [place], [address] Potassium [Moles/Vol] 3.7 mmol/L Normal 3.3-5.1 [facility] Comment on above: Performed By: #### L 501.4021, L500.2500, L100.0100 ####[facility] [address] [place], [address] Sodium [Moles/Vol] 138 mmol/L Normal 133-145 [facility] Comment on above: Performed By: #### L 501.4021, L500.2500, L100.0100 ####[facility] [address] [place], [address] Urea nitrogen [Mass/Vol] 21 mg/dL High 4-19 [facility] Comment on above: Performed By: #### L 501.4021, L500.2500, L100.0100 ####[facility] [address] [place], [address] CBC W/Diff, Automatedon 03-0 1-2024 Absolute Lymph 2.38 X10 3/uL Normal 0.83-4.51 [facility] Comment on above: Performed By: #### L 501.4021, L500.2500, L100.0100 #### [facility] [address] [place], [address] Absolute Neut 3.6 X10 3/uL Normal 2.0-7.7 [facility] Comment on above: Performed By: #### L 501.4021, L500.2500, L100.0100 #### [facility] [address] [place], [address] Basophils/100 WBC (Bld) 0.7 % Normal 0-1 [facility] Comment on above: Performed By: #### L 501.4021, L500.2500, L100.0100 #### [facility] [address] [place], [address] Eosinophils/100 WBC (Bld) 2.6 % Normal 0-5 [facility] Comment on above: Performed By: #### L 501.4021, L500.2500, L100.0100 #### [facility] [address] [place], [address] Erythrocyte distribution width (RBC) [Ratio] 13.9 % Normal 11.6-14.6 [facility] Comment on above: Performed By: #### L 501.4021, L500.2500, L100.0100 #### [facility] [address] [place], [address] Hematocrit (Bld) [Volume fraction] 39.1 % Normal 37-47 [facility] Comment on above: Performed By: #### L 501.4021, L500.2500, L100.0100 #### [facility] [address] [place], [address] Hemoglobin (Bld) [Mass/Vol] 12.6 g/dL Normal 12.0-15.0 [facility] Comment on above: Performed By: #### L 501.4021, L500.2500, L100.0100 #### [facility] [address] [place], [address] IG% 0.300 Normal 0.0-0.9 [facility] Comment on above: Result Comment: IG% - Immature Granulocytes (promyelocytes, myelocytes and metamyelocytes) > 1% indicates that a LEFT SHIFT is Present. Performed By: #### L 501.4021, L500.2500, L100.0100 #### [facility] [address] [place], [address] Lymphocytes/100 WBC (Bld) 34.0 % Normal 19-41 [facility] Comment on above: Performed By: #### L 501.4021, L500.2500, L100.0100 #### [facility] [address] [place], [address] MCH (RBC) [Entitic mass] 27.0 pg Normal 27.0-32.0 [facility] Comment on above: Performed By: #### L 501.4021, L500.2500, L100.0100 #### [facility] [address] [place], [address] MCHC (RBC) [Mass/Vol] 32.2 g/dL Normal 32-36 [facility] Comment on above: Performed By: #### L 501.4021, L500.2500, L100.0100 #### [facility] [address] [place], [address] MCV (RBC) [Entitic vol] 83.7 fL Normal 81-99 [facility] Comment on above: Performed By: #### L 501.4021, L500.2500, L100.0100 #### [facility] [address] [place], [address] Monocytes/100 WBC (Bld) 10.9 % High 0-10 [facility] Comment on above: Performed By: #### L 501.4021, L500.2500, L100.0100 #### [facility] [address] [place], [address] Neutrophils/100 WBC (Bld) 51.5 % Normal 47-70 [facility] Comment on above: Performed By: #### L 501.4021, L500.2500, L100.0100 #### [facility] [address] [place], [address] Nucleated RBC (Bld) [#/Vol] 0 10*3/uL Normal 0-5 [facility] Comment on above: Performed By: #### L 501.4021, L500.2500, L100.0100 #### [facility] [address] [place], [address] Platelet mean volume (Bld) [Entitic vol] 10.2 fL Normal 6.2-12.0 [facility] Comment on above: Performed By: #### L 501.4021, L500.2500, L100.0100 #### [facility] [address] [place], [address] Platelets (Bld) [#/Vol] 282 10*3/uL Normal 150-450 [facility] Comment on above: Performed By: #### L 501.4021, L500.2500, L100.0100 #### [facility] [address] [place], [address] RBC (Bld) [#/Vol] 4.67 10*6/uL Normal 4.2-5.4 [facility] Comment on above: Performed By: #### L 501.4021, L500.2500, L100.0100 #### [facility] [address] [place], [address] RDW SD 42.4 fl Normal 35.1-43.9 [facility] Comment on above: Performed By: #### L 501.4021, L500.2500, L100.0100 #### [facility] [address] [place], [address] WBC (Bld) [#/Vol] 7.0 10*3/uL Normal 4.4-11.0 [facility] Comment on above: Performed By: #### L 501.4021, L500.2500, L100.0100 #### [facility] [address] [place], [address] L499.0042on 08-14-2024 Trop T Delta 3 Normal [facility] Comment on above: Result Comment: If c linical suspicion for ACS is high, suggest getting a third troponin. Otherwise, stress test or CTCA. Performed By: #### L 499.0042 ####[facility] [address] [place], [address] Trop T High Sen 12 ng/L Normal <=14 [facility] Comment on above: Performed By: #### L 499.0042 ####[facility] [address] [place], [address] L499.0043on 08-14-2024 Trop T Delta Normal [facility] Comment on above: Result Comment: Canc elled via OM: Order cancelled - Patient discharged Performed By: #### L 499.0043 ####[facility] [address] [place], [address] Trop T High Sen Normal <=14 [facility] Comment on above: Result Comment: Canc elled via OM: Order cancelled - Patient discharged Performed By: #### L 499.0043 ####[facility] [address] [place], [address] L501.4021on 08-14-2024 Trop T High Sen 9 ng/L Normal <=14 [facility] Comment on above: Performed By: #### L 501.4021, L500.2500, L100.0100 ####[facility] [address] [place], [address] No Panel InformationOrdered By: Bruce Norton on 08-14-2024 Troponin T Hi Sensitivity 2Hr Delta 3 [facility] Comment on above: If clinical suspicio n for ACS is high, suggest getting a third troponin. Otherwise, stress test or CTCA. Troponin T.cardiac High sens itivity method [Mass/Vol]Ordered By: Bruce Norton on 08-14-2024 Troponin T High Sensitivity 2 Hour 12 ng/L <14 [facility] Troponin T.cardiac [Mass/vol ume] in Serum or Plasma by High sensitivity methodOrdered By: Bruce Norton on 08-14-2024 Troponin T.cardiac High sensitivity method [Mass/Vol] 12 ng/L <14 [facility] 12 Lead EKGon 08-13-2024 12 Lead EKG [facility] [address] [place] [address] 12 Lead EKG 08/13/24 2334 MR#: [id number] Acct: [id number] Name: TUNG WILSON Rep #: [id number] : 1955 68 From: Abelardo Myers MD [...] sinus rhythm Normal ECG Confirmed by Abelardo yMers ([id number]), editor greeting card JOSEFINA COLIN ([id number]) on 08/16/2024 10:51:59 AM Referred By: BB Confirmed By: Abelardo Myers 08/16/24 1052 Date Abelardo Myers MD CC: Dr. Bruce Norton MD; Dr. Ezequiel Cadena, DO Signed Normal [facility] Absolute lymphocyte countOrd ered By: Bruce Norton on 08-13-2024 Lymphocytes Auto (Unsp spec) [#/Vol] 2.38 10*3/uL 0.83-4.51 [facility] Absolute neutrophil countOrd ered By: Bruce Norton on 08-13-2024 Neutrophils (Bld) [#/Vol] 3.6 10*3/uL 2.0-7.7 [facility] Automated lymphocyte count a s percentage of total leukocytesOrdered By: Bruce Norton on 08-13-2024 Lymphocytes/100 WBC Auto (Unsp spec) 34.0 % 19-41 [facility] BUN/creatinine ratioOrdered By: Bruce Norton on 08-13-2024 Urea nitrogen/Creatinine [Mass ratio] 20.1 mg/mg High 10-20 [facility] Basophil percentageOrdered B y: Bruce Norton on 08-13-2024 Basophils/100 WBC (Bld) 0.7 % 0-1 [facility] Carbon dioxide measurementOr dered By: Bruce Norton on 08-13-2024 CO2 [Moles/Vol] 23.9 mmol/L 22.0-29.0 [facility] Chest PA and Lateralon 08-13 Chest PA and Lateral [facility] Imaging Services [address] [place] [address] Chest PA and Lateral MR#: [id number] Acct: [id number] Name: TUNG WILSON Rep #: [id number] : 1955 F 68 From: Jerry Rosa MD PCP: Dr. Ezequiel Cadena DO Status: PRE ER Study: Chest PA and Lateral Date of Exam: 08/13/24 Exam# [id number] Ordering Dr: Bruce Norton MD PROCEDURE: CHEST [...] evidence of acute cardiopulmonary disease Reading Location: [facility] CC: Dr. Bruce Norton MD; Dr. Ezequiel Cadena DO Hold Worker: Signed Normal [facility] Chloride measurementOrdered By: Bruce Norton on 08-13-2024 Chloride [Moles/Vol] 100 mmol/L 96-108 [facility] Emergency Department Summary on 08-13-2024 Emergency Department Summary [facility] Medical Records Department [address] [place] [address] Emergency Department Summary 08/13/24 MR#: [id number] Acct: [id number] Name: TUNG WILSON Rep #: [id number] : 1955 68 From: Bruce Norton MD PCP: Dr. Ezequiel Cadena, DO Status:REG ER Location: ED HPI History [...] Xarelto for history of a pulmonary embolus. [facility] Medical History Contact with and (suspected) exposure [...] membranes norm (more content not included)... Normal [facility] Eosinophil percentageOrdered By: Bruce Norton on 08-13-2024 Eosinophils/100 WBC (Bld) 2.6 % 0-5 [facility] Erythrocyte distribution wid th ratioOrdered By: Bruce Norton on 08-13-2024 Erythrocyte distribution width (RBC) [Ratio] 13.9 % 11.6-14.6 [facility] Erythrocyte distribution wid th standard deviationOrdered By: Bruce Norton on 08-13-2024 Erythrocyte distribution width (RBC) [Entitic vol] 42.4 fL 35.1-43.9 [facility] Erythrocyte distribution width (RBC) [Ratio] 42.4 fl 35.1-43.9 [facility] Estimation of creatinine keyon aranceOrdered By: Bruce Norton on 08-13-2024 Estimated Creatinine Clearance Calc 59.04 ml/min [facility] GFR/1.73 sq M.predicted pete g non-blacks MDRD (S/P/Bld) [Vol rate/Area]Ordered By: Bruce Norton on 08-13-2024 Estimated GFR (MDRD) Non-Af Amer 59 Low >60 [facility] Comment on above: mL/min/1.73m2 CKD-EP I Creatinine Equation (2020) Glomerular filtration rate ( GFR) estimation/1.73 sq m using serum, plasma, or whole bOrdered By: Bruce Norton on 08-13-2024 GFR/1.73 sq M.predicted among non-blacks MDRD (S/P/Bld) [Vol rate/Area] 59 mL/min/{1.73_m2} Low >60 [facility] Comment on above: mL/min/1.73m2 CKD-EP I Creatinine Equation (2020) Hematocrit Auto (Bld) [Volum e fraction]Ordered By: Bruce Norton on 08-13-2024 Hematocrit (Bld) [Volume fraction] 39.1 % 37-47 [facility] Hemoglobin measurementOrdere d By: Bruce Norton on 08-13-2024 Hemoglobin (Bld) [Mass/Vol] 12.6 g/dL 12.0-15.0 [facility] Immature granulocytes/100 WB C Auto (Bld)Ordered By: Bruce Norton on 08-13-2024 Immature granulocytes/100 WBC (Bld) 0.300 % 0.0-0.9 [facility] Comment on above: IG% - Immature Granu locytes (promyelocytes, myelocytes and metamyelocytes) > 1% indicates that a LEFT SHIFT is Present. Lymphocytes Auto (Unsp spec) [#/Vol]Ordered By: Bruce Norton on 08-13-2024 Lymphocytes (Bld) [#/Vol] 2.38 10*3/uL 0.83-4.51 [facility] Lymphocytes/100 WBC Auto (Un sp spec)Ordered By: Bruce Norton on 08-13-2024 Lymphocytes/100 WBC (Bld) 34.0 % 19-41 [facility] MCV (mean corpuscular volume ) determinationOrdered By: Bruce Norton on 08-13-2024 MCV (RBC) [Entitic vol] 83.7 fL 81-99 [facility] Mean corpuscular hemoglobin (MCH) determinationOrdered By: Bruce Norton on 08-13-2024 MCH (RBC) [Entitic mass] 27.0 pg 27.0-32.0 [facility] Mean corpuscular hemoglobin concentration (MCHC) determinationOrdered By: Bruce Norton on 08-13-2024 MCHC (RBC) [Mass/Vol] 32.2 g/dL 32-36 [facility] Mean platelet volume determi nationOrdered By: Bruce Norton on 08-13-2024 Platelet mean volume (Bld) [Entitic vol] 10.2 fL 6.2-12.0 [facility] Monocyte percentageOrdered B y: Bruce Norton on 08-13-2024 Monocytes/100 WBC (Bld) 10.9 % High 0-10 [facility] Neutrophil percentageOrdered By: Brucebhupinder Norton on 08-13-2024 Neutrophils/100 WBC (Bld) 51.5 % 47-70 [facility] No Panel InformationOrdered By: Bruce Norton on 08-13-2024 Troponin T High Sensitivity 9 ng/L <14 [facility] Nucleated red blood cell per centageOrdered By: Bruce Norton on 08-13-2024 Nucleated RBC/100 WBC (Bld) [Ratio] 0 % 0-5 [facility] Platelet countOrdered By: Angelia Norton on 08-13-2024 Platelets (Bld) [#/Vol] 282 10*3/uL 150-450 [facility] RBC Auto (Bld) [#/Vol]Ordere d By: Bruce Norton on 08-13-2024 RBC (Bld) [#/Vol] 4.67 10*6/uL 4.2-5.4 [facility] Serum creatinine measurement (mass/volume)Ordered By: Bruce Norton on 08-13-2024 Creatinine [Mass/Vol] 1.03 mg/dL 0.70-1.20 [facility] Serum glucose measurement (m ass/volume)Ordered By: Bruce Norton on 08-13-2024 Glucose [Mass/Vol] 141 mg/dL High 70-99 [facility] Serum or plasma anion gap de termination (moles/volume)Ordered By: Bruce Norton on 08-13-2024 Anion gap [Moles/Vol] 14 mmol/L 5-15 [facility] Serum or plasma calcium nataliya urement (mass/volume)Ordered By: Bruce Norton on 08-13-2024 Calcium [Mass/Vol] 9.5 mg/dL 7.6-11.0 [facility] Serum or plasma potassium me asurementOrdered By: Bruce Norton on 08-13-2024 Potassium [Moles/Vol] 3.7 mmol/L 3.3-5.1 [facility] Serum or plasma sodium measu rement (moles/volume)Ordered By: Bruce Norton on 08-13-2024 Sodium [Moles/Vol] 138 mmol/L 133-145 [facility] Serum or plasma urea nitroge n measurement (mass/volume)Ordered By: Bruce Norton on 08-13-2024 Urea nitrogen [Mass/Vol] 21 mg/dL High 4-19 [facility] White blood cell (WBC) count Ordered By: Bruce Norton on 08-13-2024 WBC (Bld) [#/Vol] 7.0 10*3/uL 4.4-11.0 [facility] Chest PA and Lateralon 08-10 Chest PA and Lateral [facility] Imaging Services [address] [place], [place] [id number] Chest PA and Lateral MR#: [id number] Acct: [id number] Name: TUNG WILSON Rep #: [id number] : 1955 F 68 From: Bryant Waterman MD PCP: Dr. Ezequiel Cadena DO Status: REG CLI Study: Chest PA and Lateral Date of Exam: 08/10/24 Exam# [id number] Ordering Dr: Ezequiel Cadena DO PROCEDURE: CHEST [...] IMPRESSION: No active cardiopulmonary disease. Reading Location: [place] [address] CC: Dr. Ezequiel Cadena DO Hold Worker: Signed Normal [facility] C-reactive protein measureme nt by high sensitivity methodOrdered By: Ezequiel Cadena on 05-10-2024 C-Reactive Protein Extended Range < 2.90 mg/L 0.0-3.0 [facility] Comment on above: C-Reactive Protein ( CRP) provides useful information for thediagnosis, therapy and monitoring of inflammatory processesand associated diseases. For the evaluation of Relative Riskfor Cardiovascular Disease, a High Sensitivity CRP (HSCRP)should be ordered. CRPon 05-10-2024 C-REACTIVE PROT < 2.90 Normal 0.0-3.0 [facility] Comment on above: Result Comment: C-Re active Protein (CRP) provides useful information for the diagnosis, therapy and monitoring of inflammatory processes and associated diseases. For the evaluation of Relative Risk for Cardiovascular Disease, a High Sensitivity CRP (HSCRP) should be ordered. Performed By: #### L 501.6710, L101.9900 ####[facility] [id number] [place], [address] Erythrocyte Sed Rateon 05-10 SED RATE 54 mm/hr High 0-30 [facility] Comment on above: Performed By: #### L 501.6710, L101.9900 ####[facility] [id number] [place], [address] Erythrocyte sedimentation ra teOrdered By: Ezequiel Cadena on 05-10-2024 ESR (Bld) [Velocity] 54 mm/h High 0-30 [facility] Basophil percentageOrdered B y: Ezequiel Surinder on 10-16-2023 Basophil percentage < 1.0 mg/dL 0.55-1.02 [facility] No Panel InformationOrdered By: Ezequiel Cadena on 10-16-2023 Bedside Estimated GFR (eGFR) > 60.0000 mL/min >60 [facility] Absolute lymphocyte countOrd ered By: Ezequiel Cadena on 09-24-2023 Lymphocytes Auto (Unsp spec) [#/Vol] 1.49 10*3/uL 0.83-4.51 [facility] Automated lymphocyte count a s percentage of total leukocytesOrdered By: Ezequiel Cadena on 09-24-2023 Lymphocytes/100 WBC Auto (Unsp spec) 27.2 % 19-41 [facility] Basophil percentageOrdered B y: Ezequiel OlivaresSurinder on 09-24-2023 Basophils/100 WBC (Bld) 0.9 % 0-1 [facility] Eosinophils/100 WBC (Bld) 3.8 % 0-5 [facility] Hemoglobin (Bld) [Mass/Vol] 12.3 g/dL 12.0-15.0 [facility] Monocytes/100 WBC (Bld) 10.0 % 0-10 [facility] Neutrophils (Bld) [#/Vol] 3.2 10*3/uL 2.0-7.7 [facility] Neutrophils/100 WBC (Bld) 57.9 % 47-70 [facility] WBC (Bld) [#/Vol] 5.5 10*3/uL 4.4-11.0 [facility] Determination of erythrocyte mean corpuscular volume (MCV)Ordered By: Ezequiel Cadena on 09-24-2023 MCV (RBC) [Entitic vol] 84.2 fL 81-99 [facility] Erythrocyte distribution wid th ratioOrdered By: Ezequiel Cadena on 09-24-2023 Erythrocyte distribution width (RBC) [Ratio] 14.6 % 11.6-14.6 [facility] Erythrocyte distribution wid th standard deviationOrdered By: Ezequiel Cadena on 09-24-2023 Erythrocyte distribution width (RBC) [Entitic vol] 44.7 fL 35.1-43.9 [facility] Erythrocyte sedimentation ra teOrdered By: Ezequiel Cadena on 09-24-2023 ESR (Bld) [Velocity] 30 mm/h 0-30 [facility] Hematocrit Auto (Bld) [Volum e fraction]Ordered By: Ezequiel Cadena on 09-24-2023 Hematocrit (Bld) [Volume fraction] 39.9 % 37-47 [facility] Immature granulocytes/100 WB C Auto (Bld)Ordered By: Ezequiel Cadena on 09-24-2023 Immature granulocytes/100 WBC (Bld) 0.200 % 0.0-0.9 [facility] Comment on above: IG% - Immature Granu locytes (promyelocytes, myelocytes and metamyelocytes) > 1% indicates that a LEFT SHIFT is Present. Laboratory - Hematology and Cell countsOrdered By: Ezequiel Cadena on 09-24-2023 MCH (RBC) [Entitic mass] 25.9 pg 27.0-32.0 [facility] MCHC (RBC) [Mass/Vol] 30.8 g/dL 32-36 [facility] Nucleated RBC/100 WBC (Bld) [Ratio] 0 % 0-5 [facility] Platelet mean volume (Bld) [Entitic vol] 10.9 fL 6.2-12.0 [facility] Platelets (Bld) [#/Vol] 316 10*3/uL 150-450 [facility] No Panel InformationOrdered By: Ezequiel Cadena on 09-24-2023 C-Reactive Protein Extended Range 5.12 mg/L 0.0-3.0 [facility] Comment on above: C-Reactive Protein ( CRP) provides useful information for thediagnosis, therapy and monitoring of inflammatory processesand associated diseases. For the evaluation of Relative Riskfor Cardiovascular Disease, a High Sensitivity CRP (HSCRP)should be ordered. Parathyroid Hormone (Intact) 55.2 pg/mL 18.4-80.1 [facility] Vitamin D 25-Hydroxy 42.8 ng/mL [facility] Comment on above: Vitamin D 25(OH) Sta tus Range Deficiency <20 ng/mL (50nmol/L) Insufficiency 20 - 30 ng/mL (50 - 75 nmol/L) Sufficiency 30 - 100 ng/mL (75 - 250 nmol/L) Toxicity >100 ng/mL (>250 nmol/L) RBC Auto (Bld) [#/Vol]Ordere d By: Ezequiel Cadena on 09-24-2023 RBC (Bld) [#/Vol] 4.74 10*6/uL 4.2-5.4 [facility] Culture, urineOrdered By: Rory Cadena on 08-12-2023 Bacteria identified Cx Nom (U) Culture exhibits no growth. [facility] Bacteria identified Cx Nom (U) Culture exhibits no growth. [facility] Serum or plasma thyroid stim ulating hormone (TSH) measurement (units/volume)Ordered By: Ezequiel Cadena on 08-12-2023 TSH Qn 1.82 uIU/mL 0.358-3.74 [facility] Thin prep Papanicolaou smear with manual screeningOrdered By: Ezequiel Cadena on 08-12-2023 Thin prep Papanicolaou smear with manual screening 0.85 ng/dL 0.76-1.46 [facility] Absolute lymphocyte countOrd ered By: Ezequiel Cadena on 02-28-2023 Lymphocytes Auto (Unsp spec) [#/Vol] 1.60 10*3/uL 0.83-4.51 [facility] Absolute reticulocyte countO rdered By: Ezequiel Cadena on 02-28-2023 Reticulocytes (Bld) [#/Vol] 0.00 10*3/uL 0-5 [facility] Basophil percentageOrdered B y: Ezequiel Cadena on 02-28-2023 Basophil percentage 3.5 mg/dL 2.5-4.9 [facility] Bilirubin [Mass/Vol] 0.60 mg/dL 0.20-1.00 [facility] Comment on above: For patients on eltr ombopag therapy, use of Dimension [place] TBIL is not recommended. Chloride [Moles/Vol] 106 mmol/L 98-107 [facility] Cholesterol [Mass/Vol] 152 mg/dL <200 [facility] Comment on above: <200 mg/dL Desirable 200-240 mg/dL Borderline >240 mg/dL High Risk Glucose [Mass/Vol] 113 mg/dL 74-106 [facility] Comment on above: Fasting Glucose resu lt from 100 to 125 mg/dL suggests IMPAIRED HOMEOSTASIS per A.D.A. criteria. LDH [Catalytic activity/Vol] 223 U/L 84-246 [facility] Neutrophils (Bld) [#/Vol] 4.0 10*3/uL 2.0-7.7 [facility] Potassium [Moles/Vol] 3.8 mmol/L 3.5-5.1 [facility] Protein [Mass/Vol] 8.1 g/dL 6.4-8.2 [facility] Sodium [Moles/Vol] 138 mmol/L 136-145 [facility] Triglyceride [Mass/Vol] 82 mg/dL <199 [facility] Comment on above: The drugs N-Acetylcy steine and Metamizole may falsely depress this assay.Serum Triglycerides Reference Interval Normal <150 mg/dL Borderline high 150 - 199 mg/dL High 200 - 499 mg/dL Very High > or = 500 mg/dL WBC (Bld) [#/Vol] 6.3 10*3/uL 4.4-11.0 [facility] Cholesterol [Mass/Vol] 153 mg/dL <200 [facility] Comment on above: <200 mg/dL Desirable 200-240 mg/dL Borderline >240 mg/dL High Risk Triglyceride [Mass/Vol] 78 mg/dL <199 [facility] Comment on above: The drugs N-Acetylcy steine and Metamizole may falsely depress this assay.Serum Triglycerides Reference Interval Normal <150 mg/dL Borderline high 150 - 199 mg/dL High 200 - 499 mg/dL Very High > or = 500 mg/dL Blood erythrocytes count (nu mber/volume)Ordered By: Ezequiel Cadena on 02-28-2023 RBC (Bld) [#/Vol] 4.74 10*6/uL 4.2-5.4 [facility] Blood hemoglobin measurement (mass/volume)Ordered By: Ezequiel Cadena on 02-28-2023 Hemoglobin (Bld) [Mass/Vol] 12.5 g/dL 12.0-15.0 [facility] Blood platelet mean volumeOr dered By: Ezequiel Cadena on 02-28-2023 Platelet mean volume (Bld) [Entitic vol] 11.3 fL 6.2-12.0 [facility] Determination of erythrocyte mean corpuscular volume (MCV)Ordered By: Ezequiel Cadena on 02-28-2023 MCV (RBC) [Entitic vol] 86.3 fL 81-99 [facility] Direct bilirubinOrdered By: Ezequiel Cadena on 02-28-2023 Bilirubin.direct [Mass/Vol] 0.14 mg/dL 0.00-0.30 [facility] Hematocrit Auto (Bld) [Volum e fraction]Ordered By: Ezequiel Cadena on 02-28-2023 Hematocrit (Bld) [Volume fraction] 40.9 % 37-47 [facility] Laboratory - Chemistry and C hemistry - challengeOrdered By: Ezequiel Cadena on 02-28-2023 ALP [Catalytic activity/Vol] 72 U/L 45-117 [facility] ALT [Catalytic activity/Vol] 20 U/L 13-56 [facility] Cholesterol.total/Chol esterol in HDL [Mass ratio] 2.50 {ratio} [facility] CO2 [Moles/Vol] 28.0 mmol/L 21.0-32.0 [facility] Globulin (S) [Mass/Vol] 4.8 g/dL 2.2-4.2 [facility] Urea nitrogen/Creatinine [Mass ratio] 22.9 mg/mg 10-20 [facility] Laboratory - Hematology and Cell countsOrdered By: Ezequiel Cadena on 02-28-2023 Erythrocyte distribution width (RBC) [Entitic vol] 46.5 fL 35.1-43.9 [facility] Erythrocyte distribution width (RBC) [Ratio] 14.5 % 11.6-14.6 [facility] MCH (RBC) [Entitic mass] 26.4 pg 27.0-32.0 [facility] Nucleated RBC/100 WBC (Bld) [Ratio] 0 % 0-5 [facility] MCHC Auto (RBC) [Mass/Vol]Or dered By: Ezequiel Cadena on 02-28-2023 MCHC (RBC) [Mass/Vol] 30.6 g/dL 32-36 [facility] No Panel InformationOrdered By: Ezequiel Cadena on 02-28-2023 Estimated GFR (MDRD) Amer 100 mL/min >60 [facility] Comment on above: GFR Calc Estimated GFR (MDRD) Non-Af Amer 83 mL/min >60 [facility] Comment on above: Non- GFR Calc Urine Microalbumin/Creatinin e Ratio 80.0 mg/g CRE <30 [facility] Platelets bldOrdered By: Kinsey Cadena on 02-28-2023 Platelets (Bld) [#/Vol] 298 10*3/uL 150-450 [facility] Segmented neutrophils/100 WB C Auto (Bld)Ordered By: Ezequiel Cadena on 02-28-2023 Segmented neutrophils/100 WBC (Bld) 62.5 % 47-70 [facility] Serum or plasma albumin nataliya urement (mass/volume)Ordered By: Ezequiel Cadena on 02-28-2023 Albumin [Mass/Vol] 3.3 g/dL 3.2-5.0 [facility] Serum or plasma albumin/glob ulin mass ratioOrdered By: Ezequiel Cadena on 02-28-2023 Albumin/Globulin [Mass ratio] 0.7 {ratio} 0.9-2.4 [facility] Serum or plasma calcium nataliya urement (mass/volume)Ordered By: Ezequiel Cadena on 02-28-2023 Calcium [Mass/Vol] 9.0 mg/dL 8.5-10.1 [facility] Serum or plasma cholesterol in HDL measurement (mass/volume)Ordered By: Ezequiel Cadena on 02-28-2023 Cholesterol in HDL [Mass/Vol] 62 mg/dL >40 [facility] Comment on above: The drugs N-Acetylcy steine and Metamizole may falsely depress this assay. Reference Range HDL <40 mg/dL Low HDL Cholesterol HDL >or= 60 mg/dL High HDL Cholesterol Cholesterol in HDL [Mass/Vol] 62 mg/dL >40 [facility] Comment on above: The drugs N-Acetylcy steine and Metamizole may falsely depress this assay. Reference Range HDL <40 mg/dL Low HDL Cholesterol HDL >or= 60 mg/dL High HDL Cholesterol Serum or plasma cholesterol in VLDL measurement (mass/volume)Ordered By: Ezequiel Cadena on 02-28-2023 Cholesterol in VLDL [Mass/Vol] 16 mg/dL 5-40 [facility] Cholesterol in VLDL [Mass/Vol] 16 mg/dL 5-40 [facility] Serum or plasma creatinine m easurement (mass/volume)Ordered By: Ezequiel Cadena on 02-28-2023 Creatinine [Mass/Vol] 0.74 mg/dL 0.55-1.02 [facility] Comment on above: The validity of the calculated GFR & GFRAA in patients over 70 years has not been determined. Clinical correlation is essential. Serum or plasma low density lipoprotein (LDL) cholesterol measurement (mass/volume)Ordered By: Ezequiel Cadena on 02-28-2023 Cholesterol in LDL [Mass/Vol] 74 mg/dL 0-130 [facility] Cholesterol in LDL [Mass/Vol] 75 mg/dL 0-130 [facility] Serum or plasma urea nitroge n measurement (mass/volume)Ordered By: Ezequiel Cadena on 02-28-2023 Urea nitrogen [Mass/Vol] 17 mg/dL 7-18 [facility] Serum or plasma uric acid me asurement (mass/volume)Ordered By: Ezequiel Cadena on 02-28-2023 Urate [Mass/Vol] 7.2 mg/dL 2.6-6.0 [facility] Comment on above: The drugs N-Acetylcy steine and Metamizole may falsely depress this assay. Thin prep Papanicolaou smear with manual screeningOrdered By: Ezequiel Cadena on 02-28-2023 Thin prep Papanicolaou smear with manual screening 15 U/L 15-37 [facility] Thin prep Papanicolaou smear with manual screening 4 5-15 [facility] Thin prep Papanicolaou smear with manual screening 69.1 mg/L NO RANGE EST. [facility] Urine creatinine measurement (mass/volume)Ordered By: Ezequiel Cadena on 02-28-2023 Creatinine (U) [Mass/Vol] 86.40 mg/dL NO RANGE EST. [facility] Whole blood hemoglobin A1c/t otal hemoglobin ratio (mass fraction)Ordered By: Ezequiel Cadena on 02-28-2023 HbA1c (Bld) [Mass fraction] 6.1 % 3.8-5.6 [facility] Comment on above: Normal < 5.7 % Predi abetic 5.7 - 6.4 % Diabetic >or= 6.5 % Please note range changes. Culture, urineOrdered By: Rory Cadena on 12-24-2022 Bacteria identified Cx Nom (U) Negative [facility] Basophil percentageOrdered B y: Dr. Cadena on 09-24-2022 Bilirubin [Mass/Vol] 0.30 mg/dL 0.20-1.00 [facility] Comment on above: For patients on eltr ombopag therapy, use of Dimension [place] TBIL is not recommended. Chloride [Moles/Vol] 102 mmol/L 98-107 [facility] Glucose [Mass/Vol] 109 mg/dL 74-106 [facility] Comment on above: Fasting Glucose resu lt from 100 to 125 mg/dL suggests IMPAIRED HOMEOSTASIS per A.D.A. criteria. Potassium [Moles/Vol] 3.9 mmol/L 3.5-5.1 [facility] Protein [Mass/Vol] 7.8 g/dL 6.4-8.2 [facility] Sodium [Moles/Vol] 136 mmol/L 136-145 [facility] Bilirubin Test strip Ql (U)O rdered By: Dr. Cadena on 09-24-2022 Bilirubin Ql (U) Negative Negative [facility] Ketones Test strip Ql (U)Ord ered By: Dr. Cadena on 09-24-2022 Ketones Ql (U) Negative Negative [facility] Laboratory - Chemistry and C hemistry - challengeOrdered By: Dr. Cadena on 09-24-2022 ALP [Catalytic activity/Vol] 63 U/L 45-117 [facility] ALT [Catalytic activity/Vol] 21 U/L 13-56 [facility] CO2 [Moles/Vol] 29.0 mmol/L 21.0-32.0 [facility] Globulin (S) [Mass/Vol] 4.3 g/dL 2.2-4.2 [facility] Urea nitrogen/Creatinine [Mass ratio] 26.4 mg/mg 10-20 [facility] Nitrite Test strip Ql (U)Ord ered By: Dr. Cadena on 09-24-2022 Nitrite Ql (U) Negative Negative [facility] No Panel InformationOrdered By: Dr. Cadena on 09-24-2022 Estimated GFR (MDRD) Amer 104 mL/min >60 [facility] Comment on above: GFR Calc Estimated GFR (MDRD) Non-Af Amer 86 mL/min >60 [facility] Comment on above: Non- GFR Calc Urine Microalbumin/Creatinin e Ratio 111.1 mg/g CRE <30 [facility] Protein Test strip Ql (U)Ord ered By: Dr. Cadena on 09-24-2022 Protein Ql (U) 15 mg/dl Negative [facility] Serum or plasma albumin nataliya urement (mass/volume)Ordered By: Dr. Cadena on 09-24-2022 Albumin [Mass/Vol] 3.5 g/dL 3.2-5.0 [facility] Serum or plasma albumin/glob ulin mass ratioOrdered By: Dr. Cdaena on 09-24-2022 Albumin/Globulin [Mass ratio] 0.8 {ratio} 0.9-2.4 [facility] Serum or plasma calcium nataliya urement (mass/volume)Ordered By: Dr. Cadena on 09-24-2022 Calcium [Mass/Vol] 9.6 mg/dL 8.5-10.1 [facility] Serum or plasma creatinine m easurement (mass/volume)Ordered By: Dr. Cadena on 09-24-2022 Creatinine [Mass/Vol] 0.72 mg/dL 0.55-1.02 [facility] Comment on above: The validity of the calculated GFR & GFRAA in patients over 70 years has not been determined. Clinical correlation is essential. Serum or plasma urea nitroge n measurement (mass/volume)Ordered By: Dr. Cadena on 09-24-2022 Urea nitrogen [Mass/Vol] 19 mg/dL 7-18 [facility] Thin prep Papanicolaou smear with manual screeningOrdered By: Dr. Cadena on 09-24-2022 Thin prep Papanicolaou smear with manual screening 18 U/L 15-37 [facility] Thin prep Papanicolaou smear with manual screening 5 5-15 [facility] Thin prep Papanicolaou smear with manual screening 58.2 mg/L NO RANGE EST. [facility] Urine blood detectionOrdered By: Dr. Cadena on 09-24-2022 RBC Ql (U) Negative Negative [facility] Urine clarityOrdered By: Dr. Cadena on 09-24-2022 Clarity (U) Sl. Cloudy Clear [facility] Urine color determinationOrd ered By: Dr. Cadena on 09-24-2022 Color (U) Yellow Yellow [facility] Urine creatinine measurement (mass/volume)Ordered By: Dr. Cadena on 09-24-2022 Creatinine (U) [Mass/Vol] 52.40 mg/dL NO RANGE EST. [facility] Urine glucose detectionOrder ed By: Dr. Cadena on 09-24-2022 Glucose Ql (U) Normal mg/dl Normal [facility] Urine leukocyte esterase det ection by dipstickOrdered By: Dr. Cadena on 09-24-2022 Leukocyte esterase Test strip Ql (U) Negative Negative [facility] Urine pHOrdered By: Dr. Naren malone on 09-24-2022 pH (U) 8.0 [pH] 5.0 - 8.0 [facility] Urine specific gravity measu rementOrdered By: Dr. Cadena on 09-24-2022 Specific gravity (U) [Rel density] 1.015 1.002-1.030 [facility] Urobilinogen Auto test strip Ql (U)Ordered By: Dr. Cadena on 09-24-2022 Urobilinogen Ql (U) Normal mg/dl Normal [facility] Absolute lymphocyte counton 11-28-2021 Lymphocytes Auto (Unsp spec) [#/Vol] 1.87 10*3/uL 0.83-4.51 [facility] Work Phone: Basophil percentageon 2021 Basophils/100 WBC (Bld) 0.6 % 0-1 [facility] Work Phone: Bilirubin [Mass/Vol] 0.50 mg/dL 0.20-1.00 [facility] Work Phone: Comment on above: For patients on eltr ombopag therapy, use of Dimension [place] TBIL is not recommended. Chloride [Moles/Vol] 102 mmol/L 98-107 [facility] Work Phone: Eosinophils/100 WBC (Bld) 1.7 % 0-5 [facility] Work Phone: Glucose [Mass/Vol] 111 mg/dL 74-106 [facility] Work Phone: Comment on above: Fasting Glucose resu lt from 100 to 125 mg/dL suggests IMPAIRED HOMEOSTASIS per A.D.A. criteria. Neutrophils (Bld) [#/Vol] 3.8 10*3/uL 2.0-7.7 [facility] Work Phone: Neutrophils/100 WBC (Bld) 59.5 % 47-70 [facility] Work Phone: Potassium [Moles/Vol] 4.1 mmol/L 3.5-5.1 [facility] Work Phone: Protein [Mass/Vol] 7.8 g/dL 6.4-8.2 [facility] Work Phone: Sodium [Moles/Vol] 138 mmol/L 136-145 [facility] Work Phone: WBC (Bld) [#/Vol] 6.5 10*3/uL 4.4-11.0 [facility] Work Phone: Blood erythrocytes count (nu mber/volume)on 11-28-2021 RBC (Bld) [#/Vol] 4.78 10*6/uL 4.2-5.4 [facility] Work Phone: Blood hemoglobin measurement (mass/volume)on 11-28-2021 Hemoglobin (Bld) [Mass/Vol] 12.4 g/dL 12.0-15.0 [facility] Work Phone: Blood lymphocytes/100 leukoc yteson 11-28-2021 Lymphocytes/100 WBC (Bld) 29.0 % 19-41 [facility] Work Phone: Blood monocytes/100 leukocyt eson 11-28-2021 Monocytes/100 WBC (Bld) 9.0 % 0-10 [facility] Work Phone: Blood platelet mean volumeon 11-28-2021 Platelet mean volume (Bld) [Entitic vol] 11.1 fL 6.2-12.0 [facility] Work Phone: Determination of erythrocyte mean corpuscular volume (MCV)on 11-28-2021 MCV (RBC) [Entitic vol] 84.7 fL 81-99 [facility] Work Phone: Hematocrit Auto (Bld) [Volum e fraction]on 11-28-2021 Hematocrit (Bld) [Volume fraction] 40.5 % 37-47 [facility] Work Phone: Iron measurement (mass/mass) on 11-28-2021 Iron (Unsp spec) [Mass/Mass] 77 ug/dL 50-170 [facility] Work Phone: [phone] Laboratory - Chemistry and C hemistry - challengeon 11-28-2021 ALP [Catalytic activity/Vol] 78 U/L 45-117 [facility] Work Phone: ALT [Catalytic activity/Vol] 20 U/L 13-56 [facility] Work Phone: CK [Catalytic activity/Vol] 94 U/L 26-192 [facility] Work Phone: CO2 [Moles/Vol] 32.0 mmol/L 21.0-32.0 [facility] Work Phone: Cobalamin (Vitamin B12) [Mass/Vol] 1131 pg/mL 211-911 [facility] Work Phone: Globulin (S) [Mass/Vol] 4.3 g/dL 2.2-4.2 [facility] Work Phone: Urea nitrogen/Creatinine [Mass ratio] 20.3 mg/mg 10-20 [facility] Work Phone: Laboratory - Hematology and Cell countson 11-28-2021 Erythrocyte distribution width (RBC) [Entitic vol] 48.3 fL 35.1-43.9 [facility] Work Phone: Erythrocyte distribution width (RBC) [Ratio] 15.9 % 11.6-14.6 [facility] Work Phone: Immature granulocytes/100 WBC (Bld) 0.200 % 0.0-0.9 [facility] Work Phone: Comment on above: IG% - Immature Granu locytes (promyelocytes, myelocytes and metamyelocytes) > 1% indicates that a LEFT SHIFT is Present. MCH (RBC) [Entitic mass] 25.9 pg 27.0-32.0 [facility] Work Phone: Nucleated RBC/100 WBC (Bld) [Ratio] 0 % 0-5 [facility] Work Phone: MCHC Auto (RBC) [Mass/Vol]on 11-28-2021 MCHC (RBC) [Mass/Vol] 30.6 g/dL 32-36 [facility] Work Phone: No Panel Informationon 11-28 Estimated GFR (MDRD) Amer 94 mL/min >60 [facility] Work Phone: Comment on above: GFR Calc Estimated GFR (MDRD) Non-Af Amer 78 mL/min >60 [facility] Work Phone: Comment on above: Non- GFR Calc Vitamin D 25-Hydroxy 44.7 ng/mL [facility] Work Phone: Comment on above: Vitamin D 25(OH) Sta tus Range Deficiency <20 ng/mL (50nmol/L) Insufficiency 20 - 30 ng/mL (50 - 75 nmol/L) Sufficiency 30 - 100 ng/mL (75 - 250 nmol/L) Toxicity >100 ng/mL (>250 nmol/L) Platelets bldon 11-28-2021 Platelets (Bld) [#/Vol] 290 10*3/uL 150-450 [facility] Work Phone: Serum or plasma albumin nataliya urement (mass/volume)on 11-28-2021 Albumin [Mass/Vol] 3.5 g/dL 3.2-5.0 [facility] Work Phone: Serum or plasma albumin/glob ulin mass ratioon 11-28-2021 Albumin/Globulin [Mass ratio] 0.8 {ratio} 0.9-2.4 [facility] Work Phone: Serum or plasma calcium nataliya urement (mass/volume)on 11-28-2021 Calcium [Mass/Vol] 9.6 mg/dL 8.5-10.1 [facility] Work Phone: Serum or plasma creatinine m easurement (mass/volume)on 11-28-2021 Creatinine [Mass/Vol] 0.79 mg/dL 0.55-1.02 [facility] Work Phone: Comment on above: The validity of the calculated GFR & GFRAA in patients over 70 years has not been determined. Clinical correlation is essential. Serum or plasma ferritin hanh surement (mass/volume)on 11-28-2021 Ferritin [Mass/Vol] 14 ng/mL 8-252 [facility] Work Phone: Serum or plasma urea nitroge n measurement (mass/volume)on 11-28-2021 Urea nitrogen [Mass/Vol] 16 mg/dL 7-18 [facility] Work Phone: Thin prep Papanicolaou smear with manual screeningon 11-28-2021 Thin prep Papanicolaou smear with manual screening 14 U/L 15-37 [facility] Work Phone: Thin prep Papanicolaou smear with manual screening 4 5-15 [facility] Work Phone: Vital Signs Date Time Vital Sign Value Performing Clinician Ronny hughes 03-04-2025 12:00-0400 Body height 162.[address] Ezequiel Cadena DO Work Phone: [facility] 03-04-2025 12:00-0400 Body mass index (BMI) [Ratio] 38.4 kg/m2 Dr. Ezequiel Cadena DO Work Phone: [facility] 03-04-2025 12:00-0400 Body temperature 96 [degF] Dr. Ezequiel Cadena DO Work Phone: [facility] 03-04-2025 12:00-0400 Body weight 101.[address] Ezequiel Cadena DO Work Phone: [facility] 03-04-2025 12:00-0400 Diastolic blood pressure 90 mm[Hg] Dr. Ezequiel Cadena DO Work Phone: [facility] 03-04-2025 12:00-0400 Heart rate 75 /min Dr. Ezequiel Cadena DO Work Phone: [facility] 03-04-2025 12:00-0400 Respiratory rate 16 /min Dr. Ezequiel Cadena DO Work Phone: [facility] 03-04-2025 12:00-0400 SaO2% (BldA) [Mass fraction] 100 % Dr. Ezequiel Cadena DO Work Phone: [facility] 03-04-2025 12:00-0400 Systolic blood pressure 154 mm[Hg] Dr. Ezequiel Cadena DO Work Phone: [facility] 01-10-2025 09:39-0400 Body temperature 97.9 [degF] Dr. Ezequiel Cadena DO Work Phone: [facility] 01-10-2025 09:39-0400 Diastolic blood pressure 80 mm[Hg] Dr. Ezequiel Cadena DO Work Phone: [facility] 01-10-2025 09:39-0400 Heart rate 77 /min Dr. Ezequiel Cadena DO Work Phone: [facility] 01-10-2025 09:39-0400 Respiratory rate 16 /min Dr. Ezequiel Cadena DO Work Phone: [facility] 01-10-2025 09:39-0400 SaO2% (BldA) [Mass fraction] 98 % Dr. Ezequiel Cadena DO Work Phone: [facility] 01-10-2025 09:39-0400 Systolic blood pressure 120 mm[Hg] Dr. Ezequiel Cadena DO Work Phone: [facility] 10-21-2024 00:28-0400 Body temperature 98.7 [degF] Dr. Ezequiel Cadena DO Work Phone: [facility] 10-21-2024 00:28-0400 Diastolic blood pressure 90 mm[Hg] Dr. Ezequiel Cadena DO Work Phone: [facility] 10-21-2024 00:28-0400 Heart rate 76 /min Dr. Ezequiel Cadena DO Work Phone: [facility] 10-21-2024 00:28-0400 Respiratory rate 18 /min Dr. Ezequiel Cadena DO Work Phone: [facility] 10-21-2024 00:28-0400 SaO2% (BldA) [Mass fraction] 96 % Dr. Ezequiel Cadena DO Work Phone: [facility] 10-21-2024 00:28-0400 Systolic blood pressure 129 mm[Hg] Dr. Ezequiel Cadena DO Work Phone: [facility] 10-20-2024 23:25-0400 Body height 162.[address] Ezequiel Cadena DO Work Phone: [facility] 10-20-2024 23:25-0400 Body mass index (BMI) [Ratio] 38.2 kg/m2 Dr. Ezequiel Cadena DO Work Phone: [facility] 10-20-2024 23:25-0400 Body weight 100.[address] Ezequiel Cadena DO Work Phone: [facility] 09-03-2024 11:47-0400 Body height 160.[address] Ezequiel Cadena DO Work Phone: [facility] 09-03-2024 11:47-0400 Body mass index (BMI) [Ratio] 39.4 kg/m2 Dr. Ezequiel Cadena DO Work Phone: [facility] 09-03-2024 11:47-0400 Body temperature 97.8 [degF] Dr. Ezequiel Cadena DO Work Phone: [facility] 09-03-2024 11:47-0400 Body weight 101.[address] Ezequiel Cadena DO Work Phone: [facility] 09-03-2024 11:47-0400 Diastolic blood pressure 84 mm[Hg] Dr. Ezequiel Cadena DO Work Phone: [facility] 09-03-2024 11:47-0400 Heart rate 73 /min Dr. Ezequiel Cadena DO Work Phone: [facility] 09-03-2024 11:47-0400 Respiratory rate 16 /min Dr. Ezequiel Cadena DO Work Phone: [facility] 09-03-2024 11:47-0400 SaO2% (BldA) [Mass fraction] 100 % Dr. Ezequiel Cadena DO Work Phone: [facility] 09-03-2024 11:47-0400 Systolic blood pressure 151 mm[Hg] Dr. Ezequiel Cadena DO Work Phone: [facility] 08-14-2024 03:10-0500 Body temperature 98.2 [degF] Dr. Ezequiel Cadena DO Work Phone: [facility] 08-14-2024 03:10-0500 Diastolic blood pressure 89 mm[Hg] Dr. Ezequiel Cadena DO Work Phone: [facility] 08-14-2024 03:10-0500 Heart rate 68 /min Dr. Ezequiel Cadena DO Work Phone: [facility] 08-14-2024 03:10-0500 Respiratory rate 19 /min Dr. Ezequiel Cadena DO Work Phone: [facility] 08-14-2024 03:10-0500 SaO2% (BldA) [Mass fraction] 97 % Dr. Ezequiel Cadena DO Work Phone: [facility] 08-14-2024 03:10-0500 Systolic blood pressure 166 mm[Hg] Dr. Ezequiel Cadena DO Work Phone: [facility] 08-13-2024 23:27-0500 Body height 160.[address] Ezequiel Cadena DO Work Phone: [facility] 08-13-2024 23:27-0500 Body mass index (BMI) [Ratio] 40.1 kg/m2 Dr. Ezequiel Cadena DO Work Phone: [facility] 08-13-2024 23:27-0500 Body weight 102.[address] Ezequiel Cadena DO Work Phone: [facility] 10-08-2023 12:42-0400 Body height 160.[address] Ezequiel Cadena Work Phone: [facility] 10-08-2023 12:42-0400 Body mass index (BMI) [Ratio] 40.1 kg/m2 Dr. Ezequiel Cadena Work Phone: [facility] 10-08-2023 12:42-0400 Body weight 102.[address] Ezequiel Cadena Work Phone: [facility] 10-08-2023 12:42-0400 Diastolic blood pressure 87 mm[Hg] Dr. Ezequiel Cadena Work Phone: [facility] 10-08-2023 12:42-0400 Respiratory rate 16 /min Dr. Ezequiel Cadena Work Phone: [facility] 10-08-2023 12:42-0400 Systolic blood pressure 129 mm[Hg] Dr. Ezequiel Cadena Work Phone: [facility] Encounters Encounter Date Encounter Type Care Provider Facility Start: 04-15-2025 End: 04-15-2025 Emergency department patient visit Fermin Duckworth Facility:[facility] Start: 03-04-2025 End: 03-04-[address] Ezequiel Cadena DO -Medical Out Work Phone: Start: 03-04-2025 End: 03-04-[address] Ezequiel Cadena DO Work Phone: -[facility] Start: 03-02-2025 End: 03-02-[address] Ezequiel Cadena DO Work Phone: -[facility]atory [place] Start: 03-02-2025 End: 03-02-[address] Ezequiel Cadena DO -Labor[facility] [place] Work Phone: Start: 03-02-2025 End: 03-02-2025 ambulatory Ezequiel Cadena Facility:[facility] Start: 02-10-2025 End: 02-10-[address] Ezequiel Cadena DO Work Phone: -Laboratory [facility] Start: 02-10-2025 End: 02-10-[address] Ezequiel Cadena DO -Laboratory [facility] Start: 02-10-2025 End: 02-10-[facility] Start: 01-31-2025 Registered [facility]ESS[facility] -Laboratory [place] Work Phone: Start: 01-31-2025 ambulatory [facility] Facility: [facility] Start: 01-10-2025 End: 01-10-2025 Patient encounter procedure Jr Rouse [facility] Work Phone: Start: 01-10-2025 End: 01-10-[address] Ezequiel Cadena DO Work Phone: [facility] Start: 10-20-2024 End: 10-21-2024 Emergency department patient visit Dr. Ezequiel Cadena DO Work Phone: -Emergency Department Work Phone: Start: 09-18-2024 End: 09-18-[address] Ezequiel Cadena DO Work Phone: [facility] Work Phone: Start: 09-18-2024 End: 09-18-[address] Abelardo Myrick MD -Ultrasound, [facility] Work Phone: Start: 09-18-2024 End: 09-18-2024 ambulatory Abelardo Myrick Facility:[facility] Start: 09-10-2024 End: 09-10-[address] Ezequiel Cadena DO Work Phone: [facility] Work Phone: Start: 09-10-2024 End: 09-10-[address] Ezequiel Cadena DO -Outpatient Breast Imaging Work Phone: Start: 09-10-2024 End: 09-10-2024 ambulatory Ezequiel Cadena Facility:[facility] Start: 09-03-2024 End: 09-03-[address] Ezequiel Cadena DO -Medical Out Work Phone: Start: 09-03-2024 End: 09-03-[address] Ezequiel Cadena DO Work Phone: [facility] Work Phone: Start: 08-13-2024 End: 08-14-2024 Emergency department patient visit Dr. Ezequiel Cadena DO Work Phone: -Emergency Department Work Phone: Start: 08-10-2024 End: 08-10-[address] Ezequiel Cadena DO Work Phone: [facility] Work Phone: Start: 08-10-2024 End: 08-10-[address] Ezequiel Cadena DO -Radiology, [place] Work Phone: Start: 08-10-2024 End: 08-10-2024 ambulatory Ezequiel Cadena Facility:[facility] Start: 05-10-2024 End: 05-10-[address] Ezequiel Cadena DO -Laboratory, [facility] Start: 05-10-2024 End: 05-10-2024 ambulatory Ezequiel Cadena Facility:[facility] Start: 10-16-2023 End: 10-16-[address] Ezequiel Cadena Work Phone: [facility] Work Phone: Start: 10-16-2023 End: 10-16-[address] Ezequiel Cadena Work Phone: [facility]-Cat Scan, [facility] Work Phone: Start: 10-08-2023 End: 10-08-[address] Ezequiel Cadena Work Phone: [facility] Work Phone: Start: 09-24-2023 End: 09-24-2023 ambulatory [facility] Work Phone: Start: 09-24-2023 End: 09-24-2023 Patient encounter procedure [facility]-Laboratory, [facility] Start: 09-10-2023 End: 09-10-2023 ambulatory [facility] Work Phone: Start: 09-10-2023 End: 09-10-2023 Patient encounter procedure [facility]-Outpatient Bone Densitometry Work Phone: Start: 08-12-2023 End: 08-12-2023 ambulatory [facility] Work Phone: Start: 08-12-2023 End: 08-12-2023 Patient encounter procedure [facility]-Laboratory, [facility] Start: 02-28-2023 Registered [facility]erred [facility] Start: 02-28-2023 End: 02-28-2023 ambulatory [facility] Work Phone: Start: 02-28-2023 End: 02-28-2023 [facility] Start: 12-24-2022 End: 12-24-2022 ambulatory [facility] Work Phone: Start: 12-24-2022 End: 12-24-2022 Patient encounter procedure [facility], Specimen Work Phone: Start: 09-24-2022 End: 09-24-2022 ambulatory [facility] Work Phone: Start: 09-24-2022 End: 09-24-2022 Patient encounter procedure [facility] Start: 01-09-2022 End: 01-09-2022 Patient encounter procedure [facility]-Outpatient Breast Imaging Start: 11-28-2021 End: 11-28-2021 Patient encounter procedure [facility] Start: 02-25-2017 End: 02-25-2017 Phone 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 Kinsey Cadena DO Work Phone: Comment on above: Performed at: [address] [id number] Director: Chang Garcia PhD, Phone: [phone] Start: 03-02-2025 Antibody to centrome re measurement Dr. Ezequiel Cadena DO Work Phone: Comment on above: Test not performed Start: 03-02-2025 Antibody to extracta ble nuclear antigen measurement Dr. Ezequiel Cadena DO Work Phone: Comment on above: Test not performed Start: 03-02-2025 Antibody to SUSANNAH-[address] Ezequiel Cadena DO Work Phone: Comment on above: Test not performed Start: 03-02-2025 Antibody to lupus La protein measurement Dr. Ezequiel Cadena DO Work Phone: Comment on above: Test not performed Start: 03-02-2025 Antibody to SS-A measurement Dr. Ezequiel Cadena DO Work Phone: Comment on above: Test not performed Start: 03-02-[address] Ezequiel Cadena DO Work Phone: Comment on above: Test not performed Start: 03-02-2025 SUSTAINABILITY DIRECTOR antibody measurement Dr. Ezequiel Cadena DO Work Phone: Comment on above: Test not performed Start: 02-10-2025 Acetylcholine recept or blocking antibody measurement Dr. Ezequiel Cadena DO Work Phone: Comment on above: Negative: 0 - 25 Bor derline: 26 - 30 Positive: >30Performed at: [facility] [address] [id number] Director: Adryan Bower MD, Phone: [phone] Start: 01-31-2025 Serum inorganic phosphate measurement Dr. Ezequiel Cadena DO Work Phone: Start: 10-20-2024 Plain X-ray of shoulder Dr. Ezequiel Cadena DO Work Phone: Start: 10-20-2024 X-ray of knee, four or more views Dr. Ezequiel Cadena DO Work Phone: Start: 09-18-2024 US scan of thyroid Dr. Ezequiel Cadena DO Work Phone: Start: 09-10-2024 Screening mammography Rachel Cadena DO Work Phone: Start: 08-13-2024 X-ray of chest, PA a nd lateral views Dr. Ezequiel Cadena DO Work Phone: Start: 08-13-[address] Ezequiel Cadena DO Work Phone: Start: 08-10-2024 X-ray of chest, PA a nd lateral views Dr. Ezequiel Cadena DO Work Phone: Start: 10-16-2023 CT of head without contrast Dr. Ezequiel Cadena Work Phone: Start: 09-10-2023 US scan of thyroid Start: 09-10-2023 Dual energy X-ray absorptiometry Start: 09-10-2023 Screening mammography Start: 08-12-2023 Urine culture Start: 12-24-2022 Urine culture Start: 01-09-2022 Screening mammography Start: 10-01-2018 End: 10-02-2018 Ankle min 3 Views Comments: See Note; NOTES: [facility] Imaging Services [address] [place] [address] Ankle min 3 Views MR#: [id number] Acct: [id number] Name: TUNG WILSON Rep #: [id number] : [id number] F 62 From: Pepe Gallego MD PCP: Ezequiel Cadena DO Status: REG CLI Study: Ankle min 3 Views Date of Exam: 10/01/18 Exam# [id number] Ordering Dr: Laverne Mcclure DO STUDY: X-RAY [...] CC: Laverne Mcclure DO; Ezequiel Cadena DO Hold Worker: Signed Alarm Investigator Plan of Treatment Date Care Activity Detail Author Start: 10-21-2024 [facility] Start: 08-14-2024 [facility] Start: 08-13-2024 [facility] Start: 09-10-2023 Dual energy X-ray absorptiometry Dexa Bone Density Study [facility] Start: 09-10-2023 DXA Bone [Mass/Area] Bone density [facility] Acetylcholine recept or blocking Ab [Presence] in Serum [facility] Bilirubin measuremen t, urine [facility] Work Phone: Hemoglobin [Presence ] in Urine [facility] Work Phone: Measurement of keton es in urine using dipstick [facility] Work Phone: Patient Education [facility] Work Phone: Patient referral [facility] Work Phone: pH of Urine [facility] Work Phone: Specific gravity of Urine [facility] Work Phone: Urine dipstick for glucose [facility] Work Phone: Urine dipstick for leukocyte esterase [facility] Work Phone: Urine dipstick for nitrite [facility] Work Phone: Urine dipstick for protein [facility] Work Phone: Urine examination [facility] Work Phone: Urobilinogen [Presen ce] in Urine [facility] Work Phone: US Thyroid gland [facility] Immunizations Immunization Date Immunization Notes Care Provider Fa cility 04-20-2024 Covid (Spikevax) Dr. Ezequiel Romo DO Work Phone: [facility] 03-19-2024 influenza, seasonal, injectable, preservative free Dr. Ezequiel Cadena DO Work Phone: [facility] 04-11-2023 Covid (Spikevax) [facility] 03-19-2023 influenza, injectabl e, quadrivalent, preservative free [facility] 03-18-2022 influenza, injectabl e, quadrivalent, preservative free [facility] 03-18-2022 influenza, seasonal, [facility] 01-18-2022 Covid (Pfizer) [facility] 04-27-2021 Covid (Moderna) [facility] 03-28-2021 influenza, injectabl e, quadrivalent, preservative free [facility] 03-28-2021 influenza, seasonal, injectable [facility] 07-18-2020 Covid (Moderna) [facility] 06-20-2020 Covid (Moderna) [facility] 04-24-2020 influenza, injectabl e, quadrivalent, preservative free [facility] 04-24-2020 influenza, seasonal, injectable [facility] 03-31-2019 influenza, injectabl e, quadrivalent, preservative free [facility] 03-31-2019 influenza, seasonal, [facility] 03-25-2018 influenza, injectabl e, quadrivalent, preservative free [facility] 03-25-2018 influenza, seasonal, injectable [facility] 03-21-2017 influenza, injectabl e, quadrivalent, preservative free [facility] 03-21-2017 influenza, seasonal, injectable [facility] 03-14-2016 influenza, injectabl e, quadrivalent, preservative free [facility] 03-14-2016 influenza, seasonal, injectable [facility] 04-11-2015 influenza, injectabl e, quadrivalent, preservative free [facility] 04-11-2015 influenza, seasonal, [facility] 03-03-2014 influenza, injectabl e, quadrivalent, preservative free [facility] 03-03-2014 influenza, seasonal, injectable [facility] Payers Date Payer Category Payer Unknown [id number] 2024 Self-pay [id number] 2023 Unknown [id number] 2016 Unknown [id number] Unknown [id number] Unknown [id number] 2.16.8 [id number] Unknown [id number] 2.16.8 [id number] Unknown [id number] 2.16.8 [id number] Unknown [id number] 2.16.8 40.1.121918.3.579.2.462 Unknown [id number] 2.16.8 40.1.011659.3.579.2.462 Unknown [id number] 2.16.8 [id number] Unknown [id number] 2.16.8 [id number] Unknown [id number] 2.16.8 [id number] Unknown [id number] 2.16.8 40.1.840171.3.579.2.462 Unknown [id number] 2.16.8 40.1.377723.3.579.2.462 Unknown [id number] 2.16.8 [id number] Unknown [id number] 2.16.8 [id number] Unknown [id number] 2.16.8 [id number] Social History Date Type Detail Facility Start: 07-07-2021 End: 05-21-2022 Tobacco smoking status NHIS Unknown if ever smoked [facility] Start: 1955 Sex Assigned At Female [facility] Start: 08-13-2024 End: 10-21-2024 Tobacco smoking status NHIS Never smoked tobacco (finding) [facility] Start: 08-23-2024 End: 09-23-2024 Sex Female (finding) [facility] Sex Female [facility] Medical Equipment Procedure Code Equipment [...] 02-06-2018 Mental Status Date Assessment Result Facility 03-04-2025 Cognitive function Voice/Name [facility] Work Phone: 08-13-2024 Cognitive function Awake;Alert;A ppropriate;Fol lows Commands [facility] Work Phone: Clinical Notes 08-10-2024 to 01-10-2025 Note Date & Type Note Facility 01-10-2025 Evaluation note Diagnosis Onset Date Resolution Rash noneactive January 10 9:36am [facility] Work Phone: 1(866) 927-500405-08-2025 Radiology Diagnostic study note [facility] Imaging Services [address] [place] [address] Knee 4 or More Views MR#: [id number] Acct: [id number] Name: TUNG WILSON Rep #: [id number] : 1955 F 68 From: Elder Saleem MD PCP: Dr. Ezequiel Cadena DO Status: REG ER Study:Knee 4 or More Views Date of Exam: 10/20/24 Exam# [id number] Ordering Dr: Natasha Norton MD PROCEDURE: KNEE [...] suggested prepatellar soft tissue swelling. Reading Location: [id number] CC: Dr. Bruce Norton MD; Dr. Ezequiel Cadena DO ~ Hold Worker: Signed [facility]05-08-2025 Discharge summary [facility] Medical Records Department [address] [place] [address] Emergency Department Summary 10/21/24 MR#: [id number] Acct: [id number] Name: TUNG WILSON Rep #:[id number] : 1955 68 From: Bruce Norton MD PCP: Dr. 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 States she was cleaning in her room [...] against it, and the shoulder hurt laterally. [id number]. No numbness or tingling. No injuries or pain elsewhere. Denies prodromal symptoms. [facility] Medical History Contact with and (suspected) exposure [...] IMPRESSION: No fracture or dislocation. Reading Location: [facility] Discharge Plan Triage Chief Complaint: Fall ED [...] - As soon as possible Print Language: Bulgarian Disposition Disposition: Home, Self Care What to do if you have Problems For any increased pain, shortness of breath, bleeding, nausea or vomiting, chestpain, or any unexpected problems, contact your Primary Care Provider. Call [facility] ([phone]) or report tothe closest Emergency Room. Call 911 if necessary. 10/21/24 0018 Cosigner Signature (if applicable): CC: Dr. Ezequiel Cadena, ~ Signed [facility]05-08-2025 Radiology Diagnostic study note [facility] Imaging Services [address], [place] [address] Shoulder min 2 Views MR#: [id number] Acct: [id number] Name: TUNG WILSON Rep #: [id number] : 1955 F 68 From: Elder Saleem MD PCP: Dr. Ezequiel Cadena DO Status: PRE ER Study:Shoulder min 2 Views Date of Exam: 10/20/24 Exam# [id number] Ordering Dr: Natasha Norton MD PROCEDURE: SHOULDER MIN 2 VIEWS 10/21/2024 REASON FOR EXAM: FALL TECHNIQUE: Four views right shoulder FINDINGS: No fracture or dislocation. Mild appearing osteoarthrosis. Some irregularity of the lateral humeralhead may represent rotator cuff tendinopathy. RAD/Shoulder min 2 Views IMPRESSION: No fracture or dislocation. Reading Location: [id number] CC: Dr. Bruce Norton MD; Dr. Ezequiel Cadena DO ~ Hold Worker: Signed [facility]04-05-2025 Radiology Diagnostic study note [facility] Imaging Services [address] [place] [address] Thyroid MR#: [id number] Acct: [id number] Name: TUNG WILSON Rep #: [id number] : 1955 F 68 From: Rachel Floyd MD PCP: Dr. Ezequiel Cadena DO Status: REG CLI Study:Thyroid Date of Exam: 09/18/24 Exam# [id number] Ordering Dr: St alex Pereira MD PROCEDURE: [...] No suspicious thyroid nodule identified. Reading Location: [facility] CC: Dr. Ezequiel Cadena DO; Dr. Jr Pereira MD ~ Hold Worker: Signed [facility]02-25-2025 Radiology Diagnostic study note [facility] Imaging Services [address] [place] [address] Chest PA and Lateral MR#: [id number] Acct: [id number] Name: TUNG WILSON Rep #: [id number] : 1955 F 68 From: Jovanna Waterman MD PCP: Dr. Ezequiel Cadena, Status: REG CLI Study:Chest PA and Lateral Date of Exam: 08/10/24 Exam# [id number] Ordering Dr: Ezequiel Cadena DO PROCEDURE: CHEST [...] IMPRESSION: No active cardiopulmonary disease. Reading Location: [place] [address] CC: Dr. Ezequiel Cadena DO ~ Hold Worker: Signed [facility] Author Bruce Cierra [facility] Note Date/Time October 21, 2024 12:18a m [facility] Medical Records Department [address] [place] [address] Emergency Department Summary 10/21/24 MR#: [id number] Acct: [id number] Name: TUNG WILSON Rep #:[id number] : 1955 68 From: Bruce Norton MD PCP: Dr. 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 States she was cleaning in her room [...] against it, and the shoulder hurt laterally. [id number]-[id number]-[id number]. No numbness or tingling. No injuries or pain elsewhere. Denies prodromal symptoms. [facility] Medical History Contact with and (suspected) exposure [...] IMPRESSION: No fracture or dislocation. Reading Location: [facility] Discharge Plan Triage Chief Complaint: Fall ED [...] - As soon as possible Print Language: Bulgarian Disposition Disposition: Home, Self Care What to do if you have Problems For any increased pain, shortness of breath, bleeding, nausea or vomiting, chestpain, or any unexpected problems, contact your Primary Care Provider. Call [facility] ([phone]) or report to the closest Emergency Room. Call 911 if necessary. 10/21/24 0018 <Electronically signed by Bruce Norton MD> Cosigner Signature (if applicable): CC: Dr. Ezequiel Cadena DO ~ Signed [facility] Work Phone: Evaluation noteNo assessment information available [facility] Work Phone: Evaluation note* Diagnosis Onset Date Resolution Status Nodular thyroid disease acut e [facility] Work Phone: Evaluation note* Diagnosis Onset Date Resolution Status Admit Date Rash noneactive January 10 9:36am [facility] Work Phone: Reason for referral (narrative)[facility] for [facility]: Advance Directives No Advanced Directives Records Found Advance Directive Response Recorded Date/ Time Advance Directives No January 21 10:48am Living Will No January 14, 2021 1:32pm Power of Government Program Manager No January 14 1:32pm Advance Directive Response Recorded Date/ Time Advance Directives No January 21 9:48am Living Will No January 14, 2021 12:32pm Power of Government Program Manager No January 14 12:32pm Advance Directive Response Recorded Date/ Time Living Will Yes August 14, 2024 12:32am Power of Government Program Manager No August 14 12:32am Advance Directives No January 21 10:48am Advance Directive Response Recorded Date/ Time Living Will No January 14, 2021 1:32pm Do you have a Healthcare Power of Government Program Manager? No January 14, 2021 1:32pm Living Will Yes August 14, 2024 12:32am Do you have a Healthcare Power of Government Program Manager? No August 14, 2024 12:32am Advance Directives No January 21 10:48am Advance Directive Response Recorded Date/ Time Living Will No January 14, 2021 1:32pm Do you have a Healthcare Power of Government Program Manager? No January 14, 2021 1:32pm Do you have a Healthcare Power of Government Program Manager? No October 21, 2024 12:11am Living Will Yes August 14, 2024 12:32am Do you have a Healthcare Power of Government Program Manager? No August 14, 2024 12:32am Advance Directives No January 21 10:48am Advance Directive Response Recorded Date/ Time Living Will No January 14, 2021 1:32pm Do you have a Healthcare Power of Government Program Manager? No January 14, 2021 1:32pm Do you have a Healthcare Power of Government Program Manager? No October 21, 2024 12:11am Advance Directives No [place] [address], 2 016 10:48am Advance Directive Response Recorded Date/ Time Do you have a Healthcare Power of Government Program Manager? No October 21, 2024 12:11am Advance Directives No January 21 10:48am Advance Directive Response Recorded Date/ Time Advance Directives No January 21 10:48am Chief [...] [employer] January 31, 2025 11 :04am Chief Complaint Admit Date Rash January 10, 2025 9:36 am [employer] January 31, 2025 11 :04am [facility] March 04, 2025 11:44am Summary Purpose Family History No Family History [...] Health Risk Assessment Attending Provider, Referring P tacos Active Team Status: Inactive Member Role Status [...] August 10, 2024 Dr. Ezequiel Cadena DO Referring Provider Active Start: August [...] 2024 End: September 18, 2024 Dr. Abelardo yMrick MD Referring Provider Active Start: September 18, [...] January 10, 2025 End: January 10, 2025 Jr ARANGO PA Attending Provider Active Start: January 10, 2025 [...] January 10, 2025 End: January 10, 2025 Jr Rouse PA PA Attending Provider Active Start: January 10, 2025 [...] February 10, 2025 End: February 10, 2025 Team Status: Active Member Role/Relationship Status Dates Dr. Ezequiel Cadena DO Primary care physician Active Team Status: Inactive Member Role/Relationship Status Dates Dr. Ezequiel Cadena DO Primary care physician Active Start: January 10, 2025 End: January 10, 2025 Dr. Ezequiel Cadena DO Referring Provider Active Start: January 10, 2025 End: January 10, 2025 Jr ARANGO, PA Attending physician Active Start: January 10, 2025 End: January 10, 2025 Team Status: Active Member Role/Relationship Status Dates Dr. Ezequiel Cadena DO Primary care physician Active Start: January 31, 2025 Health Risk Assessment Attending physician Active Start: January 31, 2025 Health Risk Assessment Referring Provider Active Start: January 31, 2025 Team Status: Inactive Member Role/Relationship Status Dates Dr. Ezequiel Cadena DO Primary care physician Active Start: February 10, 2025 End: February 10, 2025 Dr. Ezequiel Cadena DO Attending physician Active Start: February 10, 2025 End: February 10, 2025 Team Status: Inactive Member Role/Relationship Status Dates Dr. Ezequiel Cadena DO Primary care physician Active Start: March 02, 2025 End: March 02, 2025 Dr. Ezequiel Cadena DO Attending physician Active Start: March 02, 2025 End: March 02, 2025 Dr. Ezequiel Cadena DO Referring Provider Active Start: March 02, 2025 End: March 02, 2025 Team Status: Inactive Member Role/Relationship Status Dates Dr. Ezequiel Cadena DO Primary care physician Active Start: March 04, 2025 End: March 04, 2025 Dr. Ezequiel Cadena DO Attending physician Active Start: March 04, 2025 End: March 04, 2025 Dr. Ezequiel Cadena DO Referring Provider Active Start: March 04, 2025 End: March 04, 2025 INFORMATION SOURCE (unrecogn ized section and content) DATE CREATED AUTHOR 04/17/2025 [facility] FOR RECORDS PERTAINING TO PATIENTS WHO [...] BE BASED ON THE PRIMARY CLINICAL RECORDS. [employer] [facility]. provides no warranty or guarantee of the accuracy or completeness of information in this document.
== END | disposition home or self-care (01) ==
PROVIDERS: PCP Family Medicine; Referring Provider Physician Assistant; Visit Provider Physician Assistant
DX: S80.01XA Contusion of right knee, initial encounter (principal)
CPT/HCPCS: 73721